=== PATIENT | female | born 1950 | race Caucasian/White ===

== ENCOUNTER 2020-02-09 16:17 | Outpatient (REF) | payer MEDICARE, SELFPAY ==
[2020-02-09 17:37] LABS: MANUAL DIFF FLAG NO
[2020-02-09 17:43] LABS: Basophils Percent Auto 0.4 % (0-2); Eosinophils Absolute Auto 0.2 X10*3/uL (0.0-0.4); Eosinophils Percent Auto 2.8 % (0-4); Hematocrit 37.8 % (37-47); Hemoglobin 12.3 g/dl (12.0-16.0); Imm Gran Abs Auto 0.02 X10*3/uL (0.00-0.03); Imm Gran Pct Auto 0.3 % (0.0-0.4); Lymphocytes Percent Auto 51.2 % (20-40); Mean Corpuscular HGB Conc 32.5 g/dl (31.0-35.0); Mean Corpuscular Hemoglobin 32.6 pg (27.0-33.0); Mean Corpuscular Volume 100.3 fL (80-98); Mean Platelet Volume 11.6 fL (9.4-12.3); Monocytes Percent Auto 12.6 % (2-11); Neutrophils Absolute Auto 2.6 X10*3/uL (2.0-8.3); Neutrophils Percent Auto 32.7 % (45-73); Platelet Count 227 X10*3/uL (160-400); Red Blood Count 3.77 X10*6/uL (4.20-5.50); Red Cell Distribution Width 14.3 % (11.0-16.0); White Blood Count 7.8 X10*3/uL (4.8-10.8)
[2020-02-09 18:06] LABS: C Reactive Protein 0.66 mg/dL (< or = 0.50)
[2020-02-09 18:07] LABS: Alanine Aminotransferase 31 U/L (0-31); Albumin Level 4.3 g/dL (3.5-5.0); Alkaline Phosphatase 80 U/L (39-117); Anion Gap 17 (12-20); Aspartate Amino Transferase 24 U/L (5-31); Bilirubin Total 0.2 mg/dL (0.0-1.0); Blood Urea Nitrogen 30 mg/dL (9-16); Calcium 9.8 mg/dL (8.4-10.2); Carbon Dioxide 22 mmol/L (22-29); Chloride 107 mmol/L (96-108); Estimated Glomerular Filt Rate 28; Glucose Random 140 mg/dL (60-115); Potassium 5.2 mmol/l (3.3-5.1); Sodium 141 mmol/L (135-145); Total Protein 7.5 g/dL (6.5-8.0)
[2020-02-09 18:50] LABS: Erythrocyte Sedimentation Rate 34 MM/HR (0-20)
== END 2020-02-09 16:18 | disposition home or self-care (01) ==
LOC: HO.LAB 16:17
PROVIDERS: PCP Internal Medicine Geriatric Medicine; Visit Provider Student in an Organized Health Care Education/Training Program
DX: M05.9 Rheumatoid arthritis with rheumatoid factor, unspecified (principal)
CPT/HCPCS: 36415; 80053; 85025; 85652; 86140

== ENCOUNTER → 2020-03-21 13:02 | Outpatient (BNVA) | payer MEDICARE, SELFPAY | PROVIDERS: Visit Provider Student in an Organized Health Care Education/Training Program | DX: M05.9 Rheumatoid arthritis with rheumatoid factor, unspecified (principal); M79.7 Fibromyalgia; Z23 Encounter for immunization | CPT/HCPCS: 90471; 90686; 99212 ==

== ENCOUNTER 2020-09-15 14:05 | Outpatient (REF) | payer MEDICARE, SELFPAY ==
--- NOTE | ~2020-09-15 | XR_ITS ---
EXAMINATION: XR CHEST CLINICAL INFORMATION: Rheumatoid arthritis with rheumatoid factor COMPARISON: Previous chest x-ray most recent July 2017 TECHNIQUE: 2 views of the chest were obtained. FINDINGS: The cardiac silhouette is upper normal in size but able. Hilar and mediastinal contours are unremarkable. The lungs are clear. There is no pleural effusion or pneumothorax. There is a mild thoracolumbar scoliosis. Bony structures are otherwise unremarkable. XR/XR chest 2V IMPRESSION: No evidence for acute disease in the chest.
[2020-09-15 15:49] LABS: MANUAL DIFF FLAG NO
[2020-09-15 15:51] LABS: Basophils Percent Auto 0.1 % (0-2); Eosinophils Absolute Auto 0.3 X10*3/uL (0.0-0.4); Eosinophils Percent Auto 2.9 % (0-4); Hematocrit 37.8 % (37-47); Hemoglobin 12.1 g/dl (12.0-16.0); Imm Gran Abs Auto 0.02 X10*3/uL (0.00-0.03); Imm Gran Pct Auto 0.2 % (0.0-0.4); Lymphocytes Absolute Auto 3.5 X10*3/uL (1.2-4.9); Lymphocytes Percent Auto 40.8 % (20-40); Mean Platelet Volume 11.5 fL (9.4-12.3); Monocytes Percent Auto 11.4 % (2-11); Neutrophils Absolute Auto 3.8 X10*3/uL (2.0-8.3); Neutrophils Percent Auto 44.6 % (45-73); Platelet Count 208 X10*3/uL (160-400); Red Blood Count 3.78 X10*6/uL (4.20-5.50); Red Cell Distribution Width 13.7 % (11.0-16.0); White Blood Count 8.6 X10*3/uL (4.8-10.8)
[2020-09-15 16:01] LABS: Estimated Average Glucose 200 mg/dL; Hemoglobin A1c % 8.6 %
[2020-09-15 16:06] LABS: Glucose Urine UA NEG (NEG); Leukocyte Esterase Urine 2+ (NEG); Nitrite Urine NEG (NEG); Urine Blood NEG (NEG); Urine Ketones NEG (NEG); Urine Protein TRACE MG/DL (NEG-TRACE)
[2020-09-15 16:08] LABS: Alanine Aminotransferase 27 U/L (0-31); Albumin Level 4.2 g/dL (3.5-5.0); Alkaline Phosphatase 85 U/L (39-117); Anion Gap 16 (12-20); Aspartate Amino Transferase 21 U/L (5-31); Bilirubin Direct < 0.2 mg/dL (0.0-0.5); Bilirubin Total 0.2 mg/dL (0.0-1.0); Blood Urea Nitrogen 33 mg/dL (9-16); Carbon Dioxide 20 mmol/L (22-29); Chloride 107 mmol/L (96-108); Cholesterol 188 mg/dL; Estimated Glomerular Filt Rate 28; HDL Cholesterol 36 mg/dL; Iron 90 mcg/dL (30-160); Percent Iron Saturation 31 % (15-50); Potassium 5.5 mmol/L (3.3-5.1); Sodium 137 mmol/L (135-145); Total Iron Binding Capacity 293 mcg/dL (228-428); Total Protein 7.5 g/dL (6.5-8.0); Triglycerides 609 mg/dL; Unsaturated Iron Binding 203 ug/dL
[2020-09-15 16:09] LABS: Appearance Urine CLEAR; Color Urine YELLOW
[2020-09-15 16:14] LABS: Uric Acid 7.8 mg/dL (2.4-5.7)
[2020-09-15 16:17] LABS: Alanine Aminotransferase 28 U/L (0-31); Albumin Level 4.3 g/dL (3.5-5.0); Alkaline Phosphatase 91 U/L (39-117); Anion Gap 17 (12-20); Aspartate Amino Transferase 23 U/L (5-31); Bilirubin Total 0.2 mg/dL (0.0-1.0); Blood Urea Nitrogen 33 mg/dL (9-16); C Reactive Protein 0.58 mg/dL (< or = 0.50); Calcium 9.3 mg/dL (8.4-10.2); Carbon Dioxide 20 mmol/L (22-29); Chloride 109 mmol/L (96-108); Estimated Glomerular Filt Rate 29; Glucose Random 202 mg/dL (60-115); Potassium 5.5 mmol/L (3.3-5.1); Sodium 140 mmol/L (135-145); Total Protein 7.4 g/dL (6.5-8.0)
[2020-09-15 16:20] LABS: Bacteria Urine 1+ /LPF; RBC Urine 0-2 /HPF (0); Squamous Epithelial Cell Urine 2+ /LPF
[2020-09-15 16:27] LABS: Vitamin D 25-OH Total 44.3 ng/mL (>30)
[2020-09-15 16:44] LABS: Erythrocyte Sedimentation Rate 38 MM/HR (0-20)
[2020-09-19 13:33] LABS: Calcium (PTHI) 9.3 mg/dL (8.6-10.4); PTHI 75 pg/mL (14-64)
== END 2020-09-15 14:06 | disposition home or self-care (01) ==
LOC: HO.LAB 14:05
PROVIDERS: Absent Provider Internal Medicine Nephrology; PCP Internal Medicine Geriatric Medicine; Visit Provider Student in an Organized Health Care Education/Training Program
DX: N18.32 Chronic kidney disease, stage 3b (principal); M05.9 Rheumatoid arthritis with rheumatoid factor, unspecified; M79.7 Fibromyalgia; R06.00 Dyspnea, unspecified
CPT/HCPCS: 36415; 71046; 80051; 80053; 80061; 80076; 81001; 81003; 82248; 82306; 82310; 82565; 83036; 83540; 83970; 84520; 84550; 85025; 85652; 86140; 99212

== ENCOUNTER 2020-12-18 13:44 | Outpatient (REF) | payer MEDICARE, SELFPAY ==
[2020-12-18 16:01] LABS: MANUAL DIFF FLAG NO
[2020-12-18 16:06] LABS: Basophils Percent Auto 0.3 % (0-2); Eosinophils Absolute Auto 0.3 X10*3/uL (0.0-0.4); Eosinophils Percent Auto 3.9 % (0-4); Hematocrit 39.5 % (37-47); Hemoglobin 12.3 g/dl (12.0-16.0); Imm Gran Abs Auto 0.01 X10*3/uL (0.00-0.03); Imm Gran Pct Auto 0.1 % (0.0-0.4); Lymphocytes Absolute Auto 4.5 X10*3/uL (1.2-4.9); Lymphocytes Percent Auto 56.2 % (20-40); Mean Corpuscular HGB Conc 31.1 g/dl (31.0-35.0); Mean Corpuscular Hemoglobin 31.4 pg (27.0-33.0); Mean Corpuscular Volume 100.8 fL (80-98); Mean Platelet Volume 11.6 fL (9.4-12.3); Monocytes Absolute Auto 0.9 X10*3/uL (0.1-1.2); Monocytes Percent Auto 11.9 % (2-11); Neutrophils Absolute Auto 2.2 X10*3/uL (2.0-8.3); Neutrophils Percent Auto 27.6 % (45-73); Platelet Count 201 X10*3/uL (160-400); Red Blood Count 3.92 X10*6/uL (4.20-5.50); Red Cell Distribution Width 14.4 % (11.0-16.0); White Blood Count 7.9 X10*3/uL (4.8-10.8)
[2020-12-18 16:27] LABS: Alanine Aminotransferase 33 U/L (0-31); Albumin Level 4.4 g/dL (3.5-5.0); Alkaline Phosphatase 74 U/L (39-117); Anion Gap 17 (12-20); Aspartate Amino Transferase 23 U/L (5-31); Bilirubin Total 0.2 mg/dL (0.0-1.0); Blood Urea Nitrogen 29 mg/dL (9-16); C Reactive Protein 0.22 mg/dL (< or = 0.50); Calcium 9.8 mg/dL (8.4-10.2); Carbon Dioxide 26 mmol/L (22-29); Chloride 106 mmol/L (96-108); Estimated Glomerular Filt Rate 27; Glucose Random 200 mg/dL (60-115); Potassium 5.1 mmol/L (3.3-5.1); Sodium 144 mmol/L (135-145); Total Protein 7.8 g/dL (6.5-8.0)
[2020-12-18 16:51] LABS: Erythrocyte Sedimentation Rate 28 MM/HR (0-20)
== END 2020-12-18 13:45 | disposition home or self-care (01) ==
LOC: HO.LAB 13:44
PROVIDERS: PCP Internal Medicine Geriatric Medicine; Visit Provider Nurse Practitioner Family
DX: M05.9 Rheumatoid arthritis with rheumatoid factor, unspecified (principal); M79.7 Fibromyalgia; M25.512 Pain in left shoulder; M25.562 Pain in left knee
CPT/HCPCS: 36415; 80053; 85025; 85652; 86140; 99212

== ENCOUNTER 2021-03-12 12:20 | Outpatient (REF) | payer MEDICARE, SELFPAY ==
[2021-03-12 12:47] LABS: MANUAL DIFF FLAG NO
[2021-03-12 13:23] LABS: Basophils Percent Auto 0.4 % (0-2); Eosinophils Absolute Auto 0.3 X10*3/uL (0.0-0.4); Eosinophils Percent Auto 3.8 % (0-4); Hematocrit 40.2 % (37.0-47.0); Hemoglobin 12.7 g/dl (12.0-16.0); Imm Gran Abs Auto 0.02 X10*3/uL (0.00-0.03); Imm Gran Pct Auto 0.3 % (0.0-0.4); Lymphocytes Absolute Auto 3.8 X10*3/uL (1.2-4.9); Lymphocytes Percent Auto 48.2 % (20-40); Mean Corpuscular HGB Conc 31.6 g/dl (31.0-35.0); Mean Corpuscular Volume 101.3 fL (80.0-98.0); Mean Platelet Volume 11.4 fL (9.4-12.3); Monocytes Absolute Auto 0.9 X10*3/uL (0.1-1.2); Monocytes Percent Auto 11.5 % (2-11); Neutrophils Absolute Auto 2.8 x10*3/uL (2.0-8.3); Neutrophils Percent Auto 35.8 % (45-73); Platelet Count 229 X10*3/uL (160-400); Red Blood Count 3.97 X10*6/uL (4.20-5.50); Red Cell Distribution Width 14.8 % (11.0-16.0); White Blood Count 7.8 X10*3/uL (4.8-10.8)
[2021-03-12 13:44] LABS: Alanine Aminotransferase 21 U/L (0-31); Albumin Level 4.3 g/dL (3.5-5.0); Alkaline Phosphatase 75 U/L (39-117); Anion Gap 14 (12-20); Aspartate Amino Transferase 17 U/L (5-31); Bilirubin Total 0.2 mg/dL (0.0-1.0); Blood Urea Nitrogen 30 mg/dL (9-16); Calcium 9.7 mg/dL (8.4-10.2); Carbon Dioxide 25 mmol/L (22-29); Chloride 108 mmol/L (96-108); Estimated Glomerular Filt Rate 28; Glucose Random 174 mg/dL (60-115); Potassium 4.9 mmol/L (3.3-5.1); Sodium 142 mmol/L (135-145); Total Protein 7.7 g/dL (6.5-8.0)
[2021-03-12 14:28] LABS: Erythrocyte Sedimentation Rate 32 MM/HR (0-20)
== END 2021-03-12 12:21 | disposition home or self-care (01) ==
LOC: HO.LAB 12:20
PROVIDERS: PCP Internal Medicine Geriatric Medicine; Visit Provider Nurse Practitioner Family
DX: M05.9 Rheumatoid arthritis with rheumatoid factor, unspecified (principal)
CPT/HCPCS: 36415; 80053; 85025; 85652; 86140

== ENCOUNTER → 2021-03-20 12:55 | Outpatient (BNVA) | payer MEDICARE, SELFPAY | PROVIDERS: PCP Internal Medicine Geriatric Medicine; Visit Provider Nurse Practitioner Family | DX: M05.9 Rheumatoid arthritis with rheumatoid factor, unspecified (principal); M79.7 Fibromyalgia; M25.512 Pain in left shoulder; M25.562 Pain in left knee; Z88.0 Allergy status to penicillin; Z88.6 Allergy status to analgesic agent; Z79.82 Long term (current) use of aspirin; Z79.84 Long term (current) use of oral hypoglycemic drugs; Z79.899 Other long term (current) drug therapy | CPT/HCPCS: 99212 ==

== ENCOUNTER 2021-06-19 12:33 | Outpatient (REF) | payer MEDICARE, SELFPAY ==
--- NOTE | ~2021-06-19 | XR_ITS ---
EXAMINATION: XR CHEST CLINICAL INFORMATION: Wheezing COMPARISON: Previous chest x-ray August 2020 TECHNIQUE: 2 views of the chest were obtained. FINDINGS: The cardiac and mediastinal contours are stable. The lungs are clear. There is no pleural effusion or pneumothorax. There is curvature of the lower thoracic spine to the left and degenerative changes. XR/XR chest 2V IMPRESSION: No evidence for acute disease in the chest.
--- NOTE | ~2021-06-19 | XR_ITS ---
EXAMINATION: XR SHOULDER, LEFT CLINICAL INFORMATION: Pain COMPARISON: Previous x-ray July 2013 TECHNIQUE: AP external rotation, Grashey, scapular Y, and axillary views of the left shoulder. FINDINGS: No fracture or dislocation is seen. There is severe arthritis at the glenohumeral joint with large osteophytes. The humeral head appears low with respect to the glenoid question related to a joint effusion. There is mild arthritis at the acromioclavicular joint. There is a soft tissue calcification or ossification inferior to the clavicle that is new from prior exam. 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 Mild arthritis at the acromioclavicular joint.
[2021-06-19 14:19] LABS: MANUAL DIFF FLAG NO
[2021-06-19 14:42] LABS: Basophils Percent Auto 0.4 % (0-2); Eosinophils Absolute Auto 0.2 X10*3/uL (0.0-0.4); Eosinophils Percent Auto 3.3 % (0-4); Hematocrit 39.4 % (37.0-47.0); Hemoglobin 12.3 g/dl (12.0-16.0); Imm Gran Abs Auto 0.01 X10*3/uL (0.00-0.03); Imm Gran Pct Auto 0.1 % (0.0-0.4); Lymphocytes Absolute Auto 3.8 X10*3/uL (1.2-4.9); Lymphocytes Percent Auto 52.4 % (20-40); Mean Corpuscular HGB Conc 31.2 g/dl (31.0-35.0); Mean Corpuscular Hemoglobin 31.9 pg (27.0-33.0); Mean Corpuscular Volume 102.3 fL (80.0-98.0); Mean Platelet Volume 11.3 fL (9.4-12.3); Monocytes Absolute Auto 0.9 X10*3/uL (0.1-1.2); Monocytes Percent Auto 12.6 % (2-11); Neutrophils Absolute Auto 2.3 x10*3/uL (2.0-8.3); Neutrophils Percent Auto 31.2 % (45-73); Platelet Count 214 X10*3/uL (160-400); Red Blood Count 3.85 X10*6/uL (4.20-5.50); Red Cell Distribution Width 14.5 % (11.0-16.0); White Blood Count 7.2 X10*3/uL (4.8-10.8)
[2021-06-19 15:08] LABS: Alanine Aminotransferase 19 U/L (0-31); Albumin Level 4.3 g/dL (3.5-5.0); Alkaline Phosphatase 75 U/L (39-117); Anion Gap 13 (12-20); Aspartate Amino Transferase 19 U/L (5-31); Bilirubin Total 0.2 mg/dL (0.0-1.0); Blood Urea Nitrogen 21 mg/dL (9-16); C Reactive Protein 0.14 mg/dL (< or = 0.50); Carbon Dioxide 28 mmol/L (22-29); Chloride 105 mmol/L (96-108); Estimated Glomerular Filt Rate 32; Glucose Random 111 mg/dL (60-115); Potassium 4.9 mmol/L (3.3-5.1); Sodium 141 mmol/L (135-145)
[2021-06-19 15:20] LABS: Erythrocyte Sedimentation Rate 29 MM/HR (0-20)
== END 2021-06-19 12:34 | disposition home or self-care (01) ==
LOC: HO.XRAY 12:33
PROVIDERS: PCP Internal Medicine Geriatric Medicine; Visit Provider Nurse Practitioner Family
DX: M05.9 Rheumatoid arthritis with rheumatoid factor, unspecified (principal); M79.7 Fibromyalgia; M25.512 Pain in left shoulder; M25.562 Pain in left knee; M25.561 Pain in right knee; R09.89 Other specified symptoms and signs involving the circulatory and respiratory systems; R06.2 Wheezing; M54.9 Dorsalgia, unspecified; Z79.899 Other long term (current) drug therapy
CPT/HCPCS: 36415; 71046; 73030; 80053; 85025; 85652; 86140; 99212

== ENCOUNTER → 2021-08-15 14:08 | Outpatient (BNVA) | payer MEDICARE, SELFPAY | PROVIDERS: PCP Internal Medicine Geriatric Medicine; Visit Provider Internal Medicine | DX: R06.00 Dyspnea, unspecified (principal); R09.89 Other specified symptoms and signs involving the circulatory and respiratory systems; M05.9 Rheumatoid arthritis with rheumatoid factor, unspecified | CPT/HCPCS: 99202 ==

== ENCOUNTER 2021-09-05 14:30 | Outpatient (REF) | payer MEDICARE, SELFPAY ==
--- NOTE | ~2021-09-05 | CT_ITS ---
EXAMINATION: CT CHEST WITHOUT CONTRAST, HIGH-RESOLUTION CLINICAL INFORMATION: SOB. COMPARISON: Chest x-ray 06/19/2021. TECHNIQUE: 5 mm thin axial and reformatted 3 mm thin sagittal and coronal images of chest were obtained without contrast. In addition, high-resolution images were obtained 1.5 mm thin. DLP: 154 mGy-cm FINDINGS: Limited exam due to breathing artifact. The lungs are well-expanded but clear of acute pneumonic process. There are mild subpleural hazy opacities in the right upper lobe laterally on axial image 18/14, bilaterally on axial image 29/14, and left lower lobe 40/14. No large consolidation, mass seen. No interlobular interstitial thickening. The heart size and pulmonary vascularity is normal. There is no pericardial effusion seen. No abnormal mediastinal or axillary lymphadenopathy. The thyroid lobes are symmetrical and normal. There is no pericardial effusion. Heart size and the great vessels are normal caliber. The thyroid lobes are slightly asymmetrical but normal. There is no pleural effusion, thickening or calcification. The axilla and chest wall are unremarkable. Imaging through the upper abdomen reveals a large 2.9 cm gallstone. Visualized liver, spleen and bilateral adrenal glands are unremarkable. There is a small calcified splenic artery aneurysm measuring [address]/CT chest wo con - High Res IMPRESSION: Expanded lungs with subpleural hazy opacity right upper lobe, nonspecific. This could be secondary to atelectasis or chronic parenchymal changes. There is no suggestion for interstitial fibrosis. No abnormal mediastinal or axillary lymphadenopathy seen. Large gallstone.
== END 2021-09-05 14:31 | disposition home or self-care (01) ==
LOC: HO.CT 14:30
PROVIDERS: PCP Internal Medicine Geriatric Medicine; Visit Provider Internal Medicine
DX: R09.89 Other specified symptoms and signs involving the circulatory and respiratory systems (principal); R06.00 Dyspnea, unspecified; M05.9 Rheumatoid arthritis with rheumatoid factor, unspecified
CPT/HCPCS: 71250

== ENCOUNTER → 2021-09-19 13:04 | Outpatient (BNVA) | payer MEDICARE, SELFPAY | PROVIDERS: PCP Internal Medicine Geriatric Medicine; Visit Provider Nurse Practitioner Family | DX: M05.9 Rheumatoid arthritis with rheumatoid factor, unspecified (principal); M25.512 Pain in left shoulder; M79.7 Fibromyalgia; M25.562 Pain in left knee; M25.561 Pain in right knee; R09.89 Other specified symptoms and signs involving the circulatory and respiratory systems | CPT/HCPCS: 99212 ==

== ENCOUNTER 2021-12-21 14:16 | Outpatient (REF) | payer OTHER, SELFPAY ==
[2021-12-21 14:38] LABS: MANUAL DIFF FLAG NO
[2021-12-21 15:03] LABS: Basophils Percent Auto 0.4 % (0-2); Eosinophils Absolute Auto 0.3 X10*3/uL (0.0-0.4); Eosinophils Percent Auto 3.4 % (0-4); Hematocrit 39.3 % (37.0-47.0); Hemoglobin 13.2 g/dl (12.0-16.0); Imm Gran Abs Auto 0.03 X10*3/uL (0.00-0.03); Imm Gran Pct Auto 0.3 % (0.0-0.4); Lymphocytes Absolute Auto 3.8 X10*3/uL (1.2-4.9); Lymphocytes Percent Auto 42.3 % (20-40); Mean Corpuscular HGB Conc 33.6 g/dl (31.0-35.0); Mean Corpuscular Hemoglobin 32.5 pg (27.0-33.0); Mean Corpuscular Volume 96.8 fL (80.0-98.0); Mean Platelet Volume 10.9 fL (9.4-12.3); Monocytes Absolute Auto 0.7 X10*3/uL (0.1-1.2); Monocytes Percent Auto 8.2 % (2-11); Neutrophils Percent Auto 45.4 % (45-73); Platelet Count 241 X10*3/uL (160-400); Red Blood Count 4.06 X10*6/uL (4.20-5.50); Red Cell Distribution Width 14.6 % (11.0-16.0); White Blood Count 8.9 X10*3/uL (4.8-10.8)
[2021-12-21 15:28] LABS: Alanine Aminotransferase 26 U/L (0-31); Aspartate Amino Transferase 21 U/L (5-31); C Reactive Protein 0.43 mg/dL (< or = 0.50); Estimated Glomerular Filt Rate 24
[2021-12-21 15:42] LABS: Erythrocyte Sedimentation Rate 32 MM/HR (0-20)
== END 2021-12-21 14:17 | disposition home or self-care (01) ==
LOC: HO.LAB 14:16
PROVIDERS: PCP Internal Medicine Geriatric Medicine; Visit Provider Nurse Practitioner Family
DX: M05.9 Rheumatoid arthritis with rheumatoid factor, unspecified (principal); R09.89 Other specified symptoms and signs involving the circulatory and respiratory systems; M25.512 Pain in left shoulder; M79.7 Fibromyalgia; M25.562 Pain in left knee; M25.561 Pain in right knee; Z79.899 Other long term (current) drug therapy
CPT/HCPCS: 36415; 82565; 84450; 84460; 85025; 85652; 86140; 99212

== ENCOUNTER 2022-04-26 16:44 | Inpatient (IN) | payer OTHER, SELFPAY ==
--- NOTE | ~2022-04-26 | XR_ITS ---
EXAMINATION: XR CHEST CLINICAL INFORMATION: Fever. COMPARISON: 06/19/2021 chest radiographs. TECHNIQUE: Frontal view of the chest was obtained. FINDINGS: No significant abnormality is noted involving the heart, lungs, mediastinum, bony thorax or soft tissues. XR/XR chest 1V IMPRESSION: No acute cardiopulmonary process.
--- NOTE | ~2022-04-26 | NM_ITS ---
EXAMINATION: NM LUNG IMAGE PERFUSION CLINICAL INFORMATION: Short of breath. Covid positive. COMPARISON: None TECHNIQUE: Following intravenous administration of 4 mCi of 99m technetium MAA, imaging of both lungs were obtained in multiple projections. Ventilation study was not performed. FINDINGS: On perfusion exam there is normal flow seen to all segments of both lungs without any segmental or nonsegmental defect. NM/NM pul perfusion IMPRESSION: Normal perfusion scan. Ventilation study was not performed.
--- NOTE | ~2022-04-26 | US_ITS ---
EXAMINATION: US VENOUS ULTRASOUND WITH DOPPLER LOWER EXTREMITY, BILATERAL CLINICAL INFORMATION: Shortness of breath, rule out pulmonary embolism. COMPARISON: None TECHNIQUE: Ultrasound of the deep veins is performed from the hip to the calf with compression sonography and color and pulse Doppler assessment. Spectral analysis with color-flow imaging is performed. FINDINGS: RIGHT: There is normal venous compression and respiratory variation and augmented flow. The visualized common femoral vein, superficial femoral vein, profunda femoral vein, popliteal vein, and the trifurcation region shows no evidence of deep venous thrombosis. No right popliteal cyst. The subcutaneous soft tissues are unremarkable. LEFT: There is normal venous compression and respiratory variation and augmented flow. The visualized common femoral vein, superficial femoral vein, profunda femoral vein, popliteal vein, and the trifurcation region shows no evidence of deep venous thrombosis. No left popliteal cyst. The subcutaneous soft tissues are unremarkable. US/US venous duplex LE BI IMPRESSION: No evidence for deep venous thrombosis in the visualized veins of the bilateral lower extremities.
[2022-04-26 16:53] VITALS: BP 110/68; BP 125/63; PULSE 140; PULSE 142; RESP 20; TEMP 38.8; O2SAT 90; O2SAT 92; BMI 30.9
[2022-04-26] MEDS: 0.9 % Sodium Chloride 2,000 ML 999 ML IVCONT (16:58)
--- NOTE | 2022-04-26 16:58 | ECG_ITS ---
Test Reason : UNRESPONSIVE Blood Pressure : / mmHG Vent. Rate : 135 BPM Atrial Rate : 135 BPM P-R Int : 132 ms QRS Dur : 068 ms QT Int : 288 ms P-R-T Axes : 023 -01 -80 degrees QTc Int : 432 ms Sinus tachycardia Nonspecific T wave abnormality Abnormal ECG When compared with ECG of 06-APR-2018 02:27, Vent. rate has increased BY 52 BPM Referred By: Mary Ann Triplett Electronically Signed By:RAUL NASSAR
[2022-04-26] MEDS: Acetaminophen Supp 650 MG SUPP.RECT PR (17:05)
--- NOTE | 2022-04-26 17:05 | ED_ITS ---
HPI - General Adult General Chief complaint: Altered Mental Status Stated complaint: AMS, fever x 2days, hot to touch per EMS Time Seen by Provider: 04/26/22 16:52 Source: EMS Mode of arrival: EMS Limitations: altered mental status History of Present Illness HPI narrative: Patient comes to the emergency room via ambulance from home. Patient usually lives by herself, her children check on her every day. They noticed that for the last 2 days, patient was not doing her usual activities, they check on her, patient was found today with altered mental status and very hot to touch. Patient awake, answering yes no questions, which is not like her. Patient denies any chest pain abdominal pain UTI or URI symptoms Related Data Home Medications Medication Instructions Recorded Confirmed allopurinol 100 mg tablet 100 mg PO DAILY 03/21/20 12/21/21 amlodipine 5 mg tablet 5 mg PO DAILY 03/21/20 12/21/21 atorvastatin 20 mg tablet 20 mg PO DAILY 03/21/20 12/21/21 chlorthalidone 25 mg tablet 25 mg PO DAILY 03/21/20 12/21/21 cholecalciferol (vitamin D3) 25 25 mcg PO DAILY 03/21/20 12/21/21 mcg (1,000 unit) capsule levothyroxine 50 mcg tablet 50 mcg PO DAILY 03/21/20 12/21/21 lisinopril 40 mg tablet 40 mg PO DAILY 03/21/20 12/21/21 metformin 500 mg tablet 500 mg PO TID 03/21/20 12/21/21 metoprolol tartrate 100 mg tablet 100 mg PO BID 03/21/20 12/21/21 cyanocobalamin (vitamin B-12) 1,000 mcg PO DAILY 06/19/21 12/21/21 1,000 mcg tablet ferrous sulfate 325 mg (65 mg 325 mg PO TID 06/19/21 12/21/21 iron) tablet Previous Rx's Medication Instructions Recorded acetaminophen 650 mg 650 mg PO Q8H PRN for pain #90 tabs 06/19/21 tablet,extended release leflunomide 10 mg tablet 10 mg PO DAILY #90 tabs 07/16/21 pregabalin 75 mg capsule 75 mg PO BID #60 caps 01/03/22 adalimumab 40 mg/0.4 mL 40 mg (0.4 mL) subcut Q2W #2 ea 03/06/22 subcutaneous pen kit (Humira(CF) Pen) Allergies Allergy/AdvReac Type Severity Reaction Status Date / Time Penicillins [PENICILLINS] Allergy Severe RASH Verified 12/21/21 13:40 From PERCOCET Allergy Severe RASH Uncoded 12/21/21 13:40 Review of Systems 2 Review of Systems: Yes Unobtainable due to mental condition [facility] Past Medical History Medical History Fibromyalgia Seropositive rheumatoid arthritis Surgical History Hx of hysterectomy Family History Family History Mother Asthma Father CVD (cardiovascular disease) Brother HTN (hypertension) Diabetes Social History Social History Alcohol intake: never Patient Tobacco Use Status: Never used Tobacco e-Cigarette/Vaping Use: Never Used Advance Directives: No Advance Directives Information Provided: No Physical Exam ED Vital Signs: Vital Signs - 24 hr 04/26/22 16:53 04/26/22 17:34 04/26/22 17:48 Temperature 102 F H Pulse Rate 142 H 135 H 137 H Respiratory Rate 20 15 15 Blood Pressure 125/63 104/34 L 108/46 L Pulse Oximetry 92 96 95 Oxygen Delivery Method Room Air 04/26/22 18:52 04/26/22 21:05 04/26/22 22:00 Temperature 98.9 F 99.9 F 98.9 F Pulse Rate 129 H 129 H 132 H Respiratory Rate 16 22 H 18 Blood Pressure 116/65 113/58 L 127/66 Pulse Oximetry 93 97 99 Oxygen Delivery Method Room Air Room Air Room Air BMI result Body Mass Index 30.9 Const Other: Appearance: Alert. Altered, No acute distress. Eyes: Pupils equal, round and reactive to light. ENT: Pharynx normal. Dry oral mucosa Neck: Normal inspection. Neck supple. No lymph nodes noted. No crepitus CVS: Normal heart rate and rhythm. Pulses normal. Normal S1 and S2 Respiratory: No respiratory distress. Breath sounds normal. No Wheezing. No rales Abdomen: Soft and nontender. No rigidity. No distention. Skin: Skin very warm to touch Extremities: No lower extremity edema. No Lacerations. No Rash Neuro:No slurred speech. CN 2 through 12 grossly intact Psych: calm, altered Course Course Course Narrative: Patient likely has an infection, unclear source at the moment, all of patient's labs are pending. Patient is started on IV fluids, fluids will be given based on ideal weight of 45 kg, patient is morbidly obese Patient tested positive for COVID-19. After a fluid, patient awake, alert and oriented x4. Patient states that she feels much better. Family at bedside, states that she seems to be mentally at baseline. However, patient remains tachycardic in the 130s despite not having fever. Patient will receive more fluids. D-dimer pending. Patient denies chest pain or shortness of breath. D-dimer is elevated, patient has acute on chronic kidney disease. Patient will need a V/Q scan in the morning. Patient not hypoxic at this time, however patient does remain tachycardic despite a 2 L of fluid. Patient not hypoxic, oxygen saturation 99% on room air Medications Administered Generic Name Dose Route Start Last Admin Trade Name Freq PRN Reason Stop Dose Admin Sodium Chloride 1,000 mls @ 999 mls/hr 04/26/22 21:24 04/26/22 21:43 Ns IVCONT 04/26/22 22:24 999 mls/hr .Q1H1M ONE Administration Discontinued Medications Generic Name Dose Route Start Last Admin Trade Name Freq PRN Reason Stop Dose Admin Acetaminophen 650 mg 04/26/22 17:02 04/26/22 17:05 Acetaminophen Supp 650 Mg Supp.Rect VA 04/26/22 17:03 650 mg ONCE ONE Administration Sodium Chloride 2,000 mls @ 999 mls/hr 04/26/22 16:58 04/26/22 19:11 Ns IVCONT 04/26/22 18:58 Infused .Q2H1M ONE Infusion Medical Decision Making Differential Diagnosis Differential Diagnoses: The differential diagnosis associated with the presentation includes (COVID, influenza, encephalopathy) Admission/Observation Consideration of admission/observation: Escalation of care including admission/observation considered (Patient will need a V/Q scan in the morning. Patient is still slightly confused but much better than when patient initially arrived) Consult Healthcare Provider Management of the patient was discussed with: Hospitalist (I discussed the patient with Dr. Nava who agrees to admit the patient) Lab Data MDM Lab Attestation statement: I reviewed the patient's lab results. 04/26/22 17:05 04/26/22 17:05 Labs: Lab Results 04/26/22 04/26/22 04/26/22 Range/Units 17:05 17:05 17:05 WBC 10.2 (4.8-10.8) X10*3/uL RBC 3.78 L (4.20-5.50) X10*6/uL Hgb 12.0 (12.0-16.0) g/dl Hct 36.2 L (37.0-47.0) % MCV 95.8 (80.0-98.0) fL MCH 31.7 (27.0-33.0) pg MCHC 33.1 (31.0-35.0) g/dl RDW 15.5 (11.0-16.0) % Plt Count 242 (160-400) X10*3/uL MPV 11.5 (9.4-12.3) fL Immature Gran % (Auto) 0.9 H (0.0-0.4) % Neut % (Auto) 71.2 (45-73) % Lymph % (Auto) 15.2 L (20-40) % Gooding % (Auto) 12.5 H (2-11) % Eos % (Auto) 0.0 (0-4) % Baso % (Auto) 0.2 (0-2) % Lymph # (Auto) 1.6 (1.2-4.9) X10*3/uL Gooding # (Auto) 1.3 H (0.1-1.2) X10*3/uL Eos # (Auto) 0.0 (0.0-0.4) X10*3/uL Baso # (Auto) 0.0 (0.0-0.2) X10*3/uL Abs Immat Gran (auto) 0.09 H (0.00-0.03) X10*3/uL Absolute Neuts (auto) 7.2 (2.0-8.3) x10*3/uL Absolute Nucleated RBC 0.000 (0.0-0.012) X10*3/uL Nucleated RBC % (auto) 0.0 (0.0-0.2) /100WBC PT (10.0-13.1) SEC INR (0.9-1.1) D-Dimer High Sensitivty NG/ML Sodium 143 (135-145) mmol/L Potassium 4.9 (3.3-5.1) mmol/L Chloride 111 H (96-108) mmol/L Carbon Dioxide 17 L (22-29) mmol/L Anion Gap 20 (12-20) BUN 41 H (9-16) mg/dL Creatinine 2.56 H (0.5-1.4) mg/dL Estim Creat Clear Calc 18.0 Estimated GFR 19 Random Glucose 156 H (60-115) mg/dL Lactic Acid (0.5-2.0) mmol/L Calcium 8.8 D (8.4-10.2) mg/dL Magnesium 1.5 L (1.6-2.6) mg/dL Total Bilirubin 0.2 (0.0-1.0) mg/dL Direct Bilirubin < 0.2 (0.0-0.5) mg/dL AST 20 (5-31) U/L ALT 14 (0-31) U/L Alkaline Phosphatase 84 (39-117) U/L Ammonia (13-55) umol/L Troponin I High Sens 33.3 H (<3.5-17.0) ng/L B-Natriuretic Peptide (<100) pg/mL Total Protein 7.3 (6.5-8.0) g/dL Albumin 3.8 (3.5-5.0) g/dL Lipase 12 (8-78) U/L TSH (0.32-4.0) uIU/mL Urine Color Urine Appearance Urine pH (5.0-9.0) Ur Specific [place] (1.005-1.025) Urine Protein (Neg-Trace) mg/dL Urine Glucose (UA) (Negative) mg/dL Urine Ketones (Negative) mg/dL Urine Blood (Negative) Urine Nitrite (Negative) Ur Leukocyte Esterase (Negative) Urine RBC (0-2) /HPF Urine WBC (0-5) /HPF Ur Squamous Epith Cells (0-2) /HPF Urine Bacteria (None Seen) Hyaline Casts (0-2) /LPF Salicylates < 5.0 L (15-30) mg/dL Urine Opiates Screen (Not Detect) Urine Fentanyl Screen (Not Detect) Acetaminophen < 17 (<30) mcg/mL Ur Barbiturates Screen (Not Detect) Ur Phencyclidine Scrn (Not Detect) Ur Amphetamines Screen (Not Detect) U Benzodiazepines Scrn (Not Detect) Urine Cocaine Screen (Not Detect) U Marijuana (THC) Screen (Not Detect) Ethyl Alcohol mg/dL COVID-19 ([place]) (Negative) COVID-19 Clin Com Influenza Type A ([facility]) (Negative) Influenza Type B ([facility]) (Negative) Influenza A & B Note 04/26/22 04/26/22 04/26/22 Range/Units 17:05 17:05 17:05 WBC (4.8-10.8) X10*3/uL RBC (4.20-5.50) X10*6/uL Hgb (12.0-16.0) g/dl Hct (37.0-47.0) % MCV (80.0-98.0) fL MCH (27.0-33.0) pg MCHC (31.0-35.0) g/dl RDW (11.0-16.0) % Plt Count (160-400) X10*3/uL MPV (9.4-12.3) fL Immature Gran % (Auto) (0.0-0.4) % Neut % (Auto) (45-73) % Lymph % (Auto) (20-40) % Gooding % (Auto) (2-11) % Eos % (Auto) (0-4) % Baso % (Auto) (0-2) % Lymph # (Auto) (1.2-4.9) X10*3/uL [place] # (Auto) (0.1-1.2) X10*3/uL Eos # (Auto) (0.0-0.4) X10*3/uL Baso # (Auto) (0.0-0.2) X10*3/uL Abs Immat Gran (auto) (0.00-0.03) X10*3/uL Absolute Neuts (auto) (2.0-8.3) x10*3/uL Absolute Nucleated RBC (0.0-0.012) X10*3/uL Nucleated RBC % (auto) (0.0-0.2) /100WBC PT 12.2 (10.0-13.1) SEC INR 1.1 (0.9-1.1) D-Dimer High Sensitivty 303 NG/ML Sodium (135-145) mmol/L Potassium (3.3-5.1) mmol/L Chloride (96-108) mmol/L Carbon Dioxide (22-29) mmol/L Anion Gap (12-20) BUN (9-16) mg/dL Creatinine (0.5-1.4) mg/dL Estim Creat Clear Calc Estimated GFR Random Glucose (60-115) mg/dL Lactic Acid (0.5-2.0) mmol/L Calcium (8.4-10.2) mg/dL Magnesium (1.6-2.6) mg/dL Total Bilirubin (0.0-1.0) mg/dL Direct Bilirubin (0.0-0.5) mg/dL AST (5-31) U/L ALT (0-31) U/L Alkaline Phosphatase (39-117) U/L Ammonia (13-55) umol/L Troponin I High Sens (<3.5-17.0) ng/L B-Natriuretic Peptide (<100) pg/mL Total Protein (6.5-8.0) g/dL Albumin (3.5-5.0) g/dL Lipase (8-78) U/L TSH (0.32-4.0) uIU/mL Urine Color Urine Appearance Urine pH (5.0-9.0) Ur Specific [place] (1.005-1.025) Urine Protein (Neg-Trace) mg/dL Urine Glucose (UA) (Negative) mg/dL Urine Ketones (Negative) mg/dL Urine Blood (Negative) Urine Nitrite (Negative) Ur Leukocyte Esterase (Negative) Urine RBC (0-2) /HPF Urine WBC (0-5) /HPF Ur Squamous Epith Cells (0-2) /HPF Urine Bacteria (None Seen) Hyaline Casts (0-2) /LPF Salicylates (15-30) mg/dL Urine Opiates Screen (Not Detect) Urine Fentanyl Screen (Not Detect) Acetaminophen (<30) mcg/mL Ur Barbiturates Screen (Not Detect) Ur Phencyclidine Scrn (Not Detect) Ur Amphetamines Screen (Not Detect) U Benzodiazepines Scrn (Not Detect) Urine Cocaine Screen (Not Detect) U Marijuana (THC) Screen (Not Detect) Ethyl Alcohol mg/dL COVID-19 ([place]) Positive A (Negative) COVID-19 Clin Com See Note Influenza Type A ([facility]) Negative (Negative) Influenza Type B ([facility]) Negative (Negative) Influenza A & B Note See Note 04/26/22 04/26/22 04/26/22 Range/Units 17:05 17:05 17:05 WBC (4.8-10.8) X10*3/uL RBC (4.20-5.50) X10*6/uL Hgb (12.0-16.0) g/dl Hct (37.0-47.0) % MCV (80.0-98.0) fL MCH (27.0-33.0) pg MCHC (31.0-35.0) g/dl RDW (11.0-16.0) % Plt Count (160-400) X10*3/uL MPV (9.4-12.3) fL Immature Gran % (Auto) (0.0-0.4) % Neut % (Auto) (45-73) % Lymph % (Auto) (20-40) % Gooding % (Auto) (2-11) % Eos % (Auto) (0-4) % Baso % (Auto) (0-2) % Lymph # (Auto) (1.2-4.9) X10*3/uL [place] # (Auto) (0.1-1.2) X10*3/uL Eos # (Auto) (0.0-0.4) X10*3/uL Baso # (Auto) (0.0-0.2) X10*3/uL Abs Immat Gran (auto) (0.00-0.03) X10*3/uL Absolute Neuts (auto) (2.0-8.3) x10*3/uL Absolute Nucleated RBC (0.0-0.012) X10*3/uL Nucleated RBC % (auto) (0.0-0.2) /100WBC PT (10.0-13.1) SEC INR (0.9-1.1) D-Dimer High Sensitivty NG/ML Sodium (135-145) mmol/L Potassium (3.3-5.1) mmol/L Chloride (96-108) mmol/L Carbon Dioxide (22-29) mmol/L Anion Gap (12-20) BUN (9-16) mg/dL Creatinine (0.5-1.4) mg/dL Estim Creat Clear Calc Estimated GFR Random Glucose (60-115) mg/dL Lactic Acid 1.3 (0.5-2.0) mmol/L Calcium (8.4-10.2) mg/dL Magnesium (1.6-2.6) mg/dL Total Bilirubin (0.0-1.0) mg/dL Direct Bilirubin (0.0-0.5) mg/dL AST (5-31) U/L ALT (0-31) U/L Alkaline Phosphatase (39-117) U/L Ammonia (13-55) umol/L Troponin I High Sens (<3.5-17.0) ng/L B-Natriuretic Peptide 84 (<100) pg/mL Total Protein (6.5-8.0) g/dL Albumin (3.5-5.0) g/dL Lipase (8-78) U/L TSH (0.32-4.0) uIU/mL Urine Color Urine Appearance Urine pH (5.0-9.0) Ur Specific [place] (1.005-1.025) Urine Protein (Neg-Trace) mg/dL Urine Glucose (UA) (Negative) mg/dL Urine Ketones (Negative) mg/dL Urine Blood (Negative) Urine Nitrite (Negative) Ur Leukocyte Esterase (Negative) Urine RBC (0-2) /HPF Urine WBC (0-5) /HPF Ur Squamous Epith Cells (0-2) /HPF Urine Bacteria (None Seen) Hyaline Casts (0-2) /LPF Salicylates (15-30) mg/dL Urine Opiates Screen (Not Detect) Urine Fentanyl Screen (Not Detect) Acetaminophen (<30) mcg/mL Ur Barbiturates Screen (Not Detect) Ur Phencyclidine Scrn (Not Detect) Ur Amphetamines Screen (Not Detect) U Benzodiazepines Scrn (Not Detect) Urine Cocaine Screen (Not Detect) U Marijuana (THC) Screen (Not Detect) Ethyl Alcohol < 10 mg/dL COVID-19 ([place]) (Negative) COVID-19 Clin Com Influenza Type A ([facility]) (Negative) Influenza Type B ([facility]) (Negative) Influenza A & B Note 04/26/22 04/26/22 04/26/22 Range/Units 17:05 17:23 17:23 WBC (4.8-10.8) X10*3/uL RBC (4.20-5.50) X10*6/uL Hgb (12.0-16.0) g/dl Hct (37.0-47.0) % MCV (80.0-98.0) fL MCH (27.0-33.0) pg MCHC (31.0-35.0) g/dl RDW (11.0-16.0) % Plt Count (160-400) X10*3/uL MPV (9.4-12.3) fL Immature Gran % (Auto) (0.0-0.4) % Neut % (Auto) (45-73) % Lymph % (Auto) (20-40) % Gooding % (Auto) (2-11) % Eos % (Auto) (0-4) % Baso % (Auto) (0-2) % Lymph # (Auto) (1.2-4.9) X10*3/uL [place] # (Auto) (0.1-1.2) X10*3/uL Eos # (Auto) (0.0-0.4) X10*3/uL Baso # (Auto) (0.0-0.2) X10*3/uL Abs Immat Gran (auto) (0.00-0.03) X10*3/uL Absolute Neuts (auto) (2.0-8.3) x10*3/uL Absolute Nucleated RBC (0.0-0.012) X10*3/uL Nucleated RBC % (auto) (0.0-0.2) /100WBC PT (10.0-13.1) SEC INR (0.9-1.1) D-Dimer High Sensitivty NG/ML Sodium (135-145) mmol/L Potassium (3.3-5.1) mmol/L Chloride (96-108) mmol/L Carbon Dioxide (22-29) mmol/L Anion Gap (12-20) BUN (9-16) mg/dL Creatinine (0.5-1.4) mg/dL Estim Creat Clear Calc Estimated GFR Random Glucose (60-115) mg/dL Lactic Acid (0.5-2.0) mmol/L Calcium (8.4-10.2) mg/dL Magnesium (1.6-2.6) mg/dL Total Bilirubin (0.0-1.0) mg/dL Direct Bilirubin (0.0-0.5) mg/dL AST (5-31) U/L ALT (0-31) U/L Alkaline Phosphatase (39-117) U/L Ammonia (13-55) umol/L Troponin I High Sens (<3.5-17.0) ng/L B-Natriuretic Peptide (<100) pg/mL Total Protein (6.5-8.0) g/dL Albumin (3.5-5.0) g/dL Lipase (8-78) U/L TSH 0.42 (0.32-4.0) uIU/mL Urine Color Yellow Urine Appearance Clear Urine pH 5.5 (5.0-9.0) Ur Specific [place] 1.020 (1.005-1.025) Urine Protein 100 (2+) H (Neg-Trace) mg/dL Urine Glucose (UA) Negative (Negative) mg/dL Urine Ketones 15 (Negative) mg/dL Urine Blood Negative (Negative) Urine Nitrite Negative (Negative) Ur Leukocyte Esterase Negative (Negative) Urine RBC 0-2 (0-2) /HPF Urine WBC 0-5 (0-5) /HPF Ur Squamous Epith Cells 0-2 (0-2) /HPF Urine Bacteria None Seen (None Seen) Hyaline Casts 11-20 (0-2) /LPF Salicylates (15-30) mg/dL Urine Opiates Screen Not Detected (Not Detect) Urine Fentanyl Screen Not Detected (Not Detect) Acetaminophen (<30) mcg/mL Ur Barbiturates Screen Not Detected (Not Detect) Ur Phencyclidine Scrn Not Detected (Not Detect) Ur Amphetamines Screen Not Detected (Not Detect) U Benzodiazepines Scrn Not Detected (Not Detect) Urine Cocaine Screen Not Detected (Not Detect) U Marijuana (THC) Screen Not Detected (Not Detect) Ethyl Alcohol mg/dL COVID-19 ([place]) (Negative) COVID-19 Clin Com Influenza Type A ([facility]) (Negative) Influenza Type B ([facility]) (Negative) Influenza A & B Note 01/06/23 01/06/23 01/06/23 Range/Units 17:46 21:04 21:04 WBC (4.8-10.8) X10*3/uL RBC (4.20-5.50) X10*6/uL Hgb (12.0-16.0) g/dl Hct (37.0-47.0) % MCV (80.0-98.0) fL MCH (27.0-33.0) pg MCHC (31.0-35.0) g/dl RDW (11.0-16.0) % Plt Count (160-400) X10*3/uL MPV (9.4-12.3) fL Immature Gran % (Auto) (0.0-0.4) % Neut % (Auto) (45-73) % Lymph % (Auto) (20-40) % [place] % (Auto) (2-11) % Eos % (Auto) (0-4) % Baso % (Auto) (0-2) % Lymph # (Auto) (1.2-4.9) X10*3/uL [place] # (Auto) (0.1-1.2) X10*3/uL Eos # (Auto) (0.0-0.4) X10*3/uL Baso # (Auto) (0.0-0.2) X10*3/uL Abs Immat Gran (auto) (0.00-0.03) X10*3/uL Absolute Neuts (auto) (2.0-8.3) x10*3/uL Absolute Nucleated RBC (0.0-0.012) X10*3/uL Nucleated RBC % (auto) (0.0-0.2) /100WBC PT (10.0-13.1) SEC INR (0.9-1.1) D-Dimer High Sensitivty NG/ML Sodium 144 (135-145) mmol/L Potassium 4.5 (3.3-5.1) mmol/L Chloride 113 H (96-108) mmol/L Carbon Dioxide 19 L (22-29) mmol/L Anion Gap 17 (12-20) BUN 38 H (9-16) mg/dL Creatinine 2.34 H (0.5-1.4) mg/dL Estim Creat Clear Calc 19.7 Estimated GFR 21 Random Glucose 133 H (60-115) mg/dL Lactic Acid (0.5-2.0) mmol/L Calcium 8.6 (8.4-10.2) mg/dL Magnesium (1.6-2.6) mg/dL Total Bilirubin (0.0-1.0) mg/dL Direct Bilirubin (0.0-0.5) mg/dL AST (5-31) U/L ALT (0-31) U/L Alkaline Phosphatase (39-117) U/L Ammonia 24 (13-55) umol/L Troponin I High Sens 47.0 H (<3.5-17.0) ng/L B-Natriuretic Peptide (<100) pg/mL Total Protein (6.5-8.0) g/dL Albumin (3.5-5.0) g/dL Lipase (8-78) U/L TSH (0.32-4.0) uIU/mL Urine Color Urine Appearance Urine pH (5.0-9.0) Ur Specific [place] (1.005-1.025) Urine Protein (Neg-Trace) mg/dL Urine Glucose (UA) (Negative) mg/dL Urine Ketones (Negative) mg/dL Urine Blood (Negative) Urine Nitrite (Negative) Ur Leukocyte Esterase (Negative) Urine RBC (0-2) /HPF Urine WBC (0-5) /HPF Ur Squamous Epith Cells (0-2) /HPF Urine Bacteria (None Seen) Hyaline Casts (0-2) /LPF Salicylates (15-30) mg/dL Urine Opiates Screen (Not Detect) Urine Fentanyl Screen (Not Detect) Acetaminophen (<30) mcg/mL Ur Barbiturates Screen (Not Detect) Ur Phencyclidine Scrn (Not Detect) Ur Amphetamines Screen (Not Detect) U Benzodiazepines Scrn (Not Detect) Urine Cocaine Screen (Not Detect) U Marijuana (THC) Screen (Not Detect) Ethyl Alcohol mg/dL COVID-19 ([place]) (Negative) COVID-19 Clin Com Influenza Type A ([facility]) (Negative) Influenza Type B ([facility]) (Negative) Influenza A & B Note Independent Interpretation I performed an independent interpretation of an: EKG (My EKG interpretation: Sinus tachycardia, heart rate 135, no ST segment depression or elevation, no T- wave inversion, QTC 432) and Plain X-Ray (Chest x-ray my interpretation: No infiltrates) Radiology Impression Discussion of test interpretation with radiology: I have reviewed the radiologist's reading. Radiologist Impression: FINDINGS: No significant abnormality is noted involving the heart, lungs, mediastinum, bony thorax or soft tissues. XR/XR chest 1V IMPRESSION: No acute cardiopulmonary process. Independent Historian Clinical information obtained from an independent historian. History obtained from or confirmed by: EMS (Patient encephalopathic, cannot provide significant history) Critical Care Time Critical Care Time Critical Care Time: Yes Total Critical Care Time: 60 Attestation: I have personally provided critical care time. Time includes review of lab data, radiology results, discussion with consultants, and monitoring for potential decompensation. Intervention performed as documented. Discharge Plan Discharge Clinical Impression: COVID-19, Encephalopathy, Acute kidney injury superimposed on CKD, Elevated d- dimer Patient Disposition: Admitted As Inpatient Prescriptions: No Action leflunomide 10 mg tablet 10 mg PO DAILY Qty: 90 0RF pregabalin 75 mg capsule 75 mg PO BID Qty: 60 5RF Humira(CF) Pen 40 mg/0.4 mL pen injector kit 40 mg subcut Q2W Qty: 2 2RF chlorthalidone 25 mg tablet 25 mg PO DAILY allopurinol 100 mg tablet 100 mg PO DAILY atorvastatin 20 mg tablet 20 mg PO DAILY cholecalciferol (vitamin D3) 25 mcg (1,000 unit) capsule 25 mcg PO DAILY amlodipine 5 mg tablet 5 mg PO DAILY levothyroxine 50 mcg tablet 50 mcg PO DAILY metoprolol tartrate 100 mg tablet 100 mg PO BID lisinopril 40 mg tablet 40 mg PO DAILY metformin 500 mg tablet 500 mg PO TID ferrous sulfate 325 mg (65 mg iron) tablet 325 mg PO TID cyanocobalamin (vitamin B-12) 1,000 mcg tablet 1,000 mcg PO DAILY acetaminophen 650 mg tablet extended release 650 mg PO Q8H PRN (Reason: for pain) Qty: 90 5RF
[2022-04-26 17:32] LABS: Basophils Percent Auto 0.2 % (0-2); Hematocrit 36.2 % (37.0-47.0); Imm Gran Abs Auto 0.09 X10*3/uL (0.00-0.03); Imm Gran Pct Auto 0.9 % (0.0-0.4); Lymphocytes Absolute Auto 1.6 X10*3/uL (1.2-4.9); Lymphocytes Percent Auto 15.2 % (20-40); MANUAL DIFF FLAG NO; Mean Corpuscular HGB Conc 33.1 g/dl (31.0-35.0); Mean Corpuscular Hemoglobin 31.7 pg (27.0-33.0); Mean Corpuscular Volume 95.8 fL (80.0-98.0); Mean Platelet Volume 11.5 fL (9.4-12.3); Monocytes Absolute Auto 1.3 X10*3/uL (0.1-1.2); Monocytes Percent Auto 12.5 % (2-11); Neutrophils Absolute Auto 7.2 x10*3/uL (2.0-8.3); Neutrophils Percent Auto 71.2 % (45-73); Platelet Count 242 X10*3/uL (160-400); Red Blood Count 3.78 X10*6/uL (4.20-5.50); Red Cell Distribution Width 15.5 % (11.0-16.0); White Blood Count 10.2 X10*3/uL (4.8-10.8)
[2022-04-26 17:34] VITALS: BP 104/34; PULSE 135; RESP 15; O2SAT 96
[2022-04-26 17:39] LABS: Appearance Urine Clear; Color Urine Yellow; Glucose Urine UA Negative (Negative); Leukocyte Esterase Urine Negative (Negative); Nitrite Urine Negative (Negative); PH 5.5 (5.0-9.0); UMIC TRIGGER UACC YES; Urine Blood Negative (Negative); Urine Ketones 15 mg/dL (Negative); Urine Protein 100 (2+) mg/dL (Neg-Trace)
[2022-04-26 17:45] LABS: Lactic Acid 1.3 mmol/L (0.5-2.0)
[2022-04-26 17:48] VITALS: BP 108/46; PULSE 137; RESP 15; O2SAT 95
[2022-04-26 17:48] LABS: INTERNATIONAL NORM RATIO 1.1 (0.9-1.1); Prothrombin Time 12.2 SEC (10.0-13.1)
--- NOTE | 2022-04-26 17:48 | PC.NURSE ---
now in at bedside. Patient more awake and oriented at this time.
[2022-04-26 17:51] LABS: Amphetamine Screen Urine Not Detected (Not Detect); Barbiturates, Urine Not Detected (Not Detect); Benzodiazepines Screen Urine Not Detected (Not Detect); Cannabinoid Screen Urine Not Detected (Not Detect); Cocaine Screen Urine Not Detected (Not Detect); Fentanyl, urine Not Detected (Not Detect); Opiate Screen Urine Not Detected (Not Detect); Phencyclidine Screen Urine Not Detected (Not Detect)
[2022-04-26 17:56] LABS: Ethanol < 10 mg/dL
[2022-04-26 17:57] LABS: COVID-19 Test Positive (Negative); IDNOW Serial# 16C4AD1C; IDNOW Serial# BCCEAD1C; Influenza A Negative (Negative); Influenza B2 Negative (Negative); Troponin-I High Sensitivity 33.3 ng/L (<3.5-17.0)
[2022-04-26 18:00] LABS: Ammonia 24 umol/L (13-55)
[2022-04-26 18:01] LABS: B Type Natriuretic Peptide 84 pg/mL (<100)
[2022-04-26 18:02] LABS: Bacteria Urine None Seen (None Seen); RBC Urine 0-2 /HPF (0-2); Squamous Epithelial Cell Urine 0-2 /HPF (0-2); WBC Urine 0-5 /HPF (0-5)
[2022-04-26 18:11] LABS: TSH reflex Free T4 0.42 uIU/mL (0.32-4.0)
[2022-04-26 18:18] LABS: Acetaminophen LAB < 17 mcg/mL (<30); Alanine Aminotransferase 14 U/L (0-31); Albumin Level 3.8 g/dL (3.5-5.0); Alkaline Phosphatase 84 U/L (39-117); Anion Gap 20 (12-20); Aspartate Amino Transferase 20 U/L (5-31); Bilirubin Direct < 0.2 mg/dL (0.0-0.5); Bilirubin Total 0.2 mg/dL (0.0-1.0); Blood Urea Nitrogen 41 mg/dL (9-16); Calcium 8.8 mg/dL (8.4-10.2); Carbon Dioxide 17 mmol/L (22-29); Chloride 111 mmol/L (96-108); Estimated Glomerular Filt Rate 19; Glucose Random 156 mg/dL (60-115); Lipase 12 U/L (8-78); Magnesium 1.5 mg/dL (1.6-2.6); Potassium 4.9 mmol/L (3.3-5.1); Salicylate < 5.0 mg/dL (15-30); Sodium 143 mmol/L (135-145); Total Protein 7.3 g/dL (6.5-8.0)
[2022-04-26 18:52] VITALS: BP 116/65; PULSE 129; RESP 16; TEMP 37.2; O2SAT 93
[2022-04-26 21:05] VITALS: BP 113/58; PULSE 129; RESP 22; TEMP 37.7; O2SAT 97
[2022-04-26 21:23] LABS: Anion Gap 17 (12-20); Blood Urea Nitrogen 38 mg/dL (9-16); Calcium 8.6 mg/dL (8.4-10.2); Carbon Dioxide 19 mmol/L (22-29); Chloride 113 mmol/L (96-108); Creatinine Clr Calc Pharmacy 19.7; Estimated Glomerular Filt Rate 21; Glucose Random 133 mg/dL (60-115); Potassium 4.5 mmol/L (3.3-5.1); Sodium 144 mmol/L (135-145)
[2022-04-26] MEDS: 0.9 % Sodium Chloride 1,000 ML 999 ML IVCONT (21:43)
--- NOTE | 2022-04-26 21:43 | PC.NURSE ---
PT A&Ox2, to self and year. Denies any pain. PT requested PO fluids, tolerating well. Visitor at bedside.
[2022-04-26 21:45] LABS: D Dimer High Sensitivity 303 NG/ML
[2022-04-26 22:00] VITALS: BP 127/66; PULSE 132; RESP 18; TEMP 37.2; O2SAT 99
--- NOTE | 2022-04-26 22:32 | PM.IMHP ---
History of Present Illness Date of Service: 04/26/22 Chief Complaint: AMS This is a 71-year-old female with pertinent history of rheumatoid arthritis, essential hypertension, chronic kidney disease, mixed hyperlipidemia, hypothyroidism, fibromyalgia who was brought to the emergency department by family for evaluation of confusion. Patient is a poor historian and not oriented to place or time. history obtained by ER provider and chart review as unable to obtain history from the patient. Patient usually lives by herself, her children check on her every day.? They noticed that for the last 2 days, patient was not doing her usual activities, they check on her, patient was found today with altered mental status and very hot to touch.? Patient awake, answering yes no questions, which is not like her . Unable to obtain review of systems. Patient is vaccinated for COVID-19. Patient denies any symptoms the time of my evaluation Review of Systems Review of Systems: Yes Unobtainable due to mental condition and Unobtainable due to mental status PMFSH Medical History Fibromyalgia Gout Hypertension Hypothyroidism Seropositive rheumatoid arthritis Family History Mother Asthma Father CVD (cardiovascular disease) Brother HTN (hypertension) Diabetes Surgical History Hx of hysterectomy Social History Alcohol intake: never Patient Tobacco Use Status: Never used Tobacco e-Cigarette/Vaping Use: Never Used Advance Directives: No Advance Directives Information Provided: No Meds Allergies Allergy/AdvReac Type Severity Reaction Status Date / Time Penicillins [PENICILLINS] Allergy Severe RASH Verified 12/21/21 13:40 From PERCOCET Allergy Severe RASH Uncoded 12/21/21 13:40 Active Medications: Current Medications Acetaminophen (Acetaminophen 325 Mg Tablet) 650 mg PO Q6H PRN PRN Reason: Pain, Mild (Pain Scale 1-3) Enoxaparin Sodium (Enoxaparin Sodium 30 Mg/0.3 Ml Syringe) 30 mg SUBCUT Q24H ROLA Melatonin (Melatonin 3 Mg Tablet) 6 mg PO BEDTIME PRN PRN Reason: Insomnia Ondansetron HCl (Ondansetron Hcl 4 Mg/2 Ml Vial) 4 mg IVPUSH Q8H PRN PRN Reason: Nausea and Vomiting Sodium Chloride (0.9 % Sodium Chloride Flush 3 Ml Syringe) 3 ml IVFLUSH [facility] Home Medications Medication Instructions Recorded Confirmed Last Taken Type allopurinol 100 mg tablet 100 mg PO DAILY 03/21/20 12/21/21 Unknown History amlodipine 5 mg tablet 5 mg PO DAILY 03/21/20 12/21/21 Unknown History atorvastatin 20 mg tablet 20 mg PO DAILY 03/21/20 12/21/21 Unknown History chlorthalidone 25 mg tablet 25 mg PO DAILY 03/21/20 12/21/21 Unknown History cholecalciferol (vitamin D3) 25 25 mcg PO DAILY 03/21/20 12/21/21 Unknown History mcg (1,000 unit) capsule levothyroxine 50 mcg tablet 50 mcg PO DAILY 03/21/20 12/21/21 Unknown History lisinopril 40 mg tablet 40 mg PO DAILY 03/21/20 12/21/21 Unknown History metformin 500 mg tablet 500 mg PO TID 03/21/20 12/21/21 Unknown History metoprolol tartrate 100 mg tablet 100 mg PO BID 03/21/20 12/21/21 Unknown History cyanocobalamin (vitamin B-12) 1,000 mcg PO DAILY 06/19/21 12/21/21 Unknown History 1,000 mcg tablet ferrous sulfate 325 mg (65 mg 325 mg PO TID 06/19/21 12/21/21 Unknown History iron) tablet Physical Exam Vital Signs and Narrative: Vital Signs: Last Vital Signs Temp 98.9 F 04/26/22 22:00 Pulse 132 H 04/26/22 22:00 Resp 18 04/26/22 22:00 BP 127/66 04/26/22 22:00 Pulse Ox 99 04/26/22 22:00 O2 Del Method 04/26/22 22:00 BMI result Body Mass Index 30.9 elderly female lying in bed in no distress Neck supple, no JVD tachycardic with regular rhythm, S1-S2 heard Regular breath sounds bilaterally, no wheezing or crackles appreciated Abdomen soft nontender, no guarding, no rigidity Patient is awake, alert and disoriented to place and time, no focal motor deficits, unable to take part in conversation, answering yes or no questions Psych: Normal mood No pedal edema Results Labs 04/26/22 17:05 04/26/22 21:04 Labs: Laboratory Results - last 24 hr 04/26/22 04/26/22 04/26/22 17:05 17:05 17:05 MCV 95.8 MCH 31.7 MCHC 33.1 RDW 15.5 Plt Count 242 MPV 11.5 Immature Gran % (Auto) 0.9 H Neut % (Auto) 71.2 Lymph % (Auto) 15.2 L [place] % (Auto) 12.5 H Eos % (Auto) 0.0 Baso % (Auto) 0.2 Lymph # (Auto) 1.6 [place] # (Auto) 1.3 H Eos # (Auto) 0.0 Baso # (Auto) 0.0 Abs Immat Gran (auto) 0.09 H Absolute Neuts (auto) 7.2 Absolute Nucleated RBC 0.000 Nucleated RBC % (auto) 0.0 PT INR D-Dimer High Sensitivty Anion Gap 20 Estim Creat Clear Calc 18.0 Estimated GFR 19 Random Glucose 156 H Lactic Acid Calcium 8.8 D Magnesium 1.5 L Total Bilirubin 0.2 Direct Bilirubin < 0.2 AST 20 ALT 14 Alkaline Phosphatase 84 Ammonia Troponin I High Sens 33.3 H B-Natriuretic Peptide Total Protein 7.3 Albumin 3.8 Lipase 12 TSH Urine Color Urine Appearance Urine pH Ur Specific Bypro Urine Protein Urine Glucose (UA) Urine Ketones Urine Blood Urine Nitrite Ur Leukocyte Esterase Urine RBC Urine WBC Ur Squamous Epith Cells Urine Bacteria Hyaline Casts Salicylates < 5.0 L Urine Opiates Screen Urine Fentanyl Screen Acetaminophen < 17 Ur Barbiturates Screen Ur Phencyclidine Scrn Ur Amphetamines Screen U Benzodiazepines Scrn Urine Cocaine Screen U Marijuana (THC) Screen Ethyl Alcohol COVID-19 ([facility]) COVID-19 Clin Com Influenza Type A ([facility]) Influenza Type B ([facility]) Influenza A & B Note 04/26/22 04/26/22 04/26/22 17:05 17:05 17:05 MCV MCH MCHC RDW Plt Count MPV Immature Gran % (Auto) Neut % (Auto) Lymph % (Auto) [place] % (Auto) Eos % (Auto) Baso % (Auto) Lymph # (Auto) [place] # (Auto) Eos # (Auto) Baso # (Auto) Abs Immat Gran (auto) Absolute Neuts (auto) Absolute Nucleated RBC Nucleated RBC % (auto) PT 12.2 INR 1.1 D-Dimer High Sensitivty 303 Anion Gap Estim Creat Clear Calc Estimated GFR Random Glucose Lactic Acid Calcium Magnesium Total Bilirubin Direct Bilirubin AST ALT Alkaline Phosphatase Ammonia Troponin I High Sens B-Natriuretic Peptide Total Protein Albumin Lipase TSH Urine Color Urine Appearance Urine pH Ur Specific Bypro Urine Protein Urine Glucose (UA) Urine Ketones Urine Blood Urine Nitrite Ur Leukocyte Esterase Urine RBC Urine WBC Ur Squamous Epith Cells Urine Bacteria Hyaline Casts Salicylates Urine Opiates Screen Urine Fentanyl Screen Acetaminophen Ur Barbiturates Screen Ur Phencyclidine Scrn Ur Amphetamines Screen U Benzodiazepines Scrn Urine Cocaine Screen U Marijuana (THC) Screen Ethyl Alcohol COVID-19 ([facility]) Positive A COVID-19 Clin Com See Note Influenza Type A ([facility]) Negative Influenza Type B ([facility]) Negative Influenza A & B Note See Note 04/26/22 04/26/22 04/26/22 17:05 17:05 17:05 MCV MCH MCHC RDW Plt Count MPV Immature Gran % (Auto) Neut % (Auto) Lymph % (Auto) [place] % (Auto) Eos % (Auto) Baso % (Auto) Lymph # (Auto) [place] # (Auto) Eos # (Auto) Baso # (Auto) Abs Immat Gran (auto) Absolute Neuts (auto) Absolute Nucleated RBC Nucleated RBC % (auto) PT INR D-Dimer High Sensitivty Anion Gap Estim Creat Clear Calc Estimated GFR Random Glucose Lactic Acid 1.3 Calcium Magnesium Total Bilirubin Direct Bilirubin AST ALT Alkaline Phosphatase Ammonia Troponin I High Sens B-Natriuretic Peptide 84 Total Protein Albumin Lipase TSH Urine Color Urine Appearance Urine pH Ur Specific Bypro Urine Protein Urine Glucose (UA) Urine Ketones Urine Blood Urine Nitrite Ur Leukocyte Esterase Urine RBC Urine WBC Ur Squamous Epith Cells Urine Bacteria Hyaline Casts Salicylates Urine Opiates Screen Urine Fentanyl Screen Acetaminophen Ur Barbiturates Screen Ur Phencyclidine Scrn Ur Amphetamines Screen U Benzodiazepines Scrn Urine Cocaine Screen U Marijuana (THC) Screen Ethyl Alcohol < 10 COVID-19 ([facility]) COVID-19 Clin Com Influenza Type A ([facility]) Influenza Type B ([facility]) Influenza A & B Note 04/26/22 04/26/22 04/26/22 17:05 17:23 17:23 MCV MCH MCHC RDW Plt Count MPV Immature Gran % (Auto) Neut % (Auto) Lymph % (Auto) [place] % (Auto) Eos % (Auto) Baso % (Auto) Lymph # (Auto) [place] # (Auto) Eos # (Auto) Baso # (Auto) Abs Immat Gran (auto) Absolute Neuts (auto) Absolute Nucleated RBC Nucleated RBC % (auto) PT INR D-Dimer High Sensitivty Anion Gap Estim Creat Clear Calc Estimated GFR Random Glucose Lactic Acid Calcium Magnesium Total Bilirubin Direct Bilirubin AST ALT Alkaline Phosphatase Ammonia Troponin I High Sens B-Natriuretic Peptide Total Protein Albumin Lipase TSH 0.42 Urine Color Yellow Urine Appearance Clear Urine pH 5.5 Ur Specific Bypro 1.020 Urine Protein 100 (2+) H Urine Glucose (UA) Negative Urine Ketones 15 Urine Blood Negative Urine Nitrite Negative Ur Leukocyte Esterase Negative Urine RBC 0-2 Urine WBC 0-5 Ur Squamous Epith Cells 0-2 Urine Bacteria None Seen Hyaline Casts 11-20 Salicylates Urine Opiates Screen Not Detected Urine Fentanyl Screen Not Detected Acetaminophen Ur Barbiturates Screen Not Detected Ur Phencyclidine Scrn Not Detected Ur Amphetamines Screen Not Detected U Benzodiazepines Scrn Not Detected Urine Cocaine Screen Not Detected U Marijuana (THC) Screen Not Detected Ethyl Alcohol COVID-19 ([facility]) COVID-19 Clin Com Influenza Type A ([facility]) Influenza Type B ([facility]) Influenza A & B Note 04/26/22 04/26/22 04/26/22 17:46 21:04 21:04 MCV MCH MCHC RDW Plt Count MPV Immature Gran % (Auto) Neut % (Auto) Lymph % (Auto) [place] % (Auto) Eos % (Auto) Baso % (Auto) Lymph # (Auto) [place] # (Auto) Eos # (Auto) Baso # (Auto) Abs Immat Gran (auto) Absolute Neuts (auto) Absolute Nucleated RBC Nucleated RBC % (auto) PT INR D-Dimer High Sensitivty Anion Gap 17 Estim Creat Clear Calc 19.7 Estimated GFR 21 Random Glucose 133 H Lactic Acid Calcium 8.6 Magnesium Total Bilirubin Direct Bilirubin AST ALT Alkaline Phosphatase Ammonia 24 Troponin I High Sens 47.0 H B-Natriuretic Peptide Total Protein Albumin Lipase TSH Urine Color Urine Appearance Urine pH Ur Specific Bypro Urine Protein Urine Glucose (UA) Urine Ketones Urine Blood Urine Nitrite Ur Leukocyte Esterase Urine RBC Urine WBC Ur Squamous Epith Cells Urine Bacteria Hyaline Casts Salicylates Urine Opiates Screen Urine Fentanyl Screen Acetaminophen Ur Barbiturates Screen Ur Phencyclidine Scrn Ur Amphetamines Screen U Benzodiazepines Scrn Urine Cocaine Screen U Marijuana (THC) Screen Ethyl Alcohol COVID-19 ([facility]) COVID-19 Clin Com Influenza Type A ([facility]) Influenza Type B ([facility]) Influenza A & B Note Imaging Radiologist's Impressions: Impressions Chest X-Ray 04/26/22 17:44 IMPRESSION: No acute cardiopulmonary process. Assessment and Plan (1) Encephalopathy: Status: Acute (2) COVID-19: Status: Acute (3) Acute kidney injury superimposed on CKD: Status: Acute Plan This is a 71-year-old female with pertinent history of rheumatoid arthritis, essential hypertension, chronic kidney disease, mixed hyperlipidemia, hypothyroidism, fibromyalgia who was brought to the emergency department by family for evaluation of confusion. #. acute metabolic encephalopathy due to COVID-19 and DOMI #. COVID-19 infection, positive test date: 04/26/2022. Patient not hypoxemic and no indication for Decadron. Consulting Infectious Disease for evaluation of remdesivir need #. acute kidney injury on chronic kidney disease: likely prerenal due to poor p.o. intake. Resuscitated with IV crystalloids in the ER . Monitor creatinine and urine output with fluid resuscitation. Hold close thyroid syncopal and avoid nephrotoxins #. hypothyroidism: Continue Synthroid. Check TSH #. essential hypertension: Continue metoprolol and amlodipine. Hold lisinopril and chlorthalidone as above #. tachycardia, likely in the setting of COVID 19 infection. Unable to evaluate chest pain as patient is poor historian. Unable to get CTA in the setting of DOMI on CKD. Obtaining venous Doppler and V/Q scan to rule out VTE #. hypomagnesemia: Repleted #. elevated troponin, likely due to increased demand. Will repeat #. fni-sycvrdt-louvsvoro diabetes mellitus: Hold metformin. Initiating Accu-Cheks with sliding scale insulin Med rec pending DVT prophylaxis: Lovenox 30 mg daily Cardiac diet Full code. Readdress code status with family in a.m. Admit as inpatient and will require two night minimum hospital stay for monitoring of kidney function and mentation. Time Spent With Patient Time: Total time managing care of this patient today ____ minutes. Quality Stroke Does the patient have a stroke diagnosis?: No VTE Prior VTE?: No VTE Risk Level:: Medical - moderate - high VTE Device Contraindication: Treatment Not Indicated VTE Drug Contraindication: N/A - Med Ordered
[2022-04-26] MEDS: Metoprolol Tartrate 100 MG TABLET PO (23:01)
[2022-04-26] MEDS: Enoxaparin Sodium 30 MG/0.3 ML SYRINGE SUBCUT (23:01)
[2022-04-26] MEDS: Magnesium Sulfate/H2O 2 GM/50 ML PIGGYBACK IV (23:02)
[2022-04-26] MEDS: 0.9 % Sodium Chloride Flush 3 ML SYRINGE IVFLUSH (23:11)
[2022-04-27] VITALS (8 sets, daily range): BP systolic 101–176; BP diastolic 58–77; PULSE 76–109; RESP 17–20; TEMP 36.1–38.2; O2SAT 94–97
--- NOTE | 2022-04-27 01:15 | MHC.EDTECH ---
pt is latvian speaking only, vitals were taken and pt is now on a pure wick , its difficult for her to move in and out of bed, a recliner was put in the room for the . they are all set
--- NOTE | 2022-04-27 02:21 | MHC.EDTECH ---
pt is weak cant stand to commode
--- NOTE | 2022-04-27 02:47 | PC.NURSE ---
Nurse to nurse report given. PT transported to room 474 by digital controls technical officer.
[2022-04-27] MEDS: Acetaminophen 325 MG TABLET 650 MG PO (06:01)
[2022-04-27] MEDS: Levothyroxine Sodium 50 MCG TABLET PO (06:01)
[2022-04-27 06:45] LABS: Basophils Percent Auto 0.2 % (0-2); Eosinophils Percent Auto 0.4 % (0-4); Hematocrit 34.5 % (37.0-47.0); Hemoglobin 11.2 g/dl (12.0-16.0); Imm Gran Abs Auto 0.04 X10*3/uL (0.00-0.03); Imm Gran Pct Auto 0.4 % (0.0-0.4); Lymphocytes Absolute Auto 3.3 X10*3/uL (1.2-4.9); MANUAL DIFF FLAG SCAN; Mean Corpuscular HGB Conc 32.5 g/dl (31.0-35.0); Mean Corpuscular Volume 98.6 fL (80.0-98.0); Mean Platelet Volume 11.2 fL (9.4-12.3); Monocytes Absolute Auto 1.6 X10*3/uL (0.1-1.2); Monocytes Percent Auto 16.4 % (2-11); Neutrophils Absolute Auto 4.7 x10*3/uL (2.0-8.3); Neutrophils Percent Auto 48.6 % (45-73); Platelet Count 219 X10*3/uL (160-400); Red Cell Distribution Width 15.9 % (11.0-16.0); SCAN SMEAR FLAG 1; White Blood Count 9.6 X10*3/uL (4.8-10.8)
[2022-04-27 06:56] LABS: Anion Gap 16 (12-20); Blood Urea Nitrogen 32 mg/dL (9-16); Calcium 8.4 mg/dL (8.4-10.2); Carbon Dioxide 19 mmol/L (22-29); Chloride 113 mmol/L (96-108); Estimated Glomerular Filt Rate 23; Glucose Random 127 mg/dL (60-115); Potassium 4.6 mmol/L (3.3-5.1); Sodium 143 mmol/L (135-145)
[2022-04-27 07:06] LABS: Troponin-I High Sensitivity 30.9 ng/L (<3.5-17.0)
[2022-04-27 07:26] LABS: SLIDE REVIEW VERIFIED
--- NOTE | 2022-04-27 07:57 | PHA.MEDREC ---
Pharmacy Consult ? Medication Reconciliation RN has completed the medication reconciliation. PHARMACY REVIEWED
[2022-04-27 07:59] LABS: Glucose, Whole Blood 118 mg/dL (60-115)
[2022-04-27] MEDS: Metoprolol Tartrate 100 MG TABLET PO ×2 (09:08→22:06)
[2022-04-27] MEDS: 0.9 % Sodium Chloride Flush 3 ML SYRINGE IVFLUSH (09:08)
--- NOTE | 2022-04-27 10:59 | MHC.CM.PN ---
CM ATTEMPTED TO CONTACT PT'S SON/HCP YUE AT 10:55AM [phone] TO DELIVER IMM AND COMPLETE CM ASSESSMENT, NO ANSWER AND MESSAGE LEFT W/CM CONTACT INFO AND REQUEST FOR CALL BACK, IMM TO BE SENT CERTIFIED MAIL, PER ED DOCUMENTATION, PT LIVES ALONE AND FAMILY CHECKS ON PT DAILY, UNCLEAR IF PT USES DME/SERVICES AND CM AWAITING CALL BACK FROM FAMILY FOR DETAILS. PER RECORD PT'S PCP IS DEJAN COOPER AND HCP IS SON YUE AND COPY IS ON FILE FROM PREVIOUS VISIT. ANTIC HOME WHEN MEDICALLY CLEARED.
[2022-04-27 11:41] LABS: Glucose, Whole Blood 137 mg/dL (60-115)
--- NOTE | 2022-04-27 13:38 | HO.PM.IMPN ---
Subjective Subjective Date of Service: 04/27/22 Interval History: Seen in follow up for COVID 19, metabolic encephalopathy Interval History: Seen with , Evangelist, at bedside. Pt still confused from baseline, disoriented to time. Feels foggy, but overall improved since yesterday. Review of Systems Review of Systems: Yes all other systems are reviewed and are negative Physical Exam Vital Signs: Vital Signs: Last Vital Signs Temp 98.6 F 04/27/22 11:11 Pulse 98 04/27/22 11:11 Resp 17 04/27/22 11:11 BP 112/67 04/27/22 11:11 Pulse Ox 96 04/27/22 11:11 O2 Del Method 04/27/22 11:11 BMI result Body Mass Index 30.9 Constitutional - Awake and Alert, No apparent distress Eyes - PERRLA, EOMI Cardiovascular - S1S2, RRR, No edema Respiratory - Normal lung expansion, Normal respiratory effort, No respiratory distress, CTA bilaterally Gastrointestinal - NT / ND; +BS; No rebound or guarding Extremities - no calf tenderness bilaterally, no swelling Skin - Warm/Dry Neurological - Alert & oriented x3, CN II-XII in tact, 5/5 strength BUE and BLE Psychological - Appropriate affect Objective Data Active Medications Acetaminophen (Acetaminophen 325 Mg Tablet) 650 mg PO Q6H PRN PRN Reason: Pain, Mild (Pain Scale 1-3) Last Admin: 04/27/22 06:01 Dose: 650 mg Documented By: SALUD Dextrose (Dextrose 50 % 25 Gm/50 Ml Syringe) 25 gm IVPUSH Q15M PRN; Protocol PRN Reason: per Hypoglycemia Standing Ord. Enoxaparin Sodium (Enoxaparin Sodium 30 Mg/0.3 Ml Syringe) 30 mg SUBCUT Q24H [facility] Last Admin: 04/26/22 23:01 Dose: 30 mg Documented By: MYRANDA Glucose (Glucose Gel 15 Gm Gel..Gram.) 15 gm PO Q15M PRN; Protocol PRN Reason: per Hypoglycemia Standing Ord. Insulin Human Lispro (Insulin Lispro 100 Unit/Ml 3 Ml Vial) 0 unit SUBCUT QIDACHS [facility]; Protocol Last Admin: 04/27/22 11:44 Dose: Not Given Documented By: ALVIN Non-Admin Reason: No Insulin Coverage Levothyroxine Sodium (Levothyroxine Sodium 50 Mcg Tablet) 50 mcg PO DAILY@0600 [facility] Last Admin: 04/27/22 06:01 Dose: 50 mcg Documented By: SALUD Melatonin (Melatonin 3 Mg Tablet) 6 mg PO BEDTIME PRN PRN Reason: Insomnia Metoprolol Tartrate (Metoprolol Tartrate 100 Mg Tablet) 100 mg PO BID [facility]; Protocol Last Admin: 04/27/22 09:08 Dose: 100 mg Documented By: ALVIN Ondansetron HCl (Ondansetron Hcl 4 Mg/2 Ml Vial) 4 mg IVPUSH Q8H PRN PRN Reason: Nausea and Vomiting Sodium Chloride (0.9 % Sodium Chloride Flush 3 Ml Syringe) 3 ml IVFLUSH QSHIFT [facility] Last Admin: 04/27/22 09:08 Dose: 3 ml Documented By: ALVIN Labs 04/27/22 06:26 04/27/22 06:26 Labs: Laboratory Results - last 24 hr 04/26/22 04/26/22 04/26/22 17:05 17:05 17:05 MCV 95.8 MCH 31.7 MCHC 33.1 RDW 15.5 Plt Count 242 MPV 11.5 Immature Gran % (Auto) 0.9 H Neut % (Auto) 71.2 Lymph % (Auto) 15.2 L [place] % (Auto) 12.5 H Eos % (Auto) 0.0 Baso % (Auto) 0.2 Lymph # (Auto) 1.6 [place] # (Auto) 1.3 H Eos # (Auto) 0.0 Baso # (Auto) 0.0 Abs Immat Gran (auto) 0.09 H Absolute Neuts (auto) 7.2 Absolute Nucleated RBC 0.000 Nucleated RBC % (auto) 0.0 Smear Tech's Comments PT INR D-Dimer High Sensitivty Anion Gap 20 Estim Creat Clear Calc 18.0 Estimated GFR 19 POC Glucose Random Glucose 156 H Lactic Acid Calcium 8.8 D Magnesium 1.5 L Total Bilirubin 0.2 Direct Bilirubin < 0.2 AST 20 ALT 14 Alkaline Phosphatase 84 Ammonia Troponin I High Sens 33.3 H B-Natriuretic Peptide Total Protein 7.3 Albumin 3.8 Lipase 12 TSH Urine Color Urine Appearance Urine pH Ur Specific [place] Urine Protein Urine Glucose (UA) Urine Ketones Urine Blood Urine Nitrite Ur Leukocyte Esterase Urine RBC Urine WBC Ur Squamous Epith Cells Urine Bacteria Hyaline Casts Salicylates < 5.0 L Urine Opiates Screen Urine Fentanyl Screen Acetaminophen < 17 Ur Barbiturates Screen Ur Phencyclidine Scrn Ur Amphetamines Screen U Benzodiazepines Scrn Urine Cocaine Screen U Marijuana (THC) Screen Ethyl Alcohol COVID-19 ([facility]) COVID-19 Clin Com Influenza Type A ([facility]) Influenza Type B (RAE) Influenza A & B Note 04/26/22 04/26/22 04/26/22 17:05 17:05 17:05 MCV MCH MCHC RDW Plt Count MPV Immature Gran % (Auto) Neut % (Auto) Lymph % (Auto) [place] % (Auto) Eos % (Auto) Baso % (Auto) Lymph # (Auto) [place] # (Auto) Eos # (Auto) Baso # (Auto) Abs Immat Gran (auto) Absolute Neuts (auto) Absolute Nucleated RBC Nucleated RBC % (auto) Smear Tech's Comments PT 12.2 INR 1.1 D-Dimer High Sensitivty 303 Anion Gap Estim Creat Clear Calc Estimated GFR POC Glucose Random Glucose Lactic Acid Calcium Magnesium Total Bilirubin Direct Bilirubin AST ALT Alkaline Phosphatase Ammonia Troponin I High Sens B-Natriuretic Peptide Total Protein Albumin Lipase TSH Urine Color Urine Appearance Urine pH Ur Specific [place] Urine Protein Urine Glucose (UA) Urine Ketones Urine Blood Urine Nitrite Ur Leukocyte Esterase Urine RBC Urine WBC Ur Squamous Epith Cells Urine Bacteria Hyaline Casts Salicylates Urine Opiates Screen Urine Fentanyl Screen Acetaminophen Ur Barbiturates Screen Ur Phencyclidine Scrn Ur Amphetamines Screen U Benzodiazepines Scrn Urine Cocaine Screen U Marijuana (THC) Screen Ethyl Alcohol COVID-19 ([facility]) Positive A COVID-19 Clin Com See Note Influenza Type A ([facility]) Negative Influenza Type B ([facility]) Negative Influenza A & B Note See Note 04/26/22 04/26/22 04/26/22 17:05 17:05 17:05 MCV MCH MCHC RDW Plt Count MPV Immature Gran % (Auto) Neut % (Auto) Lymph % (Auto) [place] % (Auto) Eos % (Auto) Baso % (Auto) Lymph # (Auto) [place] # (Auto) Eos # (Auto) Baso # (Auto) Abs Immat Gran (auto) Absolute Neuts (auto) Absolute Nucleated RBC Nucleated RBC % (auto) Smear Tech's Comments PT INR D-Dimer High Sensitivty Anion Gap Estim Creat Clear Calc Estimated GFR POC Glucose Random Glucose Lactic Acid 1.3 Calcium Magnesium Total Bilirubin Direct Bilirubin AST ALT Alkaline Phosphatase Ammonia Troponin I High Sens B-Natriuretic Peptide 84 Total Protein Albumin Lipase TSH Urine Color Urine Appearance Urine pH Ur Specific [place] Urine Protein Urine Glucose (UA) Urine Ketones Urine Blood Urine Nitrite Ur Leukocyte Esterase Urine RBC Urine WBC Ur Squamous Epith Cells Urine Bacteria Hyaline Casts Salicylates Urine Opiates Screen Urine Fentanyl Screen Acetaminophen Ur Barbiturates Screen Ur Phencyclidine Scrn Ur Amphetamines Screen U Benzodiazepines Scrn Urine Cocaine Screen U Marijuana (THC) Screen Ethyl Alcohol < 10 COVID-19 ([facility]) COVID-19 Clin Com Influenza Type A ([facility]) Influenza Type B ([facility]E) Influenza A & B Note 04/26/22 04/26/22 04/26/22 17:05 17:23 17:23 MCV MCH MCHC RDW Plt Count MPV Immature Gran % (Auto) Neut % (Auto) Lymph % (Auto) [place] % (Auto) Eos % (Auto) Baso % (Auto) Lymph # (Auto) [place] # (Auto) Eos # (Auto) Baso # (Auto) Abs Immat Gran (auto) Absolute Neuts (auto) Absolute Nucleated RBC Nucleated RBC % (auto) Smear Tech's Comments PT INR D-Dimer High Sensitivty Anion Gap Estim Creat Clear Calc Estimated GFR POC Glucose Random Glucose Lactic Acid Calcium Magnesium Total Bilirubin Direct Bilirubin AST ALT Alkaline Phosphatase Ammonia Troponin I High Sens B-Natriuretic Peptide Total Protein Albumin Lipase TSH 0.42 Urine Color Yellow Urine Appearance Clear Urine pH 5.5 Ur Specific [place] 1.020 Urine Protein 100 (2+) H Urine Glucose (UA) Negative Urine Ketones 15 Urine Blood Negative Urine Nitrite Negative Ur Leukocyte Esterase Negative Urine RBC 0-2 Urine WBC 0-5 Ur Squamous Epith Cells 0-2 Urine Bacteria None Seen Hyaline Casts 11-20 Salicylates Urine Opiates Screen Not Detected Urine Fentanyl Screen Not Detected Acetaminophen Ur Barbiturates Screen Not Detected Ur Phencyclidine Scrn Not Detected Ur Amphetamines Screen Not Detected U Benzodiazepines Scrn Not Detected Urine Cocaine Screen Not Detected U Marijuana (THC) Screen Not Detected Ethyl Alcohol COVID-19 ([facility]) COVID-19 Clin Com Influenza Type A ([facility]) Influenza Type B ([facility]) Influenza A & B Note 04/26/22 04/26/22 04/26/22 17:46 21:04 21:04 MCV MCH MCHC RDW Plt Count MPV Immature Gran % (Auto) Neut % (Auto) Lymph % (Auto) [place] % (Auto) Eos % (Auto) Baso % (Auto) Lymph # (Auto) [place] # (Auto) Eos # (Auto) Baso # (Auto) Abs Immat Gran (auto) Absolute Neuts (auto) Absolute Nucleated RBC Nucleated RBC % (auto) Smear Tech's Comments PT INR D-Dimer High Sensitivty Anion Gap 17 Estim Creat Clear Calc 19.7 Estimated GFR 21 POC Glucose Random Glucose 133 H Lactic Acid Calcium 8.6 Magnesium Total Bilirubin Direct Bilirubin AST ALT Alkaline Phosphatase Ammonia 24 Troponin I High Sens 47.0 H B-Natriuretic Peptide Total Protein Albumin Lipase TSH Urine Color Urine Appearance Urine pH Ur Specific [place] Urine Protein Urine Glucose (UA) Urine Ketones Urine Blood Urine Nitrite Ur Leukocyte Esterase Urine RBC Urine WBC Ur Squamous Epith Cells Urine Bacteria Hyaline Casts Salicylates Urine Opiates Screen Urine Fentanyl Screen Acetaminophen Ur Barbiturates Screen Ur Phencyclidine Scrn Ur Amphetamines Screen U Benzodiazepines Scrn Urine Cocaine Screen U Marijuana (THC) Screen Ethyl Alcohol COVID-19 ([facility]) COVID-19 Clin Com Influenza Type A ([facility]) Influenza Type B ([facility]) Influenza A & B Note 04/27/22 04/27/22 04/27/22 06:26 06:26 06:26 MCV 98.6 H MCH 32.0 MCHC 32.5 RDW 15.9 Plt Count 219 MPV 11.2 Immature Gran % (Auto) 0.4 Neut % (Auto) 48.6 Lymph % (Auto) 34.0 [place] % (Auto) 16.4 H Eos % (Auto) 0.4 Baso % (Auto) 0.2 Lymph # (Auto) 3.3 [place] # (Auto) 1.6 H Eos # (Auto) 0.0 Baso # (Auto) 0.0 Abs Immat Gran (auto) 0.04 H Absolute Neuts (auto) 4.7 Absolute Nucleated RBC 0.000 Nucleated RBC % (auto) 0.0 Smear Tech's Comments VERIFIED PT INR D-Dimer High Sensitivty Anion Gap 16 Estim Creat Clear Calc 22.0 Estimated GFR 23 POC Glucose Random Glucose 127 H Lactic Acid Calcium 8.4 Magnesium Total Bilirubin Direct Bilirubin AST ALT Alkaline Phosphatase Ammonia Troponin I High Sens 30.9 H B-Natriuretic Peptide Total Protein Albumin Lipase TSH Urine Color Urine Appearance Urine pH Ur Specific [place] Urine Protein Urine Glucose (UA) Urine Ketones Urine Blood Urine Nitrite Ur Leukocyte Esterase Urine RBC Urine WBC Ur Squamous Epith Cells Urine Bacteria Hyaline Casts Salicylates Urine Opiates Screen Urine Fentanyl Screen Acetaminophen Ur Barbiturates Screen Ur Phencyclidine Scrn Ur Amphetamines Screen U Benzodiazepines Scrn Urine Cocaine Screen U Marijuana (THC) Screen Ethyl Alcohol COVID-19 ([facility]) COVID-19 Clin Com Influenza Type A ([facility]) Influenza Type B ([facility]) Influenza A & B Note 04/27/22 04/27/22 07:46 11:14 MCV MCH MCHC RDW Plt Count MPV Immature Gran % (Auto) Neut % (Auto) Lymph % (Auto) [place] % (Auto) Eos % (Auto) Baso % (Auto) Lymph # (Auto) [place] # (Auto) Eos # (Auto) Baso # (Auto) Abs Immat Gran (auto) Absolute Neuts (auto) Absolute Nucleated RBC Nucleated RBC % (auto) Smear Tech's Comments PT INR D-Dimer High Sensitivty Anion Gap Estim Creat Clear Calc Estimated GFR POC Glucose 118 H 137 H Random Glucose Lactic Acid Calcium Magnesium Total Bilirubin Direct Bilirubin AST ALT Alkaline Phosphatase Ammonia Troponin I High Sens B-Natriuretic Peptide Total Protein Albumin Lipase TSH Urine Color Urine Appearance Urine pH Ur Specific [place] Urine Protein Urine Glucose (UA) Urine Ketones Urine Blood Urine Nitrite Ur Leukocyte Esterase Urine RBC Urine WBC Ur Squamous Epith Cells Urine Bacteria Hyaline Casts Salicylates Urine Opiates Screen Urine Fentanyl Screen Acetaminophen Ur Barbiturates Screen Ur Phencyclidine Scrn Ur Amphetamines Screen U Benzodiazepines Scrn Urine Cocaine Screen U Marijuana (THC) Screen Ethyl Alcohol COVID-19 ([facility]) COVID-19 Clin Com Influenza Type A ([facility]) Influenza Type B ([facility]) Influenza A & B Note Assessment and Plan (1) COVID-19: Status: Acute (2) Encephalopathy: Status: Acute Plan This is a 71-year-old female with pertinent history of rheumatoid arthritis, essential hypertension, chronic kidney disease, mixed hyperlipidemia, hypothyroidism, fibromyalgia admitted for management of COVID 19 with metabolic encephalopathy ?# acute metabolic encephalopathy- due to COVID-19 and DOMI -Patient remains disoriented to time ?#COVID-19 infection, positive test date:? 04/26/2022 -No hypoxia- IV steroid not indicated -Appreciate ID recommendation on IV remdesivir need ?#DOMI- improving -likely prerenal due to poor p.o. intake -Still with decreased PO intake, resume gentle IVF - Follow BMP, urine output - avoid nephrotoxins ?#. hypothyroidism - Continue Synthroid ?#essential hypertension -Hold lisinopril and chlorthalidone due to DOMI -COntinue metoprolol. Hold amlodipine, bp soft ?#. tachycardia- intermittent likely in the setting of COVID 19 infection -Ddimer elevated at 303 -Denies cp, sob, lightheadedness, palps. No hypoxia. - Unable to get CTA in the setting of DOMI on CKD.? Obtaining venous Doppler and V/Q scan to rule out VTE ?#hypomagnesemia: Repleted ?#. elevated troponin, likely due to increased demand.?Repeat trending down ?#. kva-[id number]-[id number] diabetes mellitus- controlled -POC glucose -Diabetic diet -Humalog SSI -Hold metformin ? Med rec pending DVT prophylaxis:? Lovenox 30 mg daily Cardiac diet Full code Requires ongoing inpatientl stay for monitoring of kidney function and mentation. Time Spent With Patient Time: Total time managing care of this patient today ____ minutes. Quality Stroke Does the patient have a stroke diagnosis?: No VTE Prior VTE?: No VTE Risk Level:: Medical - moderate - high VTE Device Contraindication: Treatment Not Indicated VTE Drug Contraindication: N/A - Med Ordered
[2022-04-27] MEDS: Ferrous Sulfate 324 MG TABLET.DR PO ×2 (14:48→22:06)
[2022-04-27] MEDS: Lactated Ringers 1,000 ML 100 ML IVCONT (14:50)
[2022-04-27 16:01] LABS: Glucose, Whole Blood 124 mg/dL (60-115)
[2022-04-27 19:29] LABS: Glucose, Whole Blood 186 mg/dL (60-115)
[2022-04-27] MEDS: Insulin Lispro 100 UNIT/ML 3 ML VIAL SUBCUT (22:06)
[2022-04-27] MEDS: Pregabalin 75 MG CAPSULE PO (22:06)
[2022-04-27] MEDS: lisinopriL 40 MG TABLET PO (22:06)
[2022-04-27] MEDS: guaiFENesin DM 600/30 1 TAB TAB.ER.12H PO (22:06)
[2022-04-27] MEDS: Enoxaparin Sodium 30 MG/0.3 ML SYRINGE SUBCUT (22:07)
[2022-04-28 03:51] VITALS: BP 137/63; PULSE 100; RESP 19; TEMP 37.6; O2SAT 97
[2022-04-28] MEDS: Lactated Ringers 1,000 ML 100 ML IVCONT (05:43)
[2022-04-28] MEDS: Levothyroxine Sodium 50 MCG TABLET PO (05:43)
[2022-04-28] MEDS: Omeprazole 20 MG CAPSULE.DR PO (05:43)
[2022-04-28 06:45] LABS: Anion Gap 15 (12-20); Blood Urea Nitrogen 22 mg/dL (9-16); Calcium 8.5 mg/dL (8.4-10.2); Carbon Dioxide 19 mmol/L (22-29); Chloride 114 mmol/L (96-108); Creatinine Clr Calc Pharmacy 26.6; Estimated Glomerular Filt Rate 29; Glucose Random 113 mg/dL (60-115); Sodium 144 mmol/L (135-145)
[2022-04-28 07:29] VITALS: BP 140/73; PULSE 100; RESP 18; TEMP 37.2; O2SAT 98
[2022-04-28 08:03] LABS: Glucose, Whole Blood 110 mg/dL (60-115)
[2022-04-28] MEDS: allopurinoL 100 MG TABLET PO (09:58)
[2022-04-28] MEDS: Ferrous Sulfate 324 MG TABLET.DR PO ×3 (09:58→22:31)
[2022-04-28] MEDS: Pregabalin 75 MG CAPSULE PO ×2 (09:58→22:31)
[2022-04-28] MEDS: Metoprolol Tartrate 100 MG TABLET PO ×2 (09:58→22:31)
[2022-04-28] MEDS: Atorvastatin Calcium 20 MG TABLET PO (09:58)
[2022-04-28] MEDS: Cyanocobalamin (Vitamin B-12) 1,000 MCG TABLET 1000 MCG PO (09:58)
[2022-04-28] MEDS: Cholecalciferol (Vitamin D3) 25 MCG TABLET PO (09:58)
--- NOTE | 2022-04-28 10:45 | HO.PM.IMPN ---
Subjective Subjective Date of Service: 04/28/22 Interval History: Seen in follow up for COVID 19, metabolic encephalopathy Interval History: Seen with son at bedside. Pt still seems confused from baseline per her son, but oriented x3 today. Reports nasal congestion, cough. No sob, chest pain. Afebrile. Creat now baseline. Review of Systems Review of Systems: Yes all other systems are reviewed and are negative Physical Exam Vital Signs: Vital Signs: Last Vital Signs Temp 99.0 F 04/28/22 07:29 Pulse 100 04/28/22 07:29 Resp 18 04/28/22 07:29 BP 140/73 H 04/28/22 07:29 Pulse Ox 98 04/28/22 07:29 O2 Del Method 04/28/22 07:29 BMI result Body Mass Index 30.9 Constitutional - Awake and Alert, No apparent distress Eyes - PERRLA, EOMI Cardiovascular - S1S2, RRR, No edema Respiratory - Normal lung expansion, Normal respiratory effort, No respiratory distress, CTA bilaterally Gastrointestinal - NT / ND; +BS; No rebound or guarding Extremities - no calf tenderness bilaterally, no swelling Skin - Warm/Dry Neurological - Alert & oriented x3 but still seems confused, very slow in answer questions and looks to son for confirmation Psychological - Appropriate affect Objective Data Active Medications Acetaminophen (Acetaminophen 325 Mg Tablet) 650 mg PO Q6H PRN PRN Reason: Pain, Mild (Pain Scale 1-3) Last Admin: 04/27/22 06:01 Dose: 650 mg Documented By: SALUD Allopurinol (Allopurinol 100 Mg Tablet) 100 mg PO DAILY ON [facility] OF [facility] Last Admin: 04/28/22 09:58 Dose: 100 mg Documented By: ALVIN Atorvastatin Calcium (Atorvastatin Calcium 20 Mg Tablet) 20 mg PO DAILY ON LICENSE OF [facility] Last Admin: 04/28/22 09:58 Dose: 20 mg Documented By: ALVIN Cyanocobalamin (Cyanocobalamin (Vitamin B-12) 1,000 Mcg Tablet) 1,000 mcg PO DAILY ON LICENSE OF [facility] Last Admin: 04/28/22 09:58 Dose: 1,000 mcg Documented By: ALVIN Dextrose (Dextrose 50 % 25 Gm/50 Ml Syringe) 25 gm IVPUSH Q15M PRN; Protocol PRN Reason: per Hypoglycemia Standing Ord. Enoxaparin Sodium (Enoxaparin Sodium 30 Mg/0.3 Ml Syringe) 30 mg SUBCUT Q24H ON [facility] OF [facility] Last Admin: 04/27/22 22:07 Dose: 30 mg Documented By: SALUD Ferrous Sulfate (Ferrous Sulfate 324 Mg Tablet.) 324 mg PO TID ON LICENSE OF [facility] Last Admin: 04/28/22 09:58 Dose: 324 mg Documented By: ALVIN Glucose (Glucose Gel 15 Gm Gel..Gram.) 15 gm PO Q15M PRN; Protocol PRN Reason: per Hypoglycemia Standing Ord. Guaifenesin/Dextromethorphan (Guaifenesin Dm 600/30 1 Tab Tab.Er.12h) 1 tab PO BID PRN PRN Reason: cough Last Admin: 04/27/22 22:06 Dose: 1 tab Documented By: SALUD Insulin Human Lispro (Insulin Lispro 100 Unit/Ml 3 Ml Vial) 0 unit SUBCUT QIDACHS ON LICENSE OF [facility]; Protocol Last Admin: 04/28/22 08:04 Dose: Not Given Documented By: ALVIN Non-Admin Reason: No Insulin Coverage Levothyroxine Sodium (Levothyroxine Sodium 50 Mcg Tablet) 50 mcg PO DAILY@0600 [facility] Last Admin: 04/28/22 05:43 Dose: 50 mcg Documented By: SALUD Lisinopril (Lisinopril 40 Mg Tablet) 40 mg PO BEDTIME ON LICENSE OF [facility]; Protocol Last Admin: 04/27/22 22:06 Dose: 40 mg Documented By: SALUD Melatonin (Melatonin 3 Mg Tablet) 6 mg PO BEDTIME PRN PRN Reason: Insomnia Metoprolol Tartrate (Metoprolol Tartrate 100 Mg Tablet) 100 mg PO BID ON [facility] OF [facility]; Protocol Last Admin: 04/28/22 09:58 Dose: 100 mg Documented By: ALVIN Omeprazole (Omeprazole 20 Mg Capsule.) 20 mg PO DAILY@0630 ON [facility] OF [facility] Last Admin: 04/28/22 05:43 Dose: 20 mg Documented By: SALUD Ondansetron HCl (Ondansetron Hcl 4 Mg/2 Ml Vial) 4 mg IVPUSH Q8H PRN PRN Reason: Nausea and Vomiting Pregabalin (Pregabalin 75 Mg Capsule) 75 mg PO BID ON LICENSE OF [facility] Last Admin: 04/28/22 09:58 Dose: 75 mg Documented By: ALVIN Senna (Sennosides 8.6 Mg Tablet) 17.2 mg PO DAILY PRN PRN Reason: constipation Sodium Chloride (0.9 % Sodium Chloride Flush 3 Ml Syringe) 3 ml IVFLUSH QSHIFT ON LICENSE OF [facility] Last Admin: 04/28/22 08:04 Dose: Not Given Documented By: ALVIN Non-Admin Reason: IV Running Vitamin D (Cholecalciferol (Vitamin D3) 25 Mcg Tablet) 25 mcg PO DAILY ON LICENSE OF [facility] Last Admin: 04/28/22 09:58 Dose: 25 mcg Documented By: ALVIN Labs 04/27/22 06:26 04/28/22 06:10 Labs: Laboratory Results - last 24 hr 04/27/22 04/27/22 04/27/22 11:14 15:57 19:21 Anion Gap Estim Creat Clear Calc Estimated GFR POC Glucose 137 H 124 H 186 H Random Glucose Calcium 04/28/22 04/28/22 06:10 07:32 Anion Gap 15 Estim Creat Clear Calc 26.6 Estimated GFR 29 POC Glucose 110 Random Glucose 113 Calcium 8.5 Microbiology Microbiology Results: Microbiology 04/26/22 17:23 Blood Culture - Preliminary Blood - Venous No growth after 24 hours. 04/26/22 17:23 Blood Culture - Preliminary Blood - Venous No growth after 24 hours. Assessment and Plan (1) COVID-19: Status: Acute (2) Encephalopathy: Status: Acute Plan This is a 71-year-old female with pertinent history of rheumatoid arthritis, essential hypertension, chronic kidney disease, mixed hyperlipidemia, hypothyroidism, fibromyalgia admitted for management of COVID 19 with metabolic encephalopathy ?# acute metabolic encephalopathy- likely due to COVID-19. Slowly improving to baseline, but still somewhat confused -Patient remains disoriented to time -No UTI on admission, but will recheck UA/UC to rule out UTI as source of ongoing encephalopathy ?#COVID-19 infection, positive test date:? 04/26/2022 -No hypoxia- IV steroid not indicated -CXR negative for pneumonia -Symptomatic management -Discussed with ID. Remdesivir, steroids not indicated #Acute diarrhea -Likely related to covid-19 -Negative for CDiff, GI panel pending -Consider immodium prn once infectious etiology ruled out ?#DOMI- creat now baseline -likely prerenal due to poor p.o. intake -Encourage PO intake - Follow BMP, urine output - avoid nephrotoxins ?#. hypothyroidism -TSH 0.42, free t4 ordered and normal -Continue Synthroid ?#essential hypertension -Hold lisinopril and chlorthalidone due to DOMI -COntinue metoprolol. Resume amlodipine ?#. tachycardia- intermittent likely in the setting of COVID 19 infection- improved -Ddimer elevated at 303 -VQ scan negative for PE ?#hypomagnesemia: Repleted ?#. elevated troponin, likely due to increased demand.?Repeat trending down ?#. oxi-soqvvsq-itluvbiie diabetes mellitus- controlled -POC glucose -Diabetic diet -Humalog SSI -Hold metformin DVT prophylaxis:? Lovenox 30 mg daily Cardiac diet Full code Requires ongoing inpatient stay for monitoring of kidney function and mentation. Time Spent With Patient Time: Total time managing care of this patient today 35minutes. Quality Stroke Does the patient have a stroke diagnosis?: No VTE Prior VTE?: No VTE Risk Level:: Medical - moderate - high VTE Device Contraindication: Treatment Not Indicated VTE Drug Contraindication: N/A - Med Ordered
[2022-04-28 11:25] LABS: Glucose, Whole Blood 121 mg/dL (60-115)
[2022-04-28] MEDS: amLODIPine Besylate 10 MG TABLET PO (11:53)
[2022-04-28] MEDS: Fluticasone Propionate Nasal 16 GM SPRAY 1 SPRAY NOSTRIL-B (11:53)
[2022-04-28 12:00] VITALS: BP 139/70; PULSE 85; RESP 17; TEMP 37.1; O2SAT 97
[2022-04-28 15:57] LABS: CDiff Gene PCR NEGATIVE (Negative)
[2022-04-28 16:00] VITALS: BP 135/72; PULSE 80; RESP 17; TEMP 37.1; O2SAT 97
[2022-04-28 16:38] LABS: Glucose, Whole Blood 146 mg/dL (60-115)
[2022-04-28 19:41] LABS: Glucose, Whole Blood 134 mg/dL (60-115)
[2022-04-28 19:48] VITALS: BP 124/61; PULSE 95; RESP 20; TEMP 36.6; O2SAT 97
[2022-04-28] MEDS: lisinopriL 40 MG TABLET PO (22:31)
[2022-04-28] MEDS: Enoxaparin Sodium 30 MG/0.3 ML SYRINGE SUBCUT (22:32)
[2022-04-28] MEDS: guaiFENesin DM 600/30 1 TAB TAB.ER.12H PO (22:32)
[2022-04-28] MEDS: 0.9 % Sodium Chloride Flush 3 ML SYRINGE IVFLUSH (23:39)
[2022-04-29] VITALS (8 sets, daily range): BP systolic 100–125; BP diastolic 56–64; PULSE 80–97; RESP 18–20; TEMP 36.3–36.9; O2SAT 94–97
[2022-04-29] MEDS: Omeprazole 20 MG CAPSULE.DR PO (05:23)
[2022-04-29] MEDS: Levothyroxine Sodium 50 MCG TABLET PO (05:24)
[2022-04-29 07:13] LABS: MANUAL DIFF FLAG NO
[2022-04-29 07:18] LABS: Basophils Percent Auto 0.3 % (0-2); Eosinophils Absolute Auto 0.2 X10*3/uL (0.0-0.4); Eosinophils Percent Auto 3.4 % (0-4); Hematocrit 35.1 % (37.0-47.0); Hemoglobin 11.2 g/dl (12.0-16.0); Imm Gran Abs Auto 0.01 X10*3/uL (0.00-0.03); Imm Gran Pct Auto 0.1 % (0.0-0.4); Lymphocytes Percent Auto 56.4 % (20-40); Mean Corpuscular HGB Conc 31.9 g/dl (31.0-35.0); Mean Corpuscular Hemoglobin 32.3 pg (27.0-33.0); Mean Corpuscular Volume 101.2 fL (80.0-98.0); Mean Platelet Volume 11.2 fL (9.4-12.3); Monocytes Absolute Auto 0.8 X10*3/uL (0.1-1.2); Monocytes Percent Auto 10.9 % (2-11); Neutrophils Absolute Auto 2.1 x10*3/uL (2.0-8.3); Neutrophils Percent Auto 28.9 % (45-73); Platelet Count 181 X10*3/uL (160-400); Red Blood Count 3.47 X10*6/uL (4.20-5.50); Red Cell Distribution Width 15.7 % (11.0-16.0); White Blood Count 7.2 X10*3/uL (4.8-10.8)
[2022-04-29 07:35] LABS: Anion Gap 13 (12-20); Blood Urea Nitrogen 22 mg/dL (9-16); Calcium 8.3 mg/dL (8.4-10.2); Carbon Dioxide 19 mmol/L (22-29); Chloride 114 mmol/L (96-108); Creatinine Clr Calc Pharmacy 23.8; Estimated Glomerular Filt Rate 26; Glucose Random 148 mg/dL (60-115); Potassium 3.8 mmol/L (3.3-5.1); Sodium 142 mmol/L (135-145)
[2022-04-29 07:52] LABS: Glucose, Whole Blood 133 mg/dL (60-115)
[2022-04-29] MEDS: Cyanocobalamin (Vitamin B-12) 1,000 MCG TABLET 1000 MCG PO (08:38)
[2022-04-29] MEDS: Metoprolol Tartrate 100 MG TABLET PO ×2 (08:38→22:45)
[2022-04-29] MEDS: allopurinoL 100 MG TABLET PO (08:38)
[2022-04-29] MEDS: Atorvastatin Calcium 20 MG TABLET PO (08:38)
[2022-04-29] MEDS: Ferrous Sulfate 324 MG TABLET.DR PO ×3 (08:38→22:45)
[2022-04-29] MEDS: Pregabalin 75 MG CAPSULE PO ×2 (08:38→22:45)
[2022-04-29] MEDS: amLODIPine Besylate 10 MG TABLET PO (08:38)
[2022-04-29] MEDS: Cholecalciferol (Vitamin D3) 25 MCG TABLET PO (08:39)
[2022-04-29] MEDS: 0.9 % Sodium Chloride Flush 3 ML SYRINGE IVFLUSH ×2 (08:40→16:27)
[2022-04-29] MEDS: Fluticasone Propionate Nasal 16 GM SPRAY 1 SPRAY NOSTRIL-B (08:40)
--- NOTE | 2022-04-29 09:26 | MHC.CDI.CONC ---
CDI Concurrent Query Documentation Clarification: PHYSICIAN'S DOCUMENTATION REQUEST Date of Query: 04/29/22926 Patient Name: Nereyda Barnett Admit Date: 04/26/22 Dear Doctor, A review of the medical record indicates additional documentation may be needed. Please review below and update the documentation accordingly: Risk Factors/Clinical Indicators/Treatments PN: PMH - Chronic kidney disease. DOMI on CKD, likely due to poor po intake, resuscitated with IV cystalloids in the ED. Based on the above, could you clarify in the Progress Notes the appropriate diagnosis, if significant, that supports the above abnormalities and additional evaluation, monitoring, and/or treatment rendered: SPECIFICS: DOMI on Chronic kidney disease Stage 1 DOMI on Chronic kidney disease Stage 2 DOMI on Chronic kidney disease Stage 3 or more Other (please specify) Unable to determine Use of terms such as suspected, likely, concern for, or probable (associated with a specific diagnosis that is being evaluated, monitored, or treated as if it exists) are acceptable and can be coded in the inpatient setting, when documented at the time of discharge. Thank you, Melani Adlrich [facility], CDIS Extension: [phone] Please use your independent medical judgment in providing your response. THIS QUERY IS PART OF THE PERMANENT MEDICAL RECORD Provider Response: CKD Stage 4
--- NOTE | 2022-04-29 11:25 | MHC.CM.PN ---
Per ROUNDS discussion, Patient is not yet medically cleared for dc (Creatinine climbing, needs PT eval); Home is the goal and CM will follow.
[2022-04-29 11:33] LABS: Glucose, Whole Blood 172 mg/dL (60-115)
[2022-04-29] MEDS: Insulin Lispro 100 UNIT/ML 3 ML VIAL SUBCUT ×2 (11:56→22:45)
[2022-04-29 12:04] LABS: Adenovirus F 40/41 Not Detected (Not Detect.); Astrovirus Not Detected (Not Detect.); Campylobacter Not Detected (Not Detect.); Cryptosporidium Not Detected (Not Detect.); Cyclospora cayetanensis Not Detected (Not Detect.); E. coli EAEC Not Detected (Not Detect.); E. coli EPEC Not Detected (Not Detect.); E. coli ETEC Not Detected (Not Detect.); E. coli STEC Not Detected (Not Detect.); Entamoeba histolytica Not Detected (Not Detect.); Giardia lamblia Not Detected (Not Detect.); Plesiomonas shigelloides Not Detected (Not Detect.); Salmonella Not Detected (Not Detect.); Shigella sp./EIEC Not Detected (Not Detect.); Vibrio Not Detected (Not Detect.); Vibrio Cholerae Not Detected (Not Detect.); Yersinia enterocolitica Not Detected (Not Detect.)
[2022-04-29 12:05] LABS: Norovirus GI/GII Not Detected (Not Detect.); Rotavirus A Not Detected (Not Detect.); Sapovirus Not Detected (Not Detect.)
--- NOTE | 2022-04-29 15:16 | HO.PM.IMPN ---
Subjective Subjective Date of Service: 04/29/22 Interval History: Seen in follow up for COVID 19, metabolic encephalopathy Interval History: Seen with at bedside. Mental status improved, back to baseline according to . Feeling better as well though creat has increased slightly. Still with poor PO intake Review of Systems Review of Systems: Yes all other systems are reviewed and are negative Physical Exam Vital Signs: Vital Signs: Last Vital Signs Temp 97.4 F 04/29/22 15:11 Pulse 82 04/29/22 15:11 Resp 20 04/29/22 15:11 BP 110/57 L 04/29/22 15:11 Pulse Ox 94 04/29/22 15:11 O2 Del Method 04/29/22 15:11 BMI result Body Mass Index 30.9 Constitutional - Awake and Alert, No apparent distress Eyes - PERRLA, EOMI Cardiovascular - S1S2, RRR, No edema Respiratory - Normal lung expansion, Normal respiratory effort, No respiratory distress, CTA bilaterally Gastrointestinal - NT / ND; +BS; No rebound or guarding Extremities - no calf tenderness bilaterally, no swelling Skin - Warm/Dry Neurological - Alert & oriented x3 Psychological - Appropriate affect Objective Data Active Medications Acetaminophen (Acetaminophen 325 Mg Tablet) 650 mg PO Q6H PRN PRN Reason: Pain, Mild (Pain Scale 1-3) Last Admin: 04/27/22 06:01 Dose: 650 mg Documented By: SALUD Allopurinol (Allopurinol 100 Mg Tablet) 100 mg PO DAILY [facility] Last Admin: 04/29/22 08:38 Dose: 100 mg Documented By: ALVIN Amlodipine Besylate (Amlodipine Besylate 10 Mg Tablet) 10 mg PO DAILY [facility]; Protocol Last Admin: 04/29/22 08:38 Dose: 10 mg Documented By: ALVIN Atorvastatin Calcium (Atorvastatin Calcium 20 Mg Tablet) 20 mg PO DAILY [facility] Last Admin: 04/29/22 08:38 Dose: 20 mg Documented By: ALVIN Cyanocobalamin (Cyanocobalamin (Vitamin B-12) 1,000 Mcg Tablet) 1,000 mcg PO DAILY [facility] Last Admin: 04/29/22 08:38 Dose: 1,000 mcg Documented By: ALVIN Dextrose (Dextrose 50 % 25 Gm/50 Ml Syringe) 25 gm IVPUSH Q15M PRN; Protocol PRN Reason: per Hypoglycemia Standing Ord. Enoxaparin Sodium (Enoxaparin Sodium 30 Mg/0.3 Ml Syringe) 30 mg SUBCUT Q24H [facility] Last Admin: 04/28/22 22:32 Dose: 30 mg Documented By: SALUD Ferrous Sulfate (Ferrous Sulfate 324 Mg Tablet.) 324 mg PO TID [facility] Last Admin: 04/29/22 08:38 Dose: 324 mg Documented By: ALVIN Fluticasone Propionate (Fluticasone Propionate Nasal 16 Gm [place]) 1 spray NOSTRIL-B DAILY [facility] Last Admin: 04/29/22 08:40 Dose: 1 spray Documented By: ALVIN Glucose (Glucose Gel 15 Gm Gel..Gram.) 15 gm PO Q15M PRN; Protocol PRN Reason: per Hypoglycemia Standing Ord. Guaifenesin/Dextromethorphan (Guaifenesin Dm 600/30 1 Tab Tab.Er.12h) 1 tab PO BID PRN PRN Reason: cough Last Admin: 04/28/22 22:32 Dose: 1 tab Documented By: SALUD Insulin Human Lispro (Insulin Lispro 100 Unit/Ml 3 Ml Vial) 0 unit SUBCUT QIDACHS [facility]; Protocol Last Admin: 04/29/22 11:56 Dose: 2 unit Documented By: ALVIN Levothyroxine Sodium (Levothyroxine Sodium 50 Mcg Tablet) 50 mcg PO DAILY@0600 [facility] Last Admin: 04/29/22 05:24 Dose: 50 mcg Documented By: SALUD Lisinopril (Lisinopril 40 Mg Tablet) 40 mg PO BEDTIME [facility]; Protocol Last Admin: 04/28/22 22:31 Dose: 40 mg Documented By: SALUD Melatonin (Melatonin 3 Mg Tablet) 6 mg PO BEDTIME PRN PRN Reason: Insomnia Metoprolol Tartrate (Metoprolol Tartrate 100 Mg Tablet) 100 mg PO BID [facility]; Protocol Last Admin: 04/29/22 08:38 Dose: 100 mg Documented By: ALVIN Omeprazole (Omeprazole 20 Mg Capsule.) 20 mg PO DAILY@0630 [facility] Last Admin: 04/29/22 05:23 Dose: 20 mg Documented By: SALUD Ondansetron HCl (Ondansetron Hcl 4 Mg/2 Ml Vial) 4 mg IVPUSH Q8H PRN PRN Reason: Nausea and Vomiting Pregabalin (Pregabalin 75 Mg Capsule) 75 mg PO BID [facility] Last Admin: 04/29/22 08:38 Dose: 75 mg Documented By: ALVIN Senna (Sennosides 8.6 Mg Tablet) 17.2 mg PO DAILY PRN PRN Reason: constipation Sodium Chloride (0.9 % Sodium Chloride Flush 3 Ml Syringe) 3 ml IVFLUSH QSHIFT [facility] Last Admin: 04/29/22 08:40 Dose: 3 ml Documented By: ALVIN Vitamin D (Cholecalciferol (Vitamin D3) 25 Mcg Tablet) 25 mcg PO DAILY [facility] Last Admin: 04/29/22 08:39 Dose: 25 mcg Documented By: ALVIN Labs 04/29/22 07:01 04/29/22 07:01 Labs: Laboratory Results - last 24 hr 04/28/22 04/28/22 04/28/22 14:30 14:30 16:03 MCV MCH MCHC RDW Plt Count MPV Immature Gran % (Auto) Neut % (Auto) Lymph % (Auto) Bay % (Auto) Eos % (Auto) Baso % (Auto) Lymph # (Auto) Bay # (Auto) Eos # (Auto) Baso # (Auto) Abs Immat Gran (auto) Absolute Neuts (auto) Absolute Nucleated RBC Nucleated RBC % (auto) Anion Gap Estim Creat Clear Calc Estimated GFR POC Glucose 146 H Random Glucose Calcium Stl C. cayetanensis PCR Not Detected Stool Rotavirus A PCR Not Detected Stl Adenov F 40/41 PCR Not Detected Stool Astrovirus (PCR) Not Detected Stool Campylobacter PCR Not Detected Stool Cryptosporidium PCR Not Detected Stl Sh Tox Pr E STEC PCR Not Detected Stool E coli O157 PCR Not applicable Stl Enterotoxigenic E PCR Not Detected Stool EPEC (PCR) Not Detected Stool EAEC (PCR) Not Detected Stl E. histolytica PCR Not Detected Stool Giardia Lamblia PCR Not Detected Stl P. shigelloides PCR Not Detected Stool Salmonella PCR Not Detected Stool Sapovirus (PCR) Not Detected Stl Shigella/EIEC PCR Not Detected St Y.enterocolitica PCR Not Detected Stool Vibrio (PCR) Not Detected Stl Vibrio cholerae PCR Not Detected Stl Norovirus GI/GII PCR Not Detected C. difficile Tox B Gene NEGATIVE 04/28/22 04/29/22 04/29/22 19:30 07:01 07:01 MCV 101.2 H MCH 32.3 MCHC 31.9 RDW 15.7 Plt Count 181 MPV 11.2 Immature Gran % (Auto) 0.1 Neut % (Auto) 28.9 L Lymph % (Auto) 56.4 H Bay % (Auto) 10.9 Eos % (Auto) 3.4 Baso % (Auto) 0.3 Lymph # (Auto) 4.0 Bay # (Auto) 0.8 Eos # (Auto) 0.2 Baso # (Auto) 0.0 Abs Immat Gran (auto) 0.01 Absolute Neuts (auto) 2.1 Absolute Nucleated RBC 0.000 Nucleated RBC % (auto) 0.0 Anion Gap 13 Estim Creat Clear Calc 23.8 Estimated GFR 26 POC Glucose 134 H Random Glucose 148 H Calcium 8.3 L Stl C. cayetanensis PCR Stool Rotavirus A PCR Stl Adenov F PCR Stool Astrovirus (PCR) Stool Campylobacter PCR Stool Cryptosporidium PCR Stl Sh Tox Pr E STEC PCR Stool E coli O157 PCR Stl Enterotoxigenic E PCR Stool EPEC (PCR) Stool EAEC (PCR) Stl E. histolytica PCR Stool Giardia Lamblia PCR Stl P. shigelloides PCR Stool Salmonella PCR Stool Sapovirus (PCR) Stl Shigella/EIEC PCR St Y.enterocolitica PCR Stool Vibrio (PCR) Stl Vibrio cholerae PCR Stl Norovirus GI/GII PCR C. difficile Tox B Gene 04/29/22 04/29/22 07:32 11:19 MCV MCH MCHC RDW Plt Count MPV Immature Gran % (Auto) Neut % (Auto) Lymph % (Auto) Bay % (Auto) Eos % (Auto) Baso % (Auto) Lymph # (Auto) Bay # (Auto) Eos # (Auto) Baso # (Auto) Abs Immat Gran (auto) Absolute Neuts (auto) Absolute Nucleated RBC Nucleated RBC % (auto) Anion Gap Estim Creat Clear Calc Estimated GFR POC Glucose 133 H 172 H Random Glucose Calcium Stl C. cayetanensis PCR Stool Rotavirus A PCR Stl Adenov F PCR Stool Astrovirus (PCR) Stool Campylobacter PCR Stool Cryptosporidium PCR Stl Sh Tox Pr E STEC PCR Stool E coli O157 PCR Stl Enterotoxigenic E PCR Stool EPEC (PCR) Stool EAEC (PCR) Stl E. histolytica PCR Stool Giardia Lamblia PCR Stl P. shigelloides PCR Stool Salmonella PCR Stool Sapovirus (PCR) Stl Shigella/EIEC PCR St Y.enterocolitica PCR Stool Vibrio (PCR) Stl Vibrio cholerae PCR Stl Norovirus GI/GII PCR C. difficile Tox B Gene Microbiology Microbiology Results: Microbiology 04/26/22 17:23 Blood Culture - Preliminary Blood - Venous No growth after 48 hours. 04/26/22 17:23 Blood Culture - Preliminary Blood - Venous No growth after 48 hours. Assessment and Plan (1) COVID-19: Status: Acute (2) Encephalopathy: Status: Acute Plan This is a 71-year-old female with pertinent history of rheumatoid arthritis, essential hypertension, chronic kidney disease, mixed hyperlipidemia, hypothyroidism, fibromyalgia admitted for management of COVID 19 with metabolic encephalopathy ?# acute metabolic encephalopathy- likely due to COVID-19- mental status back to baseline, resolved ?#COVID-19 infection, positive test date:? 04/26/2022 -No hypoxia- IV steroid not indicated -CXR negative for pneumonia -Symptomatic management -Discussed with ID. Remdesivir, steroids not indicated #Acute diarrhea -Likely related to covid-19 -CDiff, GI panel negative -immodium prn ?#DOMI- resolved though creat increased slightly since yesterday likely related to diarrhea and poor PO intake -Encourage PO intake, resume IVF - Follow BMP, urine output - avoid nephrotoxins ?#. hypothyroidism -TSH 0.42, free t4 ordered and normal -Continue Synthroid ?#essential hypertension -Hold chlorthalidone -COntinue metoprolol. Resume amlodipine and lisinopril ?#. tachycardia- intermittent likely in the setting of COVID 19 infection- improved -Ddimer elevated at 303 -VQ scan negative for PE ?#hypomagnesemia: Repleted ?#. elevated troponin, likely due to increased demand.?Repeat trending down ?#. [id number] diabetes mellitus- controlled -POC glucose -Diabetic diet -Humalog SSI -Hold metformin DVT prophylaxis:? Lovenox 30 mg daily Cardiac diet Full code Requires ongoing inpatient stay for monitoring of kidney function and mentation. Time Spent With Patient Time: Total time managing care of this patient today 35 minutes. Quality Stroke Does the patient have a stroke diagnosis?: No VTE Prior VTE?: No VTE Risk Level:: Medical - moderate - high VTE Device Contraindication: Treatment Not Indicated VTE Drug Contraindication: N/A - Med Ordered
--- NOTE | 2022-04-29 16:14 | P.CNID_ITS ---
History of Present Illness Data of Consult Service Date: 04/29/22 Requesting physician: Carmen Hines Primary Care Provider: Wallace Anderson MD HPI Reason for consult: COVID She presents with weakness and fever ,started four days ago with weakness and fever yesterday. She has rhinorrhea and no cough. She was encephalopathic PMF Past Medical History Medical History Fibromyalgia Gout Hypertension Hypothyroidism Seropositive rheumatoid arthritis Family History Family History Mother Asthma Father CVD (cardiovascular disease) Brother HTN (hypertension) Diabetes Family history: reviewed and not pertinent Surgical History Surgical History Hx of hysterectomy Social History Social History Household Members: Spouse Housing: Apartment Alcohol intake: never Patient Tobacco Use Status: Never used Tobacco e-Cigarette/Vaping Use: Never Used Use of substances other than those prescribed or required for medical reasons: No Currently Displaying Signs/Symptoms of Drug Intoxication Withdrawal: No Have you been hit, kicked, punched, or otherwise hurt by someone within the past year? If so, by whom?: No Do you feel safe in your current relationship?: Yes Is there a partner from a previous relationship who is making you feel unsafe now?: No Are you made to feel afraid or neglected: No Spiritual Healthcare Practices: mandaeism Advance Directives: No Advance Directives Information Provided: No Do you have thoughts of harming others: None Do you have a plan to hurt others: No Plan Recently lost weight without trying: Yes How much weight loss: 2-13 pounds Eating poorly because of decreased appetite: Yes Nutrition screen score: 4 Nutrition Risks: No Nutritional Risk Patient : No : No Poor oral hygiene: No Meds Allergies Allergy/AdvReac Type Severity Reaction Status Date / Time Penicillins [PENICILLINS] Allergy Severe RASH Verified 12/21/21 13:40 From PERCOCET Allergy Severe RASH Uncoded 12/21/21 13:40 Active Medications: Current Medications Acetaminophen (Acetaminophen 325 Mg Tablet) 650 mg PO Q6H PRN PRN Reason: Pain, Mild (Pain Scale 1-3) Last Admin: 04/27/22 06:01 Dose: 650 mg Allopurinol (Allopurinol 100 Mg Tablet) 100 mg PO DAILY [facility] Last Admin: 04/29/22 08:38 Dose: 100 mg Amlodipine Besylate (Amlodipine Besylate 10 Mg Tablet) 10 mg PO DAILY [facility]; Protocol Last Admin: 04/29/22 08:38 Dose: 10 mg Atorvastatin Calcium (Atorvastatin Calcium 20 Mg Tablet) 20 mg PO DAILY [facility] Last Admin: 04/29/22 08:38 Dose: 20 mg Cyanocobalamin (Cyanocobalamin (Vitamin B-12) 1,000 Mcg Tablet) 1,000 mcg PO DAILY [facility] Last Admin: 04/29/22 08:38 Dose: 1,000 mcg Dextrose (Dextrose 50 % 25 Gm/50 Ml Syringe) 25 gm IVPUSH Q15M PRN; Protocol PRN Reason: per Hypoglycemia Standing Ord. Enoxaparin Sodium (Enoxaparin Sodium 30 Mg/0.3 Ml Syringe) 30 mg SUBCUT Q24H [facility] Last Admin: 04/28/22 22:32 Dose: 30 mg Ferrous Sulfate (Ferrous Sulfate 324 Mg Tablet.Dr) 324 mg PO TID [facility] Last Admin: 04/29/22 08:38 Dose: 324 mg Fluticasone Propionate (Fluticasone Propionate Nasal 16 Gm [place]) 1 spray NOSTRIL-B DAILY [facility] Last Admin: 04/29/22 08:40 Dose: 1 spray Glucose (Glucose Gel 15 Gm Gel..Gram.) 15 gm PO Q15M PRN; Protocol PRN Reason: per Hypoglycemia Standing Ord. Guaifenesin/Dextromethorphan (Guaifenesin Dm 600/30 1 Tab Tab.Er.12h) 1 tab PO BID PRN PRN Reason: cough Last Admin: 04/28/22 22:32 Dose: 1 tab Sodium Chloride (Ns) 1,000 mls @ 100 mls/hr IVCONT .Q10H [facility] Stop: 04/30/22 11:29 Insulin Human Lispro (Insulin Lispro 100 Unit/Ml 3 Ml Vial) 0 unit SUBCUT QIDACHS [facility]; Protocol Last Admin: 04/29/22 11:56 Dose: 2 unit Levothyroxine Sodium (Levothyroxine Sodium 50 Mcg Tablet) 50 mcg PO DAILY@0600 [facility] Last Admin: 01/09/23 05:24 Dose: 50 mcg Lisinopril (Lisinopril 40 Mg Tablet) 40 mg PO BEDTIME [facility]; Protocol Last Admin: 04/28/22 22:31 Dose: 40 mg Loperamide HCl (Loperamide Hcl 2 Mg Capsule) 2 mg PO Q4H PRN PRN Reason: Diarrhea Melatonin (Melatonin 3 Mg Tablet) 6 mg PO BEDTIME PRN PRN Reason: Insomnia Metoprolol Tartrate (Metoprolol Tartrate 100 Mg Tablet) 100 mg PO BID [facility]; Protocol Last Admin: 04/29/22 08:38 Dose: 100 mg Omeprazole (Omeprazole 20 Mg Capsule.Dr) 20 mg PO DAILY@0630 [facility] Last Admin: 04/29/22 05:23 Dose: 20 mg Ondansetron HCl (Ondansetron Hcl 4 Mg/2 Ml Vial) 4 mg IVPUSH Q8H PRN PRN Reason: Nausea and Vomiting Pregabalin (Pregabalin 75 Mg Capsule) 75 mg PO BID [facility] Last Admin: 04/29/22 08:38 Dose: 75 mg Senna (Sennosides 8.6 Mg Tablet) 17.2 mg PO DAILY PRN PRN Reason: constipation Sodium Chloride (0.9 % Sodium Chloride Flush 3 Ml Syringe) 3 ml IVFLUSH QSHIFT [facility] Last Admin: 04/29/22 08:40 Dose: 3 ml Vitamin D (Cholecalciferol (Vitamin D3) 25 Mcg Tablet) 25 mcg PO DAILY [facility] Last Admin: 04/29/22 08:39 Dose: 25 mcg Home Medications Medication Instructions Recorded Confirmed Last Taken Type acetaminophen 650 mg 1 tab PO Q12H PRN pain 04/26/22 04/26/22 Unknown History tablet,extended release allopurinol 100 mg tablet 1 tab PO DAILY 04/26/22 04/26/22 Unknown History amlodipine 10 mg tablet 1 tab PO DAILY 04/26/22 04/26/22 Unknown History atorvastatin 20 mg tablet 1 tab PO DAILY 04/26/22 04/26/22 Unknown History chlorthalidone 25 mg tablet 1 tab PO DAILY 04/26/22 04/26/22 Unknown History cholecalciferol (vitamin D3) 25 1 tab PO DAILY 04/26/22 04/26/22 Unknown History mcg (1,000 unit) tablet cyanocobalamin (vitamin B-12) 1 tab PO DAILY 04/26/22 04/26/22 Unknown History 1,000 mcg tablet ferrous sulfate 325 mg (65 mg 1 tab PO TID 04/26/22 04/26/22 Unknown History iron) tablet (FeroSul) levothyroxine 50 mcg tablet 1 tab PO DAILY@0630 04/26/22 04/27/22 Unknown History lisinopril 40 mg tablet 1 tab PO QPM 04/26/22 04/26/22 Unknown History metformin 500 mg tablet 1 tab PO BIDWM 04/26/22 04/27/22 Unknown History metoprolol tartrate 100 mg tablet 1 tab PO BID 04/26/22 04/26/22 Unknown History pregabalin 75 mg capsule 1 cap PO BID 04/26/22 04/26/22 Unknown History albuterol sulfate 90 mcg/actuation 2 puff inhalation Q4-6H PRN 04/27/22 04/27/22 Unknown History aerosol inhaler Shortness Of Breath dulaglutide 0.75 mg/0.5 mL 0.75 mg subcut QWEEK 04/27/22 04/27/22 Unknown History subcutaneous pen injector (Trulicity) lidocaine 5 % topical patch 1 patch topical DAILY PRN Pain 04/27/22 04/27/22 Unknown History (Scale Score 4-6) pantoprazole 20 mg tablet,delayed 1 tab PO DAILY@0630 04/27/22 04/27/22 Unknown History release sennosides 8.6 mg tablet (senna) 2 tab PO DAILY PRN constipation 04/27/22 04/27/22 Unknown History Physical Exam Vital Signs: Vital Signs: Last Vital Signs Temp 97.4 F 04/29/22 15:11 Pulse 82 04/29/22 15:11 Resp 20 04/29/22 15:11 BP 110/57 L 04/29/22 15:11 Pulse Ox 94 04/29/22 15:11 O2 Del Method 04/29/22 15:11 BMI result Body Mass Index 30.9 Const: General: cooperative HEENT: Head: Yes normal to inspection Face and sinus: Yes normal facial exam Mouth: Normal oral and palatal mucosa present Teeth and gingiva: dentition normal Eyes: General: appearance normal, both eyes and all related structures Pupils: Equal, round and reactive pupils present Resp: Effort & Inspection: normal respiratory effort Cardio: Rate: regular rate Rhythm: regular rhythm GI: Palpation (GI): Soft to palpation and nontender : General: Yes no CVA tenderness Back/Spine/Pelvis: Back: no CVA tenderness Skin: General skin exam: no rashes or lesions noted Neuro: General: moves all extremities Cranial nerves: Yes Equal, round and reactive pupils present Extrem: General: Yes normal to inspection Psych: Other: confused Results Labs 04/29/22 07:01 04/29/22 07:01 Labs: Short CBC 04/29/22 Range/Units 07:01 WBC 7.2 (4.8-10.8) X10*3/uL Hgb 11.2 L (12.0-16.0) g/dl Hct 35.1 L (37.0-47.0) % Plt Count 181 (160-400) X10*3/uL BMP 04/29/22 07:01 Sodium 142 Potassium 3.8 Chloride 114 H Carbon Dioxide 19 L BUN 22 H Creatinine 1.94 H Calcium 8.3 L Microbiology Microbiology Results: Microbiology 04/26/22 17:23 Blood - Venous Blood Culture - Preliminary No growth after 48 hours. 04/26/22 17:23 Blood - Venous Blood Culture - Preliminary No growth after 48 hours. Assessment and Plan (1) COVID-19: Status: Acute There is no hypoxia and COVID symptoms mild and not clear exactly when symptoms started ?four days ago or weakness before possible Would not give Remdesivir since not hypoxic and not give preventive since somewhat unclear timeline ?4 days (2) Encephalopathy: Status: Acute Plan Would give supportive care. Dexamethasone if hypoxic (saturation under 94% on RA). Time Spent With Patient Time: Total time managing care of this patient today ____ minutes.
[2022-04-29 16:16] LABS: Glucose, Whole Blood 139 mg/dL (60-115)
[2022-04-29] MEDS: Loperamide HCl 2 MG CAPSULE 4 MG PO (16:24)
[2022-04-29] MEDS: 0.9 % Sodium Chloride 1,000 ML 100 ML IVCONT (16:27)
[2022-04-29] MEDS: Lactated Ringers 1,000 ML 100 ML IVCONT (18:57)
[2022-04-29 19:48] LABS: Glucose, Whole Blood 166 mg/dL (60-115)
[2022-04-29] MEDS: Enoxaparin Sodium 30 MG/0.3 ML SYRINGE SUBCUT (22:45)
[2022-04-29] MEDS: lisinopriL 40 MG TABLET PO (22:45)
[2022-04-30 01:43] LABS: Appearance Urine Clear; Color Urine Yellow; Glucose Urine UA Negative (Negative); Leukocyte Esterase Urine Small (1+) (Negative); Nitrite Urine Negative (Negative); PH 5.5 (5.0-9.0); UMIC TRIGGER UACC YES; Urine Blood Negative (Negative); Urine Ketones Negative (Negative); Urine Protein Trace mg/dL (Neg-Trace)
[2022-04-30 01:44] LABS: Bacteria Urine Trace (None Seen); Hyaline Casts Urine 0-2 /LPF (0-2); RBC Urine 0-2 /HPF (0-2); Squamous Epithelial Cell Urine 0-2 /HPF (0-2); UACC Culture Trigger YES
[2022-04-30 03:29] VITALS: BP 122/59; PULSE 86; RESP 16; TEMP 36.7; O2SAT 93
[2022-04-30] MEDS: Lactated Ringers 1,000 ML 100 ML IVCONT (04:45)
[2022-04-30] MEDS: Omeprazole 20 MG CAPSULE.DR PO (05:29)
[2022-04-30] MEDS: Levothyroxine Sodium 50 MCG TABLET PO (05:29)
[2022-04-30 07:25] LABS: Glucose, Whole Blood 113 mg/dL (60-115)
[2022-04-30 07:38] VITALS: BP 121/62; PULSE 87; RESP 16; TEMP 36.9; O2SAT 95
[2022-04-30 08:41] LABS: Anion Gap 12 (12-20); Blood Urea Nitrogen 18 mg/dL (9-16); Calcium 8.3 mg/dL (8.4-10.2); Carbon Dioxide 19 mmol/L (22-29); Chloride 115 mmol/L (96-108); Creatinine Clr Calc Pharmacy 28.1; Estimated Glomerular Filt Rate 31; Glucose Random 120 mg/dL (60-115); Potassium 3.8 mmol/L (3.3-5.1); Sodium 142 mmol/L (135-145)
[2022-04-30] MEDS: Cholecalciferol (Vitamin D3) 25 MCG TABLET PO (10:21)
[2022-04-30] MEDS: Pregabalin 75 MG CAPSULE PO (10:21)
[2022-04-30] MEDS: Atorvastatin Calcium 20 MG TABLET PO (10:21)
[2022-04-30] MEDS: Metoprolol Tartrate 100 MG TABLET PO (10:21)
[2022-04-30] MEDS: Ferrous Sulfate 324 MG TABLET.DR PO (10:21)
[2022-04-30] MEDS: allopurinoL 100 MG TABLET PO (10:21)
[2022-04-30] MEDS: Cyanocobalamin (Vitamin B-12) 1,000 MCG TABLET 1000 MCG PO (10:21)
[2022-04-30] MEDS: Fluticasone Propionate Nasal 16 GM SPRAY 1 SPRAY NOSTRIL-B (10:24)
[2022-04-30] MEDS: amLODIPine Besylate 10 MG TABLET PO (10:28)
[2022-04-30 10:58] VITALS: PULSE 108; O2SAT 96
--- NOTE | 2022-04-30 10:59 | PM.DS ---
DS: Providers Provider Date of Service: 04/30/22 Date of admission: 04/26/22 22:45 Primary care physician: Wallace Anderson MD Consults: 04/26/22 22:38 Consult to Infectious Diseases Routine Consulting Provider: Theresa Ray Reason for consultation: ?remdesevir for covid Attending physician on discharge: Kenny Barbour Discharging clinician: Deepa Morris DS: Diagnosis Discharge Diagnosis (1) COVID-19: Status: Acute (2) Encephalopathy: Status: Acute DS: Summary Hospital Course Hospital Course: # acute metabolic encephalopathy. Resolved Secondary to COVID-19 ?#COVID-19 infection, positive test date:? 04/26/2022 -No hypoxia- IV steroid not indicated -CXR negative for pneumonia -Symptomatic management -Discussed with ID. Remdesivir, steroids not indicated #Acute diarrhea. Resolved -Likely related to covid-19 -CDiff, GI panel negative -immodium prn ?#DOMI. Resolved Secondary to diarrhea #. hypothyroidism -TSH 0.42, free t4 ordered and normal -Continue Synthroid ?#essential hypertension Continue home medications ?#. tachycardia- intermittent likely in the setting of COVID 19 infection- improved -Ddimer elevated at 303 -VQ scan negative for PE ?#hypomagnesemia. Resolved Secondary to diarrhea ?#. elevated troponin. No delta likely due to increased demand.? Repeat trending down ?#. [id number] diabetes mellitus- controlled Continue home medications Time Spent with Patient Time attestation: Total time managing care of this patient today ____ minutes. Discharge coordination time: Greater than 30 minutes Quality: Safe Use of Opioids Does Pt have an Active Cancer Diagnosis on the Problem List?: No Quality: Stroke Does the patient have a stroke diagnosis?: No Physical Exam Vital Signs: Vital Signs: Last Vital Signs Temp 98.5 F 04/30/22 07:38 Pulse 87 04/30/22 07:38 Resp 16 04/30/22 07:38 BP 121/62 04/30/22 07:38 Pulse Ox 95 04/30/22 07:38 O2 Del Method 04/30/22 07:38 BMI result Body Mass Index 30.9 Appearing in no acute distress head is normocephalic atraumatic eyes pupils are PERRLA sclera is anicteric mouth throat mucous membranes are intact and moist neck is supple no lymphadenopathy, no JVD noted lung sounds are clear to auscultation heart regular rate rhythm, clear S1, S2 positive bowel sounds, abdomen is soft, nontender neuro patient is alert x3, no focal deficits DS: Data Data Completed and Pending Labs on day of discharge: Laboratory Results - last 24 hr 04/28/22 04/29/22 04/29/22 14:30 11:19 16:06 Sodium Potassium Chloride Carbon Dioxide Anion Gap BUN Creatinine Estim Creat Clear Calc Estimated GFR POC Glucose 172 H 139 H Random Glucose Calcium Urine Color Urine Appearance Urine pH Ur Specific Dennison Urine Protein Urine Glucose (UA) Urine Ketones Urine Blood Urine Nitrite Ur Leukocyte Esterase Urine RBC Urine WBC Ur Squamous Epith Cells Urine Bacteria Hyaline Casts Stl C. cayetanensis PCR Not Detected Stool Rotavirus A PCR Not Detected Stl Adenov F 40/ PCR Not Detected Stool Astrovirus (PCR) Not Detected Stool Campylobacter PCR Not Detected Stool Cryptosporidium PCR Not Detected Stl Sh Tox Pr E STEC PCR Not Detected Stool E coli O157 PCR Not applicable Stl Enterotoxigenic E PCR Not Detected Stool EPEC (PCR) Not Detected Stool EAEC (PCR) Not Detected Stl E. histolytica PCR Not Detected Stool Giardia Lamblia PCR Not Detected Stl P. shigelloides PCR Not Detected Stool Salmonella PCR Not Detected Stool Sapovirus (PCR) Not Detected Stl Shigella/EIEC PCR Not Detected St Y.enterocolitica PCR Not Detected Stool Vibrio (PCR) Not Detected Stl Vibrio cholerae PCR Not Detected Stl Norovirus GI/GII PCR Not Detected 04/29/22 04/29/22 04/30/22 19:41 23:30 07:07 Sodium Potassium Chloride Carbon Dioxide Anion Gap BUN Creatinine Estim Creat Clear Calc Estimated GFR POC Glucose 166 H 113 Random Glucose Calcium Urine Color Yellow Urine Appearance Clear Urine pH 5.5 Ur Specific Dennison 1.010 Urine Protein Trace Urine Glucose (UA) Negative Urine Ketones Negative Urine Blood Negative Urine Nitrite Negative Ur Leukocyte Esterase Small (1+) H Urine RBC 0-2 Urine WBC 6-10 H Ur Squamous Epith Cells 0-2 Urine Bacteria Trace Hyaline Casts 0-2 Stl C. cayetanensis PCR Stool Rotavirus A PCR Stl Adenov F 40/41 PCR Stool Astrovirus (PCR) Stool Campylobacter PCR Stool Cryptosporidium PCR Stl Sh Tox Pr E STEC PCR Stool E coli O157 PCR Stl Enterotoxigenic E PCR Stool EPEC (PCR) Stool EAEC (PCR) Stl E. histolytica PCR Stool Giardia Lamblia PCR Stl P. shigelloides PCR Stool Salmonella PCR Stool Sapovirus (PCR) Stl Shigella/EIEC PCR St Y.enterocolitica PCR Stool Vibrio (PCR) Stl Vibrio cholerae PCR Stl Norovirus GI/GII PCR 04/30/22 08:20 Sodium 142 Potassium 3.8 Chloride 115 H Carbon Dioxide 19 L Anion Gap 12 BUN 18 H Creatinine 1.65 H Estim Creat Clear Calc 28.1 Estimated GFR 31 POC Glucose Random Glucose 120 H Calcium 8.3 L Urine Color Urine Appearance Urine pH Ur Specific Dennison Urine Protein Urine Glucose (UA) Urine Ketones Urine Blood Urine Nitrite Ur Leukocyte Esterase Urine RBC Urine WBC Ur Squamous Epith Cells Urine Bacteria Hyaline Casts Stl C. cayetanensis PCR Stool Rotavirus A PCR Stl Adenov F 40/41 PCR Stool Astrovirus (PCR) Stool Campylobacter PCR Stool Cryptosporidium PCR Stl Sh Tox Pr E STEC PCR Stool E coli O157 PCR Stl Enterotoxigenic E PCR Stool EPEC (PCR) Stool EAEC (PCR) Stl E. histolytica PCR Stool Giardia Lamblia PCR Stl P. shigelloides PCR Stool Salmonella PCR Stool Sapovirus (PCR) Stl Shigella/EIEC PCR St Y.enterocolitica PCR Stool Vibrio (PCR) Stl Vibrio cholerae PCR Stl Norovirus GI/GII PCR Preliminary micro results at discharge 04/29/22 23:30 Urine Culture - Preliminary Urine clean catch - Urine acosta top Culture in progress. 04/26/22 17:23 Blood Culture - Preliminary Blood - Venous No growth after 48 hours. 04/26/22 17:23 Blood Culture - Preliminary Blood - Venous No growth after 48 hours. Discharge Plan Discharge Anticipated Discharge Date/Time: 04/30/22 10:56 Patient Disposition: Home Health Service Discharge Diagnosis: Acute metabolic encephalopathy COVID-19 Diarrhea DOMI on CKD Tachycardia Hypo magnesemia Elevated troponin Referrals: [facility] [Other] - 1 Week [facility] [Outside] - 1 Week Name,MD Wallace [Primary Care Provider] - 1 Week Discharge Medications: Continued Humira(CF) Pen 40 mg/0.4 mL pen injector kit 40 mg subcut Q2W Qty: 2 2RF metformin 500 mg tablet 1 tab PO BIDWM atorvastatin 20 mg tablet 1 tab PO DAILY metoprolol tartrate 100 mg tablet 1 tab PO BID cyanocobalamin (vitamin B-12) 1,000 mcg tablet 1 tab PO DAILY chlorthalidone 25 mg tablet 1 tab PO DAILY allopurinol 100 mg tablet 1 tab PO DAILY acetaminophen 650 mg tablet extended release 1 tab PO Q12H PRN (Reason: pain) amlodipine 10 mg tablet 1 tab PO DAILY levothyroxine 50 mcg tablet 1 tab PO DAILY@0630 ferrous sulfate [FeroSul] 325 mg (65 mg iron) tablet 1 tab PO TID lisinopril 40 mg tablet 1 tab PO QPM pregabalin 75 mg capsule 1 cap PO BID cholecalciferol (vitamin D3) 25 mcg (1,000 unit) tablet 1 tab PO DAILY sennosides [senna] 8.6 mg tablet 2 tab PO DAILY PRN (Reason: constipation) pantoprazole 20 mg tablet,delayed release (DR/EC) 1 tab PO DAILY@0630 albuterol sulfate 90 mcg/actuation HFA aerosol inhaler 2 puff INHALATION Q4-6H PRN (Reason: Shortness Of Breath) Trulicity 0.75 mg/0.5 mL pen injector 0.75 mg subcut QWEEK lidocaine 5 % adhesive patch,medicated 1 patch topical DAILY PRN (Reason: Pain (Scale Score 4-6)) Discharge Orders: Discharge Order (Routine); Ordered 04/30/22 Ordered By: Deepa Morris Diet: Advance to usual diet Activity on Discharge: As tolerated Stand Alone Forms: Patient Portal Discharge page Care Plan Goals: Complete resolution of symptoms Health Concerns: Acute metabolic encephalopathy COVID-19 Diarrhea DOMI on CKD Tachycardia Hypo magnesemia Elevated troponin Plan of Treatment: Follow-up with primary care provider as needed Take all medications as prescribed You were diagnosed with COVID-19 on 04/26/2022, a should complete a total of 5 days of quarantine. Assessment: See discharge summary
[2022-04-30 11:08] VITALS: BP 108/55; PULSE 86; RESP 20; TEMP 36; O2SAT 95
[2022-04-30 11:20] LABS: Glucose, Whole Blood 137 mg/dL (60-115)
--- NOTE | 2022-04-30 14:01 | MHC.CM.PN ---
Patient has been medically cleared for dc to home today with services. A referral was sent to [facility], who is aware of today's dc. IMM addressed.
--- NOTE | 2022-04-30 14:02 | MHC.CM.PN ---
pt going jhome via amb at 3 with [facility]
== END 2022-04-30 16:50 | disposition home health service (06) | DRG 177 ==
LOC: HO.ED 22:28 → HO.EDOVER 22:46 → HO.IMC 04-27 02:23
PROVIDERS: Physician Assistant; Admitting Provider Student in an Organized Health Care Education/Training Program; Emergency Provider Emergency Medicine; PCP Internal Medicine Geriatric Medicine; Visit Provider Nurse Practitioner Acute Care
DX: U07.1 COVID-19 (principal); G93.41 Metabolic encephalopathy; N17.9 Acute kidney failure, unspecified; I24.8 Other forms of acute ischemic heart disease; N18.4 Chronic kidney disease, stage 4 (severe); M10.9 Gout, unspecified; M79.7 Fibromyalgia; M05.9 Rheumatoid arthritis with rheumatoid factor, unspecified; E11.22 Type 2 diabetes mellitus with diabetic chronic kidney disease; E83.42 Hypomagnesemia; I12.9 Hypertensive chronic kidney disease with stage 1 through stage 4 chronic kidney disease, or unspecified chronic kidney disease; E78.2 Mixed hyperlipidemia; E03.9 Hypothyroidism, unspecified; Z88.0 Allergy status to penicillin; Z88.5 Allergy status to narcotic agent; Z79.84 Long term (current) use of oral hypoglycemic drugs; Z79.620 Long term (current) use of immunosuppressive biologic; Z79.899 Other long term (current) drug therapy
CPT/HCPCS: 36415; 71045; 78580; 80048; 80076; 80143; 80179; 80307; 81001; 82077; 82140; 82947; 83605; 83690; 83735; 83880; 84439; 84443; 84484; 85025; 85379; 85610; 87040; 87086; 87493; 87502; 87507; 87635; 93005; 93970; 97110; 97116; 97161; 99285; A9540; J1650; J3475

== ENCOUNTER → 2022-06-03 12:47 | Outpatient (BNVA) | payer OTHER, SELFPAY | PROVIDERS: PCP Internal Medicine Geriatric Medicine; Visit Provider Nurse Practitioner Family | DX: M05.70 Rheumatoid arthritis with rheumatoid factor of unspecified site without organ or systems involvement (principal); M25.512 Pain in left shoulder; M79.7 Fibromyalgia; M10.9 Gout, unspecified; E03.9 Hypothyroidism, unspecified; I10 Essential (primary) hypertension; Z79.4 Long term (current) use of insulin; Z79.899 Other long term (current) drug therapy | CPT/HCPCS: 99212 ==

== ENCOUNTER → 2022-09-03 11:19 | Outpatient (BNVA) | payer OTHER, SELFPAY | PROVIDERS: PCP Internal Medicine Geriatric Medicine; Visit Provider Nurse Practitioner Family | DX: M05.9 Rheumatoid arthritis with rheumatoid factor, unspecified (principal); M79.7 Fibromyalgia; M25.512 Pain in left shoulder; Z79.52 Long term (current) use of systemic steroids | CPT/HCPCS: 99212 ==

== ENCOUNTER 2022-09-03 12:33 | Outpatient (REF) | payer OTHER, SELFPAY ==
[2022-09-03 13:50] LABS: MANUAL DIFF FLAG NO
[2022-09-03 14:07] LABS: Basophils Percent Auto 0.2 % (0-2); Eosinophils Absolute Auto 0.3 X10*3/uL (0.0-0.4); Eosinophils Percent Auto 2.9 % (0-4); Hematocrit 35.7 % (37.0-47.0); Hemoglobin 11.5 g/dl (12.0-16.0); Imm Gran Abs Auto 0.04 X10*3/uL (0.00-0.03); Imm Gran Pct Auto 0.4 % (0.0-0.4); Lymphocytes Absolute Auto 3.5 X10*3/uL (1.2-4.9); Lymphocytes Percent Auto 35.7 % (20-40); Mean Corpuscular HGB Conc 32.2 g/dl (31.0-35.0); Mean Corpuscular Hemoglobin 31.5 pg (27.0-33.0); Mean Corpuscular Volume 97.8 fL (80.0-98.0); Mean Platelet Volume 10.9 fL (9.4-12.3); Monocytes Absolute Auto 0.7 X10*3/uL (0.1-1.2); Monocytes Percent Auto 7.2 % (2-11); Neutrophils Absolute Auto 5.2 x10*3/uL (2.0-8.3); Neutrophils Percent Auto 53.6 % (45-73); Platelet Count 239 X10*3/uL (160-400); Red Blood Count 3.65 X10*6/uL (4.20-5.50); Red Cell Distribution Width 14.7 % (11.0-16.0); White Blood Count 9.7 X10*3/uL (4.8-10.8)
[2022-09-03 14:31] LABS: Alanine Aminotransferase 31 U/L (0-31); Albumin Level 3.3 g/dL (3.5-5.0); Alkaline Phosphatase 77 U/L (39-117); Anion Gap 13 (12-20); Aspartate Amino Transferase 19 U/L (5-31); Bilirubin Total 0.3 mg/dL (0.0-1.0); Blood Urea Nitrogen 28 mg/dL (9-16); Calcium 8.6 mg/dL (8.4-10.2); Carbon Dioxide 24 mmol/L (22-29); Chloride 106 mmol/L (96-108); Estimated Glomerular Filt Rate 28; Glucose Random 208 mg/dL (60-115); Potassium 4.7 mmol/L (3.3-5.1); Sodium 138 mmol/L (135-145); Total Protein 6.8 g/dL (6.5-8.0)
[2022-09-03 14:45] LABS: Erythrocyte Sedimentation Rate 55 MM/HR (0-20)
[2022-09-04 07:37] LABS: HBc Num1 0.07 S/CO (0.00-0.79); HBsAGNum1 0.37 S/CO (0.00-0.99); Hepatitis A Antibody IgM 0.35 Index (0-0.79); Hepatitis B Core Antibody Nonreactive (Nonreactive); Hepatitis B Surface Antigen Negative (Negative); ~HepC Num1 0.17 S/CO (0.00-0.79); ~Hepatitis A Antibody IgM Nonreactive (Nonreactive); ~Hepatitis B Surface Antibody NONREACTIVE (Nonreactive); ~Hepatitis C Antibody Nonreactive (Nonreactive)
[2022-09-05 11:18] LABS: TS Negative Control Passed; TS Panel A 2; TS Panel B 1; TS Positive Control Passed; TSpotTB Negative (Negative)
== END 2022-09-03 12:34 | disposition home or self-care (01) ==
LOC: HO.10HDL 12:33
PROVIDERS: Visit Provider Nurse Practitioner Family
DX: Z11.1 Encounter for screening for respiratory tuberculosis (principal); M05.9 Rheumatoid arthritis with rheumatoid factor, unspecified; M25.512 Pain in left shoulder; M79.7 Fibromyalgia
CPT/HCPCS: 36415; 80053; 85025; 85652; 86140; 86481; 86704; 86706; 86709; 86803; 87340

== ENCOUNTER 2023-02-17 13:41 | Outpatient (AMB) | payer OTHER, SELFPAY ==
--- NOTE | 2023-02-17 13:48 | A.OFFVIS_ITS ---
Intake Vital Signs 02/17/23 13:49 Height 4 ft 11 in Weight 151 lb 7.321 oz BMI 30.6 BP 100/64 Blood Pressure Location Lt radial Position Sitting Pulse 68 Pulse Source Palpation Temp 97.2 F Temp Source Skin Intake Visit Reasons: Rheumatoid arthritis Intake Note: Patient presents today to follow up on RA. Patient has not seen ortho. c/o le arm pain and swelling, neck pain Engagement Manager Required: Yes Engagement Manager Language: Associate Material Handler Name: Sally [id number] Information Interpreted: clinical only Accompanied by: Evangelist, spouse Allergies Penicillins [PENICILLINS] Allergy (Severe, Verified 02/17/23 13:54) RASH From PERCOCET Allergy (Severe, Uncoded 02/17/23 13:54) RASH Medication List - Last Reconciled 02/17/23 by Justin Olson MD acetaminophen ER 1 tab PO Q12H PRN adalimumab (Humira(CF) Pen) 40 mg (0.4 mL) subcut Q2W albuterol sulfate 90 mcg/actuation 2 puffs inhalation Q4-6H PRN alcohol swabs (Alcohol Prep Pads) 1 pad topical QID allopurinol 1 tab PO DAILY amlodipine 1 tab PO DAILY atorvastatin 1 tab PO DAILY blood sugar diagnostic ([employer] Ultra Test strips) As directed cetirizine 10 mg PO QAM chlorthalidone 1 tab PO DAILY cholecalciferol (vitamin D3) 1 tab PO DAILY cyanocobalamin (vitamin B-12) 1 tab PO DAILY dulaglutide (Trulicity) mg subcut ferrous sulfate (FeroSul) 1 tab PO TID fluticasone propionate 50 mcg/actuation sprays intranasal lancets (NadanuTouch Delica Plus Lancet) As directed levothyroxine 1 tab PO DAILY@0630 lidocaine 5% 1 patch topical DAILY PRN losartan 25 mg PO DAILY metoprolol tartrate 1 tab PO BID pantoprazole 1 tab PO DAILY@0630 pregabalin 75 mg PO BID sennosides (senna) 2 tabs PO DAILY PRN triamcinolone acetonide (24 Hour Nasal Allergy) intranasal HPI HPI Comments History of Present Illness Details The patient returns for follow-up of her rheumatoid arthritis, osteoarthritis, and fibromyalgia. We use the [employer] translating service to facilitate the visit. Her is here and adds additional history. The patient is still complaining of widespread pain. Mostly this involves the neck, shoulders, lower back, hands and knees. She says the right shoulder pain has been worse than usual. She does not recall any recent injury to those areas. In the past she had an MRI of the left shoulder documenting glenohumeral osteoarthritis. She remains on Humira 40 mg daily. We did check with the pharmacy that she uses and she has not filled the leflunomide since June. She is also on pregabalin 75 b.i.d., lidocaine patches once daily, allopurinol 100 mg daily, and 650 mg of acetaminophen about 3 times a day. She does check her blood sugars and think the may be a bit higher but she has not really have any recollection of the recent numbers. [facility] Medical History Fibromyalgia Gout Hypertension Hypothyroidism Seropositive rheumatoid arthritis Surgical History Hx of hysterectomy Family History Mother Asthma Father CVD (cardiovascular disease) Brother HTN (hypertension) Diabetes Social History Household Members: Spouse Housing: Apartment Alcohol intake: never Patient Tobacco Use Status: Never used Tobacco e-Cigarette/Vaping Use: Never Used Review of Systems Const Details: She is relatively inactive, only occasionally walking at home. She is in the wheelchair today. Low energy. Negative for appetite change, weight change, fever, chills, malaise Eyes Details: Occasional headache. Some ocular dryness. Negative for vision change, and dizz iness ENT Details: Some chronic nasal congestion. Negative for hearing change, tinnitus, oral ulcer, nose bleeds and oral dryness. Card Details: Negative chest pain, edema and syncope Resp Details: Negative for SOB, cough and wheezing GI Details: Negative indigestion/heartburn, nausea, abdominal pain, bowel changes, diarrhea, constipation and bloody stool. Neuro Details: Negative for epilepsy, palsy, stroke, changes in speech, tingling and weakness Endo Details: Negative for polyuria and polydypsia Michael/Lymph Details: Negative for excessive bruising or bleeding. Physical Exam Vital Signs: Last Vital Signs Temp 97.2 F 02/17/23 13:49 Pulse 68 02/17/23 13:49 BP 100/64 02/17/23 13:49 BMI result Body Mass Index 30.6 APPEARANCE: Patient in no acute distress EYES no redness, pupils equal and reactive to light, eyelids normal HEART: Regulrar rhythm, S1-S2 heard, no murmurs, rubs or gallops. LUNG: Clear to percussion and auscultation ABD: Normal bowel sounds, no organomegaly, masses or tenderness. EXTREMITIES: No edema, no calf tenderness, normal peripheral pulses. JOINT EXAM: Cervical Spine:? Full range of motion with mild pain. There is some posterior cervical muscle tenderness. Thoracic Spine:? No tenderness on palpation. Lumbar Spine: Alignment normal. Pain with flexion and extension, slight tenderness to palpation of the lumbar spine. Hands:? Right: There is some slight tenderness across the 1st 3 MCP and the 2nd 3rd PIP joints but I do not really appreciate soft tissue swelling. There is no triggering, thenar atrophy or sensory loss. Left: Mild tenderness at the 1st 2 MCP joints without swelling. There is some slight tenderness in the 2nd through 4th PIP joints without swelling. No triggering, thenar atrophy or sensory loss. Wrists: Mild pain with 75 degrees flexion or extension. There is slight dorsal tenderness but no swelling, increased warmth or erythema. Elbows: Normal pain-free range of motion without tenderness, swelling, increased warmth or erythema. Shoulders: LEFT: ?Mild pain with abduction at 100 degrees. Passive motion beyond that does not seem to be possible. She has similar pain with any attempts at internal rotation. Tenderness to palpation over the AC joint, bicipital groove and posterior aspect of the shoulder. RIGHT: Mild to moderate pain with abduction at 75 degrees. There is some moderate anterior and subacromial tenderness without swelling or adenopathy. Questionable abductor weakness. Hip bursa:? No tenderness. Knees:?? Normal pain-free range of motion without tenderness, swelling, increased warmth or erythema.? There is no effusion or crepitation Ankles: Normal pain-free range of motion without tenderness, swelling, increased warmth or erythema. Feet: LEFT: Normal pain-free range of motion without tenderness, swelling, increased warmth or erythema. Skin sensitivity to the sole of foot. RIGHT: Normal pain-free range of motion without tenderness, swelling, increased warmth or erythema. Skin sensitivity to the sole of the foot. Tender points: Tenderness to digital palpation at the occiput, trapezius, second rib, lateral epicondyle, knees, greater trochanter and gluteal area bilater ally. ?? Results Reviewed Results Reviewed: Laboratory Tests 09/03/22 12:41 WBC 9.7 Hgb 11.5 L ESR 55 H Creatinine 1.77 H AST 19 ALT 31 C-Reactive Protein 1.30 H Laboratory Tests 09/03/22 12:41 Estimated GFR 28 Random Glucose 208 H C-Reactive Protein 1.[address] [address] XRay Report Signed Patient: Nereyda Bhatt MR#: [id number] : 1950 Acct:[id number] Age/Sex: 70 / F ADM Date: 06/19/[address]: Luci Cox NP Ordering Physician: Luci Cox NP Date of Service: 06/19/21 Procedure(s): XR shoulder LT min 2V Accession Number(s): [id number] cc: Luci Cox NP~ EXAMINATION: XR SHOULDER, LEFT CLINICAL INFORMATION: Pain COMPARISON: Previous x-ray July 2013 TECHNIQUE: AP external rotation, Grashey, scapular Y, and axillary views of the left shoulder. FINDINGS: No fracture or dislocation is seen. There is severe arthritis at the glenohumeral joint with large osteophytes. The humeral head appears low with respect to the glenoid question related to a joint effusion. There is mild arthritis at the acromioclavicular joint. There is a soft tissue calcification or ossification inferior to the clavicle that is new from prior exam. 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 Mild arthritis at the acromioclavicular joint. Dictated By: Sol Montes MD Signed By: <Electronically signed by Sol Montes MD in OV> 06/19/21 9867 Assessment & Plan Assessment & Plan (1) Fibromyalgia: Code(s): M79.7 - Fibromyalgia (2) Long-term use of immunosuppressant medication: Code(s): Z79.60 - [facility] (current) use of unspecified immunomodulators and immunosuppressants (3) Type 2 diabetes mellitus: Code(s): E11.9 - Type 2 diabetes mellitus without complications (4) Seropositive rheumatoid arthritis: Comment: Humira 01/29/2018- present Arava: Prior to 04/2018 to December 2021 Code(s): M05.9 - Rheumatoid arthritis with rheumatoid factor, unspecified Plan Patient has rather long history of joint pains with not much on exam to suggest active inflammatory disease at present. She does have findings of osteoarthritis on her left shoulder film and likely has some glenohumeral osteoarthritis and or rotator cuff damage on the right. She has many tender points so I think does have significant fibromyalgia. Additionally, given her age it is likely she has areas of osteoarthritis particularly in the spine and the knees. However today it is the right shoulder that seems to be her most symptomatic area currently. We will get an x-ray of that area. She will have some blood work done to make sure she is not hyperglycemic. I do not see a reason to restart the leflunomide. With her CKD methotrexate might be very risky as the dose would not get excreted readily. We will have her back in a few weeks and consider injection of the right shoulder area. In the meantime she will continue with the acetaminophen and Humira. Orders: Orders Complete Blood Count Auto Diff Today M05.9 - Rheumatoid arthritis with rheumatoid factor, unspecified, Z79.60 - [employer] (current) use of unspecified immunomodulators and immunosuppressants Comprehensive Met. Panel Today M05.9 - Rheumatoid arthritis with rheumatoid factor, unspecified, Z79.60 - [employer] (current) use of unspecified immunomodulators and immunosuppressants C Reactive Protein Today M05.9 - Rheumatoid arthritis with rheumatoid factor, unspecified, Z79.60 - [employer] (current) use of unspecified immunomodulators and immunosuppressants Erythrocyte Sedimentation Rate Today M05.9 - Rheumatoid arthritis with rheumatoid factor, unspecified, Z79.60 - [employer] (current) use of unspecified immunomodulators and immunosuppressants XR shoulder RT min 2V Today M05.9 - Rheumatoid arthritis with rheumatoid factor, unspecified Hemoglobin A1c Today E11.9 - Type 2 diabetes mellitus without complications Coding Level of Care Code Est Pt Level 4 (34622) Diagnoses Fibromyalgia M79.7 Long-term use of immunosuppressant medication Z79.60 Type 2 diabetes mellitus E11.9 Seropositive rheumatoid arthritis M05.9
[2023-02-17 13:49] VITALS: BP 100/64; PULSE 68; TEMP 36.2; BMI 30.6
== END 2023-02-17 14:49 | disposition home or self-care (01) ==
LOC: HO.RHE 13:41
PROVIDERS: PCP Internal Medicine Geriatric Medicine; Visit Provider Internal Medicine Rheumatology
DX: M05.79 Rheumatoid arthritis with rheumatoid factor of multiple sites without organ or systems involvement (principal); M79.7 Fibromyalgia; Z79.60 Long term (current) use of unspecified immunomodulators and immunosuppressants; E11.9 Type 2 diabetes mellitus without complications
CPT/HCPCS: 99214

== ENCOUNTER → 2023-02-17 13:41 | Outpatient (BNVA) | payer OTHER, SELFPAY | PROVIDERS: PCP Internal Medicine Geriatric Medicine; Visit Provider Internal Medicine Rheumatology | DX: M05.9 Rheumatoid arthritis with rheumatoid factor, unspecified (principal); M79.7 Fibromyalgia; E11.9 Type 2 diabetes mellitus without complications; Z79.60 Long term (current) use of unspecified immunomodulators and immunosuppressants | CPT/HCPCS: 99212 ==

== ENCOUNTER 2023-02-24 14:01 | Outpatient (REF) | payer OTHER, SELFPAY ==
[2023-02-24 17:16] LABS: Alanine Aminotransferase 13 U/L (0-31); Albumin Level 3.9 g/dL (3.5-5.0); Alkaline Phosphatase 106 U/L (39-117); Anion Gap 14 (12-20); Aspartate Amino Transferase 17 U/L (5-31); Bilirubin Total 0.3 mg/dL (0.0-1.0); Blood Urea Nitrogen 35 mg/dL (9-16); Calcium 9.9 mg/dL (8.4-10.2); Carbon Dioxide 25 mmol/L (22-29); Chloride 103 mmol/L (96-108); Cholesterol 138 mg/dL (<200); Estimated Glomerular Filt Rate 23; Glucose Random 155 mg/dL (60-115); HDL Cholesterol 29 mg/dL (>40); LDL Cholesterol Calculated 59 mg/dL (<100); Potassium 4.2 mmol/L (3.3-5.1); Sodium 138 mmol/L (135-145); Total Protein 9.2 g/dL (6.5-8.0); Triglycerides 250 mg/dL (<150)
[2023-02-24 17:20] LABS: Creatinine Urine 169.14 mg/dL; Microalbum/Creatinine Ratio Ur 63.2 ug/mg cr (<30)
== END 2023-02-24 14:02 | disposition home or self-care (01) ==
LOC: HO.HHCL 14:01
PROVIDERS: Visit Provider Internal Medicine Geriatric Medicine
DX: E11.69 Type 2 diabetes mellitus with other specified complication (principal)
CPT/HCPCS: 36415; 80053; 80061; 82043; 82570

== ENCOUNTER 2023-02-25 13:22 | Outpatient (REF) | payer OTHER, SELFPAY ==
--- NOTE | ~2023-02-25 | XR_ITS ---
EXAMINATION: XR SHOULDER, RIGHT CLINICAL INFORMATION: Reason for Exam M05.9 - Rheumatoid arthritis with rheumatoid factor COMPARISON: None TECHNIQUE: Three views of the shoulder. FINDINGS: No acute fracture or dislocation. Mild degenerative changes of the acromioclavicular joint with degenerative spurring. No cortical erosion. Soft tissues are unremarkable. XR/XR shoulder RT min 2V IMPRESSION: * Mild degenerative changes of the shoulder.
[2023-02-25 13:43] LABS: MANUAL DIFF FLAG NO
[2023-02-25 13:55] LABS: Basophils Percent Auto 0.4 % (0-2); Eosinophils Absolute Auto 0.4 X10*3/uL (0.0-0.4); Eosinophils Percent Auto 3.7 % (0-4); Hematocrit 36.8 % (37.0-47.0); Hemoglobin 11.7 g/dl (12.0-16.0); Imm Gran Abs Auto 0.04 X10*3/uL (0.00-0.03); Imm Gran Pct Auto 0.4 % (0.0-0.4); Lymphocytes Absolute Auto 3.7 X10*3/uL (1.2-4.9); Lymphocytes Percent Auto 33.4 % (20-40); Mean Corpuscular HGB Conc 31.8 g/dl (31.0-35.0); Mean Corpuscular Hemoglobin 30.4 pg (27.0-33.0); Mean Corpuscular Volume 95.6 fL (80.0-98.0); Mean Platelet Volume 10.4 fL (9.4-12.3); Monocytes Absolute Auto 0.9 X10*3/uL (0.1-1.2); Monocytes Percent Auto 7.8 % (2-11); Neutrophils Percent Auto 54.3 % (45-73); Platelet Count 354 X10*3/uL (160-400); Red Blood Count 3.85 X10*6/uL (4.20-5.50); Red Cell Distribution Width 15.4 % (11.0-16.0)
[2023-02-25 14:00] LABS: Estimated Average Glucose 154 mg/dL
[2023-02-25 14:24] LABS: Alanine Aminotransferase 11 U/L (0-31); Albumin Level 3.8 g/dL (3.5-5.0); Alkaline Phosphatase 97 U/L (39-117); Anion Gap 14 (12-20); Aspartate Amino Transferase 13 U/L (5-31); Bilirubin Total 0.2 mg/dL (0.0-1.0); Blood Urea Nitrogen 38 mg/dL (9-16); C Reactive Protein 2.63 mg/dL (< or = 0.50); Calcium 9.5 mg/dL (8.4-10.2); Carbon Dioxide 25 mmol/L (22-29); Chloride 106 mmol/L (96-108); Estimated Glomerular Filt Rate 21; Glucose Random 184 mg/dL (60-115); Potassium 4.3 mmol/L (3.3-5.1); Sodium 141 mmol/L (135-145); Total Protein 8.9 g/dL (6.5-8.0)
[2023-02-25 14:46] LABS: Erythrocyte Sedimentation Rate 89 MM/HR (0-20)
== END 2023-02-25 13:23 | disposition home or self-care (01) ==
LOC: HO.XRAY 13:22
PROVIDERS: PCP Internal Medicine Geriatric Medicine; Visit Provider Internal Medicine Rheumatology
DX: M05.9 Rheumatoid arthritis with rheumatoid factor, unspecified (principal); E11.9 Type 2 diabetes mellitus without complications; Z79.60 Long term (current) use of unspecified immunomodulators and immunosuppressants
CPT/HCPCS: 36415; 73030; 80053; 83036; 85025; 85652; 86140

== ENCOUNTER 2023-03-10 13:52 | Outpatient (AMB) | payer OTHER, SELFPAY ==
[2023-03-10 14:02] VITALS: BP 130/80; PULSE 74; TEMP 36.6; O2SAT 96; BMI 31.0
--- NOTE | 2023-03-10 14:02 | A.OFFVIS_ITS ---
Intake Vital Signs 03/10/23 14:02 Height 4 ft 11 in Weight 153 lb 7.068 oz BMI 31.0 BP 130/80 Blood Pressure Location Rt brachial Position Sitting Pulse 74 Pulse Source Pulse Oximeter Temp 98 F Temp Source Skin Pulse Oximetry (%) 96 Oxygen Delivery Method Room Air Intake Visit Reasons: ra ?shoulder injection Intake Note: Patient presents today to follow up on RA and right shoulder injection. Dope House Operator Helper Required: Yes Dope House Operator Helper Language: Senior Advisory Name: Malgorzata [id number] Information Interpreted: clinical only Accompanied by: Spouse Allergies Penicillins [PENICILLINS] Allergy (Severe, Verified 03/10/23 14:06) RASH From PERCOCET Allergy (Severe, Uncoded 03/10/23 14:06) RASH Medication List - Last Reconciled 03/10/23 by Justin Olson MD acetaminophen ER 1 tab PO Q12H PRN adalimumab (Humira(CF) Pen) 40 mg (0.4 mL) subcut Q2W albuterol sulfate 90 mcg/actuation 2 puffs inhalation Q4-6H PRN alcohol swabs (Alcohol Prep Pads) 1 pad topical QID allopurinol 1 tab PO DAILY amlodipine 1 tab PO DAILY atorvastatin 1 tab PO DAILY blood sugar diagnostic (GurujiTouch Ultra Test strips) As directed cetirizine 10 mg PO QAM chlorthalidone 1 tab PO DAILY cholecalciferol (vitamin D3) 1 tab PO DAILY cyanocobalamin (vitamin B-12) 1 tab PO DAILY dulaglutide (Trulicity) mg subcut ferrous sulfate (FeroSul) 1 tab PO TID fluticasone propionate 50 mcg/actuation sprays intranasal lactulose mL PO lancets (OneTouch Delica Plus Lancet) As directed levothyroxine 1 tab PO DAILY@0630 lidocaine 5% 1 patch topical DAILY PRN losartan 25 mg PO DAILY metoprolol tartrate 1 tab PO BID pantoprazole 1 tab PO DAILY@0630 pregabalin 75 mg PO BID sennosides (senna) 2 tabs PO DAILY PRN tramadol mg PO triamcinolone acetonide (24 Hour Nasal Allergy) intranasal HPI HPI Comments History of Present Illness Details The patient returns today for injection of her left subacromial space with corticosteroid. The visit was facilitated through the iPad translating service. We had discussed the possibility of a corticosteroid injection at her previous visit but were awaiting x-rays. She does report the morning blood sugar was 205. She has had corticosteroid injections the past without any adverse effect however. [facility] Medical History Fibromyalgia Gout Hypertension Hypothyroidism Seropositive rheumatoid arthritis Surgical History Hx of hysterectomy Family History Mother Asthma Father CVD (cardiovascular disease) Brother HTN (hypertension) Diabetes Social History Household Members: Spouse Housing: Apartment Alcohol intake: never Patient Tobacco Use Status: Never used Tobacco e-Cigarette/Vaping Use: Never Used Review of Systems Const Details: Negative for appetite change, weight change, fever, chills, malaise and fatigue Endo Details: Negative for polyuria and polydypsia Michael/Lymph Details: Negative for excessive bruising or bleeding. Physical Exam Vital Signs: Last Vital Signs Temp 98 F 03/10/23 14:02 Pulse 74 03/10/23 14:02 BP 130/80 03/10/23 14:02 Pulse Ox 96 03/10/23 14:02 Oxygen Delivery Method Room Air 03/10/23 14:02 BMI result Body Mass Index 31.0 APPEARANCE: Patient in no acute distress Shoulders: LEFT: ?Mild pain with abduction at 100 degrees. Passive motion beyond that does not seem to be possible. She has similar pain with any attempts at internal rotation. Tenderness to palpation over the AC joint, bicipital groove and posterior aspect of the shoulder. RIGHT: Mild to moderate pain with abduction at 75 degrees. There is some moderate anterior and subacromial tenderness without swelling or adenopathy. Questionable abductor weakness. Office Procedures Joint Injection/Drain Joint Injection/Drain Primary Site: left shoulder Injected: 40 mg of, Kenalog, with 1 mL of and 1% plain lidocaine Coding Details: With the patient's consent the left shoulder was prepped with ChloraPrep and alcohol. Under a topical ethyl chloride spray the left subacromial space was injected with 40 mg of triamcinolone and 1 cc of 1% lidocaine. The patient tolerated the procedure without any acute adverse effects. 59681 - Large joint Procedure code (CPT) selection complete Results Reviewed Results Reviewed: Laboratory Tests 02/25/23 13:42 WBC 11.0 H Hgb 11.7 L ESR 89 H Creatinine 2.29 H AST 13 ALT 11 C-Reactive Protein 2.[address] [address] XRay Report Signed Patient: Nereyda Jones MR#: [id number] : 1950 Acct:[id number] Age/Sex: 72 / F ADM Date: 02/25/[address]: Justin Olson MD Ordering Physician: Justin Olson MD Date of Service: 02/25/23 Procedure(s): XR shoulder RT min 2V Accession Number(s): [id number] cc: Name,Wallace HUNTER; Justin Olson MD~ EXAMINATION: XR SHOULDER, RIGHT CLINICAL INFORMATION: Reason for Exam M05.9 - Rheumatoid arthritis with rheumatoid factor COMPARISON: None TECHNIQUE: Three views of the shoulder. FINDINGS: No acute fracture or dislocation. Mild degenerative changes of the acromioclavicular joint with degenerative spurring. No cortical erosion. Soft tissues are unremarkable. XR/XR shoulder RT min 2V IMPRESSION: * Mild degenerative changes of the shoulder. 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 With the underlying history of RA this is likely some rotator cuff tendinitis and some impingement at the AC joint. She has some degree of hyperglycemia but I do not think it is high enough to contraindicate a corticosteroid injection today. We reviewed potential side effects including of elevated blood sugar. With the patient's consent the left shoulder was prepped with ChloraPrep and alcohol. Under a topical ethyl chloride spray the left subacromial space was injected with 40 mg of triamcinolone and 1 cc of 1% lidocaine. The patient tolerated the procedure without any acute adverse effects. She will rest the area for a few days and then begin gentle, [id number] exercises. She will continue medications as before and plan follow-up in about 3 months. Orders: Orders Alanine Aminotransferase Today M05.9 - Rheumatoid arthritis with rheumatoid factor, unspecified, Z79.899 - Other fci (current) drug therapy AMB Joint Injection/Aspiration Today M75.82 - Other shoulder lesions, left shoulder Erythrocyte Sedimentation Rate Today M05.9 - Rheumatoid arthritis with rheumatoid factor, unspecified C Reactive Protein Today M05.9 - Rheumatoid arthritis with rheumatoid factor, unspecified Aspartate Amino Transferase Today M05.9 - Rheumatoid arthritis with rheumatoid factor, unspecified, Z79.899 - Other dedicated intermodal truck driver (current) drug therapy Complete Blood Count Auto Diff Today M05.9 - Rheumatoid arthritis with rheumatoid factor, unspecified, Z79.899 - Other dedicated intermodal truck driver (current) drug therapy Creatinine Today M05.9 - Rheumatoid arthritis with rheumatoid factor, unspecified, Z79.899 - Other dedicated intermodal truck driver (current) drug therapy Medications: Refilled adalimumab (Humira(CF) Pen) 40 mg (0.4 mL) subcut Q2W 2 ea 2RF M05.9 - Rheumatoid arthritis with rheumatoid factor, unspecified Coding Level of Care Code Procedure Only Diagnoses Seropositive rheumatoid arthritis M05.9 Tendinitis of left rotator cuff M75.82 CPT Codes Coding - 29624 Large joint: 57118 - Large joint ([id number])
== END 2023-03-10 14:48 | disposition home or self-care (01) ==
PROVIDERS: PCP Internal Medicine Geriatric Medicine; Visit Provider Internal Medicine Rheumatology
DX: M05.79 Rheumatoid arthritis with rheumatoid factor of multiple sites without organ or systems involvement (principal); M75.82 Other shoulder lesions, left shoulder
CPT/HCPCS: 20610; 99214

== ENCOUNTER → 2023-03-10 13:52 | Outpatient (BNVA) | payer OTHER, SELFPAY | PROVIDERS: PCP Internal Medicine Geriatric Medicine; Visit Provider Internal Medicine Rheumatology | DX: M05.9 Rheumatoid arthritis with rheumatoid factor, unspecified (principal); M75.82 Other shoulder lesions, left shoulder | CPT/HCPCS: 20610; 99212 ==

== ENCOUNTER 2023-05-21 19:14 | Emergency (ER) | payer OTHER, SELFPAY ==
--- NOTE | 2023-05-21 20:21 | PC.NURSE ---
this rn called pt to be triaged x2. per charge manager pt to be removed from tracker
== END 2023-05-21 20:30 | disposition left against medical advice (07) ==
PROVIDERS: Emergency Provider Emergency Medicine; PCP Internal Medicine Geriatric Medicine
DX: M25.511 Pain in right shoulder (principal); Z53.21 Procedure and treatment not carried out due to patient leaving prior to being seen by health care provider

== ENCOUNTER → 2023-06-03 14:52 | Outpatient (BNVA) | payer OTHER, SELFPAY | PROVIDERS: PCP Internal Medicine Geriatric Medicine; Visit Provider Nurse Practitioner ==

== ENCOUNTER 2023-06-10 13:41 | Outpatient (AMB) | payer OTHER, SELFPAY ==
--- NOTE | 2023-06-10 13:51 | A.OFFVIS_ITS ---
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 Enlisted Aircrew/Aerial Observer/Gunner Required: No Accompanied by: Spouse Allergies Penicillins [PENICILLINS] Allergy (Severe, Verified 06/10/23 14:11) RASH From PERCOCET Allergy (Severe, Uncoded 06/10/23 14:11) RASH HPI HPI Comments History of Present Illness Details Ms. Dawn 72-year-old female returns today with her for follow-up of her rheumatoid arthritis and also desires an injection to her right trochanteric bursitis with corticosteroid. The visit was facilitated through the iPad translating service. She is on Humira 40 mg every other week for her RA. Today her main concern is the tenderness to her bilateral hips right greater than left. She would like to see an orthopedic to be evaluated for possible surgery to her hip. She does report that the left shoulder still continue to hurt. She does have type 2 diabetes mellitus and per patient she has had corticosteroid injections in the past without any adverse effect however. [facility] Medical History (Updated 06/11/23 @ 22:21 by WINSOME Bishop-) Trochanteric bursitis, right hip Bilateral hip pain Gout Hypothyroidism Hypertension Fibromyalgia Seropositive rheumatoid arthritis Surgical History Hx of hysterectomy Family History Mother Asthma Father CVD (cardiovascular disease) Brother HTN (hypertension) Diabetes Social History Household Members: Spouse Housing: Apartment Alcohol intake: never Patient Tobacco Use Status: Never used Tobacco e-Cigarette/Vaping Use: Never Used Physical Exam Vital Signs: Last Vital Signs Temp 97 F 06/10/23 14:11 Pulse 88 06/10/23 14:11 BP 130/80 06/10/23 14:11 Pulse Ox 95 06/10/23 14:11 Oxygen Delivery Method Room Air 06/10/23 14:11 BMI result Body Mass Index 30.7 APPEARANCE: Patient in no acute distress EYES no redness, eyelids normal EARS:? External ear normal. NOSE/SINUS:? Airflow through both nares, no nasal discharge, no bleeding THROAT:? Oral mucosa moist, no ulcerations NECK:? No thyromegaly or masses, no adenopathy, trachea midline. HEART:? Regular rhythm, S1-S2 heard, no murmurs, rubs or gallops. LUNG:? Clear to percussion and auscultation ABD:? Normal bowel sounds, no organomegaly, masses or tenderness. EXTREMITIES:? No edema, no calf tenderness, normal peripheral pulses. Weakness to lower extremities. Uses a wheelchair, unable to walk or stand independently. NEURO:? Oriented and alert x3.? No focal weakness.? Reflexes symmetric.? Uses a wheelchair SKIN:? There are no skin lesions evident. No objective signs of Raynaud's phenomenon. JOINT EXAM: Cervical Spine:.? Full range of motion without pain; no tenderness. Thoracic Spine:.? No scoliosis.? No tenderness on palpation. Upper torso weakness, cannot hold self upright Lumbar Spine:.? Alignment normal.? Weakness to paraspinal muscle no tenderness Chest Wall:.? No tenderness, swelling, increased warmth or erythema. Hands:.? Normal pain-free range of motion without tenderness, swelling, increased warmth or erythema. Able to make a full fist and has a good eastern philosophy professor strength. Wrists:.? Normal pain-free range of motion without tenderness, swelling, increased warmth or erythema. Elbows:. Normal pain-free range of motion without tenderness, swelling, increased warmth or erythema. Shoulders: LEFT: ?Mild pain with abduction at 100 degrees. Passive motion beyond that does not seem to be possible. She has similar pain with any attempts at internal rotation. Tenderness to palpation over the AC joint, bicipital groove and posterior aspect of the shoulder. RIGHT: Mild to moderate pain with abduction at 75 degrees. There is some moderate anterior and subacromial tenderness without swelling or adenopathy. Questionable abductor weakness. Hip bursa:.? Bilateral tenderness R greater than L Knees:.?? Normal pain-free range of motion without tenderness, swelling, increased warmth or erythema.? There is no effusion or crepitation Ankles:.? Normal pain-free range of motion without tenderness, swelling, increased warmth or erythema. Feet:.? Normal pain-free range of motion without tenderness, swelling, increased warmth or erythema. Office Procedures Joint Injection/Drain Joint Injection/Drain Primary Site: other Prep: site was prepped using aseptic technique Injected: 60 mg of, Kenalog, with 1 mL of and 1% plain lidocaine Approach Used: posterolateral Procedure: The patient tolerated the procedure well Coding 36958 - Glenohumeral/Tronchanteric Bursa/Intraarticular Procedure code (CPT) selection complete Results Reviewed Results Reviewed: [address] [address] XRay Report SignedPatient: Nereyda Jones MR#: [id number] : 1950 Acct:[id number] Age/Sex: 72 / F ADM Date: 02/25/[address]: Justin Olson MD Ordering Physician: Justin Olson MD Date of Service: 02/25/23 Procedure(s): XR shoulder RT min 2V Accession Number(s): [id number] cc: Name,Wallace HUNTER; Justin Olson MD~ EXAMINATION: XR SHOULDER, RIGHT CLINICAL INFORMATION: Reason for Exam M05.9 - Rheumatoid arthritis with rheumatoid factor COMPARISON: None TECHNIQUE: Three views of the shoulder. FINDINGS: No acute fracture or dislocation. Mild degenerative changes of the acromioclavicular joint with degenerative spurring. No cortical erosion. Soft tissues are unremarkable. XR/XR shoulder RT min 2V IMPRESSION: * Mild degenerative changes of the shoulder. Dictated By: Jania Nettles MD Signed By: <Electronically signed by Jania Nettles MD in OV> 02/28/23 1449 DD/ 1357 Laboratory Tests 02/25/23 13:42 Random Glucose 184 H Hemoglobin A1c % 7.0 H Laboratory Tests 02/25/23 13:42 WBC 11.0 H RBC 3.85 L Hgb 11.7 L Hct 36.8 L MCV 95.6 ESR 89 H Creatinine 2.29 H Hemoglobin A1c % 7.0 H ALT 11 Alkaline Phosphatase 97 C-Reactive Protein 2.63 H Laboratory Tests 09/03/22 12:41 WBC 9.7 RBC 3.65 L Hgb 11.5 L Hct 35.7 L ESR 55 H Creatinine 1.77 H Estimated GFR 28 AST 19 ALT 31 C-Reactive Protein 1.30 H Assessment & Plan Assessment & Plan (1) Seropositive rheumatoid arthritis: Comment: Humira 01/29/2018- present Arava: Prior to 04/2018 to December 2021 Code(s): M05.9 - Rheumatoid arthritis with rheumatoid factor, unspecified (2) Bilateral hip pain: Code(s): M25.551 - Pain in right hip; M25.552 - Pain in left hip (3) Trochanteric bursitis, right hip: Code(s): M70.61 - Trochanteric bursitis, right hip Plan #SeroPos RA:Methotrexate and leflunomide were stopped at prior visits and she was continue on Humira 40 mg every week. Her ESR and CRP continues to trend upwards with ESR 89 and CRP 2.63 as of February 2023. She has CKD (GFr 23) so MTX and LEF not advised. I think patient may not be taking the Humira regularly. Discussed with patient that she does have rheumatoid arthritis and her acute phase reactants are markedly elevated, suggesting that she has active disease. This could be causing increased pain in her shoulders and her hips. Encouraged patient to be sure to take her Humira as prescribed. We will obtain updated labs today and 1 week before next visit. #bilateral trochanteric bursitis: There is marked tenderness to the right bursa. I think it is reasonable to give her an injection today if with corticosteroids. The patient tolerated the procedure well. Will obtain x-rays of hip to assess extent of osteoarthritis and if it requires orthopedic referral. She will rest the area for a few days and then begin gentle, [id number] exercises. 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 With the underlying history of RA this is likely some rotator cuff tendinitis and some impingement at the AC joint. Patient is unable to bear herself up on her arms to stand up out of her wheelchair. She will continue Humira as before and plan follow-up in about 4 months. I spent 50 minutes reviewing chart, evaluating patient, educating patient and documenting Orders: Orders Aspartate Amino Transferase 4 Months M05.9 - Rheumatoid arthritis with rheumatoid factor, unspecified, Z79.899 - Other group home (current) drug therapy Erythrocyte Sedimentation Rate 4 Months M05.9 - Rheumatoid arthritis with rheumatoid factor, unspecified Complete Blood Count Auto Diff 06/10/23 M05.9 - Rheumatoid arthritis with rheumatoid factor, unspecified, Z79.60 - terminal manager (current) use of unspecified immunomodulators and immunosuppressants, Z79.899 - Other group home (current) drug therapy XR hip LT min 2V 06/10/23 M05.9 - Rheumatoid arthritis with rheumatoid factor, unspecified, M25.551 - Pain in right hip, M25.552 - Pain in left hip XR hip RT min 2V 06/10/23 M05.9 - Rheumatoid arthritis with rheumatoid factor, unspecified, M25.551 - Pain in right hip, M25.552 - Pain in left hip Alanine Aminotransferase 4 Months M05.9 - Rheumatoid arthritis with rheumatoid factor, unspecified, Z79.899 - Other termite exterminator (current) drug therapy C Reactive Protein 4 Months M05.9 - Rheumatoid arthritis with rheumatoid factor, unspecified Complete Blood Count Auto Diff 4 Months M05.9 - Rheumatoid arthritis with rheumatoid factor, unspecified, Z79.899 - Other group home (current) drug therapy Creatinine 4 Months M05.9 - Rheumatoid arthritis with rheumatoid factor, unspecified, Z79.899 - Other termite exterminator (current) drug therapy Erythrocyte Sedimentation Rate 06/10/23 M05.9 - Rheumatoid arthritis with rheumatoid factor, unspecified, Z79.60 - terminal manager (current) use of unspecified immunomodulators and immunosuppressants C Reactive Protein 06/10/23 M05.9 - Rheumatoid arthritis with rheumatoid factor, unspecified, Z79.60 - group home (current) use of unspecified immunomodulators and immunosuppressants Alanine Aminotransferase 06/10/23 M05.9 - Rheumatoid arthritis with rheumatoid factor, unspecified, Z79.60 - group home (current) use of unspecified i mmunomodulators and immunosuppressants, Z79.899 - Other termite exterminator (current) drug therapy Aspartate Amino Transferase 06/10/23 M05.9 - Rheumatoid arthritis with rheumatoid factor, unspecified, Z79.60 - terminal manager (current) use of unspecified immunomodulators and immunosuppressants, Z79.899 - Other group home (current) drug therapy Creatinine 06/10/23 M05.9 - Rheumatoid arthritis with rheumatoid factor, unspecified, Z79.60 - group home (current) use of unspecified immunomodulators and immunosuppressants, Z79.899 - Other group home (current) drug therapy Coding Level of Care Code Est Pt Level 4 (08959) Diagnoses Seropositive rheumatoid arthritis M05.9 Bilateral hip pain M25.551; M25.552 Trochanteric bursitis, right hip M70.61 CPT Codes Coding - Joint 7: 28941 - Glenohumeral/Tronchanteric Bursa/Intraarticular ([id number])
[2023-06-10 14:11] VITALS: BP 130/80; PULSE 88; TEMP 36.1; O2SAT 95; BMI 30.7
== END 2023-06-10 14:57 | disposition home or self-care (01) ==
LOC: HO.RHE 13:41
PROVIDERS: PCP Internal Medicine Geriatric Medicine; Visit Provider Nurse Practitioner Family
DX: M05.79 Rheumatoid arthritis with rheumatoid factor of multiple sites without organ or systems involvement (principal); M25.551 Pain in right hip; M25.552 Pain in left hip; M70.61 Trochanteric bursitis, right hip; M70.62 Trochanteric bursitis, left hip
CPT/HCPCS: 20610; 99214

== ENCOUNTER → 2023-06-10 13:41 | Outpatient (BNVA) | payer OTHER, SELFPAY | PROVIDERS: PCP Internal Medicine Geriatric Medicine; Visit Provider Nurse Practitioner Family | DX: M05.9 Rheumatoid arthritis with rheumatoid factor, unspecified (principal); M70.61 Trochanteric bursitis, right hip; M25.551 Pain in right hip; M25.552 Pain in left hip | CPT/HCPCS: 20610; 99212 ==

== ENCOUNTER 2023-07-28 12:37 | Outpatient (REF) | payer OTHER, SELFPAY ==
[2023-07-28 13:48] LABS: Basophils Percent Auto 0.3 % (0-2); Eosinophils Absolute Auto 0.3 X10*3/uL (0.0-0.4); Eosinophils Percent Auto 3.7 % (0-4); Hematocrit 40.3 % (37.0-47.0); Hemoglobin 13.4 g/dl (12.0-16.0); Imm Gran Abs Auto 0.03 X10*3/uL (0.00-0.03); Imm Gran Pct Auto 0.4 % (0.0-0.4); Lymphocytes Absolute Auto 3.7 X10*3/uL (1.2-4.9); Mean Corpuscular HGB Conc 33.3 g/dl (31.0-35.0); Mean Corpuscular Hemoglobin 32.1 pg (27.0-33.0); Mean Corpuscular Volume 96.6 fL (80.0-98.0); Mean Platelet Volume 10.7 fL (9.4-12.3); Monocytes Absolute Auto 0.8 X10*3/uL (0.1-1.2); Monocytes Percent Auto 10.4 % (2-11); Neutrophils Absolute Auto 2.5 x10*3/uL (2.0-8.3); Neutrophils Percent Auto 34.2 % (45-73); Platelet Count 246 X10*3/uL (160-400); Red Blood Count 4.17 X10*6/uL (4.20-5.50); Red Cell Distribution Width 14.8 % (11.0-16.0); White Blood Count 7.3 X10*3/uL (4.8-10.8)
[2023-07-28 13:49] LABS: MANUAL DIFF FLAG NO
[2023-07-28 14:34] LABS: Erythrocyte Sedimentation Rate 67 MM/HR (0-20)
[2023-07-28 14:53] LABS: Alanine Aminotransferase 42 U/L (0-31); Aspartate Amino Transferase 21 U/L (5-31); C Reactive Protein 0.38 mg/dL (< or = 0.50); Estimated Glomerular Filt Rate 29
== END 2023-07-28 12:38 | disposition home or self-care (01) ==
LOC: HO.HHCL 12:37
PROVIDERS: Visit Provider Nurse Practitioner Family
DX: M05.9 Rheumatoid arthritis with rheumatoid factor, unspecified (principal); Z79.899 Other long term (current) drug therapy
CPT/HCPCS: 36415; 82565; 84450; 84460; 85025; 85652; 86140

== ENCOUNTER 2023-08-07 14:02 | Outpatient (AMB) | payer OTHER, SELFPAY ==
[2023-08-07 14:54] VITALS: BP 110/60; PULSE 79
--- NOTE | 2023-08-07 14:54 | MHC.OFFVIS ---
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 [facility] 05/21/23 Intake Note: pt is doing good Latex Spooler Required: Yes Latex Spooler Name: DAISY [id number] Allergies Penicillins [PENICILLINS] Allergy (Severe, Verified 06/10/23 14:11) RASH From PERCOCET Allergy (Severe, Uncoded 06/10/23 14:11) RASH Medication List - Last Reconciled 08/07/23 by Chika Nye NP acetaminophen ER 1 tab PO Q12H PRN adalimumab (Humira(CF) Pen) 40 mg (0.4 mL) subcut Q2W albuterol sulfate 90 mcg/actuation 2 puffs inhalation Q4-6H PRN alcohol swabs (Alcohol Prep Pads) 1 pad topical QID allopurinol 1 tab PO DAILY amlodipine 1 tab PO DAILY atorvastatin 1 tab PO DAILY blood sugar diagnostic ([employer] Ultra Test strips) As directed cetirizine 10 mg PO QAM chlorthalidone 1 tab PO DAILY cholecalciferol (vitamin D3) 1 tab PO DAILY cyanocobalamin (vitamin B-12) 1 tab PO DAILY dulaglutide (Trulicity) mg subcut ferrous sulfate (FeroSul) 1 tab PO TID fluticasone propionate 50 mcg/actuation sprays intranasal lactulose mL PO lancets (shoutrTouch Delica Plus Lancet) As directed levothyroxine 1 tab PO DAILY@0630 lidocaine 5% 1 patch topical DAILY PRN losartan 25 mg PO DAILY metoprolol tartrate 1 tab PO BID pantoprazole 1 tab PO DAILY@0630 pregabalin 75 mg PO BID sennosides (senna) 2 tabs PO DAILY PRN tramadol mg PO triamcinolone acetonide (24 Hour Nasal Allergy) intranasal HPI Comments Details: 72-year-old female is here for consultation after being in the emergency department. She was seen in the emergency department for right shoulder pain and left without being seen. She was told buy her PCP she should see a analysis lead but she is unsure why. She had seen [place] and [facility] request records. She reports she sometimes gets high blood pressures at home. Systolic will run between 90-180 mmHg. She has been wheelchair bound with minimal walking for the last two years. She denies any symptoms at this time. [facility] Medical History Trochanteric bursitis, right hip Bilateral hip pain Gout Hypothyroidism Hypertension Fibromyalgia Seropositive rheumatoid arthritis Surgical History Hx of hysterectomy Family History Mother Asthma Father CVD (cardiovascular disease) Brother HTN (hypertension) Diabetes Social History Household Members: Spouse Housing: Apartment Alcohol intake: never Patient Tobacco Use Status: Never used Tobacco e-Cigarette/Vaping Use: Never Used Review of Systems Const Denies weakness ENT Denies dizziness Card Denies chest pain, Denies chest pain with activity, Denies syncope, Denies rapid heart rate, Denies pedal edema, Denies edema, Denies leg edema, Denies lightheadedness, Denies palpitations, Denies dyspnea, Denies dyspnea on exertion and Denies orthopnea Resp Denies cough, Denies dyspnea and Denies dyspnea on exertion GI Denies hematochezia and Denies change in stool character Musc Denies abnormal gait, Denies muscle cramps, Denies muscle weakness, Denies numbness, Denies radiating pain into limb and Denies tingling Neuro Denies abnormal gait, Denies dizziness, Denies syncope, Denies numbness, Denies tingling and Denies weakness Endo Denies palpitations Physical Exam Vital Signs: Last Vital Signs Pulse 79 08/07/23 14:54 BP 110/60 08/07/23 14:54 Office Procedures EKG Details: EKG today. Sinus Rhythm with marked sinus arrhythmia. rate 79 bm. Cannot rule out anterior infarct. [id number], Complete Assessment & Plan Assessment & Plan (1) Hypertension: Code(s): I10 - Essential (primary) hypertension Category: Medical Plan: Blood pressure within range today. Will request records from prior cardiovascular. Will get echoardiogram to assess structural changes. Orders: Orders CA echo transthoracic complete 08/07/23 I10 - Essential (primary) hypertension
== END 2023-08-07 15:34 | disposition home or self-care (01) ==
PROVIDERS: PCP Internal Medicine Geriatric Medicine; Visit Provider Nurse Practitioner
DX: I10 Essential (primary) hypertension (principal)
CPT/HCPCS: 93010; 99203

== ENCOUNTER → 2023-08-07 14:02 | Outpatient (BNVA) | payer OTHER, SELFPAY | PROVIDERS: PCP Internal Medicine Geriatric Medicine; Visit Provider Nurse Practitioner | DX: I10 Essential (primary) hypertension (principal) | CPT/HCPCS: 93005; 99202 ==

== ENCOUNTER 2023-09-23 13:35 | Outpatient (REF) | payer OTHER, SELFPAY ==
[2023-09-23 16:36] LABS: B Type Natriuretic Peptide 31 pg/mL (<100)
[2023-09-23 16:39] LABS: Anion Gap 17 (12-20); Blood Urea Nitrogen 40 mg/dL (9-16); Calcium 9.3 mg/dL (8.4-10.2); Carbon Dioxide 27 mmol/L (22-29); Chloride 98 mmol/L (96-108); Estimated Glomerular Filt Rate 21; Glucose Random 215 mg/dL (60-115); Potassium 4.3 mmol/L (3.3-5.1); Sodium 138 mmol/L (135-145)
[2023-09-23 17:03] LABS: Creatinine Urine 90.74 mg/dL; Microalbum/Creatinine Ratio Ur 41.8 ug/mg cr (<30)
== END 2023-09-23 13:36 | disposition home or self-care (01) ==
LOC: HO.HHCL 13:35
PROVIDERS: Visit Provider Internal Medicine Geriatric Medicine
DX: I12.9 Hypertensive chronic kidney disease with stage 1 through stage 4 chronic kidney disease, or unspecified chronic kidney disease (principal); N18.30 Chronic kidney disease, stage 3 unspecified; R60.0 Localized edema; E03.9 Hypothyroidism, unspecified; E11.65 Type 2 diabetes mellitus with hyperglycemia
CPT/HCPCS: 36415; 80048; 82043; 82570; 83880

== ENCOUNTER 2023-10-10 13:29 | Outpatient (AMB) | payer OTHER, SELFPAY ==
[2023-10-10 13:42] VITALS: BP 102/68; PULSE 86; O2SAT 96
--- NOTE | 2023-10-10 13:42 | MHC.OFFVIS ---
Vital Signs 10/10/23 13:42 Height 4 ft 11 in BP 102/68 Blood Pressure Location Rt brachial Position Sitting Pulse 86 Pulse Source Pulse Oximeter Pulse Oximetry (%) 96 Intake Visit Reasons: RA Intake Note: not feeling well, reports tiredness pain in hip and shoulder Renal Dialysis Rn Required: Yes Renal Dialysis Rn Name: Anna [id number]/Connie [id number] sec Accompanied by: Spouse Allergies Penicillins [PENICILLINS] Allergy (Severe, Verified 10/10/23 13:51) RASH From PERCOCET Allergy (Severe, Uncoded 10/10/23 13:51) RASH HPI Comments Details: Ms. Danw 72-year-old female returns today with her for follow-up of her rheumatoid arthritis and also desires an injection to her right trochanteric bursitis with corticosteroid. The visit was facilitated through the iPad translating service. She is on Humira 40 mg every other week for her RA. Today her main concern is the tenderness to her bilateral hips right greater than left. She would like to see an orthopedic to be evaluated for possible surgery to her hip. She does report that the left shoulder still continue to hurt. She does have type 2 diabetes mellitus and per patient she has had corticosteroid injections in the past without any adverse effect however. [facility] Medical History Trochanteric bursitis, right hip Bilateral hip pain Gout Hypothyroidism Hypertension Fibromyalgia Seropositive rheumatoid arthritis Surgical History Hx of hysterectomy Family History Mother Asthma Father CVD (cardiovascular disease) Brother HTN (hypertension) Diabetes Social History Household Members: Spouse Housing: Apartment Alcohol intake: never Patient Tobacco Use Status: Never used Tobacco e-Cigarette/Vaping Use: Never Used Physical Exam APPEARANCE: Patient in no acute distress EYES no redness, eyelids normal EARS:? External ear normal. NOSE/SINUS:? Airflow through both nares, no nasal discharge, no bleeding THROAT:? Oral mucosa moist, no ulcerations NECK:? No thyromegaly or masses, no adenopathy, trachea midline. HEART:? Regular rhythm, S1-S2 heard, no murmurs, rubs or gallops. LUNG:? Clear to percussion and auscultation ABD:? Normal bowel sounds, no organomegaly, masses or tenderness. EXTREMITIES:? No edema, no calf tenderness, normal peripheral pulses. Weakness to lower extremities. Uses a wheelchair, unable to walk or stand independently. NEURO:? Oriented and alert x3.? No focal weakness.? Reflexes symmetric.? Uses a wheelchair SKIN:? There are no skin lesions evident. No objective signs of Raynaud's phenomenon. JOINT EXAM: Cervical Spine:.? Full range of motion without pain; no tenderness. Thoracic Spine:.? No scoliosis.? No tenderness on palpation. Upper torso weakness, cannot hold self upright Lumbar Spine:.? Alignment normal.? Weakness to paraspinal muscle no tenderness Chest Wall:.? No tenderness, swelling, increased warmth or erythema. Hands:.? Normal pain-free range of motion without tenderness, swelling, increased warmth or erythema. Able to make a full fist and has a good lithographic press operator apprentice strength. Wrists:.? Normal pain-free range of motion without tenderness, swelling, increased warmth or erythema. Elbows:. Normal pain-free range of motion without tenderness, swelling, increased warmth or erythema. Shoulders: LEFT: ?Mild pain with abduction at 100 degrees. Passive motion beyond that does not seem to be possible. She has similar pain with any attempts at internal rotation. Tenderness to palpation over the AC joint, bicipital groove and posterior aspect of the shoulder. RIGHT: moderate pain with abduction at 75 degrees. There is some moderate anterior and subacromial tenderness without swelling or adenopathy. Questionable abductor weakness. Hip bursa:.? Improved with decreased tenderness R greater than L Knees:.?? Normal pain-free range of motion without tenderness, swelling, increased warmth or erythema.? There is no effusion or crepitation Ankles:.? Normal pain-free range of motion without tenderness, swelling, increased warmth or erythema. Feet:.? Normal pain-free range of motion without tenderness, swelling, increased warmth or erythema. Office Procedures Joint Injection/Drain Joint Injection/Drain Primary Site: other (AcromioClavicular Joint) Prep: site was prepped using aseptic technique Injected: 40 mg of, Kenalog, 1% plain lidocaine and other (2ml lidocaine) Approach Used: anterior Procedure: The patient tolerated the procedure well and but had some pain with the injection Coding 34451 - Large joint Procedure code (CPT) selection complete Results Reviewed Results Reviewed: [address] [address] XRay Report SignedPatient: Nereyda Jones MR#: [id number] : 1950 Acct:[id number] Age/Sex: 72 / F ADM Date: 02/25/[address]: Justin Olson MD Ordering Physician: Justin Olson MD Date of Service: 02/25/23 Procedure(s): XR shoulder RT min 2V Accession Number(s): [id number] cc: Name,Wallace HUNTER; Justin Olson MD~ EXAMINATION: XR SHOULDER, RIGHT CLINICAL INFORMATION: Reason for Exam M05.9 - Rheumatoid arthritis with rheumatoid factor COMPARISON: None TECHNIQUE: Three views of the shoulder. FINDINGS: No acute fracture or dislocation. Mild degenerative changes of the acromioclavicular joint with degenerative spurring. No cortical erosion. Soft tissues are unremarkable. XR/XR shoulder RT min 2V IMPRESSION: * Mild degenerative changes of the shoulder. Dictated By: Jania Nettles MD Signed By: <Electronically signed by Jania Nettles MD in OV> 02/28/23 1449 DD/ 1357 Laboratory Tests 02/25/23 13:42 Random Glucose 184 H Hemoglobin A1c % 7.0 H Laboratory Tests 02/25/23 13:42 WBC 11.0 H RBC 3.85 L Hgb 11.7 L Hct 36.8 L MCV 95.6 ESR 89 H Creatinine 2.29 H Hemoglobin A1c % 7.0 H ALT 11 Alkaline Phosphatase 97 C-Reactive Protein 2.63 H Laboratory Tests 09/03/22 12:41 WBC 9.7 RBC 3.65 L Hgb 11.5 L Hct 35.7 L ESR 55 H Creatinine 1.77 H Estimated GFR 28 AST 19 ALT 31 C-Reactive Protein 1.30 H Laboratory Tests 07/28/23 07/28/23 12:30 12:38 ESR 67 H Creatinine 1.74 H AST 21 ALT 42 H C-Reactive Protein 0.38 Assessment & Plan Assessment & Plan (1) Seropositive rheumatoid arthritis: Comment: Dolly 01/29/2018- present Arava: Prior to 04/2018 to December 2021 Code(s): M05.9 - Rheumatoid arthritis with rheumatoid factor, unspecified Category: Medical (2) Bilateral hip pain: Code(s): M25.551 - Pain in right hip; M25.552 - Pain in left hip Category: Medical (3) Trochanteric bursitis, right hip: Code(s): M70.61 - Trochanteric bursitis, right hip Category: Medical (4) Chronic right shoulder pain: Code(s): M25.511 - Pain in right shoulder; G89.29 - Other chronic pain Category: Medical Plan #SeroPos RA:Methotrexate and leflunomide were stopped at prior visits and she was continue on Humira 40 mg every week. Her ESR and CRP continues to trend upwards with ESR 89 and CRP 2.63 as of February 2023, there is some improvement since last visit. She says she is taking the medication. She has CKD (GFr 23) so MTX and LEF not advised. Encouraged patient to be sure to continue to take her Humira as prescribed. We will obtain updated labs 1 week before next visit. #bilateral trochanteric bursitis: At last visit There is marked tenderness to the right bursa. There is improvement from the corticosteroids injections given at that visit. 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 With the underlying history of RA this is likely some rotator cuff tendinitis and some impingement at the AC joint. Patient is unable to bear herself up on her arms to stand up out of her wheelchair. Received Kenalog 40injection today. Gave after care instructions and demonstrated exercises to do after the pain decreases. She will rest the area for a few days and then begin gentle, [id number] exercises. She will continue Humira as before and plan follow-up in about 3 months. I spent 30 minutes reviewing chart, evaluating patient, educating patient and documenting Orders: Orders AMB Joint Injection/Aspiration Today G89.29 - Other chronic pain, M25.511 - Pain in right shoulder Coding Level of Care Code Est Pt Level 3 (46586) Complex EM visit Add On G2211 Diagnoses Seropositive rheumatoid arthritis M05.9 Bilateral hip pain M25.551; M25.552 Trochanteric bursitis, right hip M70.61 Chronic right shoulder pain M25.511; G89.29 CPT Codes Coding - 10241 Large joint: 79405 - Large joint ([id number])
== END 2023-10-10 14:25 | disposition home or self-care (01) ==
PROVIDERS: PCP Internal Medicine Geriatric Medicine; Visit Provider Nurse Practitioner Family
DX: M05.79 Rheumatoid arthritis with rheumatoid factor of multiple sites without organ or systems involvement (principal); M25.551 Pain in right hip; M25.552 Pain in left hip; M70.61 Trochanteric bursitis, right hip; M25.511 Pain in right shoulder; G89.29 Other chronic pain
CPT/HCPCS: 20610; 99214

== ENCOUNTER → 2023-10-10 13:29 | Outpatient (BNVA) | payer OTHER, SELFPAY | PROVIDERS: PCP Internal Medicine Geriatric Medicine; Visit Provider Nurse Practitioner Family | DX: M05.9 Rheumatoid arthritis with rheumatoid factor, unspecified (principal); M25.511 Pain in right shoulder; M70.61 Trochanteric bursitis, right hip; M25.551 Pain in right hip; M25.552 Pain in left hip; G89.29 Other chronic pain | CPT/HCPCS: 20610; 99212 ==

== ENCOUNTER 2023-11-13 13:45 | Outpatient (REF) | payer OTHER, SELFPAY ==
--- NOTE | ~2023-11-13 | XR_ITS ---
EXAMINATION: XR SHOULDER, LEFT CLINICAL INFORMATION: Acute pain of left shoulder COMPARISON: 06/19/2021 TECHNIQUE: Four views of the left shoulder. FINDINGS: No acute abnormality compared to 06/19/2021. No fracture or subluxation. Alignment is maintained at the acromioclavicular and glenohumeral joints. Chronic degenerative narrowing of glenohumeral joint space with subarticular sclerosis and exuberant osteophyte formation. No evidence of calcium deposition within rotator cuff tendons. XR/XR shoulder LT min 2V IMPRESSION: * No acute osseous injury at the left shoulder. 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
[2023-11-13 16:24] LABS: Anion Gap 17 (12-20); Blood Urea Nitrogen 39 mg/dL (9-16); Calcium 9.6 mg/dL (8.4-10.2); Carbon Dioxide 28 mmol/L (22-29); Chloride 103 mmol/L (96-108); Estimated Glomerular Filt Rate 31; Glucose Random 163 mg/dL (60-115); Potassium 3.9 mmol/L (3.3-5.1); Sodium 144 mmol/L (135-145)
== END 2023-11-13 13:46 | disposition home or self-care (01) ==
LOC: HO.HHCX 13:45
PROVIDERS: Internal Medicine Geriatric Medicine; Visit Provider Student in an Organized Health Care Education/Training Program
DX: M25.512 Pain in left shoulder (principal); N18.30 Chronic kidney disease, stage 3 unspecified
CPT/HCPCS: 36415; 73030; 80048

== ENCOUNTER 2024-01-06 13:37 | Outpatient (AMB) | payer OTHER, SELFPAY ==
--- NOTE | 2024-01-06 13:42 | MHC.OFFVIS ---
Vital Signs 01/06/24 13:47 Height 4 ft 11 in BMI Reason not done Patient refused/unable BP 110/62 Blood Pressure Location Rt brachial Position Sitting Pulse 92 Pulse Source Pulse Oximeter Pulse Oximetry (%) 96 Oxygen Delivery Method Room Air Intake Visit Reasons: RA?OA shoulderright/Hip Bursa Intake Note: Patient presents for RA/OA. Printing Machine Mechanic Required: Yes Printing Machine Mechanic Language: Highway Truck Driver Name: Khushboo Amador #[id number] Information Interpreted: non-clinical & clinical Accompanied by: Spouse Allergies Penicillins [PENICILLINS] Allergy (Severe, Verified 01/06/24 13:47) RASH From PERCOCET Allergy (Severe, Uncoded 10/10/23 13:51) RASH Medication List - Last Reconciled 01/06/24 by Luis Orantes MD acetaminophen ER 1 tab PO Q12H PRN adalimumab (Humira(CF) Pen) 40 mg (0.4 mL) subcut Q2W albuterol sulfate 90 mcg/actuation 2 puffs inhalation Q4-6H PRN alcohol swabs (Alcohol Prep Pads) 1 pad topical QID allopurinol 1 tab PO DAILY amlodipine 1 tab PO DAILY atorvastatin 1 tab PO DAILY blood sugar diagnostic (i-NeumaticosTouch Ultra Test strips) As directed cetirizine 10 mg PO QAM chlorthalidone 1 tab PO DAILY cholecalciferol (vitamin D3) 1 tab PO DAILY cyanocobalamin (vitamin B-12) 1 tab PO DAILY dulaglutide (Trulicity) mg subcut ferrous sulfate (FeroSul) 1 tab PO TID fluticasone propionate 50 mcg/actuation sprays intranasal lactulose mL PO lancets (OneTouch Delica Plus Lancet) As directed levothyroxine 1 tab PO DAILY@0630 lidocaine 5% 1 patch topical DAILY PRN losartan 25 mg PO DAILY metoprolol tartrate 1 tab PO BID pantoprazole 1 tab PO DAILY@0630 pregabalin 75 mg PO BID sennosides (senna) 2 tabs PO DAILY PRN tramadol mg PO triamcinolone acetonide (24 Hour Nasal Allergy) intranasal HPI Comments Details: This is a 73-year-old female with seropositive RA who presents for follow-up. She has on a wheelchair. She states that she has been using the wheelchair a little over a year ago. She remains on Humira 40 mg every other week. She states that she is doing worse. She continues to have multiple joint pains. Multiple swollen joints [facility] Medical History Chronic right shoulder pain Trochanteric bursitis, right hip Bilateral hip pain Gout Hypothyroidism Hypertension Fibromyalgia Seropositive rheumatoid arthritis Surgical History Hx of hysterectomy Family History Mother Asthma Father CVD (cardiovascular disease) Brother HTN (hypertension) Diabetes Social History Household Members: Spouse Housing: Apartment Alcohol intake: never Patient Tobacco Use Status: Never used Tobacco e-Cigarette/Vaping Use: Never Used Review of Systems [facility] Reports arthralgias, Reports joint swelling and Reports limited range of motion Physical Exam Vital Signs: Last Vital Signs Pulse 92 01/06/24 13:47 BP 110/62 01/06/24 13:47 Pulse Ox 96 01/06/24 13:47 Oxygen Delivery Method Room Air 01/06/24 13:47 Const General: cooperative, healthy appearing and comfortable Orientation/consciousness: patient oriented x3 Limitations: wheelchair HEENT Head: Yes normocephalic and Yes atraumatic Mouth: oropharynx normal Resp Effort & Inspection: normal respiratory effort and able to speak in complete sentences Auscultation: crackles bilateral at the base Cardio Rate: regular rate Neuro General: patient oriented x3 Extrem Other: Bilateral wrist swelling, warmth and tenderness Few tender MCPs and PIP is both hands No elbow pain with flexion-extension bilaterally Bilateral significantly limited range of motion of shoulders Bilateral trace pitting edema Multiple tender MTPs bilaterally Assessment & Plan Assessment & Plan (1) Seropositive rheumatoid arthritis: Comment: ++RF +++CCPHumira 01/29/2018- present Arava: Prior to 04/2018 to December 2021 Code(s): M05.9 - Rheumatoid arthritis with rheumatoid factor, unspecified Category: Medical Plan: This is a 73-year-old female with seropositive RA who presents for follow-up. This is her 1st visit with me. He is on Humira 40 mg every other week. On exam she has multiple swollen and tender joints. We will need to change DMARDs. Discussed risks and benefits of Orencia. Patient agreed to proceed. Will start prior authorization for Orencia injections Advised patient to the 1st Orencia injection 2 weeks after the last Humira injection. Pending Orencia approval Labs today and before next visit in 3 months (2) Fibromyalgia: Code(s): M79.7 - Fibromyalgia Category: Medical (3) Respiratory crackles at both lung bases: Code(s): R09.89 - Other specified symptoms and signs involving the circulatory and respiratory systems Category: Medical Plan: Check high-resolution CT to evaluate for ILD and 2D echo to evaluate for CHF (4) Gout: Code(s): M10.9 - Gout, unspecified Category: Medical Qualifiers: Gout site: multiple sites Gout etiology: idiopathic Chronicity: unspecified Qualified Code(s): M10.09 - Idiopathic gout, multiple sites Plan: Reported history of gout in the chart. I will check uric acid level (5) Long-term use of immunosuppressant medication: Code(s): Z79.60 - long-term (current) use of unspecified immunomodulators and immunosuppressants Category: Medical Plan: Side effects of Orencia were discussed with the patient in detail including increased risk of infection, demyelinating disease, reactivation of latent TB, possible increased risk of solid and skin tumors. Patient fully aware. Advised patient to seek medical care TRICE if patient has an infection and advised patient to stop the medication until the infection is resolved. Plan I spent 45 minutes reviewing patient's chart, evaluating patient, ordering diagnostic workup, counseling patient and documenting in the chart Orders: Orders C Reactive Protein 3 Months M05.9 - Rheumatoid arthritis with rheumatoid factor, unspecified C Reactive Protein Today M05.9 - Rheumatoid arthritis with rheumatoid factor, unspecified Erythrocyte Sedimentation Rate Today M05.9 - Rheumatoid arthritis with rheumatoid factor, unspecified Hepatitis A,B,C Profile Today Z11.59 - Encounter for screening for other viral diseases T Spot TB Today Z11.7 - Encounter for testing for latent tuberculosis infection Complete Blood Count Auto Diff 3 Months M05.9 - Rheumatoid arthritis with rheumatoid factor, unspecified Comprehensive Met. Panel 3 Months M05.9 - Rheumatoid arthritis with rheumatoid factor, unspecified Erythrocyte Sedimentation Rate 3 Months M05.9 - Rheumatoid arthritis with rheumatoid factor, unspecified Complete Blood Count Auto Diff Today M05.9 - Rheumatoid arthritis with rheumatoid factor, unspecified Comprehensive Met. Panel Today M05.9 - Rheumatoid arthritis with rheumatoid factor, unspecified Other Ref Test - Misc Today Z79.620 - termination clerk (current) use of immunosuppressive biologic Uric Acid 3 Months M10.9 - Gout, unspecified Uric Acid Today M10.9 - Gout, unspecified CT chest wo con - High Res Today R09.89 - Other specified symptoms and signs involving the circulatory and respiratory systems CA echo transthoracic complete Today R06.02 - Shortness of breath Coding Level of Care Code Est Pt Level 5 (01159) Complex EM visit Add On G2211 Diagnoses Seropositive rheumatoid arthritis M05.9 Fibromyalgia M79.7 Respiratory crackles at both lung bases R09.89 Idiopathic gout of multiple sites, unspecified chronicity M10.09 Gout site: multiple sites Gout etiology: idiopathic Chronicity: unspecified Long-term use of immunosuppressant medication Z79.60
[2024-01-06 13:47] VITALS: BP 110/62; PULSE 92; O2SAT 96
== END 2024-01-06 14:15 | disposition home or self-care (01) ==
PROVIDERS: PCP Internal Medicine Geriatric Medicine; Visit Provider Student in an Organized Health Care Education/Training Program
DX: M05.79 Rheumatoid arthritis with rheumatoid factor of multiple sites without organ or systems involvement (principal); M79.7 Fibromyalgia; R09.89 Other specified symptoms and signs involving the circulatory and respiratory systems; M10.09 Idiopathic gout, multiple sites; Z79.60 Long term (current) use of unspecified immunomodulators and immunosuppressants
CPT/HCPCS: 99215; G2211

== ENCOUNTER 2024-01-06 13:37 | Outpatient (REF) | payer OTHER, SELFPAY ==
[2024-01-06 15:02] LABS: MANUAL DIFF FLAG NO
[2024-01-06 15:15] LABS: Basophils Percent Auto 0.4 % (0-2); Eosinophils Absolute Auto 0.3 X10*3/uL (0.0-0.4); Eosinophils Percent Auto 2.5 % (0-4); Hemoglobin 13.1 g/dl (12.0-16.0); Imm Gran Abs Auto 0.06 X10*3/uL (0.00-0.03); Imm Gran Pct Auto 0.5 % (0.0-0.4); Lymphocytes Absolute Auto 3.4 X10*3/uL (1.2-4.9); Lymphocytes Percent Auto 31.2 % (20-40); Mean Corpuscular HGB Conc 33.6 g/dl (31.0-35.0); Mean Corpuscular Hemoglobin 32.8 pg (27.0-33.0); Mean Corpuscular Volume 97.7 fL (80.0-98.0); Mean Platelet Volume 10.7 fL (9.4-12.3); Monocytes Percent Auto 8.7 % (2-11); Neutrophils Absolute Auto 6.2 x10*3/uL (2.0-8.3); Neutrophils Percent Auto 56.7 % (45-73); Platelet Count 275 X10*3/uL (160-400); Red Blood Count 3.99 X10*6/uL (4.20-5.50)
[2024-01-06 15:51] LABS: Erythrocyte Sedimentation Rate 83 MM/HR (0-20)
[2024-01-06 15:52] LABS: Alanine Aminotransferase 14 U/L (0-31); Albumin Level 3.8 g/dL (3.5-5.0); Alkaline Phosphatase 102 U/L (39-117); Anion Gap 14 (12-20); Aspartate Amino Transferase 12 U/L (5-31); Bilirubin Total 0.3 mg/dL (0.0-1.0); Blood Urea Nitrogen 24 mg/dL (9-16); C Reactive Protein 2.35 mg/dL (< or = 0.50); Carbon Dioxide 27 mmol/L (22-29); Chloride 105 mmol/L (96-108); Estimated Glomerular Filt Rate 27; Glucose Random 186 mg/dL (60-115); Potassium 4.2 mmol/L (3.3-5.1); Sodium 142 mmol/L (135-145); Total Protein 8.6 g/dL (6.5-8.0); Uric Acid 7.9 mg/dL (2.4-5.7)
[2024-01-07 07:51] LABS: HBS Num1 0.95 mIU/mL (0-7.99); HBsAGNum1 0.26 S/CO (0.00-0.99); Hepatitis B Core Antibody Nonreactive (Nonreactive); Hepatitis B Surface Antigen Negative (Negative); ~HepC Num1 0.11 S/CO (0.00-0.79); ~Hepatitis A Antibody IgM Nonreactive (Nonreactive); ~Hepatitis B Surface Antibody NONREACTIVE (Nonreactive); ~Hepatitis C Antibody Nonreactive (Nonreactive)
[2024-01-09 09:39] LABS: TS Negative Control Passed; TS Panel A 0; TS Panel B 0; TS Positive Control Passed; TSpotTB Negative (Negative)
== END 2024-01-06 13:38 | disposition home or self-care (01) ==
LOC: HO.LAB 13:37
PROVIDERS: PCP Internal Medicine Geriatric Medicine; Visit Provider Student in an Organized Health Care Education/Training Program
DX: M05.9 Rheumatoid arthritis with rheumatoid factor, unspecified (principal); R09.89 Other specified symptoms and signs involving the circulatory and respiratory systems; M10.09 Idiopathic gout, multiple sites; Z11.59 Encounter for screening for other viral diseases; Z11.7 Encounter for testing for latent tuberculosis infection; Z79.60 Long term (current) use of unspecified immunomodulators and immunosuppressants; Z72.89 Other problems related to lifestyle
CPT/HCPCS: 80053; 80145; 83520; 84550; 85025; 85652; 86140; 86481; 86704; 86706; 86709; 86803; 87340; 99212

== ENCOUNTER → 2024-05-27 14:31 | Outpatient (BNVA) | payer OTHER, SELFPAY | PROVIDERS: PCP Internal Medicine Geriatric Medicine; Visit Provider Student in an Organized Health Care Education/Training Program | DX: M15.9 Polyosteoarthritis, unspecified (principal); M10.09 Idiopathic gout, multiple sites; M05.9 Rheumatoid arthritis with rheumatoid factor, unspecified; Z79.60 Long term (current) use of unspecified immunomodulators and immunosuppressants; Z79.899 Other long term (current) drug therapy | CPT/HCPCS: 99212 ==

== ENCOUNTER → 2024-05-27 14:31 | Outpatient (AMB) | payer OTHER, SELFPAY ==
--- OUTSIDE RECORDS SUMMARY | 2024-05-27 14:33 | XMS_ITS | Encounter Summary ---
Demographics Address [address] [place] [address] Mobile Phone Home Phone Preferred Language es Marital Status Unknown Hindu Affiliation Unknown Race White Ethnic Group Unknown Author Organization [facility] Address [address] [place] [address] Phone Care Team Providers Care Engineering Officer Name Role Phone Name, Wallace HUNTER Primary Care Provider [phone] Encounter Details Date Type Department Care Team (Late st Contact Info) Description 05/04/2024 Documentation Only [facility] [place], [address] [place] [address] Cit[address]aly [address] [place] [address] Social History Tobacco Use Types Packs/Day Years Used Date Smoking Tobacco: Never Alcohol Use Standard Drinks/Week Comments No 0 (1 standard drink = 0.6 oz pur e alcohol) Comments Unknown Sex and Gender Information Value Date Recorded Sex Assigned at Not on file Legal Sex Female 4:30 PM EST Gender Identity Not on file Sexual Orientation Not on file documented as of this encounter Plan of Treatment Not on file documented as of this encounter Visit Diagnoses Not on filedocumented in this encounter Care Teams Engineering Officer Relationship Specialty Start Date End Date Name, MD Wallace [address] [place] [address] PCP - General Internal Medicine 06/25/23 documented as of this encounter
--- OUTSIDE RECORDS SUMMARY | 2024-05-27 14:33 | XMS_ITS | Encounter Summary ---
Author Organization [facility] Address [address] [place] [address] Phone Care Team Providers Care Concert Singer Name Role Phone Name, Wallace HUNTER Primary Care Provider [phone] Encounter Details Date Type Department Care Team (Late st Contact Info) Description 10/30/2021 Documentation Only [facility] [place], [address] [place] [address] Joaquín Vaughan MD [address] [address] Social History Tobacco Use Types Packs/Day Years [...] on filedocumented in this encounter Care Teams Concert Singer Relationship Specialty Start Date End Date Name, MD Wallace [address] [place] [address] PCP - General Internal Medicine 06/25/23 documented as of this encounter
--- OUTSIDE RECORDS SUMMARY | 2024-05-27 14:33 | XMS_ITS | Encounter Summary ---
Author Organization [facility] Address [address] [place] [address] Phone Care Team Providers Care Therapeutic Recreation Director Name Role Phone Name, Wallace HUNTER Primary Care Provider [phone] Encounter Details Date Type Department Care Team (Late st Contact Info) Description 05/04/2024 Documentation Only [facility] [place], [address] [place] [address] [address]aly [address] [place] [address] Social History Tobacco Use Types [...] on filedocumented in this encounter Care Teams Therapeutic Recreation Director Relationship Specialty Start Date End Date Name, MD [address] [place] [address] PCP - General Internal Medicine 06/25/23 documented as of this encounter
--- OUTSIDE RECORDS SUMMARY | 2024-05-27 14:33 | XMS_ITS | Encounter Summary ---
Author Organization [facility] Address [address] [place] [address] Phone Care Team Providers Care Machine Design Engineer Name Role Phone Name, Wallace HUNTER Primary Care Provider [phone] Reason for Visit * Reason Comments Med Refill Encounter Details Date Type Department Care Team (Late st Contact Info) Description 10/31/2022 Refill [facility] [place], [address] [place] [address] Joaquín Vaughan MD [address] [place] [address] Social History Tobacco Use Types [...] on filedocumented in this encounter Care Teams Machine Design Engineer Relationship Specialty Start Date End Date Name, MD [address] [place] [address] PCP - General Internal Medicine 06/25/23 documented as of this encounter
--- OUTSIDE RECORDS SUMMARY | 2024-05-27 14:33 | XMS_ITS | Encounter Summary ---
Author Organization [facility] Address [address] [place] [address] Phone Care Team Providers Care Studio Assistant Name Role Phone Name, Wallace HUNTER Primary Care Provider [phone] Encounter Details Date Type Department Care Team (Late st Contact Info) Description 12/14/2021 Documentation Only [facility] [place], [address] [place] [address] Joaquín Vaughan MD [address] [place] [address] Social History Tobacco Use Types [...] on filedocumented in this encounter Care Teams Studio Assistant Relationship Specialty Start Date End Date Name, MD Wallace [address] [place] [address] PCP - General Internal Medicine 06/25/23 documented as of this encounter
--- OUTSIDE RECORDS SUMMARY | 2024-05-27 14:33 | XMS_ITS | Encounter Summary ---
Author Organization [facility] Address [address] [place] [address] Phone Care Team Providers Care Pesticide Use Medical Coordinator Name Role Phone Name, Wallace HUNTER Primary Care Provider [phone] Encounter Details Date Type Department Care Team (Late st Contact Info) Description 05/18/2024 Documentation Only [facility] [place], [address] [place] [address] Cit[address]aly Burnham [address] [place] [address] Social History Tobacco Use Types [...] on filedocumented in this encounter Care Teams Pesticide Use Medical Coordinator Relationship Specialty Start Date End Date Name, MD Wallace [address] [place] [address] PCP - General Internal Medicine 06/25/23 documented as of this encounter
--- OUTSIDE RECORDS SUMMARY | 2024-05-27 14:33 | XMS_ITS | Clinical Summary ---
Author Organization [facility], Address [address] [place] [address] [place] [address] Phone Care Team Providers Care Bagel Maker Name Role Phone Name, Wallace HUNTER Primary Care Provider [phone] Allergies Active Allergy Reactions Criticality Noted Date Comments Acetaminophen 04/25/2017 Oxycodone 04/25/2017 Oxycodone-Acetaminophen Other (see comments) Penicillin G Other (see comments) 06/22/2019 Medications allopurinol (ZYLOPRIM) 100 MG tablet Take 1 tablet by mouth 1 (one) time each day Active atorvastatin (LIPITOR) 20 MG tablet TAKE 1 TABLET BY MOUTH EVERYDAY AT NOON 0 Active metoprolol tartrate (LOPRESSOR) 100 MG tablet TAKE 1 TABLET TWICE DAILY AT NOON AND IN THE EVENING WITH MEALS 0 Active senna (SENOKOT) 8.6 MG tablet TAKE 2 TABLETS BY MOUTH EVERY DAY NEEDED FOR CONSTIPATION 0 Active pregabalin (LYRICA) 50 MG capsule TAKE 1 CAPSULE BY MOUTH TWICE DAILY AT NOON AND BEDTIME 0 Active leflunomide (ARAVA) 10 MG tablet 0 Active metFORMIN (GLUCOPHAGE) 500 MG tablet TAKE 2 TABLETS BY MOUTH ONCE DAILY AT NOON and TAKE 1 TABLET BY MOUTH EVERY EVENING WITH FOOD 0 Active Humira Pen 40 MG/0.4ML Pen-injector Kit INJECT 1 PEN (40mg) SUBCUTANEOUSLY EVERY 2 WEEKS DIRECTED 1 Active Trulicity 0.75 MG/0.5ML solution pen-injector INJECT ONE PEN (=0.75MG) SUBCUTANEOUSLY ONCE A WEEK DIRECTED 1 Active levothyroxine sodium (Tirosint) 50 MCG capsule Take 50 mcg by mouth 1 (one) time each day Active lisinopril 40 MG tablet Take 1 tablet (40 mg total) by mouth at bed time 30 tablet 11 2 Active cholecalcifero l (VITAMIN D-3) 25 MCG (1000 UT) tablet Take 1 tablet by mouth everyday at noon 30 tablet 11 2 Active amLODIPine (NORVASC) 10 MG tablet TAKE 1 TABLET BY MOUTH EVERYDAY AT NOON 2 Active acetaminophen (TYLENOL 8 HOUR) 650 MG 8 hr tablet Take 650 mg by mouth every 8 (eight) hours if needed 2 Active loperamide (IMODIUM) 2 MG capsule TAKE 2 CAPSULES BY MOUTH AFTER FIRST LOOSE STOOL, THEN TAKE 1 CAPSULE BY MOUTH AFTER EACH FOLLOWING LOOSE STOOL . NO MORE THAN 8 CAPSULES IN 24 HOURS. 2 Active cyanocobalamin (VITAMIN B-12) 1000 MCG tablet Take 1,000 mcg by mouth 1 (one) time each day Active cetirizine (ZyrTEC) 10 MG tablet Take 1 tablet (10 mg total) by mouth 1 (one) time each day 30 tablet 11 3 Active ferrous sulfate (FeroSul) 325 (65 Fe) MG tablet Take 1 tablet (325 mg total) by mouth in the morning and 1 tablet (325 mg total) at noon and 1 tablet (325 mg total) in the evening. Take with meals. 270 tablet 3 4 025 Active chlorthalidone 25 MG tablet Take 1 tablet (25 mg total) by mouth 1 (one) time each day 90 tablet 3 4 025 Active Active Problems Problem Noted Date Diagnosed Date Injury of kidney 10/30/2021 Chronic kidney disease, stage 4 (severe) 022 Stage 3b chronic kidney disease 04/27/2020 Hypertensive disorder 06/22/2019 Type 2 diabetes mellitus 06/22/2019 Anemia 12/23/2012 Resolved Problems Problem Noted Date Diagnosed Date Resolved Date Renal disorder due to type 2 diabetes mellitus 04/27/2020 09/13/2020 Hypertensive heart and chron ic kidney disease without heart failure, with stage 1 through stage 4 chronic kidney disease, or unspecified chronic kidney disease 06/22/201904/26 Gout 06/22/2019 09/13/2020 Hypercholesterolemia 06/22/2019 020 Hypothyroidism 06/22/2019 08/18/2019 Peripheral neuropathy 06/22/20192019 Hyperlipidemia 06/22/2019 08/18/2019 Encounters Date Type Department Care Team Description 05/18/2024 Documentation Only [facility] [address] [place] [address] Citlaly Burnham 05/04/2024 Documentation Only [facility] [address] [place] [address] Citlaly Burnham 05/04/2024 Documentation Only [facility] [address] [place] [address] Citlaly Burnham from Last 3 Months Immunizations Name Administration Dates Next Due Influenza, Unspecified 02/11/2017,03/13/2016 Pneumococcal Polysaccharide 02/06/2015 Tdap 02/06/2012 Tetanus Toxoid, Unspecified 03/19/2007 Family History Relation Status Comments Father Unknown Mother Unknown Social History Tobacco Use Types Packs/Day Years Used Date Smoking Tobacco: Never Tobacco Cessation:Counseling Given: Not Answered Alcohol Use Standard Drinks/Week Comments No 0 (1 standard drink = 0.6 oz pur e alcohol) Comments Unknown Sex and Gender Information Value Date Recorded Sex Assigned at Not on file Legal Sex Female 4:30 PM EST Gender Identity Not on file Sexual Orientation Not on file Last Filed Vital Signs Vital Sign Reading Time Taken Comments Blood Pressure 112/72 11/18/2022 3:37 PM EDT Pulse 74 02/22/2019 12:00 PM EST Temperature - - Respiratory Rate 16 02/22/2019 12:00 PM EST Oxygen Saturation - - Inhaled Oxygen Concentration - - Weight 67.4 kg (148 lb 9.6 oz) 11/18/2022 3:37 P M EDT Height 144.8 cm (4' 9 ) 11/18/2022 3:37 PM EDT Body Mass Index 32.16 11/18/2022 3:37 PM EDT Plan of Treatment Health Maintenance Due Date Last Done Comments Breast Cancer Screening 1950 Colorectal Cancer Screening: Annual FOBT 12/04/2000 Colorectal Cancer Screening: Colonoscopy 12/04/2000 Colorectal Cancer Screening: Sigmoidoscopy 12/04/2000 Diabetes: Ophthalmology Exam 06/22/2019 Diabetes: Pedal Pulse Checked 06/22/2019 Diabetes: Sensory Foot Exam 06/22/2019 Diabetes: Visual Foot Exam 06/22/2019 Diabetes: Hemoglobin A1C 04/27/2024 01/26/2024 Influenza Vaccine Completed 01/26/2024, , 03/21/2020, Additional history exists Pneumococcal Vaccine: 65+ Years Completed 01/26/2024, 05/04/2018, 01/01/2018, Additional history exists Hepatitis B Vaccine Aged Out No longe r eligible based on patient's age to complete this topic Insurance [address] [place] [address] [facility] DUAL SNP ([id number]) [place] [id number] [address] [place] [address] [address] [place] [address] Care Teams Bagel Maker Relationship Specialty Start Date End Date Name, MD Wallace [address] [place] [address] PCP - General Internal Medicine 06/25/23
--- OUTSIDE RECORDS SUMMARY | 2024-05-27 14:33 | XMS_ITS | Encounter Summary ---
Author Organization [facility] Address [address] [place] [address] Phone Care Team Providers Care Skills Trainer Name Role Phone Name, Wallace HUNTER Primary Care Provider [phone] Reason for Visit * Reason Comments Med Refill Encounter Details Date Type Department Care Team (Late st Contact Info) Description 10/26/2022 Refill [facility], [address] [place] [address] Joaquín Vaughan MD [address] [facility] [address] Social History Tobacco Use Types [...] on filedocumented in this encounter Care Teams Skills Trainer Relationship Specialty Start Date End Date Name, MD Wallace [address] [place] [address] PCP - General Internal Medicine 06/25/23 documented as of this encounter
--- OUTSIDE RECORDS SUMMARY | 2024-05-27 14:33 | XMS_ITS | Continuity of Care Document ---
Author Organization [facility] Address [address] [place] [id number] Phone Care Team Providers Care Enrolled Nurse Name Role Phone Unavailable Unavailable Unavailable Allergies, Adverse Reactions, Alerts Substance Reaction Status Criticality acetaminophen Itching Active No Information OXYCODONE HCL Itching Active No Information Penicillins Itching Active No Information Medications Medication Instructions Dosage Effective Dates (start - stop) Status Comments atorvastatin 20 mg tablet take 1 tablet by oral route every day 20 MG - Active lisinopril 20 mg tablet take 1 tablet by oral route every day 20 MG - Active allopurinol 100 mg tablet take 1 tablet by oral route every day 100 MG - Active leflunomide 10 mg tablet take 1 tablet by oral route every day 10 MG - Active iron ER 325 mg (65 mg iron) capsule,extended release take one by mouth daily - Active docusate sodium 100 mg capsule take 1 capsule by oral route every day at bedtime as needed 100 MG - Active aspirin 81 mg tablet,delayed release take 1 tablet by oral route every day 81 MG - Active amlodipine 10 mg tablet take 1 tablet by oral route every day 10 MG - Active Tirosint 50 mcg capsule take 1 capsule by oral route every day 50 MCG - Active metoprolol tartrate 100 mg tablet take 1 tablet by oral route 2 times every day with meals 100 MG - Active metformin 500 mg tablet take 1 tablet by oral route 2 times every day with morning and evening meals 500 MG - Active Lyrica 150 mg capsule take 1 capsule by oral route 2 times every day 150 MG - Active famotidine 20 mg tablet take 1 tablet by oral route 2 times every day as needed for reflux 20 MG - Active Vitamin D2 50,000 unit capsule take 1 capsule by oral route every week - Active Advance Directives Directive Yes / No Effective Date File Name No Information Encounters Encounter Description Practice Location Reason(s) For Visit Diagnoses Date Provider [facility], [address] [place] [address], [facility], tel:[phone] [facility] Care NBrit 75 NMR No Information 8 No Information [facility], [address] [place] [address], [facility], tel:[phone] [facility] Bris 10 NMS follow up (chief complaint) diabetes (follow up) (chief complaint) Type 2 diabetes mellitus with hyperglycemiaHyperlipidemia HypothyroidismRheumatoid arthritis 8 Eleck Yolanda. [address] [place] [address], [address] [place] [address], . tel:[phone] [facility], [address] [place] [address], [facility], tel:[phone] OP A NBrit 75 NMR 8 Naldo Meléndez. [address] [place] [address], [address] [place] [address], [place]. tel:[phone] [facility], [address] [place] [address], [facility], tel:[phone] OP A NBrit 75 NMR 8 Naldo Meléndez. [address] [place] [address], [id number], [place]. tel:[phone] [facility], [address] [place] [address], [facility], tel:[phone] [facility] Bris 10 NMS follow up visit (chief complaint) Body mass index (BMI) 35.0-35.9, adultType 2 diabetes mellitus with hyperglycemiaRheumatoid arthritisAbnormal finding of blood chemistry, unspecifiedLipoma 8 Eleck Yolanda. [address], [address] [place] [address], . tel:[phone] [facility], [address] [place], [facility], tel:[phone] OP A NBrit 75 NMR 8 Naldo Meléndez. [address] [place], [address] [place] [address], . tel:[phone] [email or web address] [facility], [address] [place] [address], [facility], tel:[phone] [facility] Care Bris 10 NMS EOC (establish ment of care) (chief complaint) Type 2 diabetes mellitus with hyperglycemiaRheumatoid arthritisHypertensionHyperl ipidemiaHypothyroidismStatu s post total hysterectomyBody mass index (BMI) 32.0-32.9, adult 8 Eleck Yolanda. [address] [place] [address], [address] [place] [address], . tel:[phone] [facility], [address] [place] [address], [facility], tel:[phone] OP A Bris 10 NMS 8 Jan Horton. [address] [place] [address], [address] [place] [address], . tel:[phone] As per patient privacy policy some of the clinical information may not be visible. Family History Family Member Type Diagnosis Age At Onset Father Problem (finding) Diabetes mellitus Mother Problem (finding) Father Problem (finding) Mental illness Father Problem (finding) coronary arterioscleros is Payers Payer name Insurance type Covered constitution party ID Authoriza ticasper(s) Medicare [id number] Kristine Singh [facility] [id number] Social History Type Description Quantity Date Captured Comments Alcohol Use Details Unknown Caffeine Use Details Unknown Tobacco Use Status No Information Smoking Status No Information Sex Female Sexual Orientation Straight or heterosexual Gender Identity Female Chief Complaint And Reason For Visit No Information Plan Of Treatment Date Type Action Status Goal Lifestyle education regardin g diet completed Goal Lifestyle education regardin g diet completed Future Order: Lab Order TSH (263), Sent o n: Sent Future Order: Lab Order HEMOGLOB IN A1c (496), Sent on: Sent History Of Present Illness Encounter Date Complaint History Of Prese nt Illness follow up diabetes (follow up) Pertinent n egatives include fatigue, pain and weight gain. Additional information: Taking cholestorol pills now. No problems.. follow up visit pt here discuss lab results EOC (establishment of care) Just moved from [place], here to establish care. Instructions Date Instruction Additional Infor morris Keep taking your med ication. We jaycee labs today and will see back in a few weeks to review. Related to Type 2 diabetes mellitus with hyperglycemia Your diabetes appear s pretty well controlled, but your cholesterol is high. We're going to restart a cholesterol pill and will recheck your labs to make sure it's not affecting your kidneys. Related to Type 2 diabetes mellitus with hyperglycemia I put in a referral to physical therapy. Call [facility] to schedule that appointment, . Related to Rheumatoid arthritis Giving encouragement to exercise Related to Body mass index (BMI) 35.0-35.9, adult Lifestyle education regarding di et Related to Body mass index (BMI) 35.0-35.9, adult I refilled all of yo ur meds and we took some blood today. Next visit we'll review labs, check your feet, and adjust your medications as needed. Related to Type 2 diabetes mellitus with hyperglycemia Lifestyle education regarding di et Related to Body mass index (BMI) 32.0-32.9, adult Lifestyle education regarding diet (procedure) Related to Hypertension As per patient privacy policy some of the clinical information may not be visible. Assessments Type Assessment Date No Information
--- OUTSIDE RECORDS SUMMARY | 2024-05-27 14:33 | XMS_ITS | Encounter Summary ---
Author Organization [facility] Address [address] [place] [address] Phone Care Team Providers Care Academic Associate Name Role Phone Name, Wallace HUNTER Primary Care Provider [phone] Reason for Visit * Reason Comments Med Refill Encounter Details Date Type Department Care Team (Late st Contact Info) Description 10/30/2022 Refill [facility] [place], [address] [place] [address] Joaquín Vaughan MD [address] [facility] [place] [address] Social History Tobacco Use Types [...] on filedocumented in this encounter Care Teams Academic Associate Relationship Specialty Start Date End Date Name, MD Wallace [address] [place] [address] PCP - General Internal Medicine 06/25/23 documented as of this encounter
--- OUTSIDE RECORDS SUMMARY | 2024-05-27 14:33 | XMS_ITS | Encounter Summary ---
Author Organization [facility] Address [address] [place] [address] Phone Care Team Providers Care Vice President Of Talent Management Name Role Phone Name, Wallace HUNTER Primary Care Provider [phone] Reason for Visit * Reason Comments Med Refill Encounter Details Date Type Department Care Team (Late st Contact Info) Description 12/13/2023 Refill [facility] [place], [address] [place] [address] Joaquín Vaughan MD [address] [facility] [place] [address] Social History Tobacco Use Types [...] on filedocumented in this encounter Care Teams Vice President Of Talent Management Relationship Specialty Start Date End Date Name, MD Wallace [address] [place] [address] PCP - General Internal Medicine 06/25/23 documented as of this encounter
--- OUTSIDE RECORDS SUMMARY | 2024-05-27 14:33 | XMS_ITS | Encounter Summary ---
Author Organization [facility] Address [address] [place] [address] Phone Care Team Providers Care Soft Boarder Name Role Phone Name, Wallace HUNTER Primary Care Provider [phone] Reason for Visit * Reason Comments Med Refill Encounter Details Date Type Department Care Team (Late st Contact Info) Description 12/19/2023 Refill [facility], [address] [facility] [place] [address] Joaquín Vaughan MD [address] [facility] [place] [address] Social History Tobacco Use Types [...] on filedocumented in this encounter Care Teams Soft Boarder Relationship Specialty Start Date End Date Name, MD Wallace [address] [place] [address] PCP - General Internal Medicine 06/25/23 documented as of this encounter
--- NOTE | 2024-05-27 14:45 | A.OFFVIS_ITS ---
Vital Signs 05/27/24 14:51 Height 4 ft 11 in BMI Reason not done Patient refused/unable BP 134/80 Blood Pressure Location Lt brachial Position Sitting Pulse 98 Pulse Source Pulse Oximeter Pulse Oximetry (%) 97 Oxygen Delivery Method Room Air Intake Visit Reasons: RA Intake Note: Patient presents for RA. 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 Orantes. At that time she was on Humira 40 mg every other week and on exam she had multiple swollen and tender joints the decision was made to change DMARDs. She was started on Orencia. Since then the Orencia was denied by insurance And so we changed to Enbrel Since that visit patient has not been on any medication Has not picked up the medication Today, She reports pain in all joints Rheumatologic History: Gout - non crystal proven - history seen in chart - on allopurinol therapy RA - unsure of the diagnosis time - +++RF +++CCP - Arava - Humira: 01/2018 - 12/2023 - Orencia 12/2023. PA denied - Enbrel 12/2023 Current Rheumatology Medication(s): Allopurinol 100 mg daily Enbrel 50 mg weekly (has not started) [facility] Medical History (Updated 05/27/24 @ 16:15 by Kathe Ledezma MD) On allopurinol therapy Chronic right shoulder pain Trochanteric bursitis, right hip Bilateral hip pain Gout Hypothyroidism Hypertension Fibromyalgia Seropositive rheumatoid arthritis Surgical History Hx of hysterectomy Family History Mother Asthma Father CVD (cardiovascular disease) Brother HTN (hypertension) Diabetes Social History Household Members: Spouse Housing: Apartment Alcohol intake: never Patient Tobacco Use Status: Never used Tobacco e-Cigarette/Vaping Use: Never Used Review of Systems Const Details: Review of Systems Constitutional: Denies fever, chills, weight loss ENT: Denies vision changes, eye pain or eye redness, dental caries, dry mouth GI: Denies nausea, vomiting, diarrhea, abdominal pain, change in BM Pulm: Denies SOB, PORTILLO, hemoptysis, wheezing Cards: Denies chest pain, palpitations Skin: Denies Raynaud's, rash, nail changes, photosensitivity, GRAB DRIVER: Denies headaches, weakness, paresthesias, recurrent falls MSK: as per HPI All other systems reviewed and are unremarkable except noted above Physical Exam Vital Signs: Last Vital Signs Pulse 98 05/27/24 14:51 BP 134/80 05/27/24 14:51 Pulse Ox 97 05/27/24 14:51 Oxygen Delivery Method Room Air 05/27/24 14:51 Vital signs reviewed Physical Examination CONSTITUITIONAL Patient alert and cooperative. Well appearing and in no apparent painful dis tress. Patient is examined in a wheelchair HEENT Conjunctiva and sclera clear. ?Pupils equal round and reactive to light. ?No lymphadenopathy. ? CHEST/RESPIRATORY SYSTEM Normal respiratory effort and able to speak in complete sentences. ?Clear to auscultation bilaterally. ?No crackles, rales, rhonchi, wheezes heard. CARDIAC SYSTEM Regular rate and rhythm. ?S1 and S2 heard no murmurs. ?Radial pulses intact bilaterally MSK Hands: ?Good ground worker strength bilaterally. Tenderness to palpation of MCPs and PIPs throughout bilateral hands. Wrists: ?Full range of motion at the wrists. Exquisite tenderness to palpation of bilateral wrists. Elbows: Right elbow held in flexion at about 60 degrees. Tenderness to palpation of the right elbow joint. Left elbow able to extend to a full 180 degrees. Mild tenderness to palpation Shoulders: Decreased range of motion secondary to pain. Tenderness to palpation of the AC joint bilaterally. Also tenderness to palpation over bilateral subacromial bursa. Knees: ?Decreased range of motion secondary to pain. Tenderness to palpation of bilateral knee joints. SKIN Skin intact without rashes. Results Reviewed Results Reviewed: Laboratory Tests 01/06/24 14:45 WBC 11.0 H RBC 3.99 L Hgb 13.1 Hct 39.0 Plt Count 275 ESR 83 H Sodium 142 Potassium 4.2 Chloride 105 Carbon Dioxide 27 BUN 24 H Creatinine 1.85 H Uric Acid 7.9 H AST 12 ALT 14 Alkaline Phosphatase 102 C-Reactive Protein 2.35 H Total Protein 8.6 H Albumin 3.8 Hepatitis A IgM Ab Nonreactive Hep Bs Antigen Negative Hep Bs Antibody NONREACTIVE Hep B Core Total Ab Nonreactive Hepatitis C Ab (EIA) Nonreactive TB Test (T-Spot) Com Negative Assessment & Plan Assessment & Plan (1) Seropositive rheumatoid arthritis: Comment: ++RF +++CCPHumira 01/29/2018- present Arava: Prior to 04/2018 to December 2021 Code(s): M05.9 - Rheumatoid arthritis with rheumatoid factor, unspecified Category: Medical Plan: #Seropositive RA Patient is a 73-year-old female who is here today for follow up of her seropositive rheumatoid arthritis. Patient is currently in a flare of her disease on a background of not being on any immunosuppression. Patient was switched from Humira to Orencia at the last visit however due to ins urance issues Orencia was not approved and the transition was made to Enbrel. Enbrel was finally approved 03/2024 however the pharmacy did not have any in stock. And so patient was not able to start it. Today she has many tender and swollen joints. Was requesting an injection but at this time I think it is best for her to start the Enbrel and we follow up in 3 months. Plan - Enbrel 50mg SC weekly - CBC, CMP, ESR, CRP, T spot and Hep panel - RTC 3 months (2) Gout: Code(s): M10.9 - Gout, unspecified Category: Medical Qualifiers: Gout site: multiple sites Gout etiology: idiopathic Chronicity: unspecified Qualified Code(s): M10.09 - Idiopathic gout, multiple sites Plan: #Non crystal proven non tophaceous got Patient with history of gout based on chart. On allopurinol. We will check uric acid today refill her allopurinol (3) Long-term use of immunosuppressant medication: Code(s): Z79.60 - FPC (current) use of unspecified immunomodulators and immunosuppressants Category: Medical Plan: #Long-term Use of TNF Inhibitors: Enbrel Discussed with the patient the benefits and risks of TNF inhibitors for the management of the rheumatic condition Benefits include reduce pain, maintenance of remission and reduction of flares as well as ?progression of the disease Risks include injection sites/infusion reactions, serious infections (such as bacterial infections, opportunistic infections), malignancy, delaminating syndromes, autoimmune phenomena, CHF exacerbations, palmar plantar psoriasis and cytopenias Recommended rotating injection sites, and holding medication during and for up to 1 week after resolution of a febrile illness or open skin wound (4) On allopurinol therapy: Code(s): Z79.899 - Other continuous churn buttermaker (current) drug therapy Category: Medical Plan: #Long-term Current Use of Allopurinol Risks and benefits of allopurinol discussed with patient Benefits include decreased gout flares, remission of gout and reduction of tophi Risks include allopurinol hypersensitivity syndrome which is a severe cutaneous adverse reaction associated with allopurinol use particularly in patients who are HLA B*5801 positive, increased transaminases, GI upset including diarrhea, nausea and vomiting, and other dermatologic manifestations. Plan I spent 45 minutes reviewing the record and labs, taking a history, examining the patient, discussing the treatment plan and documenting in the medical record Orders: Orders Complete Blood Count Auto Diff Today M05.9 - Rheumatoid arthritis with rheumatoid factor, unspecified, M10.09 - Idiopathic gout, multiple sites, Z79.60 - FPC (current) use of unspecified immunomodulators and immunosuppressants Comprehensive Met. Panel Today M05.9 - Rheumatoid arthritis with rheumatoid factor, unspecified, M10.09 - Idiopathic gout, multiple sites, Z79.60 - FPC (current) use of unspecified immunomodulators and immunosuppressants C Reactive Protein Today M05.9 - Rheumatoid arthritis with rheumatoid factor, unspecified, M10.09 - Idiopathic gout, multiple sites, Z79.60 - manager intermediate (current) use of unspecified immunomodulators and immunosuppressants Erythrocyte Sedimentation Rate Today M05.9 - Rheumatoid arthritis with rheumatoid factor, unspecified, M10.09 - Idiopathic gout, multiple sites, Z79.60 - FPC (current) use of unspecified immunomodulators and immunosuppressants T Spot TB Today M05.9 - Rheumatoid arthritis with rheumatoid factor, unspecified, M10.09 - Idiopathic gout, multiple sites, Z79.60 - manager intermediate (current) use of unspecified immunomodulators and immunosuppressants Hepatitis A,B,C Profile Today M05.9 - Rheumatoid arthritis with rheumatoid factor, unspecified, M10.09 - Idiopathic gout, multiple sites, Z79.60 - FPC (current) use of unspecified immunomodulators and immunosuppressants Uric Acid Today M05.9 - Rheumatoid arthritis with rheumatoid factor, unspecified, M10.09 - Idiopathic gout, multiple sites, Z79.60 - manager intermediate (current) use of unspecified immunomodulators and immunosuppressants Medications: Changed From allopurinol 1 tab PO DAILY M10.09 - Idiopathic gout, multiple sites, Z79.899 - Other continuous churn buttermaker (current) drug therapy To allopurinol 100 mg PO DAILY 90 tabs 0RF M10.09 - Idiopathic gout, multiple sites, Z79.899 - Other continuous churn buttermaker (current) drug therapy Refilled etanercept (Enbrel SureClick) 50 mg subcut QWEEK 4 mL 4RF M05.9 - Rheumatoid arthritis with rheumatoid factor, unspecified Coding Level of Care Code Est Pt Level 5 (53598) Complex EM visit Add On G2211 Diagnoses Seropositive rheumatoid arthritis M05.9 Idiopathic gout of multiple sites, unspecified chronicity M10.09 Gout site: multiple sites Gout etiology: idiopathic Chronicity: unspecified Long-term use of immunosuppressant medication Z79.60 On allopurinol therapy Z79.899
== END | disposition home or self-care (01) ==
PROVIDERS: PCP Internal Medicine Geriatric Medicine; Visit Provider Student in an Organized Health Care Education/Training Program
CPT/HCPCS: 99215; G2211

== ENCOUNTER 2024-08-30 15:27 | Outpatient (REF) | payer OTHER, SELFPAY ==
--- OUTSIDE RECORDS SUMMARY | 2024-08-30 15:30 | XMS_ITS | Encounter Summary ---
Author Organization [facility] Address [address] [place] [address] Phone Care Team Providers Care Taper/Finisher Name Role Phone Name, Wallace HUNTER Primary Care Provider [phone] Reason for Visit * Reason Comments Med Refill Encounter Details Date Type Department Care Team (Late st Contact Info) Description 10/26/2022 Refill [facility] [place], [address] [place] [address] Joaquín Vaughan MD [address] [facility] [place] [address] Social History Tobacco Use Types [...] on filedocumented in this encounter Care Teams Taper/Finisher Relationship Specialty Start Date End Date Name, MD Wallace [address] [place] [address] PCP - General Internal Medicine 06/25/23 documented as of this encounter
--- OUTSIDE RECORDS SUMMARY | 2024-08-30 15:30 | XMS_ITS | Encounter Summary ---
Author Organization [facility] Address [address] [place] [address] Phone Care Team Providers Care Keno Writer Name Role Phone Name, Wallace HUNTER Primary Care Provider Reason for Visit * Reason Comments Med Refill Encounter Details Date Type Department Care Team (Late st Contact Info) Description 12/19/2023 Refill [facility] [place], [address] [place] [address] Joaquín Vaughan MD [address] [facility] [address] [place] [address] Social History Tobacco Use Types [...] on filedocumented in this encounter Care Teams Keno Writer Relationship Specialty Start Date End Date Name, MD Wallace [address] [place] [address] PCP - General Internal Medicine 06/25/23 documented as of this encounter
--- OUTSIDE RECORDS SUMMARY | 2024-08-30 15:30 | XMS_ITS | Encounter Summary ---
Author Organization [employer] Address [address] [facility] [address] [place] [address] Care Team Providers Care Continuity Tester Name Role Phone Name, Wallace HUNTER Primary Care Provider [phone] Ange Salamanca PharmD Unavailable [phone] Encounter Details Date Type Department Care Team (Late st Contact Info) Description 05/29/2022 Orders Only [facility] [address] [place] [address] Liliam Ortiz LPN Social History Tobacco Use Types Packs/Day Years Used Date Smoking Tobacco: Never Assessed Comments Unknown Sex and Gender Information Value Date Recorded Sex Assigned at Female 02/18/2022 10:18 AM EDT Legal Sex Female 10:18 AM EDT Gender Identity Female 02/18/2022 10:18 AM EDT Sexual Orientation Straight 02/18/2022 10 :18 AM EDT documented as of this encounter Plan of Treatment Not on file documented as of this encounter Visit Diagnoses Not on filedocumented in this encounter Care Teams Continuity Tester Relationship Specialty Start Date End Date Name, MD Wallace [address] [place] [address] PCP - General Family Medicine 01/27/19 Aneg Salamanca, PharmD [address] [place] [address] Pharmacist Internal Medicine 11/26/23 05/12/24 documented as of this encounter
--- OUTSIDE RECORDS SUMMARY | 2024-08-30 15:30 | XMS_ITS | Encounter Summary ---
Author Organization [facility] Address [address] [place] [address] Phone Care Team Providers Care Vegetable Harvest Worker Name Role Phone Name, Wallace HUNTER Primary Care Provider [phone] Reason for Visit * Reason Comments Med Refill Encounter Details Date Type Department Care Team (Late st Contact Info) Description 10/30/2022 Refill [facility] [place], [address] [place] [address] Joaquín Vaughan MD [address] [facility] [place] [address] Social History Tobacco Use Types [...] on filedocumented in this encounter Care Teams Vegetable Harvest Worker Relationship Specialty Start Date End Date Name, MD Wallace [address] [place] [address] PCP - General Internal Medicine 06/25/23 documented as of this encounter
--- OUTSIDE RECORDS SUMMARY | 2024-08-30 15:30 | XMS_ITS | Encounter Summary ---
Author Organization [facility] Address [address] [place] [address] Phone Care Team Providers Care Installer Interior Assemblies Name Role Phone Name, Wallace HUNTER Primary Care Provider [phone] Reason for Visit * Reason Comments Med Refill Encounter Details Date Type Department Care Team (Late st Contact Info) Description 10/31/2022 Refill [facility] [place], [address] [place] [place] [address] Joaquín Vaughan MD [address] [facility] [place] [address] Social History Tobacco Use Types [...] on filedocumented in this encounter Care Teams Installer Interior Assemblies Relationship Specialty Start Date End Date Name, MD Wallace [address] [place] [address] PCP - General Internal Medicine 06/25/23 documented as of this encounter
--- OUTSIDE RECORDS SUMMARY | 2024-08-30 15:30 | XMS_ITS | Encounter Summary ---
Author Organization [facility] Address [address] [place] [address] Phone Care Team Providers Care Headmaster/Mistress Name Role Phone Name, Wallace HUNTER Primary Care Provider [phone] Reason for Visit * Reason Comments Med Refill Encounter Details Date Type Department Care Team (Late st Contact Info) Description 12/13/2023 Refill [facility] [place], [address] [place] [place] [address] Joaquín Vaughan MD [address] [facility] [place] [address] Social History Tobacco Use Types [...] on filedocumented in this encounter Care Teams Headmaster/Mistress Relationship Specialty Start Date End Date Name, MD Wallace [address] [place] [address] PCP - General Internal Medicine 06/25/23 documented as of this encounter
--- OUTSIDE RECORDS SUMMARY | 2024-08-30 15:30 | XMS_ITS | Encounter Summary ---
Author Organization [facility] Address [address] [place] [address] Phone Care Team Providers Care Makeup Instructor Name Role Phone Name, Wallace HUNTER Primary Care Provider [phone] Encounter Details Date Type Department Care Team (Late st Contact Info) Description 05/04/2024 Documentation Only [facility] [place], [address] [place] [place] [address] [facility] [address] [place] [address] Social History Tobacco Use Types [...] on filedocumented in this encounter Care Teams Makeup Instructor Relationship Specialty Start Date End Date Name, MD Wallace [address] [place] [address] PCP - General Internal Medicine 06/25/23 documented as of this encounter
--- OUTSIDE RECORDS SUMMARY | 2024-08-30 15:30 | XMS_ITS | Encounter Summary ---
Author Organization [facility] Address [address] [place] [address] Phone Care Team Providers Care Fermenter Helper Name Role Phone Name, Wallace HUNTER Primary Care Provider Encounter Details Date Type Department Care Team (Late st Contact Info) Description 05/04/2024 Documentation Only [facility] [place], [address] [place] [place] [address] [address] Burnham [address] [place] [address] Social History Tobacco Use Types [...] on filedocumented in this encounter Care Teams Fermenter Helper Relationship Specialty Start Date End Date Name, MD Wallace [address] [place] [address] PCP - General Internal Medicine 06/25/23 documented as of this encounter
--- OUTSIDE RECORDS SUMMARY | 2024-08-30 15:30 | XMS_ITS | Encounter Summary ---
Author Organization [facility] Address [address] [place] [address] Phone Care Team Providers Care Video Game Creator Name Role Phone Name, Wallace HUNTER Primary Care Provider [phone] Encounter Details Date Type Department Care Team (Late st Contact Info) Description 05/18/2024 Documentation Only [facility] [place], [address] [place] [address] [facility] Burnham [address] [place] [address] Social History Tobacco Use Types [...] on filedocumented in this encounter Care Teams Video Game Creator Relationship Specialty Start Date End Date Name, MD Wallace [address] [place] [address] PCP - General Internal Medicine 06/25/23 documented as of this encounter
--- OUTSIDE RECORDS SUMMARY | 2024-08-30 15:30 | XMS_ITS | Encounter Summary ---
Author Organization [employer] Address [address] [facility] [address] [place] [address] Care Team Providers Care Marketing Services Manager Name Role Phone Name, Wallcae HUNTER Primary Care Provider [phone] Ange Salamanca PharmD Unavailable [phone] Reason for Visit * Reason Onset Date Comments Appointment Request 07/12/2022 Encounter Details Date Type Department Care Team ([facility] st Contact Info) Description 07/12/2022 Telephone [facility] MEDICINE [address] [place], [place] [id number] Name, MD Wallace [address] [place] [address] Appointment Request Social History Tobacco Use Types Packs/Day Years Used Date Smoking Tobacco: Never Assessed Comments Unknown Sex and Gender Information Value Date Recorded Sex Assigned at Female 02/18/2022 10:18 AM EDT Legal Sex Female 10:18 AM EDT Gender Identity Female 02/18/2022 10:18 AM EDT Sexual Orientation Straight 02/18/2022 10 :18 AM EDT documented as of this encounter Miscellaneous Notes * Telephone Encounter - Maryann Franks RN - 07/16/2022 11:32 AM EDT T/C returned to [facility] who is with pt. She states pt does not want to see another provider. Only want's PCP between 11:30 and 1:30 as that is when [facility] is with her and can bring her. Informed nothing until August with those specifications. They are willing to wait until August. Sent myself a reminder to ad d her to PCP's schedule once open. * Telephone Encounter - Luke Liam - 07/12/2022 12:18 PM EDT Tc from [facility] requesting to r/s appt on 05/08/2022 [facility] ( [facility] 04/26/22-04/30/22 COVID-19 ENCEPHALOPATHY ) Please contact [facility] at [phone] documented in this encounter Plan of Treatment Not on file documented as of this encounter Visit Diagnoses Not on filedocumented in this encounter Care Teams Marketing Services Manager Relationship Specialty Start Date End Date Name, MD Wallace [address] [place] [address] PCP - General Family Medicine 01/27/19 Ange Salamanca PharmD [address] [place] [address] Pharmacist Internal Medicine 11/26/23 05/12/24 documented as of this encounter
--- OUTSIDE RECORDS SUMMARY | 2024-08-30 15:31 | XMS_ITS | Encounter Summary ---
Author Organization [employer] Address [address] [facility] [address] [place] [address] Care Team Providers Care Curbing Stonecutter Name Role Phone Name, Wallace HUNTER Primary Care Provider [phone] Ange Salamanca PharmD Unavailable [phone] Encounter Details Date Type Department Care Team (Late st Contact Info) Description 06/14/2022 Abstract [facility] MEDICINE [address] [place] [address] Name, MD Wallace [address] [place] [address] Social History Tobacco Use Types Packs/Day Years [...] on filedocumented in this encounter Care Teams Curbing Stonecutter Relationship Specialty Start Date End Date Name, MD Wallace [address] [place] [address] PCP - General Family Medicine 01/27/19 Ange Salamanca, PharmD [address] [place] [address] Pharmacist Internal Medicine 11/26/23 05/12/24 documented as of this encounter
--- OUTSIDE RECORDS SUMMARY | 2024-08-30 15:31 | XMS_ITS ---
Author Name Gretel Charles NP Address [address] [place] [address] Phone [phone] [facility] Care Team Providers Care Special Distribution Clerk Name Role Phone Gretel Charles Unavailable [phone] Unavailable Unavailable [phone] Unavailable Unavailable Unavailable Name, Wallace Unavailable [phone] Reason for Referral Not Available Allergies, adverse reactions, alerts Allergen Type Reaction Severity Status Onset Date Penicillin Allergy to substance (disorder) itching, redness Unknown Active N/A Percocet Allergy to substance (disorder) icthing Unknown Active N/A History of medication use Medication Class Instructions Start Date End Date Humira Pen 40 mg/0.4ML Pen-injector Kit INJECT 1 PEN (40mg) SUBCUTANEOUSLY EVERY 2 WEEKS 2021-04-12 No Data Available OneTouch Delica Plus [id number] Miscellaneous TEST BLOOD SUGAR 1-4 TIMES DAILY DIRECTED 2021-03-21 No Data Available OneTouch Ultra Strip TEST BLOOD SUGAR 1- 4 TIMES DAILY DIRECTED 2021-03-21 No Data Available Pantoprazole Sodium 20 mg Ta b delayed rel TAKE 1 TABLET BY MOUTH EVERY DAY 2021-08-13 No Data Available Pregabalin 75 mg Cap TAKE 1 CAPSULE BY M OUTH TWICE DAILY AT NOON AND BEDTIME 2021-07-16 No Data Available Trulicity 0.75 mg/0.5ML Solution Pen-injector INJECT ONE PEN (=0.75MG) SUBCUTANEOUSLY ONCE A WEEK DIRECTED 2021-07-17 No Data Available Atorvastatin Calcium 20 mg Tab TAKE 1 TABLET BY MOUTH EVERYDAY AT NOON 2021-08-20 No Data Available Chlorthalidone 25 mg Tab TAKE 1 TABLET B Y MOUTH EVERYDAY AT NOON 2021-03-05 No Data Available cholecalciferol (vitamin D3) 25 mcg (1,000 unit) tablet TAKE 1 TABLET BY MOUTH EVERYDAY AT NOON 2020-12-12 No Data Available cyanocobalamin (vit B-12) 1,000 mcg tablet TAKE 1 TABLET BY MOUTH EVERYDAY AT NOON 2020-12-28 No Data Available FeroSul 325 (65 Fe) MG Tab TAKE 1 TABLET BY MOUTH AT NOON, EVENING, AND BEDTIME 2021-03-05 No Data Available amLODIPine Besylate 10 mg Tab TAKE 1 TAB LET BY MOUTH EVERYDAY AT NOON 2021-07-11 No Data Available Allopurinol 100 mg Tab TAKE 1 TABLET BY MOUTH EVERYDAY AT NOON 2021-09-14 No Data Available Acetaminophen ER 650 mg Tab ER TAKE 1 TABLET BY MOUTH EVERY TWELVE HOURS NEEDED 2021-06-19 No Data Available Levothyroxine Sodium 50 MCG Tab TAKE 1 TABLET BY MOUTH EVERY MORNING 2021-10-12 No Data Available metFORMIN 500 mg Tab TAKE 1 TABLET BY MO UTH TWICE DAILY AT NOON AND IN THE EVENING WITH MEALS 2021-07-11 2023-01-03 Metoprolol Tartrate 100 mg Tab TAKE 1 TABLET BY MOUTH TWICE DAILY AT NOON AND IN THE EVENING WITH MEALS 2021-07-17 No Data Available Loperamide 2 mg Cap TAKE 2 CAPSULES BY M OUTH AFTER FIRST LOOSE STOOL, THEN TAKE 1 CAPSULE BY MOUTH AFTER EACH FOLLOWING LOOSE STOOL . NO MORE THAN 8 CAPSULES IN 24 HOURS. 2021-10-29 No Data Available Lidocaine 5 % Patch APPLY 1 PATCH TOPICA LLY TO SKIN, LEAVE ON FOR 12 HOURS AND OFF FOR 12 HOURS DIRECTED 2021-08-03 No Data Available B-12 1000 MCG Tab TAKE 1 TABLET BY YUKI TH EVERYDAY AT NOON 2021 No Data Available Buscapé Ultra 2 w/Device Kit USE DIRECTED No Data Available Medbox Status USE DIRECTED 2022-03-18 No Data Payton ilable Easy Touch Alcohol Prep Medium 70 % Pad USE 1-4 TIMES DAILY DIRECTED 2022-07-31 No Data Available Losartan Potassium 25 mg Tab TAKE 1 TABL ET BY MOUTH EVERY MORNING 2022-08-19 No Data Available predniSONE 5 mg Tab TAKE 1 TABLET BY YUKI TH ONCE DAILY FOR 14 DAYS 2022-08-19 2023-01-03 Vitamin D3 25 MCG (1000 UT) Tab TAKE 1 TABLET BY MOUTH EVERYDAY AT NOON 2021-11-21 No Data Available Senna 8.6 mg Tab TAKE 2 TABLETS BY MO UTH EVERY DAY NEEDED FOR CONSTIPATION 2022-03-12 No Data Available Azithromycin 250 mg Tab TAKE 2 TABLETS B Y MOUTH ON DAY 1, THEN TAKE 1 TABLET DAILY ON DAYS 2-5 2022-11-18 No Data Available Benzonatate 100 mg Cap TAKE 1 CAPSULE BY MOUTH THREE TIMES DAILY NEEDED FOR COUGH FOR UP TO 7 DAYS, DO NOT BREAK, CRUSH, DISSOLVE OR CHEW 2022-11-18 No Data Available Cetirizine 10 mg Tab TAKE 1 TABLET BY [facility] EVERY MORNING 2022-11-18 No Data Available Allergy Lee 24hr 55 MCG/AC T Aerosol Nasal 2 sprays intranasally daily in each nostril 2023-01-03 No Data Available Allergy Lee 24hr 55 MCG/AC T Aerosol Nasal 2 sprays intranasally daily in each nostril 2023-01-03 No Data Available Problem List Problem Status Onset Date Resolved Date Hypothyroidism Active 2022-02-05 N/A Type 2 diabetes mellitus with nephropathy Active 2022-02-05 N/A Seasonal allergies Active 2023-01-03 N/A Essential hypertension Active 2023-01-03 N/A Rheumatoid arthritisImmunode ficiency due to conditions classified elsewhere Active 2022-02-05 N/A Type 2 diabetes mellitus with diabetic polyneuropathy Active 2022-02-05 N/A Osteoarthritis, multiple sites Active 2023-01-03 N/A Unsteady gait Active 2023-01-03 N/A Type 2 DM with diabetic janene pheral angiopathy without gangrene/PVD (peripheral vascular disease) Active 2023-01-03 N/A Encounters Encounters Type Facility Date of Service Diagnosis/Co mplaint Medication List Documented (1159F) [facility], ([place]) [place] Medication List Documented (1159F) [facility] Medication List Documented (1159F) [facility] Medication List Documented (1159F) [facility] Medication List Documented (1159F) [facility] Medication List Documented (1159F) [facility]2022 Type 2 diabetes mellitus wit h diabetic polyneuropathyRheumatoid arthritis, unspecifiedImmunodeficiency due to conditions classified elsewhereType 2 diabetes mellitus with diabetic nephropathyEssential (primary) hypertensionHypothyroidism, unspecified Medication List Documented (1159F) [facility]2022 Medication List Documented (1159F) [facility]20[place] Medication List Documented (1159F) [facility] Estab. patient 30-39min; chronic exacerbation, 2 stable chronic or 1 acute illness add add modifier 95 for video, (do not use for phone, instead use [id number]) [facility]12/2022 Type 2 diabetes mellitus wit h diabetic polyneuropathyRheumatoid arthritis, unspecifiedImmunodeficiency due to conditions classified elsewhereType 2 diabetes mellitus with diabetic nephropathyEssential (primary) hypertensionHypothyroidism, unspecified Estab. patient 30-39min; chronic exacerbation, 2 stable chronic or 1 acute illness add add modifier 95 for video, (do not use for phone, instead use [id number]) [facility] ([place] 01/03/2023 Type 2 diabetes mellitus wit h diabetic polyneuropathyRheumatoid arthritis, unspecifiedImmunodeficiency due to conditions classified elsewhereType 2 diabetes mellitus with diabetic nephropathyHypothyroidism, unspecifiedEssential (primary) hypertensionOther seasonal allergic rhinitisPolyosteoarthritis, unspecifiedUnsteadiness on feetType 2 diabetes w diabetic peripheral angiopath w/o gangrene Estab. patient 30-39min; chronic exacerbation, 2 stable chronic or 1 acute illness add add modifier 95 for video, (do not use for phone, instead use 00814-06) [facility] ([place]03[place] Estab. patient 30-39min; chronic exacerbation, 2 stable chronic or 1 acute illness add add modifier 95 for video, (do not use for phone, instead use 21290-19) [facility]03[place]20[place] Estab. patient 30-39min; chronic exacerbation, 2 stable chronic or 1 acute illness add add modifier 95 for video, (do not use for phone, instead use 25792-85) [facility], ([place] 01/03/2023 Estab. patient 30-39min; chronic exacerbation, 2 stable chronic or 1 acute illness add add modifier 95 for video, (do not use for phone, instead use 31922-12) [facility], ([place]) 01/03/2023 Estab. patient 30-39min; chronic exacerbation, 2 stable chronic or 1 acute illness add add modifier 95 for video, (do not use for phone, instead use 85360-33) [facility] ([place]) 01/03/2023 Estab. patient 30-39min; chronic exacerbation, 2 stable chronic or 1 acute illness add add modifier 95 for video, (do not use for phone, instead use 00088-66) [facility], ([place]) 01/03/2023 Estab. patient 30-39min; chronic exacerbation, 2 stable chronic or 1 acute illness add add modifier 95 for video, (do not use for phone, instead use 15542-33) [facility], ([place]) 01/03/2023 Estab. patient 30-39min; chronic exacerbation, 2 stable chronic or 1 acute illness add add modifier 95 for video, (do not use for phone, instead use 79926-70) [facility], ([place]) 01/03/2023 Estab. patient 30-39min; chronic exacerbation, 2 stable chronic or 1 acute illness add add modifier 95 for video, (do not use for phone, instead use 06970-63) [facility], ([place]) 01/03/2023 Vital Signs Date of Collection Vitals 2022-02-05 11:00:53 Height - 147.32 cmWe ight - 68.04 kgBody Mass Index (BMI) - 31.35 kg/m2BP Diastolic - 70.0 mm[Hg]BP Systolic - 130.0 mm[Hg] 2023-01-03 12:22:52 Height - 146.0 cmWei ght - 68.95 kgBody Mass Index (BMI) - 32.35 kg/m2BP Diastolic - 69.0 mm[Hg]BP Systolic - 120.0 mm[Hg]Heart Rate - 84.0 /min Social History Social History Social History Observation Description Effec tive Time Current Smoking Status Never smoker 2024-08-19 2 Sex Female History of Procedures Procedures Service Procedure code Service date Servicing provider Phone# Medication List Documented (1159F) 1159F 2022-02-05 No Data Available No Data Payton ilable Medication Review by prescribing provider or pharmacist documented (1160F) 1160F 2022-02-05 No Data Available No Data Payton ilable Functional Status Assessed (1170F) 1170F 2022-02-05 No Data Available No Data Avail able Advance Care Directive Advance care planning discussion documented in the medical record (1158F) 1158F 2022-02-05 No Data Available No Data Availa ble BMI obtained (3008F) 3008F 2022-02-05 No Data Availab le No Data Available No Data Available 30554 2022-02-05 No Data Available No Data Available SBP 130-139 (3075F) 3075F 2022-02-05 No Data Availabl e No Data Available DBP <80 (3078F) 3078F 2022-02-05 No Data Available No Data Available Pain Assessment - Pain Documented on a Pain Scale (1125F) 1125F 2022-02-05 No Data Available No Data Payton ilable Estab. patient 30-39min; chronic exacerbation, 2 stable chronic or 1 acute illness add add modifier 95 for video, (do not use for phone, instead use 59031-59) 88303 2022-02-12 No Data Available No Data Availa ble Estab. patient 30-39min; chronic exacerbation, 2 stable chronic or 1 acute illness add add modifier 95 for video, (do not use for phone, instead use 40667-15) 46827 2023-01-03 No Data Available No Data Availa ble Medication List Documented (1159F) 1159F 2023-01-03 No Data Available No Data Payton ilable Medication Review by prescribing provider or pharmacist documented (1160F) 1160F 2023-01-03 No Data Available No Data Payton ilable Functional Status Assessed (1170F) 1170F 2023-01-03 No Data Available No Data Avail able Pain Assessment - NO pain present (1126F) 1126F 2023-01-03 No Data Available No Data A vailable Advance Care Directive Advance care planning discussion documented in the medical record (1158F) 1158F 2023-01-03 No Data Available No Data Availa ble BMI obtained (3008F) 3008F 2023-01-03 No Data Availab le No Data Available SBP < 130 (3074F) 3074F 2023-01-03 No Data Available No Data Available DBP <80 (3078F) 3078F 2023-01-03 No Data Available No Data Available Advance care planning discussed and documented ? advance care plan or surrogate decision-maker was documented in the medical record. 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 2023-01-03 Mental Status Status Date Cognition Status: Oriented to Person, Pl cameron and Time 2022-02-05 Assessments Date of Service Assessments 2022-02-05 11:00:53 Type 2 diabetes lori itus with diabetic polyneuropathyRheumatoid arthritisImmunodeficiency due to conditions classified elsewhereType 2 diabetes mellitus with nephropathyHypertensionHypothyroidism 2022-02-12 11:21:34 Type 2 diabetes lori itus with diabetic polyneuropathy [E11.42]Rheumatoid arthritisImmunodeficiency due to conditions classified elsewhere [M06.9, D84.81]Type 2 diabetes mellitus with nephropathy [E11.21]Hypertension [I10]Hypothyroidism [E03.9] 2023-01-03 12:22:52 Type 2 diabetes lori itus with diabetic polyneuropathyRheumatoid arthritisImmunodeficiency due to conditions classified elsewhereType 2 diabetes mellitus with nephropathyHypothyroidismPVD (peripheral vascular disease)Essential hypertensionSeasonal allergiesOsteoarthritis, multiple sitesUnsteady gait Plan of Care Date of Service Plans 2022-02-05 11:00:53 Medication Review by prescribing provider or pharmacist documented (1160F)Medication List Documented (1159F)Functional Status Assessed (1170F)Advance Care Directive Advance care planning discussion documented in the medical record (1158F)BMI obtained (3008F)SBP 130-139 (3075F)DBP <80 (3078F)Phone (patient, parent, or guardian); 21-30 minutes of medical discussion (no modifier 95)Continue to see PCP. Follow-up with [facility] as needed for any acute or disease education needs that may arise.DM: Trulicity, metforminPolyneuropathy: pregabalinOn humira.Monitor for s/s of infections.Avoid nephrotoxic medications (NSAIDS, high dose Gabapentin, Baclofen, Fleet Enema, Morphine/Codeine) No labs. Member states that she has CKD.On metoprolol, lisinopril, amlodipine, chlorthalidone.On levothyroxine. 2022-02-12 11:21:34 Type 2 diabetes lori itus with diabetic polyneuropathy [E11.42]> DM: Trulicity, metforminPolyneuropathy: pregabalinRheumatoid arthritisImmunodeficiency due to conditions classified elsewhere [M06.9, D84.81]> On humira.Monitor for s/s of infections.Type 2 diabetes mellitus with nephropathy [E11.21]> Avoid nephrotoxic medications (NSAIDS, high dose Gabapentin, Baclofen, Fleet Enema, Morphine/Codeine) No labs. Member states that she has CKD.Hypertension [I10]> On metoprolol, lisinopril, amlodipine, chlorthalidone.Hypothyroidism [E03.9]> On levothyroxine.PRN 2023-01-03 12:22:52 Medication Review by prescribing provider or pharmacist documented (1160F)Medication List Documented (1159F)Functional Status Assessed (1170F)Advance Care Directive Advance care planning discussion documented in the medical record (1158F)BMI obtained (3008F)SBP < 130 (3074F)DBP <80 (3078F)Televideo 30-39min; chronic exacerbation, 2 stable chronic or 1 acute illness add modifier 95Advance care planning discussed and documented ? advance care plan or surrogate decision-maker was documented in the medical record. (1123F)Pain Assessment - Pain Documented (1125F)Continue to see PCP. Follow-up with [facility] as needed for any acute or disease education needs that may arise.DM: Trulicity, Polyneuropathy: pregabalinoff the metformin due to worsening renal function and increased her Trulicity. No side effects to the higher dose of Trulicity and her blood sugar has been acceptable at home. She follows with [facility] and according to most recent note from them her creatinine is stable around 2. She does not have proteinuria.HGBA1C 7.1 (H) 08/29/2022dvised to eat a healthy diet include emphasizing fruits, vegetables, whole grains, poultry, fish and nuts and limiting sugary foods and beverages. Eating this way may help increase fiber, which is also beneficial. A diet high in fiber can help lower cholesterol levels by as much as 10 percent. DASH diet. Increase exercise to 30-45 min q day. Decrease sugary drinks, stop soda intake. Limit ETOH intake. If you smoke, quit smokingOn humira.Monitor for s/s of infections.Immunodeficiency due to: medication (humira)weakened immune system, encourage hand washing, avoid large crowds, stay up to date on vaccines (annual flu), monitor for and report early any s/s of infectionAvoid nephrotoxic medications (NSAIDS, high dose Gabapentin, Baclofen, Fleet Enema, Morphine/Codeine) off the metformin due to worsening renal function and increased her Trulicity. No side effects to the higher dose of Trulicity and her blood sugar has been acceptable at home. She follows with [facility] and according to most recent note from them her creatinine is stable around 2. She does not have proteinuria.HGBA1C 7.1 (H) 08/29/2022On levothyroxine.atorvastatin Advised to eat a healthy diet include emphasizing fruits, vegetables, whole grains, poultry, fish and nuts and limiting sugary foods and beverages. Eating this way may help increase fiber, which is also beneficial. A diet high in fiber can help lower cholesterol levels by as much as 10 percent. DASH diet. Increase exercise to 30-45 min q day. Decrease sugary drinks, stop soda intake. Limit ETOH intake. If you smoke, quit smoking.11/26/2022: 120/69, 84, 152lb, 146cmamlodipine, chlorthalidone, losartan, metoprolol Recommend DASH diet. Increase exercise to 30-45 min q day. Eat a healthy diet: try to eat whole foods, green leafy vegetables and whole grains. Decrease fast foods and processed foods. Decrease sugary drinks, stop soda intake. Limit ETOH intake. If you smoke, quit smoking. Decrease caffeine intake. Decrease stress by: meditating, deep breathing, laughing, going for walks. Monitor BP at home: keep a BP journal. Record you BP's in the AM and after dinner; bring your log in next visit.using flonase not helping9.15.23: stop flonase and start nasonexunsteady gait, ambulates with walker and needs wheelchair for long distancesat risk for falls Fall prevention TIPS: Wear sensible shoes. Remove home hazards (Get rid of all rugs/mats in your home). Light up your living space (keep a flash light next to your bed for night time). Use assistive devices.unsteady gait R26.81 d/t RA M06.9 and OA M15.9ambulates with walker and uses wheelchair for long distances at risk for falls Fall prevention TIPS: Wear sensible shoes. Remove home hazards (Get rid of all rugs/mats in your home). Light up your living space (keep a flash light next to your bed for night time). Use assistive devices. Goals Date Goal 2022-02-05 Remember to 2022-02-05 Call me if 2022-02-05 Keep it up Health Concerns Date Concern 2023-01-03 Visit completed babatunde de la torre audio and video.Patient/Guardian agreed to visit via telehealth. Today, patient has chief complaint of: follow up care and comprehensive review.Reviewed Allergies, Medications, Active Medical conditions, past medical/surgical history, Social history. 2023-01-03 Most recent hospital stay(s) or ER visit(s) and precipitating factors: none in the past month 2023-01-03 Open HEDIS Measure r eview: 2023-01-03 DME/other needs: wri st brace bp cuff 2023-01-03 uses wheelchair and walker -wheel chair is broken and is requesting a new one
--- OUTSIDE RECORDS SUMMARY | 2024-08-30 15:31 | XMS_ITS | Encounter Summary ---
Author Organization [employer] Address [address] [place] [address] Care Team Providers Care Finish Off Operator Name Role Phone Name, Wallace HUNTER Primary Care Provider [phone] Ange Salamacna PharmD Unavailable [phone] Encounter Details Date Type Department Care Team ([facility] st Contact Info) Description 07/01/2022 Orders Only [facility] [address] [place], [place] [phone] Carol Rock LPN Social History Tobacco Use Types Packs/Day [...] on filedocumented in this encounter Care Teams Finish Off Operator Relationship Specialty Start Date End Date Name, MD Wallace [address] [place] [address] PCP - General Family Medicine 01/27/19 Ange Salamanca, PharmD [address] [place] [address] Pharmacist Internal Medicine 11/26/23 05/12/24 documented as of this encounter
--- OUTSIDE RECORDS SUMMARY | 2024-08-30 15:31 | XMS_ITS | Encounter Summary ---
Author Organization [employer] Address [address] [place] [address] Care Team Providers Care White Sugar Pan Tank Operator Name Role Phone Name, Wallace HUNTER Primary Care Provider [phone] Ange Salamanca PharmD Unavailable [phone] Reason for Visit * Reason Comments Med Refill Encounter Details Date Type Department Care Team (Late st Contact Info) Description 10/07/2023 Refill [facility] [address] [place] [address] Stephanie South, MAURICIO [address] [place], [place] [phone] Rheumatoid arthritis involving multiple sites with positive rheumatoid factor ([facility]) Social History Tobacco Use Types Packs/Day Years Used Date Smoking Tobacco: Never Smokeless Tobacco: Never Alcohol Use Standard Drinks/Week Comments Never 0 (1 standard drink = 0.6 oz pur e alcohol) Depression Answer Date Recorded Patient Health Questionnaire-9 Score 8 08/19/2022 Housing Stability Answer Date Recorded What is your housing situation today? I have viry najera 02/03/[address] you li ve. Do you have problems with any of the following? None of the above 02/03/2023 Food Insecurity Answer Date Recorded Within the past 12 months, y ou worried that your food would run out before you got money to buy more: Often true 02/03/2023 Within the past 12 months,th e food you bought just didn't last and you didn't have enough money to get more: Often true Transportation Answer Date Recorded In the past 12 months, has l ack of transportation kept you from medical appts, meetings, work or from getting things needed for daily living? No 02/03/2023 Utilities Answer Date Recorded In the past 12 months, has t he electric, gas, oil or water company threatened to shut off services in your home? No 02/03/2023 Depression Answer Date Recorded Patient Health Questionnaire-2 Score 2 08/19/2022 Comments Unknown Sex and Gender Information Value Date Recorded Sex Assigned at Female 02/18/2022 10:18 AM EDT Legal Sex Female 10:18 AM EDT Gender Identity Female 02/18/2022 10:18 AM EDT Sexual Orientation Straight 02/18/2022 10 :18 AM EDT documented as of this encounter Plan of Treatment Not on file documented as of this encounter Visit Diagnoses Diagnosis Rheumatoid arthritis involving multiple sites with positive rheumatoid factor ([facility]) documented in this encounter Additional Health Concerns Assessment Noted Time PHQ-9 Depression Total Score: 8 08/20/19 23 1:10 PM EDT documented as of this encounter Care Teams White Sugar Pan Tank Operator Relationship Specialty Start Date End Date Name, MD Wallace [address] [place] [address] PCP - General Family Medicine 01/27/19 Ange Salamanca PharmD [address] [place] [address] Pharmacist Internal Medicine 11/26/23 05/12/24 documented as of this encounter
--- OUTSIDE RECORDS SUMMARY | 2024-08-30 15:31 | XMS_ITS | Encounter Summary ---
Author Organization [facility] Address [address] [place] [address] Phone Care Team Providers Care Transportation Solutions Manager Name Role Phone Name, Wallace HUNTER Primary Care Provider [phone] Encounter Details Date Type Department Care Team (Late st Contact Info) Description 10/30/2021 Documentation Only [facility], [address] [place] [address] Joaquín Vaughan MD [address] [place] [address] Social History Tobacco Use Types [...] on filedocumented in this encounter Care Teams Transportation Solutions Manager Relationship Specialty Start Date End Date Name, MD Wallace [address] [place] [address] PCP - General Internal Medicine 06/25/23 documented as of this encounter
--- OUTSIDE RECORDS SUMMARY | 2024-08-30 15:31 | XMS_ITS | Encounter Summary ---
Author Organization [facility] Address [address] [place] [address] Phone Care Team Providers Care Breakfast And Room Attendant Name Role Phone Name, Wallace HUNTER Primary Care Provider [phone] Encounter Details Date Type Department Care Team (Late st Contact Info) Description 12/14/2021 Documentation Only [facility] [place], [address] [place] [address] Joaquín Vaughan MD [address] [place] [address] Social History Tobacco Use Types [...] on filedocumented in this encounter Care Teams Breakfast And Room Attendant Relationship Specialty Start Date End Date Name, MD Wallace [address] [place] [address] PCP - General Internal Medicine 06/25/23 documented as of this encounter
--- OUTSIDE RECORDS SUMMARY | 2024-08-30 15:31 | XMS_ITS | Encounter Summary ---
Author Organization [facility] [employer] Address [address] [place] [address] Care Team Providers Care Reject Opener Name Role Phone Name, Wallace HUNTER Primary Care Provider [phone] Ange Salamanca PharmD Unavailable [phone] Reason for Visit * Reason Comments Med Refill Encounter Details Date Type Department Care Team (Late st Contact Info) Description 05/22/2023 Refill [facility]INE [address] [place] [address] Mee Boone MD [address] [place] [address] Chronic low back pain, unspecified back pain laterality, unspecified whether sciatica present Social History Tobacco Use Types Packs/Day Years [...] as of this encounter Visit Diagnoses Diagnosis Chronic low back pain, unspecified back pain laterality, unspecified whether sciatica present documented in this encounter Additional Health Concerns Assessment Noted Time PHQ-9 Depression Total Score: 8 08/20/19 23 1:10 PM EDT documented as of this encounter Care Teams Reject Opener Relationship Specialty Start Date End Date Name, MD Wallace [address] [place] [address] PCP - General Family Medicine 01/27/19 Ange Salamanca PharmD [address] [place] [address] Pharmacist Internal Medicine 11/26/23 05/12/24 documented as of this encounter
--- OUTSIDE RECORDS SUMMARY | 2024-08-30 15:31 | XMS_ITS | Encounter Summary ---
Author Organization [facility] [employer] Address [address] [place] [address] Care Team Providers Care Shower Maid Name Role Phone Name, Wallace HUNTER Primary Care Provider [phone] Ange Salamanca PharmD Unavailable [phone] Reason for Visit * Reason Onset Date Comments Durable Medical Equipment 05/15/2023 Encounter Details Date Type Department Care Team ([facility] st Contact Info) Description 05/15/2023 Telephone [facility] [address] [place], [place] [id number] Name, MD Wallace [address] [place] [address] Durable Medical Equipment Social History Tobacco Use Types Packs/Day Years [...] encounter Miscellaneous Notes * Telephone Encounter - Latoya Ring - 05/15/2023 3:42 PM EST Tc andrzej Porter with [facility] requesting Scripts: Pull ups size Medium 2 a day Wipes 12 Packs a month Please fax over @ [phone] documented in this encounter Plan of Treatment Not on file documented as of this encounter Visit Diagnoses Not on filedocumented in this encounter Additional Health Concerns Assessment Noted Time PHQ-9 Depression Total Score: 8 08/20/19 23 1:10 PM EDT documented as of this encounter Care Teams Shower Maid Relationship Specialty Start Date End Date Name, MD Wallace [address] [place] [address] PCP - General Family Medicine 01/27/19 Ange Salamanca PharmD [address] [place] [address] Pharmacist Internal Medicine 11/26/23 05/12/24 documented as of this encounter
--- OUTSIDE RECORDS SUMMARY | 2024-08-30 15:31 | XMS_ITS | Encounter Summary ---
Author Organization [facility] Address [address] [place] [address] [address] [place] [address] Care Team Providers Care Learning And Development Specialist Name Role Phone Name, Wallace HUNTER Primary Care Provider [phone] Ange Salamanca PharmD Unavailable [phone] Encounter Details Date Type Department Care Team (Latest Contact Info) Description 05/24/2019 Abstract [facility] Dental, Provider, DDS Social History Tobacco Use Types Packs/Day Years [...] on filedocumented in this encounter Care Teams Learning And Development Specialist Relationship Specialty Start Date End Date Name, MD Wallace [address] [place] [address] PCP - General Family Medicine 01/27/19 Ange Salamanca, PharmD [address] [place], [place] [phone] Pharmacist Internal Medicine 11/26/23 05/12/24 documented as of this encounter
--- OUTSIDE RECORDS SUMMARY | 2024-08-30 15:31 | XMS_ITS | Encounter Summary ---
Author Organization [facility] [employer] Address [address] [place] [address] Care Team Providers Care Medical Illustrator Name Role Phone Name, Wallace HUNTER Primary Care Provider [phone] Ange Salamanca PharmD Unavailable [phone] Reason for Visit * Reason Onset Date Comments Call Back Request 09/25/2023 Encounter Details Date Type Department Care Team ([facility] st Contact Info) Description 09/25/2023 Telephone [facility] [address] [place], [place] [phone] Name, MD Wallace [address] [place] [address] Call Back Request Social History Tobacco Use Types Packs/Day [...] encounter Miscellaneous Notes * Telephone Encounter - Vlad Courtney RN - 09/26/2023 11:39 AM EDT T/C to pt. On [phone] for below message, No answer. LVM to call back on [phone]. * Telephone Encounter - Quintin Bill - 09/25/2023 1:15 PM EDT Tc from [facility] calling to request on behalf of the patient the following screenings . Mammogram Blood pressure Kidney Colonoscopy documented in this encounter Plan of Treatment Not on file documented as of this encounter Visit Diagnoses Not on filedocumented in this encounter Additional Health Concerns Assessment Noted Time PHQ-9 Depression Total Score: 8 08/20/19 23 1:10 PM EDT documented as of this encounter Care Teams Medical Illustrator Relationship Specialty Start Date End Date Name, MD Wallace [address] [place], [place] [phone] PCP - General Family Medicine 01/27/19 Ange Salamanca PharmD [address] [place], [place] [phone] Pharmacist Internal Medicine 11/26/23 05/12/24 documented as of this encounter
--- OUTSIDE RECORDS SUMMARY | 2024-08-30 15:31 | XMS_ITS | Encounter Summary ---
Author Organization [employer] Address [address] [facility] [address] [place] [address] Care Team Providers Care Geneticist Name Role Phone Name, Wallace HUNTER Primary Care Provider [phone] Ange Salamanca PharmD Unavailable [phone] Encounter Details Date Type Department Care Team ([facility] st Contact Info) Description 04/10/2022 Orders Only [facility] [address], [place] [phone] Carol Rock LPN Social History Tobacco Use [...] on file documented as of this encounter Procedures Procedure Name Priority Date/Time Associated Diagnosis Comments HIGH SENSITIVITY TROPONIN I Routine 04/26/2022 9:04 PM EST BASIC METABOLIC PANEL Routine 04/26/2022 9:04 PM EST AMMONIA (P) Routine 04/26/2022 5:46 PM EST URINALYSIS, COMPLETE, WITH REFLEX TO CULTURE Routine 04/26/2022 5:23 PM EST DRUG MONITOR, PANEL 1, SCREEN, URINE Routine 04/26/2022 5:23 PM EST INFLUENZA A B2 ID NOW (LIZ) Routine 04/26/2022 5:05 PM EST D DIMER HIGH SENSITIVITY Routine 04/26/2022 5:05 PM EST COVID-19 ID NOW (LIZ) Routine 04/26/2022 5:05 PM EST HIGH SENSITIVITY TROPONIN I Routine 04/26/2022 5:05 PM EST ETHANOL Routine 04/26/2022 5:05 PM EST TSH W/REFLEX TO FT4 Routine 04/26/2022 5 :05 PM EST CBC WITH AUTO DIFFERENTIAL Routine 04/26/2022 5:05 PM EST PROTHROMBIN TIME-INR Routine 04/26/2022 5:05 PM EST B TYPE NATRIURETIC PEPTIDE (BNP) Routine 04/26/2022 5:05 PM EST MAGNESIUM Routine 04/26/2022 5:05 PM EST LIPASE Routine 04/26/2022 5:05 PM EST LACTIC ACID Routine 04/26/2022 5:05 PM EST ACETAMINOPHEN LEVEL Routine 04/26/2022 5 :05 PM EST SALICYLATE Routine 04/26/2022 5:05 PM EST HEPATIC FUNCTION PANEL Routine 5:05 PM EST BASIC METABOLIC PANEL Routine 04/26/2022 5:05 PM EST documented in this encounter Results * (ABNORMAL) HIGH SENSITIVITY TROPONIN I (04/26/2022 9:04 PM EST) TROPONIN I HIGH SENSITIVITY 47.0(H) <3.5 - 17.0 ng/L [facility] Comment:The Liz Drapery Hand high sensitivity Troponin-I resultsshould be used in conjunction with other diagnosticinformation such as ECG, clinical observations andinformation, and patient symptoms to aid in the diagnosis ofMI. 04/26/2022 9:04 PM EST 04/26/2022 9:06 PM EST us [facility] External Provider LAB BLO OD ORDERABLES Final Result [facility] [address] [place] [phone] [phone] * (ABNORMAL) Basic Metabolic Panel (04/26/2022 9:04 PM EST) Sodium 144 135 - 145 mmol/L [facility] Potassium 4.5 3.3 - 5.1 mmol/L [facility] Chloride 113(H) 96 - 108 mmol/L [facility] Carbon Dioxide 19(L) 22 - 29 mmol/L [facility] Anion Gap 17 12 - 20 [facility] Urea Nitrogen (BUN) 38(H) 9 - 16 mg/dL [facility] Creatinine, Serum 2.34(H) 0.5 - 1.4 mg/dL [facility] Creatinine Clr Calc Pharmacy 19.7 [facility] Comment:Provided height and weight: 152.4 cm,71.9 kg.eGFR (calculated from the MDRD study equation) and eCrCl(calculated from the Cockcroft-Gault equation) are based ondifferent parameters and may not yield comparable results.If eCrCl result is absurd, please check patient'sheight/weight. Estimated Glomerular Filt Rate 21 [facility] Comment:NOTE: For -Am erican individuals, multiply the result by 1.210.Chronic Kidney Disease: Estimated GFR < 60 mL/min/[id number] Kidney Disease: Estimated GFR < 15 mL/min/1.73m2 Glucose 133(H) 60 - 115 mg/dL [facility] Calcium 8.6 8.4 - 10.2 mg/dL [facility] 04/26/2022 9:04 PM EST 04/26/2022 9:06 PM EST [facility] External Provider LAB BLO OD ORDERABLES Final Result Performing Organization Address City/[facility]/ZIP Co de Phone Number [facility] [address] [place] [phone] * Ammonia, Plasma (04/26/2022 5:46 PM EST) Ammonia (P) 24 13 - 55 umol/L [facility] 04/26/2022 5:46 PM EST 04/26/2022 5:48 PM EST [facility] External Provider LAB BLO OD ORDERABLES Final Result Performing Organization Address City/[facility] Co de Phone Number [facility] [address] [place] [phone] * Drug Monitoring, Panel 1, Screen, Urine (04/26/2022 5:23 PM EST) Opiate Screen Urine Not Detected Not Detect [facility] Comment:Opiate cut-off is 30 0 ng/mL.Positive results are unconfirmed and should not be used fornon-medical purposes. Barbiturates, Urine Not Detected Not Detect [facility] Comment:Barbiturate cut-off is 200 ng/mL.Positive results are unconfirmed and should not be used fornon-medical purposes. Phencyclidine Screen Urine Not Detected Not Detect [facility] Comment:Phencyclidine cut-of f is 25 ng/mL.Positive results are unconfirmed and should not be used fornon-medical purposes. Amphetamine Screen Urine Not Detected Not Detect [facility] Comment:Amphetamine cut-off is 1000 ng/mL.Positive results are unconfirmed and should not be used fornon-medical purposes. Benzodiazepines Screen Urine Not Detected Not Detect [facility] Comment:Benzodiazepine cut-o ff is 200 ng/mL.Positive results are unconfirmed and should not be used fornon-medical purposes. Cocaine Screen Urine Not Detected Not Detect [facility] Comment:Cocaine cut-off is 3 00 ng/mL.Positive results are unconfirmed and should not be used fornon-medical purposes. Cannabinoid Screen Urine Not Detected Not Detect [facility] Comment:Cannabinoid cut-off is 50 ng/mL.Positive results are unconfirmed and should not be used fornon-medical purposes. FENTANYL URINE Not Detected Not Detect [facility] Comment:Fentanyl cut-off is 1 ng/mL.Positive results are unconfirmed and should not be used fornon-medical purposes. 04/26/2022 5:23 PM EST 04/26/2022 5:33 PM EST [facility] External Provider LAB URI NE ORDERABLES Final Result [facility] [address] [place] [address] [phone] * (ABNORMAL) Urinalysis, Complete, with Reflex to Culture (04/26/2022 5:23 PM EST) Color Urine Yellow [facility] Appearance Urine Clear [facility] PH 5.5 5.0 - 9.0 [facility] Glucose Urine UA Negative Negative mg/dL [facility] Urine Blood Negative Negative [facility] Specific [place] - Urine 1.020 1.005 - 1.025 [facility] Urine Protein 100 (2+)(A) Neg-Trace mg/dL [facility] Urine Ketones 15 Negative mg/dL [facility] Nitrite Urine Negative Negative [facility] Leukocyte Esterase Urine Negative Negative [facility] RBC Urine 0-2 0 - 2 /HPF [facility] Urine WBC 0-5 0 - 5 /HPF [facility] Urine Squamous Epithelial Cell 0-2 0 - 2 /HPF [facility] Urine Bacteria None Seen None Seen [facility] Hyaline Casts, Urine 11-20 0 - 2 /LPF [facility] 04/26/2022 5:23 PM EST 04/26/2022 5:33 PM EST Narrative [facility] - 04/26/2022 6:03 PM EST [id number], [place] [facility] External Provider LAB URI NE ORDERABLES Final Result Performing Organization Address [facility] Co de Phone Number [facility] [address] [place] [address] [phone] * TSH W/Reflex to FT4 (04/26/2022 5:05 PM EST) TSH reflex Free T4 0.42 0.32 - 4.0 uIU/mL [facility] 04/26/2022 5:05 PM EST 04/26/2022 5:25 PM EST [facility] External Provider LAB BLO OD ORDERABLES Final Result Performing Organization Address [facility] Phone Number [facility] [address] [place] [address] [phone] * D Dimer High Sensitivity (04/26/2022 5:05 PM EST) D Dimer High Sensitivity 303 NG/ML [facility] Comment:D-DIMER HS REFERENCE RANGENote: Our assay reports D-Dimer Units (D- DU).The cut-off value for venous thromboembolic (VTE) disease is230 ng/mL. This value has a very high negative predictivevalue when the patient has a low to moderate clinicalprobability of VTE.The upper limit of normal is 243 ng/mL. 04/26/2022 5:05 PM EST 04/26/2022 5:25 PM EST [facility] External Provider LAB BLO OD ORDERABLES Final Result Performing Organization Address [facility] Co de Phone Number [facility] [address] [place] [address] [phone] * Acetaminophen level (04/26/2022 5:05 PM EST) Acetaminophen LAB <17 <30 mcg/mL [facility] 04/26/2022 5:05 PM EST 04/26/2022 5:33 PM EST [facility] External Provider LAB BLO OD ORDERABLES Final Result Performing Organization Address City/[facility] Co de Phone Number [facility] [address] [place] [address] [phone] * (ABNORMAL) Salicylate (04/26/2022 5:05 PM EST) Salicylate <5.0(L) 15 - 30 mg/dL [facility] 04/26/2022 5:05 PM EST 04/26/2022 5:33 PM EST [facility] External Provider LAB BLO OD ORDERABLES Final Result Performing Organization Address [facility] Co de Phone Number [facility] [address] [place] [address] [phone] * Lipase (04/26/2022 5:05 PM EST) Lipase 12 8 - 78 U/L [facility] 04/26/2022 5:05 PM EST 04/26/2022 5:33 PM EST [facility] External Provider LAB BLO OD ORDERABLES Final Result Performing Organization Address [facility] de Phone Number [facility] [address] [place] [address] [phone] * (ABNORMAL) Magnesium (04/26/2022 5:05 PM EST) Magnesium 1.5(L) 1.6 - 2.6 mg/dL [facility] 04/26/2022 5:05 PM EST 04/26/2022 5:33 PM EST [facility] External Provider LAB BLO OD ORDERABLES Final Result [facility] [address] [place] [phone] * (ABNORMAL) Basic Metabolic Panel (04/26/2022 5:05 PM EST) Sodium 143 135 - 145 mmol/L [facility] Potassium 4.9 3.3 - 5.1 mmol/L [facility] Comment:Slight Hemolysis Chloride 111(H) 96 - 108 mmol/L [facility] Carbon Dioxide 17(L) 22 - 29 mmol/L [facility] Anion Gap 20 12 - 20 [facility] Urea Nitrogen (BUN) 41(H) 9 - 16 mg/dL [facility] Creatinine, Serum 2.56(H) 0.5 - 1.4 mg/dL [facility] Creatinine Clr Calc Pharmacy 18.0 [facility] Comment:Provided height and weight: 152.4 cm,71.9 kg.eGFR (calculated from the MDRD study equation) and eCrCl(calculated from the Cockcroft-Gault equation) are based ondifferent parameters and may not yield comparable results.If eCrCl result is absurd, please check patient'sheight/weight. Estimated Glomerular Filt Rate 19 [facility] Comment:NOTE: For -Am erican individuals, multiply the result by 1.210.Chronic Kidney Disease: Estimated GFR < 60 mL/min/[id number] Kidney Disease: Estimated GFR < 15 mL/min/1.73m2 Glucose 156(H) 60 - 115 mg/dL [facility] Calcium 8.8 8.4 - 10.2 mg/dL [facility] 04/26/2022 5:05 PM EST 04/26/2022 5:33 PM EST [facility] External Provider LAB BLO OD ORDERABLES Final Result Performing Organization Address [facility] Co de Phone Number [facility] [address] [place] [address] [phone] * Hepatic Function Panel (04/26/2022 5:05 PM EST) Bilirubin, Total 0.2 0.0 - 1.0 mg/dL [facility] Bilirubin, Direct <0.2 0.0 - 0.5 mg/dL [facility] Comment:Slight Hemolysis Aspartate Amino Transferase 20 5 - 31 U/L [facility] Comment:Slight Hemolysis Alanine Aminotransferase 14 0 - 31 U/L [facility] Total Protein 7.3 6.5 - 8.0 g/dL [facility] Albumin Level 3.8 3.5 - 5.0 g/dL [facility] Alkaline Phosphatase 84 39 - 117 U/L [facility] 04/26/2022 5:05 PM EST 04/26/2022 5:33 PM EST [facility] External Provider LAB BLO OD ORDERABLES Final Result Performing Organization Address [facility] de Phone Number [facility] [address] [place] [address] [phone] * B Type Natriuretic Peptide (BNP) (04/26/2022 5:05 PM EST) B Type Natriuretic Peptide 84 <100 pg/mL [facility] Comment:For those patients w ho are being treated with Natrecor(nesiritide, recombinant BNP), BNP testing should beperformed at least two hours post treatment in order toensure that only endogenous levels of BNP are detected. 04/26/2022 5:05 PM EST 04/26/2022 5:25 PM EST [facility] External Provider LAB BLO OD ORDERABLES Final Result Performing Organization Address [facility] Co de Phone Number [facility] [address] [place] [address] [phone] * (ABNORMAL) COVID-19 ID NOW (LIZ) (04/26/2022 5:05 PM EST) Pathologist [facility] IDNOW SERIAL# [id number] [facility] COVID-19 TEST Positive (A) Negative [facility] COVID-19 NOTE See Note [facility] Comment: Results are for the identification of SARS-CoV2 RNA. TheSARS-CoV2 RNA is generally detectable in respiratory samplesduring the acute phase of infection. Positive results areindicative of the presence of SARS-CoV-2 RNA; clinicalcorrelation with patient history and other diagnosticinformation is necessary to determine patient infectionstatus. Positive results do not rule out bacterial infectionor co- infection with other viruses.Testing facilities within the [facility] and [facility]ories are required to report all positive results tothe appropriate public health authorities.Negative results should be treated as presumptive and, ifinconsistent with clinical signs and symptoms or necessaryfor patient management, should be tested with differentauthorized or cleared molecular tests. Negative results donot preclude SARS-CoV2 RNA infection and should not be usedas the sole basis for patient management decisions. Negativeresults should be considered in the context of a patient'srecent exposures, history and the presence of clinical signsand symptoms consistent with COVID-19.This test has been authorized by the FDA under an EmergencyUse Authorization (EUA) for use by authorized laboratories.Testing performed on the Liz ID NOW utilizing NAAT. 04/26/2022 5:05 PM EST 04/26/2022 5:33 PM EST us [facility] Exter nal Provider LAB MOLECULAR DIAGNOSTICS ORDERABLES Final Result [facility] [address] [place] [address] [phone] * (ABNORMAL) HIGH SENSITIVITY TROPONIN I (04/26/2022 5:05 PM EST) [facility] TROPONIN I HIGH SENSITIVITY 33.3(H) <3.5 - 17.0 ng/L [facility] Comment:The Liz high sens itivity Troponin-I results should beused in conjunction with other diagnostic information suchas ECG, clinical observations and information, and patientsymptoms to aid in the diagnosis of DE. 04/26/2022 5:05 PM EST 04/26/2022 5:25 PM EST [facility] External Provider LAB BLO OD ORDERABLES Final Result Performing Organization Address [facility] Co de Phone Number [facility] [address] [place] [address] [phone] * Influenza A B2 ID NOW (Liz) (04/26/2022 5:05 PM EST) IDNOW SERIAL# [id number] [facility] Influenza A Negative Negative [facility] Influenza B2 Negative Negative [facility] Influenza A B2 Note See Note [facility] Comment:The Liz ID NOW In fluenza A B2 test is used for thequalitative detection of influenza A and B from patientswith signs and symptoms of respiratory infection.Negative results do not preclude influenza virus infectionand should not be used as the sole basis for diagnosis,treatment or other patient management decisions.There is a risk of false negative results due to thepresence of variants in the viral targets of the assay, lowlevels of virus in the specimen and co- infection withRespiratory Syncytial Virus. 04/26/2022 5:05 PM EST 04/26/2022 5:33 PM EST [facility] Exter nal Provider LAB MICROBIOLOGY - GENERAL ORDERABLES Final Result Performing Organization Address [facility] Co de Phone Number [facility] [address] [place] [address] [phone] * Ethanol (04/26/2022 5:05 PM EST) ETHANOL (MG/DL) IN SER/PLAS <10 mg/dL [facility] 04/26/2022 5:05 PM EST 04/26/2022 5:25 PM EST [facility] External Provider LAB BLO OD ORDERABLES Final Result Performing Organization Address [facility] Co de Phone Number [facility] [address] [place] [address] [phone] * Prothrombin Time-INR (04/26/2022 5:05 PM EST) Prothrombin Time 12.2 10.0 - 13.1 SEC [facility] INTERNATIONAL NORM RATIO 1.1 0.9 - 1.1 [facility] Comment:INTERNATIONAL NORMAL IZED RATIO (INR) REFERENCE RANGES Reference RangeFor patients not on anticoagulant therapy: 0.9 - 1.1INR ranges for oral anticoagulanttherapy:For prevention and treatment of venous thrombosis and pulmonary embolism: 2.0 - 3.0For acute myocardial infarction with aspirin therapy: 2.0 - 3.0For acute myocardial infarction without aspirin therapy: 3.0 - 4.0For patients with mechanical prosthetic heart valves: 2.5 - 3.5 04/26/2022 5:05 PM EST 04/26/2022 5:25 PM EST [facility] External Provider LAB BLO OD ORDERABLES Final Result Performing Organization Address [facility] Co de Phone Number [facility] [address] [place] [address] [phone] * Lactic Acid (04/26/2022 5:05 PM EST) Lactic Acid 1.3 0.5 - 2.0 mmol/L [facility] 04/26/2022 5:05 PM EST 04/26/2022 5:25 PM EST [facility] External Provider LAB BLO OD ORDERABLES Final Result Performing Organization Address City/[facility]/ZIP Co de Phone Number [facility] [address] [place] [address] [phone] * (ABNORMAL) CBC auto differential (04/26/2022 5:05 PM EST) White Blood Count 10.2 4.8 - 10.8 X10*3/uL [facility] Red Blood Count 3.78(L) 4.20 - 5.50 X10*6/uL [facility] Hemoglobin 12.0 12.0 - 16.0 g/dl [facility] Hematocrit 36.2(L) 37.0 - 47.0 % [facility] Mean Corpuscular Volume 95.8 80.0 - 98.0 fL [facility] Mean Corpuscular Hemoglobin 31.7 27.0 - 33.0 pg [facility] Mean Corpuscular HGB Conc 33.1 31.0 - 35.0 g/dl [facility] Red Cell Distribution Width 15.5 11.0 - 16.0 % [facility] Platelet Count 242 160 - 400 X10*3/uL [facility] Mean Platelet Volume 11.5 9.4 - 12.3 fL [facility] Neutrophils Percent Auto 71.2 45 - 73 % [facility] Imm Gran Pct Auto 0.9(H) 0.0 - 0.4 % [facility] Lymphocytes Percent Auto 15.2(L) 20 - 40 % [facility] Monocytes Percent Auto 12.5(H) 2 - 11 % [facility] Eosinophils Percent Auto 0.0 0 - 4 % [facility] Basophils Percent Auto 0.2 0 - 2 % [facility] NRBC Pct Auto 0.0 0.0 - 0.2 /100WBC [facility] Neutrophils Absolute Auto 7.2 2.0 - 8.3 x10*3/uL [facility] Imm Gran Abs Auto 0.09(H) 0.00 - 0.03 X10*3/uL [facility] Lymphocytes Absolute Auto 1.6 1.2 - 4.9 X10*3/uL [facility] Monocytes Absolute Auto 1.3(H) 0.1 - 1.2 X10*3/uL [facility] Eosinophils Absolute Auto 0.0 0.0 - 0.4 X10*3/uL [facility] Basophils Absolute Auto 0.0 0.0 - 0.2 X10*3/uL [facility] NRBC Abs Auto 0.000 0.0 - 0.012 X10*3/uL [facility] 04/26/2022 5:05 PM EST 04/26/2022 5:34 PM EST us [facility] External Provider LAB BLO OD ORDERABLES Final Result [facility] [address] [place] [phone] documented in this encounter Visit Diagnoses Not on filedocumented in this encounter Care Teams Geneticist Relationship Specialty Start Date End Date Name, MD Wallace [address] [place] [address] PCP - General Family Medicine 01/27/19 Ange Salamanca PharmD [address] [place] [address] Pharmacist Internal Medicine 11/26/23 05/12/24 documented as of this encounter
--- OUTSIDE RECORDS SUMMARY | 2024-08-30 15:31 | XMS_ITS | Encounter Summary ---
Author Organization [employer] [facility] Address [address] [place] [address] [address] [place] [address] Care Team Providers Care Actuarial Associate Name Role Phone Name, Wallace HUNTER Primary Care Provider [phone] Ange Salamanca PharmD Unavailable [phone] Encounter Details Date Type Department Care Team (Latest Contact Info) Description 07/16/2021 Abstract [facility] CONVERSIONS Dental, Provider, DDS Social [...] on filedocumented in this encounter Care Teams Actuarial Associate Relationship Specialty Start Date End Date Name, MD Wallace [address] [place] [address] PCP - General Family Medicine 01/27/19 Ange Salamanca, PharmD [address] [place], [place] [phone] Pharmacist Internal Medicine 11/26/23 05/12/24 documented as of this encounter
--- OUTSIDE RECORDS SUMMARY | 2024-08-30 15:31 | XMS_ITS | Clinical Summary ---
Author Organization [employer] Address [address] [facility] 7[address] [place] [address] Care Team Providers Care Labor Supervisor Name Role Phone Name, Wallace HUNTER Primary Care Provider [phone] Allergies Active Allergy Reactions Criticality Noted Date Comments Acetaminophen 12/09/2011 Oxycodone 12/09/2011 Oxycodone-Acetaminophen 06/22/2019 Other reaction(s): Other (see comments) Penicillin G 02/24/2023 Penicillins 11/13/2011 Other reaction(s): Other (see comments) Medications ammonium lactate (Amlactin) 12 % cream Apply once a day to the affected skin 03/23/20 21 Active chlorthalidone (Hygroton) 25 MG tablet Take 1 tablet by mouth 1 (one) time each day. 08/07/19 23 Active Ferrous Sulfate (iron) 325 (65 Fe) MG tablet Take 1 tablet by mouth in the morning, at noon, and at bedtime. 08/07/19 23 Active pregabalin (Lyrica) 75 MG capsule Take 1 capsule by mouth 2 times daily. At noon and bedtime 08/07/19 23 Active senna (Senokot) 8.6 MG tablet TAKE 2 TABLETS BY MOUTH EVERY DAY NEEDED FOR CONSTIPATION 180 tablet 3 07/18/19 24 Active Blood Pressure kit Use twice a day 1 kit 07/23/19 24 Active lidocaine (Lidoderm) 5 % patchIndicatio ns:Chronic pain syndrome APPLY 1 PATCH TOPICALLY TO SKIN, LEAVE ON FOR 12 HOURS AND OFF FOR 12 HOURS DIRECTED 20 patch 1 09/30/19 24 Active insulin glargine (Lantus SoloStar) 100 UNIT/ML penIndications :Type 2 diabetes mellitus with other specified complication, without long-term current use of insulin (CMS/HCC) 10 units once a day 3 mL 12 10/24/19 24 Active insulin pen needle (BD Pen Needle Bernie U/F) 32G x 4 mm misc Use as instructed 100 each 12 10/24/19 24 025 Active lactulose (Chronulac) 10 GM/15ML solution TAKE 15 ML BY MOUTH EVERY MORNING FOR 10 DAYS 473 mL 3 10/28/19 24 Active glucose blood (OneTouch Ultra) test stripIndicatio ns:Type 2 diabetes mellitus with other specified complication, without long-term current use of insulin (CMS/HCC) TEST BLOOD SUGAR 1 - 4 TIMES DAILY DIRECTED 100 strip 11 01/26/20 24 Active levothyroxine (Synthroid, Levoxyl) 50 MCG tablet TAKE 1 TABLET BY MOUTH EVERY MORNING 90 tablet 1 02/11/20 24 Active pantoprazole (ProtoNix) 20 MG EC tabletIndicati ons:Chronic low back pain, unspecified back pain laterality, unspecified whether sciatica present TAKE 1 TABLET BY MOUTH EVERY DAY 90 tablet 1 02/11/20 24 Active allopurinol (Zyloprim) 100 MG tabletIndicati ons:Chronic gout without tophus, unspecified cause, unspecified site TAKE 1 TABLET BY MOUTH EVERYDAY AT NOON 90 tablet 3 03/08/20 24 Active Lancets (OneTouch Delica Plus [id number]) [facility] TEST BLOOD SUGAR 1-4 TIMES PER DAY DIRECTED 100 each 5 03/23/20 24 Active metoprolol tartrate (Lopressor) 100 MG tabletIndicati ons:Hypertensi on, unspecified type TAKE 1 TABLET BY MOUTH TWICE DAILY AT NOON AND IN THE EVENING WITH MEALS 180 tablet 1 03/23/20 24 Active Dulaglutide (Trulicity) 3 MG/0.5ML solution auto-injector Inject 3 mg under the skin 1 (one) time per week. 03/29/20 24 Active atorvastatin (Lipitor) 20 MG tablet TAKE 1 TABLET BY MOUTH EVERYDAY AT NOON 90 tablet 3 06/14/19 25 Active Alcohol Swabs (Alcohol Prep) 70 % pads USE DIRECTED 1-4 TIMES PER DAY 100 each 11 07/06/19 25 Active fluticasone (Flonase) 50 MCG/ACT nasal sprayIndicatio ns:Subacute cough INSTILL 2 SPRAYS IN EACH NOSTRIL ONCE DAILY 16 g 2 07/10/19 25 Active losartan (Cozaar) 25 MG tablet TAKE 1 TABLET BY MOUTH EVERYDAY AT NOON 30 tablet 11 07/10/19 25 Active furosemide (Lasix) 20 MG tabletIndicati ons:Edema leg TAKE 1/2 TABLET BY MOUTH EVERY MORNING 10 tablet 07/27/19 25 Active Enbrel SureClick 50 MG/ML injection 07/27/19 25 Active cyanocobalamin (Vitamin B-12) 1000 MCG tabletIndicati ons:Cobalamin deficiency TAKE 1 TABLET BY MOUTH EVERYDAY AT NOON 90 tablet 08/12/19 25 Active amLODIPine (Norvasc) 10 MG tabletIndicati ons:Chronic low back pain, unspecified back pain laterality, unspecified whether sciatica present TAKE 1 TABLET BY MOUTH EVERYDAY AT NOON 90 tablet 08/12/19 25 Active Blood Glucose Monitoring Suppl (ONE TOUCH ULTRA 2) w/Device kitIndications :Type 2 diabetes mellitus with other specified complication, without long-term current use of insulin ([facility]) USE TO CHECK BLOOD SUGAR 1-4 TIMES PER DAY DIRECTED 1 kit 08/20/19 25 Active amLODIPine (Norvasc) 10 MG tabletIndicati ons:Chronic low back pain, unspecified back pain laterality, unspecified whether sciatica present TAKE 1 TABLET BY MOUTH EVERYDAY AT NOON 90 tablet 05/04/19 25 025 Discontinued cyanocobalamin (Vitamin B-12) 1000 MCG tabletIndicati ons:Cobalamin deficiency TAKE 1 TABLET BY MOUTH EVERYDAY AT NOON 90 tablet 05/04/19 25 025 Discontinued acetaminophen (Tylenol Extra Strength) 500 MG tablet Take 1 tablet (500 mg) by mouth every 8 (eight) hours if needed for moderate pain. 90 tablet 3 07/28/19 25 025 traMADol (Ultram) 50 MG tabletIndicati ons:Rheumatoid arthritis involving multiple sites with positive rheumatoid factor ([facility]) Take 1 tablet (50 mg) by mouth every 12 (twelve) hours if needed for severe pain for up to 28 days. Do not start before July 30, 2024. 28 tablet 07/31/19 25 025 Active Problems Problem Noted Date Diagnosed Date Generalized anxiety disorder 02/24/202309/2022 Herniated lumbar intervertebral disc 02/24/2023 02/24/2023 Spinal stenosis of lumbar region 02/24/2023 02/24/2023 Polyneuropathy due to type 2 diabetes mellitus 0 08/19/2022 Cobalamin deficiency 08/19/2022 Diabetes mellitus 09/09/2017 Chronic gouty arthritis 09/09/2017 Chronic constipation 09/09/2017 Rheumatoid arthritis involvi ng multiple sites with positive rheumatoid factor 08/06/2017 CKD (chronic kidney disease) stage 3, GFR 30-59 ml/min 08/06/2017 Hypothyroidism 08/18/2014 Anemia 12/23/2012 Hypertension 11/13/2011 Depressive disorder 11/13/2011 Hyperlipidemia 11/13/2011 Obesity 11/13/2011 Resolved Problems Problem Noted Date Diagnosed Date Resolved Date History of abdominal hysterectomy 02/24/2023 023 07/24/2023 Normal pressure hydrocephalus 02/24/2023 02/24/2023 01/26/2024 Toxic encephalopathy 02/24/2023 02/24/2023 023 Mean red blood cell volume increased 08/19/2022 07/24/2023 Neuropathic pain 08/19/2022 07/24/2023 Injury of kidney 10/30/2021 02/24/2023 Palpitations 06/02/2018 02/24/2023 Epidermoid cyst 03/27/2018 07/24/2023 Bilateral tinnitus 11/11/2017 Shoulder pain 09/09/2017 02/24/2023 Disorder of peripheral nervous system 11/02/2015 07/24/2023 Anxiety 12/23/2012 02/24/2023 Disuse syndrome 12/23/2012 02/24/2023 Joint pain 12/23/2012 02/24/2023 Carpal tunnel syndrome 02/06/201207/23 Encounters Date Type Department Care Team Description 08/19/[address] [facility] [address] [place] [address] Name, MD Wallace Type 2 diabetes mellitus with other specified complication, without long-term current use of insulin ([facility]) 08/10/2024 Refill [facility] [address] [place] [address] Name, MD Wallace Rheumatoid arthritis involving multiple sites with positive rheumatoid factor ([facility]/HCC) 08/10/[address] [facility] [address] [place] [address] Abril Guajardo MD Cobalamin deficiency; Chronic low back pain, unspecified back pain laterality, unspecified whether sciatica present 07/29/[address] [facility] [address] [place] [phone] Wallace Anderson MD Durable Medical Equipment 07/28/[address] [facility] [address] [place] [phone] Wallace Anderson MD Rheumatoid arthritis involving multiple sites with positive rheumatoid factor ([facility]/HCC) 07/27/2024 2:30 PM EDT Office Visit [facility] [address] [place] [phone] Wallace Anderson MD Type 2 diabetes mellitus with other specified complication, without long-term current use of insulin ([facility]) (Primary Dx); Rheumatoid arthritis involving multiple sites with positive rheumatoid factor ([facility]); Chronic low back pain, unspecified back pain laterality, unspecified whether sciatica present; Urinary incontinence, unspecified type 07/27/2024 Travel 07/26/2024 Refill [facility] [address] [place] [address] Wallace Anderson MD Edema leg; Rheumatoid arthritis involving multiple sites with positive rheumatoid factor ([facility]/HCC) 07/26/[address] [facility] [address] [place] [phone] Harjit Azul MA chart prep 07/09/[address] [facility] [address] [place] [phone] Wallace Anderson MD Subacute cough 07/05/[address] [facility] [address] [place] [address] Wallace Anderson MD Rheumatoid arthritis involving multiple sites with positive rheumatoid factor ([facility]/HCC) 07/04/[address] [facility] [address] [place] [phone] Wallace Anderson MD 06/23/[address] [facility] [address] [place] [phone] Name, MD Wallace [employer] 06/17/[address] [facility] [address] [place] [address] Name, MD Wallace Rheumatoid arthritis involving multiple sites with positive rheumatoid factor ([facility]) 06/16/[address] [facility] [address] [place], [place] [phone] Name, MD Wallace Edema leg 06/13/[address] [facility] [address] [place] [address] Name, MD Wallace from Last 3 Months Immunizations Name Administration Dates Next Due Influenza High-dose Quadriva lent Preservative Free 02/24/2023,03/05/2022 Influenza injectable quadriv alent preservative free 03/21/2021,03/21/2020,01/15/2018,02/06 Influenza, High Dose Seasona l, Preservative Free 01/26/2024,02/08/2019 Influenza, IIV3, injectable 02/11/2017,1 05/13/2015,02/11/2014,01/31,01/15/2010,12/27/2008,02/05/2008 ,01/01/2007 Influenza, Split (incl. maite fied surface antigen) 01/14/2013,02/06/2012 Influenza, Unspecified 02/11/2017,03/13/2016 Pneumococcal Conjugate PCV 13 05/04/2018, 018 Pneumococcal Conjugate PCV 20 01/26/2024 Pneumococcal Polysaccharide PPSV23 02/06/2015,,01/01/2007 TD (adult), 2 Lf tetanus tox oid, preservative free, adsorbed 03/19/2007 Tdap 02/24/2023,02/06/2012,02/06/2012 Tetanus Toxoid, Unspecified 03/19/2007 Social History Tobacco Use Types Packs/Day Years Used Date Smoking Tobacco: Never Passive Smoke Exposure: Never Smokeless Tobacco: Never Tobacco Cessation:Counseling Given: Not Answered Alcohol Use Standard Drinks/Week Comments Never 0 [...] Orientation Straight 02/18/2022 10 :18 AM EDT Last Filed Vital Signs Vital Sign Reading Time Taken Comments Blood Pressure 106/67 07/27/2024 2:33 PM EDT Pulse 82 07/27/2024 2:33 PM EDT Temperature 36.4 ??C (97.6 ??F) 07/27/2024 2:33 PM ED T Respiratory Rate 16 07/27/2024 2:33 PM EDT Oxygen Saturation 98% 07/27/2024 2:33 PM EDT Inhaled Oxygen Concentration - - Weight 68 kg (150 lb) 01/26/2024 3:09 PM EDT Height 144.8 cm (4' 9 ) 07/27/2024 2:33 PM EDT Body Mass Index 32.46 01/26/2024 3:09 PM EDT Plan of Treatment Health Maintenance Due Date Last Done Comments CT Colonography 1951 Colonoscopy 1950 Colorectal Cancer Screening 1950 FIT DNA/Cologuard 1951 FIT 1951 FOBT 1950 Sigmoidoscopy 1951 Alcohol/Substance Use Screening 1963 Zoster Vaccines (1 of 2) 12/04/1970 RSV Patients and Patients Aged 60 years or older (1 - Risk 60-74 years 1-dose series) 2011 Mammogram 11/13/2019 11/12/2017 Dental Oral Exam 01/17/2022 07/16/2021, 06/2019, 08/01/2014, Additional history exists Dental Prophylaxis 01/17/2022 07/16/2021, 0 05/24/2019, 06/27/2016, Additional history exists Dental X-Ray: Full Mouth 05/25/2022 05/24/2019, 07/20 Dental X-Ray: Bitewings 07/17/2022 07/17/19 22, 05/24/2019, 10/08/2016, Additional history exists Depression Screening 08/20/2023 08/19/2022, 08/20/19 23 SDOH Screening 08/20/2023 08/19/2022 COVID-19 Vaccine ( season) 2023 03/26/2021, 09/19/2020, 08/23/2020 Diabetes: Foot Exam 02/25/2024 02/24/2023, 02/24/2023, 02/24/2023, Additional history exists Lipid Panel 02/25/2024 02/24/2023, 10/29/2021 Diabetes: Urine Protein Screening 09/22/2024 09/23/2023, 02/24/2023, 10/29/2021, Additional history exists Diabetes: Hemoglobin A1C 01/26/2025 025, 01/26/2024, 10/24/2023, Additional history exists Eye Exam 06/24/2025 06/25/2023 Tobacco Screening 07/27/2025 07/27/2024 DTaP/Tdap/Td Vaccines (4 - Td or Tdap) 02/24/2033 02/24/2023, 02/06/2012, 02/06/2012, Additional history exists Hepatitis C Screening Completed 01/06/2024, 023 Influenza Vaccine Completed 01/26/2024, , 03/05/2022, Additional history exists Pneumococcal Vaccine: 50+ Years Completed 01/26/2024, 05/04/2018, 01/01/2018, Additional history exists HIB Vaccines Aged Out No longer eligi ble based on patient's age to complete this topic HPV Vaccines Aged Out No longer eligi ble based on patient's age to complete this topic Hepatitis A Vaccines Aged Out No long er eligible based on patient's age to complete this topic Hepatitis B Vaccines Aged Out No long er eligible based on patient's age to complete this topic IPV Vaccines Aged Out No longer eligi ble based on patient's age to complete this topic Meningococcal Vaccine Aged Out No sheila calista eligible based on patient's age to complete this topic RSV under 20 months Aged Out No longe r eligible based on patient's age to complete this topic Rotavirus Vaccines Aged Out No longer eligible based on patient's age to complete this topic Goals Goal Patient Goal Type Associated Problems Recent Progress Patient-Stated? Author Hemoglobin A1c < 7.5 Result Component 6.2( 2:39 PM EDT) No nAge Salamanca, PharmD Note: Due to age, underlying co-morbidities, limitations of therapy d/t kidney function, etc Record your blood sugar as directed Result Component No Ange Salamanca, PharmD Note: Use CGM, ensuring sensor is scanned at least once every 8 hours to capture 24H data. Check BG manually, as directed. Procedures Procedure Name Priority Date/Time Associated Diagnosis Comments POCT GLYCATED HEMOGLOBIN, TOTAL Routine 07/27/2024 2:39 PM EDT Type 2 diabetes mellitus with other specified complication, without long-term current use of insulin ([facility]) POCT GLUCOSE Routine 07/27/2024 2:38 PM EDT Type 2 diabetes mellitus with other specified complication, without long-term current use of insulin ([facility]) HEPATITIS PANEL, GENERAL Routine 01/06/2024 2:45 PM EDT ALBUMIN, RANDOM URINE W/CREATININE Routine 09/23/2023 1:37 PM EDT Type 2 diabetes mellitus with other specified complication, without long-term current use of insulin (CMS/HCC) Edema leg Stage 3 chronic kidney disease, unspecified whether stage 3a or 3b CKD (CMS/[facility]) Primary hypertension LIPID PANEL, STANDARD Routine 02/24/2023 2:03 PM EST Type 2 diabetes mellitus with other specified complication, without long-term current use of insulin (CMS/[facility]) PROPHYLAXIS - ADULT Routine 07/16/2021 1 2:00 AM EDT BITEWINGS - 4 RADIOGRAPHIC IMAGES Routine 07/16/2021 12:00 AM EDT PERIODIC ORAL EVALUATION - ESTABLISHED PATIENT Routine 07/16/2021 12:00 AM EDT INTRAORAL - COMPLETE SERIES OF RADIOGRAPHIC IMAGES Routine 05/24/2019 12:00 AM EST BI MAMMOGRAM SCREENING BILATERAL Routine 11/12/2017 3:56 PM EDT from Last 3 Months or Most Recently Relevant to Health Maintenance Results * (ABNORMAL) POCT HGB A1C (07/27/2024 2:39 PM EDT) Hemoglobin A1C 6.2(A) 4.0 - 6.0 % QC Media Lot # [id number] Lot# Expiration Date Blood 07/27/2024 2:39 PM EDT us Wallace Anderson MD POINT OF CARE TEST ENTER/EDIT OR DERABLES Final Result * POCT Glucose (07/27/2024 2:38 PM EDT) Glucose Blood, POC 157 60 - 200 mg/dL QC Media Lot # [id number] Lot# Expiration Date Blood Capillary blood specimen / Unknown 07/27/2024 2:38 PM EDT us Wallace Anderson MD POINT OF CARE TEST ENTER/EDIT OR DERABLES Final Result * Hepatitis Panel, General (01/06/2024 2:45 PM EDT) Hepatitis A IgM Nonreactive Nonreactive [facility] Comment:IgM antibodies to ANTUNEZ V not detected; does not exclude earlyacute or recovered HAV infection. ~Hepatitis B Surface Antibody NONREACTIVE Nonreactive [facility] Comment:Nonreactive: < 8.00 mIU/mL Hepatitis B Core Antibody Nonreactive Nonreactive [facility] Hepatitis C Antibody Nonreactive Nonreactive [facility] Comment:Antibodies to HCV no t detected; does not exclude early acuteHCV infection. Hepatitis B Surface Ag Negative Negative [facility] 01/06/2024 2:45 PM EDT 01/06/2024 2:57 PM EDT us Generic External Data Provider LAB BLOOD ORDERAB LES Final Result Performing Organization Address [facility] Co de Phone Number [facility] [address] [place] [phone] * (ABNORMAL) Albumin, Random Urine W/Creatinine (09/23/2023 1:37 PM EDT) Creatinine, Urine 90.74 mg/dL [facility] Microalbumin Urine 38.0 mg/L H [facility] Microalbum Creatinine Ratio Ur 41.8(H) <30 ug/mg cr [facility] Comment:Albumin/Creatinine R atio Reference Ranges: Normal: < 30 ug/mg creatinine Microalbuminuria: 30 - 300 ug/mg creatinineClinical Albuminuria: > 300 ug/mg creatinine Urine (Urine, Random) 09/23/2023 1:37 PM EDT 09/23/2023 4:08 PM EDT Wallace Anderson MD LAB URINE ORDERABLES Final Resul t Performing Organization Address [facility] Co de Phone Number [facility] [address] [place] [phone] * (ABNORMAL) Lipid Panel, Standard (02/24/2023 2:03 PM EST) Triglycerides 250(H) <150 mg/dL [facility] Comment:Desirable Triglyceri de: less than 150 mg/dLBorderline High Triglyceride 150-199 mg/dLHigh Triglyceride: 200-499 mg/dLVery High Triglyceride: greater than or equal to 5OO mg/dL Cholesterol 138 <200 mg/dL [facility] Comment:Desirable Cholestero l: less than 200 mg/dLBorderline High Cholesterol: 200-239 mg/dLHigh Cholesterol: greater than 239 mg/dL LDL Cholesterol Calculated 59 <100 mg/dL [facility] Comment:Desirable LDL: less than 100 mg/dLNear Optimal/Above Optimal LDL: 110- 129 mg/dLBorderline High LDL: 130-159 mg/dLHigh LDL: 160-189 mg/dLVery High LDL: greater than or equal to 190 mg/dL HDL Cholesterol 29(L) >40 mg/dL [facility] Comment:Desirable HDL: great er than 40 mg/dL Note: This HDL assay may give artificially low results in patients with liver disease. Blood Venous blood specimen / Unknown 02/24/2023 2:03 PM EST 02/24/2023 3:57 PM EST us Wallace Anderson MD LAB BLOOD ORDERABLES Final Resul t [facility] [address] [place] [phone] * DIGITAL BILATERAL SCREEN 1 (11/12/2017 3:56 PM EDT) Anatomical Region Laterality Modality Breast Bilateral Mammography 11/12/2017 3:56 PM EDT Narrative 11/12/2017 3:57 PM EDT Refer to the Notes tab for result details [facility] Procedure: DIGITAL BILATERAL SCREEN 1 Procedure Note ProviderRito MD - 07/13/2022 Refer to the Notes tab for result details [facility] Procedure: DIGITAL BILATERAL SCREEN 1 us Lorna Brennan MD IMG BI PROCEDURES Final Resul t from Last 3 Months or Most Recently Relevant to Health Maintenance Insurance [facility] [employer] OPT[employer] (HMO D-SNP) [place] [id number] [address] [address] [place] [phone] Care Teams Labor Supervisor Relationship Specialty Start Date End Date Name, MD Wallace [address] [place] [address] PCP - General Family Medicine 01/27/19
--- OUTSIDE RECORDS SUMMARY | 2024-08-30 15:31 | XMS_ITS | Encounter Summary ---
Author Organization [employer] Address [address] [facility] 7t [place] [address] Care Team Providers Care News Broadcaster Name Role Phone Name, Wallace HUNTER Primary Care Provider [phone] Ange Salamanca PharmD Unavailable [phone] Reason for Visit * Reason Onset Date Comments stating 05/02/2022 Encounter Details Date Type Department Care Team ([facility] st Contact Info) Description 05/02/2022 Telephone [facility] [address] [place] [address] Name, MD Wallace [address] [place] [address] stating Social History Tobacco Use Types Packs/Day Years Used Date Smoking Tobacco: Never Assessed Comments Unknown Sex and Gender Information Value Date Recorded Sex Assigned at Female 02/18/2022 10:18 AM EDT Legal Sex Female 10:18 AM EDT Gender Identity Female 02/18/2022 10:18 AM EDT Sexual Orientation Straight 02/18/2022 10 :18 AM EDT documented as of this encounter Miscellaneous Notes * Telephone Encounter - Luke Wheeler - 05/02/2022 4:17 PM EST Tc from sunday with [facility] stating they open an Physical therapy to give pt twice a week at home. documented in this encounter Plan of Treatment Not on file documented as of this encounter Visit Diagnoses Not on filedocumented in this encounter Care Teams News Broadcaster Relationship Specialty Start Date End Date Name, MD Wallace [address] [place] [address] PCP - General Family Medicine 01/27/19 Ange Salamanca PharmD [address] [place] [address] Pharmacist Internal Medicine 11/26/23 05/12/24 documented as of this encounter
--- OUTSIDE RECORDS SUMMARY | 2024-08-30 15:32 | XMS_ITS | Encounter Summary ---
Author Organization [employer] Address [address] [facility] [address] [place] [address] Care Team Providers Care Jig And Fixture Builder Name Role Phone Name, Wallace HUNTER Primary Care Provider [phone] Ange Salamanca PharmD Unavailable [phone] Reason for Visit * Reason Comments Med Refill Encounter Details Date Type Department Care Team (Late st Contact Info) Description 03/17/2023 Refill [facility] [address] [place] [address] Mirna Quintanilla MD [address] [place], [place] [phone] Chronic low back pain, unspecified back pain [...] documented as of this encounter Care Teams Jig And Fixture Builder Relationship Specialty Start Date End Date Name, MD Wallace [address] [place] [address] PCP - General Family Medicine 01/27/19 Ange Salamanca PharmD [address] [place] [address] Pharmacist Internal Medicine 11/26/23 05/12/24 documented as of this encounter
--- OUTSIDE RECORDS SUMMARY | 2024-08-30 15:32 | XMS_ITS | Encounter Summary ---
Author Organization [employer] Address [address] [place] [address] Care Team Providers Care Senior Software Development Manager Name Role Phone Name, Wallace HUNTER Primary Care Provider [phone] Reason for Visit * Reason Comments Med Refill Encounter Details Date Type Department Care Team (Late st Contact Info) Description 08/10/2024 Refill [facility]S [address] [place], [place] [id number] Name, MD Wallace [address] [facility] [place], [place] [id number] Rheumatoid arthritis involving multiple sites with positive rheumatoid factor ([facility]) Social History Tobacco Use Types Packs/Day Years Used Date Smoking Tobacco: Never Passive Smoke Exposure: Never Smokeless Tobacco: Never Alcohol Use Standard [...] on file documented as of this encounter Goals Goal Patient Goal Type Associated Problems Recent Progress Patient-Stated? Author Hemoglobin A1c < 7.5 Result Component 6.2( 5 2:39 PM EDT) No Ange Salamanca PharmD Note: Due to age, underlying co-morbidities, limitations of therapy d/t kidney function, etc Record your blood sugar as directed Result Component No Ange Salamanca PharmD Note: Use CGM, ensuring sensor is scanned at least once every 8 hours to capture 24H data. Check BG manually, as directed. documented as of this encounter Visit Diagnoses Diagnosis Rheumatoid arthritis involving multiple sites with positive rheumatoid factor ([facility]) documented in this encounter Additional Health Concerns Assessment Noted Time PHQ-9 Depression Total Score: 8 08/20/19 23 1:10 PM EDT documented as of this encounter Care Teams Senior Software Development Manager Relationship Specialty Start Date End Date Name, MD Wallace [address] [place] [address] PCP - General Family Medicine 01/27/19 documented as of this encounter
--- OUTSIDE RECORDS SUMMARY | 2024-08-30 15:32 | XMS_ITS | Encounter Summary ---
Author Organization [employer] Address [address] [facility] 7t [place] [address] Care Team Providers Care Aluminum Polisher Name Role Phone Name, Wallace HUNTER Primary Care Provider [phone] Ange Salamanca PharmD Unavailable [phone] Encounter Details Date Type Department Care Team (Late st Contact Info) Description 08/07/2022 Orders Only [facility] MED [facility] PEDS [address] [place] [address] Liliam Ortiz LPN Social History Tobacco Use [...] on filedocumented in this encounter Care Teams Aluminum Polisher Relationship Specialty Start Date End Date Name, MD Wallace [address] [place] [address] PCP - General Family Medicine 01/27/19 Ange Salamanca, PharmD [address] [place] [address] Pharmacist Internal Medicine 11/26/23 05/12/24 documented as of this encounter
--- OUTSIDE RECORDS SUMMARY | 2024-08-30 15:32 | XMS_ITS | Encounter Summary ---
Author Organization [employer] Address [address] [place] [address] Care Team Providers Care Position Description Manager Name Role Phone Name, Wallace HUNTER Primary Care Provider [phone] Ange Salamanca PharmD Unavailable [phone] Reason for Visit * Reason Comments Med Refill Encounter Details Date Type Department Care Team (Late st Contact Info) Description 05/05/2024 Refill [facility] [address] [place], [place] [phone] Name, MD Wallace [address] [place] [address] Rheumatoid arthritis involving multiple sites with positive rheumatoid factor ([facility]) Social History Tobacco Use Types Packs/Day Years [...] involving multiple sites with positive rheumatoid factor ([facility]) documented in this encounter Additional Health Concerns Assessment Noted Time PHQ-9 Depression Total Score: 8 08/20/19 23 1:10 PM EDT documented as of this encounter Care Teams Position Description Manager Relationship Specialty Start Date End Date Name, MD Wallace [address] [place] [address] PCP - General Family Medicine 01/27/19 Ange Salamanca PharmD [address] [place] [address] Pharmacist Internal Medicine 11/26/23 05/12/24 documented as of this encounter
--- OUTSIDE RECORDS SUMMARY | 2024-08-30 15:32 | XMS_ITS | Clinical Summary ---
Author Organization [facility], Address [address] [place] [address] [place] [address] Phone Care Team Providers Care Gold Miner Name Role Phone Name, Wallace HUNTER Primary Care Provider [phone] Allergies Active Allergy Reactions Criticality Noted Date [...] 08/18/2019 Peripheral neuropathy 06/22/20192019 Hyperlipidemia 06/22/2019 08/18/2019 Immunizations Immunization Administration Dates Next Due Influenza, Unspecified 02/11/2017,03/13/2016 [...] , 03/21/2020, Additional history exists Pneumococcal Vaccine: 50+ Years Completed 01/26/2024, 05/04/2018, 01/01/2018, Additional history exists Pneumococcal Vaccine: Peds (0 to 5 Years) and At-Risk Patients (6 to 49 Years) Discontinued 01/26/2024, 05/04/2018, 01/01/2018, Additional history exists Hepatitis B Vaccine Aged Out No longe r eligible based on patient's age to complete this topic Insurance [address] [facility] Care Dual SNP ([id number]) [place] [id number] [address] [address] Care Teams Gold Miner Relationship Specialty Start Date End Date Name, MD Wallace [address] [place] [address] PCP - General Internal Medicine 06/25/23
--- OUTSIDE RECORDS SUMMARY | 2024-08-30 15:32 | XMS_ITS | Encounter Summary ---
Author Organization [employer] Address [address] 7[address] [place] [address] Care Team Providers Care Cloth Bleaching Range Operator Chief Name Role Phone Name, Wallace HUNTER Primary Care Provider [phone] Ange Salamanca PharmD Unavailable [phone] Reason for Visit * Reason Comments Med Refill Encounter Details Date Type Department Care Team (Late st Contact Info) Description 03/25/2024 Refill [facility] [address] [place], [place] [phone] Name, MD Wallace [address] [place] [address] Edema leg Social History Tobacco Use Types Packs/Day Years [...] as of this encounter Visit Diagnoses Diagnosis Edema leg Edema documented in this encounter Additional Health Concerns Assessment Noted Time PHQ-9 Depression Total Score: 8 08/20/19 23 1:10 PM EDT documented as of this encounter Care Teams Cloth Bleaching Range Operator Chief Relationship Specialty Start Date End Date Name, MD Wallace [address] [place] [address] PCP - General Family Medicine 01/27/19 Ange Salamanca PharmD [address] [place] [address] Pharmacist Internal Medicine 11/26/23 05/12/24 documented as of this encounter
--- OUTSIDE RECORDS SUMMARY | 2024-08-30 15:32 | XMS_ITS | Encounter Summary ---
Author Organization [employer] Address [address] [place] [address] Care Team Providers Care Emergency Telecommunications Dispatcher Name Role Phone Name, Wallace HUNTER Primary Care Provider [phone] Ange Salamanca PharmD Unavailable [phone] Reason for Visit * Reason Onset Date Comments Med Refill 02/04/2024 Encounter Details Date Type Department Care Team ([facility] st Contact Info) Description 02/04/2024 Telephone [facility] [address] [place], [place] [phone] Name, MD Wallace [address] [place] [address] Med Refill Social History Tobacco Use Types Packs/Day Years [...] encounter Miscellaneous Notes * Telephone Encounter - Liliam Ortiz LPN - 02/04/2024 3:49 PM EDT Medication isn't prescribed by PCP. * Telephone Encounter - Vero Gamboa - 02/04/2024 3:41 PM EDT TC from pt requesting medication refill. Medications needing refill : Humira, 2 Pen, 40 MG/0.4ML Pen-injector Kit pen-injector To be sent to: [facility] documented in this encounter Plan of Treatment Not on file documented as of this encounter Goals Goal Patient Goal Type Associated Problems Recent Progress Patient-Stated? Author Hemoglobin A1c < 7.5 Result Component 6.2( 5 2:39 PM EDT) No Ange Salamanca, PharmD Note: Due to age, underlying [...] documented as of this encounter Care Teams Emergency Telecommunications Dispatcher Relationship Specialty Start Date End Date Name, MD Wallace [address] [place] [address] PCP - General Family Medicine 01/27/19 Ange Salamanca, Pamela [address] [place] [address] Pharmacist Internal Medicine 11/26/23 05/12/24 documented as of this encounter
[2024-08-30 15:49] LABS: MANUAL DIFF FLAG NO
[2024-08-30 17:10] LABS: Basophils Percent Auto 0.3 % (0-2); Eosinophils Absolute Auto 0.3 X10*3/uL (0.0-0.4); Hematocrit 38.1 % (37.0-47.0); Hemoglobin 12.3 g/dl (12.0-16.0); Imm Gran Abs Auto 0.04 X10*3/uL (0.00-0.03); Imm Gran Pct Auto 0.4 % (0.0-0.4); Lymphocytes Absolute Auto 3.5 X10*3/uL (1.2-4.9); Lymphocytes Percent Auto 33.2 % (20-40); Mean Corpuscular HGB Conc 32.3 g/dl (31.0-35.0); Mean Corpuscular Hemoglobin 31.2 pg (27.0-33.0); Mean Corpuscular Volume 96.7 fL (80.0-98.0); Mean Platelet Volume 10.9 fL (9.4-12.3); Monocytes Absolute Auto 0.8 X10*3/uL (0.1-1.2); Monocytes Percent Auto 7.6 % (2-11); Neutrophils Absolute Auto 5.8 x10*3/uL (2.0-8.3); Neutrophils Percent Auto 55.5 % (45-73); Platelet Count 328 X10*3/uL (160-400); Red Blood Count 3.94 X10*6/uL (4.20-5.50); Red Cell Distribution Width 16.1 % (11.0-16.0); White Blood Count 10.5 X10*3/uL (4.8-10.8)
[2024-08-30 17:36] LABS: Alanine Aminotransferase 11 U/L (0-31); Albumin Level 3.9 g/dL (3.5-5.0); Alkaline Phosphatase 99 U/L (39-117); Anion Gap 13 (12-20); Aspartate Amino Transferase 25 U/L (5-31); Bilirubin Total 0.3 mg/dL (0.0-1.0); Blood Urea Nitrogen 23 mg/dL (9-16); C Reactive Protein 2.18 mg/dL (< or = 0.50); Calcium 9.9 mg/dL (8.4-10.2); Carbon Dioxide 26 mmol/L (22-29); Chloride 106 mmol/L (96-108); Cholesterol 120 mg/dL (<200); Estimated Glomerular Filt Rate 35; Glucose Random 149 mg/dL (60-115); HDL Cholesterol 28 mg/dL (>40); LDL Cholesterol Calculated 42 mg/dL (<100); Potassium 4.3 mmol/L (3.3-5.1); Sodium 141 mmol/L (135-145); Triglycerides 251 mg/dL (<150); Uric Acid 7.1 mg/dL (2.4-5.7)
[2024-08-30 18:08] LABS: Erythrocyte Sedimentation Rate 95 MM/HR (0-20)
[2024-08-31 07:50] LABS: HBc Num1 0.08 S/CO (0.00-0.79); HBsAGNum1 0.38 S/CO (0.00-0.99); Hepatitis A Antibody IgM 0.14 Index (0-0.79); Hepatitis B Core Antibody Nonreactive (Nonreactive); Hepatitis B Surface Antigen Negative (Negative); ~HepC Num1 0.09 S/CO (0.00-0.79); ~Hepatitis A Antibody IgM Nonreactive (Nonreactive); ~Hepatitis B Surface Antibody REACTIVE (Nonreactive); ~Hepatitis C Antibody Nonreactive (Nonreactive)
[2024-09-01 23:18] LABS: TS Negative Control Passed; TS Panel A 2; TS Panel B 0; TS Positive Control Passed; TSpotTB Negative (Negative)
== END 2024-08-30 15:28 | disposition home or self-care (01) ==
LOC: HO.LAB 15:27
PROVIDERS: PCP Internal Medicine Geriatric Medicine; Visit Provider Student in an Organized Health Care Education/Training Program
DX: M05.9 Rheumatoid arthritis with rheumatoid factor, unspecified (principal); Z79.60 Long term (current) use of unspecified immunomodulators and immunosuppressants; M10.09 Idiopathic gout, multiple sites; E11.69 Type 2 diabetes mellitus with other specified complication; M05.79 Rheumatoid arthritis with rheumatoid factor of multiple sites without organ or systems involvement; M54.50 Low back pain, unspecified; G89.29 Other chronic pain; Z79.899 Other long term (current) drug therapy
CPT/HCPCS: 36415; 80053; 80061; 84550; 85025; 85652; 86140; 86481; 86704; 86706; 86709; 86803; 87340; 99212

== ENCOUNTER 2024-08-30 15:52 | Outpatient (AMB) | payer OTHER, SELFPAY ==
[2024-08-30 15:54] VITALS: BP 120/66; PULSE 88; O2SAT 96
--- NOTE | 2024-08-30 15:54 | MHC.OFFVIS ---
Vital Signs 08/30/24 15:54 Height 4 ft 11 in BMI Reason not done Patient refused/unable BP 120/66 Blood Pressure Location Lt brachial Position Sitting Pulse 88 Pulse Source Pulse Oximeter Pulse Oximetry (%) 96 Oxygen Delivery Method Room Air Intake Visit Reasons: RA Legal Practice Manager Name: Rashaun [phone] Accompanied by: Spouse Allergies Penicillins [PENICILLINS] Allergy (Severe, Verified 05/27/24 14:50) RASH From PERCOCET Allergy (Severe, Uncoded 10/10/23 13:51) RASH Medication List - Last Reconciled 08/30/24 by Kathe Ledezma MD acetaminophen ER 1 tab PO Q12H PRN albuterol sulfate 90 mcg/actuation 2 puffs inhalation Q4-6H PRN alcohol swabs (Alcohol Prep Pads) 1 pad topical QID allopurinol 100 mg PO DAILY amlodipine 1 tab PO DAILY atorvastatin 1 tab PO DAILY blood sugar diagnostic (Innovative Card Solutionsuch Ultra Test strips) As directed cetirizine 10 mg PO QAM chlorthalidone 1 tab PO DAILY cholecalciferol (vitamin D3) 1 tab PO DAILY cyanocobalamin (vitamin B-12) 1 tab PO DAILY dulaglutide (Trulicity) mg subcut etanercept (Enbrel SureClick) 50 mg subcut QWEEK ferrous sulfate (FeroSul) 1 tab PO TID fluticasone propionate 50 mcg/actuation sprays intranasal lactulose mL PO lancets (AirMediaTouch Delica Plus Lancet) As directed levothyroxine 1 tab PO DAILY@0630 lidocaine 5% 1 patch topical DAILY PRN losartan 25 mg PO DAILY metoprolol tartrate 1 tab PO BID pantoprazole 1 tab PO DAILY@0630 pregabalin 75 mg PO BID 30 days sennosides (senna) 2 tabs PO DAILY PRN tramadol mg PO triamcinolone acetonide (24 Hour Nasal Allergy) intranasal HPI Comments Details: Patient is a 73-year-old female with the hypertension, 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 At that time she had not picked up her Enbrel and she was in an acute flare of her rheumatoid arthritis. Discussed starting Enbrel and following up Today, Patient started the Enbrel and is doing better but still has pain in her shoulders, wrists and feet. Rheumatologic History: Gout - non crystal proven - history seen in chart - on allopurinol therapy RA - unsure of the diagnosis time - +++RF +++CCP - MTx contraindicated due to kidney function - Arava - Humira: 01/2018 - 12/2023 - Orencia 12/2023. PA denied - Enbrel 12/2023 Current Rheumatology Medication(s): Allopurinol 100 mg daily Enbrel 50 mg weekly [facility] Medical History (Updated 08/31/24 @ 08:07 by Kathe Ledezma MD) On allopurinol therapy Chronic right shoulder pain Trochanteric bursitis, right hip Bilateral hip pain Gout Hypothyroidism Hypertension Fibromyalgia Seropositive rheumatoid arthritis Surgical History Hx of hysterectomy Family History Mother Asthma Father CVD (cardiovascular disease) Brother HTN (hypertension) Diabetes Social History Household Members: Spouse Housing: Apartment Alcohol intake: never Patient Tobacco Use Status: Never used Tobacco e-Cigarette/Vaping Use: Never Used Review of Systems Const Details: Review of Systems Constitutional: Denies fever, chills, weight loss ENT: Denies vision changes, eye pain or eye redness, dental caries, dry mouth GI: Denies nausea, vomiting, diarrhea, abdominal pain, change in BM Pulm: Denies SOB, PORTILLO, hemoptysis, wheezing Cards: Denies chest pain, palpitations Skin: Denies Raynaud's, rash, nail changes, photosensitivity, PULPWOOD CUTTER: Denies headaches, weakness, paresthesias, recurrent falls MSK: as per HPI All other systems reviewed and are unremarkable except noted above Physical Exam Vital Signs: Last Vital Signs Pulse 88 08/30/24 15:54 BP 120/66 08/30/24 15:54 Pulse Ox 96 08/30/24 15:54 Oxygen Delivery Method Room Air 08/30/24 15:54 Vital signs reviewed Physical Examination CONSTITUITIONAL Patient alert and cooperative. Well appearing and in no apparent painful distress. Patient is examined in a wheelchair HEENT Conjunctiva and sclera clear. ?Pupils equal round and reactive to light. ?No lymphadenopathy. ? CHEST/RESPIRATORY SYSTEM Normal respiratory effort and able to speak in complete sentences. ?Clear to auscultation bilaterally. ?No crackles, rales, rhonchi, wheezes heard. CARDIAC SYSTEM Regular rate and rhythm. ?S1 and S2 heard no murmurs. ?Radial pulses intact bilaterally MSK Hands: ?Good stone grader strength bilaterally. No swelling or TTP of the MCPs, PIPs or DIPs of the hands Wrists: ?TTP of the wrists bilaterally Elbows: Full ROM of Bilateral elbows with no TTP Shoulders: Decreased range of motion secondary to pain. Tenderness to palpation of the AC joint bilaterally. Also tenderness to palpation over bilateral subacromial bursa. Knees: ?Able to extend and flex with no TTP Feet: Positive squeeze test biaterally R>L SKIN Skin intact without rashes. Results Reviewed Results Reviewed: Laboratory Tests 08/30/24 15:46 WBC 10.5 RBC 3.94 L Hgb 12.3 Hct 38.1 Plt Count 328 ESR 95 H Sodium 141 Potassium 4.3 Chloride 106 Carbon Dioxide 26 BUN 23 H Creatinine 1.48 H Estimated GFR 35 Uric Acid 7.1 H Calcium 9.9 Total Bilirubin 0.3 AST 25 ALT 11 Alkaline Phosphatase 99 C-Reactive Protein 2.18 H Total Protein 9.0 H Laboratory Tests 01/06/24 08/30/24 14:45 15:46 Hepatitis A IgM Ab Nonreactive Hep Bs Antigen Negative Hep Bs Antibody REACTIVE Hep B Core Total Ab Nonreactive Hepatitis C Ab (EIA) Nonreactive TB Test (T-Spot) Com Negative Pending Assessment & Plan Assessment & Plan (1) Seropositive rheumatoid arthritis: Comment: ++RF +++CCP Not a candidate for methotrexate due to kidney function Arava: Prior to 04/2018 to December 2021. ineffective - Humira: 01/2018 - 12/2023 - Orencia 12/2023. PA denied - Enbrel 12/2023 - Code(s): M05.9 - Rheumatoid arthritis with rheumatoid factor, unspecified Category: Medical Plan: #Seropositive RA Patient is a 73-year-old female who is here today for follow up of her seropositive rheumatoid arthritis. Patient doing better on Enbrel 50 mg sc weekly. However still has some synovitis. We will add sulfasalazine to her regimen Plan - Enbrel 50mg SC weekly - Sulfasalazine 1000mg bid - RTC 4 months - Labs before visit: CBC, CMP, ESR, CRP (2) Gout: Code(s): M10.9 - Gout, unspecified Category: Medical Qualifiers: Chronicity: unspecified Gout etiology: idiopathic Gout site: multiple sites Qualified Code(s): M10.09 - Idiopathic gout, multiple sites Plan: #Non crystal proven non tophaceous got Patient with history of gout based on chart. On allopurinol 100mg UA not at goal We are going to try to control her RA a little better first We will discuss increasing allopurinol at the next visit (3) Long-term use of immunosuppressant medication: Code(s): Z79.60 - intermediate (current) use of unspecified immunomodulators and immunosuppressants Category: Medical Plan: #Long-term Use of TNF Inhibitors: Enbrel Discussed with the patient the benefits and risks of TNF inhibitors for the management of the rheumatic condition Benefits include reduce pain, maintenance of remission and reduction of flares as well as ?progression of the disease Risks include injection sites/infusion reactions, serious infections (such as bacterial infections, opportunistic infections), malignancy, delaminating syndromes, autoimmune phenomena, CHF exacerbations, palmar plantar psoriasis and cytopenias Recommended rotating injection sites, and holding medication during and for up to 1 week after resolution of a febrile illness or open skin wound (4) On allopurinol therapy: Code(s): Z79.899 - Other stable hand (current) drug therapy Category: Medical Plan: #Long-term Current Use of Allopurinol Risks and benefits of allopurinol discussed with patient Benefits include decreased gout flares, remission of gout and reduction of tophi Risks include allopurinol hypersensitivity syndrome which is a severe cutaneous adverse reaction associated with allopurinol use particularly in patients who are HLA B*5801 positive, increased transaminases, GI upset including diarrhea, nausea and vomiting, and other dermatologic manifestations. Plan I spent 37 minutes reviewing the record and labs, taking a history, examining the patient, discussing the treatment plan and documenting in the medical record Medications: New sulfasalazine give with food (meal/snack) 1 g (2 x 500 mg) PO DAILY 90 days 180 tabs 1RF M05.9 - Rheumatoid arthritis with rheumatoid factor, unspecified Coding Level of Care Code Est Pt Level 4 (85054) Complex EM visit Add On G2211 Diagnoses Seropositive rheumatoid arthritis M05.9 Idiopathic gout of multiple sites, unspecified chronicity M10.09 Chronicity: unspecified Gout etiology: idiopathic Gout site: multiple sites Long-term use of immunosuppressant medication Z79.60 On allopurinol therapy Z79.899
--- OUTSIDE RECORDS SUMMARY | 2024-08-30 15:54 | XMS_ITS | Encounter Summary ---
Author Organization [facility] Address [address] [place] [address] Phone Care Team Providers Care Mesh Man Name Role Phone Name, Wallace HUNTER Primary Care Provider [phone] Encounter Details Date Type Department Care Team (Late st Contact Info) Description 05/04/2024 Documentation Only [facility] [place], [address] [place] [address] Citlaly Burnham [address] [place] [address] Social History Tobacco Use Types [...] on filedocumented in this encounter Care Teams Mesh Man Relationship Specialty Start Date End Date Name, MD Wallace [address] [place] [address] PCP - General Internal Medicine 06/25/23 documented as of this encounter
--- OUTSIDE RECORDS SUMMARY | 2024-08-30 15:54 | XMS_ITS | Encounter Summary ---
Author Organization [facility] Address [address] [place] [address] Phone Care Team Providers Care Strapper And Buffer Name Role Phone Name, Wallace HUNTER Primary Care Provider [phone] Reason for Visit * Reason Comments Med Refill Encounter Details Date Type Department Care Team (Late st Contact Info) Description 10/26/2022 Refill [facility] [place], [address] [place] [place] [address] Joaquín Vaughan MD [address] [facility] [place] [address] Social History Tobacco Use Types [...] on filedocumented in this encounter Care Teams Strapper And Buffer Relationship Specialty Start Date End Date Name, MD Wallace [address] [place] [address] PCP - General Internal Medicine 06/25/23 documented as of this encounter
--- OUTSIDE RECORDS SUMMARY | 2024-08-30 15:54 | XMS_ITS | Encounter Summary ---
Author Organization [facility] Address [address] [place] [address] Phone Care Team Providers Care Middle School Combination Teacher Name Role Phone Name, Wallace HUNTER Primary Care Provider [phone] Encounter Details Date Type Department Care Team (Late st Contact Info) Description 05/18/2024 Documentation Only [facility] [place], [address] [place] [address] Citlaly Burnham [address] [place] [address] Social History Tobacco Use Types [...] on filedocumented in this encounter Care Teams Middle School Combination Teacher Relationship Specialty Start Date End Date Name, MD Wallace [address] [place] [address] PCP - General Internal Medicine 06/25/23 documented as of this encounter
--- OUTSIDE RECORDS SUMMARY | 2024-08-30 15:54 | XMS_ITS | Encounter Summary ---
Author Organization [facility] Address [address] [place] [address] Phone Care Team Providers Care Masonry Contractor Administrator Name Role Phone Name, Wallace HUNTER Primary Care Provider [phone] Reason for Visit * Reason Comments Med Refill Encounter Details Date Type Department Care Team (Late st Contact Info) Description 10/30/2022 Refill [facility] [place], [address] [place] [address] Joaquín Vaughan MD [address] [facility] [place] [address] Social History Tobacco Use Types [...] on filedocumented in this encounter Care Teams Masonry Contractor Administrator Relationship Specialty Start Date End Date Name, MD Wallace [address] [place] [address] PCP - General Internal Medicine 06/25/23 documented as of this encounter
--- OUTSIDE RECORDS SUMMARY | 2024-08-30 15:54 | XMS_ITS | Encounter Summary ---
Author Organization [facility] Address [address] [place] [address] Phone Care Team Providers Care Plant General Manager Name Role Phone Name, Wallace HUNTER Primary Care Provider [phone] Reason for Visit * Reason Comments Med Refill Encounter Details Date Type Department Care Team (Late st Contact Info) Description 12/13/2023 Refill [facility] [place], [address] [place] [address] Joaquín Vaughan MD [address] [facility] [place] [address] Social History Tobacco Use Types [...] on filedocumented in this encounter Care Teams Plant General Manager Relationship Specialty Start Date End Date Name, MD Wallace [address] [place] [address] PCP - General Internal Medicine 06/25/23 documented as of this encounter
--- OUTSIDE RECORDS SUMMARY | 2024-08-30 15:54 | XMS_ITS | Encounter Summary ---
Author Organization [facility] Address [address] [place] [address] Phone Care Team Providers Care Cylinder Handler Name Role Phone Name, Wallace HUNTER Primary Care Provider [phone] Encounter Details Date Type Department Care Team (Late st Contact Info) Description 05/04/2024 Documentation Only [facility] [place], [address] [place] [address] Citlaly Burnham [address] [place] [address] Social History Tobacco Use Types [...] on filedocumented in this encounter Care Teams Cylinder Handler Relationship Specialty Start Date End Date Name, MD Wallace [address] [place] [address] PCP - General Internal Medicine 06/25/23 documented as of this encounter
--- OUTSIDE RECORDS SUMMARY | 2024-08-30 15:54 | XMS_ITS | Encounter Summary ---
Author Organization [facility] Address [address] [place] [address] Phone Care Team Providers Care Anchorman Name Role Phone Name, Wallace HUNTER Primary Care Provider Reason for Visit * Reason Comments Med Refill Encounter Details Date Type Department Care Team (Late st Contact Info) Description 12/19/2023 Refill [facility] [place], [address] [place] [address] Joaquín Vaughan MD [address] [facility] [place] [address] Social History Tobacco Use Types [...] on filedocumented in this encounter Care Teams Anchorman Relationship Specialty Start Date End Date Name, MD Wallace [address] [place] [address] PCP - General Internal Medicine 06/25/23 documented as of this encounter
--- OUTSIDE RECORDS SUMMARY | 2024-08-30 15:54 | XMS_ITS | Encounter Summary ---
Author Organization [facility] Address [address] [place] [address] Phone Care Team Providers Care Squaring Machine Operator Name Role Phone Name, Wallace HUNTER Primary Care Provider [phone] Reason for Visit * Reason Comments Med Refill Encounter Details Date Type Department Care Team (Late st Contact Info) Description 10/31/2022 Refill [facility] [place], [address] [place] [address] Joaquín Vaughan MD [address] [facility] [place] [address] Social History Tobacco Use Types [...] on filedocumented in this encounter Care Teams Squaring Machine Operator Relationship Specialty Start Date End Date Name, MD Wallace [address] [place] [address] PCP - General Internal Medicine 06/25/23 documented as of this encounter
--- OUTSIDE RECORDS SUMMARY | 2024-08-30 15:55 | XMS_ITS | Encounter Summary ---
Author Organization [employer] Address [address] 7[address] [place] [address] Care Team Providers Care Stroboroma Operator Name Role Phone Name, Wallace HUNTER Primary Care Provider [phone] Ange Salamanca PharmD Unavailable [phone] Reason for Visit * Reason Onset Date Comments Appointment Request 07/12/2022 Encounter Details Date Type Department Care Team ([facility] st Contact Info) Description 07/12/[address] [facility] MEDICINE [address] [place], [place] [id number] Name, MD Wallace [address] [place] [address] Appointment Request Social History Tobacco Use Types [...] 11:30 and 1:30 as that is when INTERMODAL TRUCK DRIVER is with her and can bring her. Informed nothing until August with those specifications. They are willing to wait until August. Sent myself a reminder to ad d her to PCP's schedule once open. * Telephone Encounter - Luke Liam - 07/12/2022 12:18 PM EDT Tc from [facility] requesting to r/s appt on 05/08/2022 HDF ( [facility] 04/26/22-04/30/22 COVID-19 ENCEPHALOPATHY ) Please contact [facility] at [phone] documented in this encounter Plan of Treatment Not on file documented as of this encounter Visit Diagnoses Not on filedocumented in this encounter Care Teams Stroboroma Operator Relationship Specialty Start Date End Date Name, MD Wallace [address] [place] [address] PCP - General Family Medicine 01/27/19 Ange Salamanca PharmD [address] [place] [address] Pharmacist Internal Medicine 11/26/23 05/12/24 documented as of this encounter
--- OUTSIDE RECORDS SUMMARY | 2024-08-30 15:55 | XMS_ITS | Encounter Summary ---
Author Organization [employer] Address [address] [facility] 7t [place] [address] Care Team Providers Care Geological Engineer Name Role Phone Name, Wallace HUNTER Primary Care Provider [phone] Ange Salamanca PharmD Unavailable [phone] Encounter Details Date Type Department Care Team (Late st Contact Info) Description 05/29/2022 Orders Only [facility] MED & PEDS [address] [place] [address] Liliam Ortiz LPN Social History Tobacco Use [...] on filedocumented in this encounter Care Teams Geological Engineer Relationship Specialty Start Date End Date Name, MD Wallace [address] [place] [address] PCP - General Family Medicine 01/27/19 Ange Salamanca, PharmD [address] [place] [address] Pharmacist Internal Medicine 11/26/23 05/12/24 documented as of this encounter
--- OUTSIDE RECORDS SUMMARY | 2024-08-30 15:55 | XMS_ITS | Encounter Summary ---
Author Organization [employer] Address [address] [facility] [address]t [place] [address] Care Team Providers Care Materials Clerk Name Role Phone Name, Wallace HUNTER Primary Care Provider [phone] Ange Salamanca PharmD Unavailable [phone] Encounter Details Date Type Department Care Team (Late st Contact Info) Description 06/14/2022 Abstract [facility] MEDICINE [address] [place] [address] Name, MD Wallace [address] [place] [address] Social History Tobacco Use Types Packs/Day Years [...] on filedocumented in this encounter Care Teams Materials Clerk Relationship Specialty Start Date End Date Name, MD Wallace [address] [place] [address] PCP - General Family Medicine 01/27/19 Ange Salamanca, PharmD [address] [place] [address] Pharmacist Internal Medicine 11/26/23 05/12/24 documented as of this encounter
--- OUTSIDE RECORDS SUMMARY | 2024-08-30 15:56 | XMS_ITS | Encounter Summary ---
Author Organization [facility] Address [address] [place] [address] Phone Care Team Providers Care Laboratory Manager Name Role Phone Name, Wallace HUNTER Primary Care Provider [phone] Encounter Details Date Type Department Care Team (Late st Contact Info) Description 12/14/2021 Documentation Only [facility] [place], [address] [place] [address] Joaquín Vaughan MD [address] [place] [address] Social History Tobacco Use Types [...] on filedocumented in this encounter Care Teams Laboratory Manager Relationship Specialty Start Date End Date Name, MD Wallace [address] [place] [address] PCP - General Internal Medicine 06/25/23 documented as of this encounter
--- OUTSIDE RECORDS SUMMARY | 2024-08-30 15:56 | XMS_ITS | Encounter Summary ---
Author Organization [employer] [facility] Address [address] [place] [address] [address]t [place] [address] Care Team Providers Care Public Health Advisor Name Role Phone Name, Wallace HUNTER Primary Care Provider [phone] Ange Salamanca PharmD Unavailable [phone] Encounter Details Date Type Department Care [...] on filedocumented in this encounter Care Teams Public Health Advisor Relationship Specialty Start Date End Date Name, MD Wallace [address] [place] [address] PCP - General Family Medicine 01/27/19 Ange Salamanca, PharmD [address] [place], [place] [phone] Pharmacist Internal Medicine 11/26/23 05/12/24 documented as of this encounter
--- OUTSIDE RECORDS SUMMARY | 2024-08-30 15:56 | XMS_ITS | Encounter Summary ---
Author Organization [employer] Address [address] [place] [address] Care Team Providers Care Piercing Specialist Name Role Phone Name, Wallace HUNTER Primary Care Provider [phone] Ange Salamanca PharmD Unavailable [phone] Reason for Visit * Reason Comments Med Refill Encounter Details Date Type Department Care Team (Late st Contact Info) Description 05/05/2024 Refill [facility] MEDICINE [address] [place], [place] [phone] Name, MD Wallace [address] [place] [address] Rheumatoid arthritis involving multiple sites with positive rheumatoid factor ([facility]) Social History Tobacco Use Types Packs/Day Years [...] involving multiple sites with positive rheumatoid factor ([facility]) documented in this encounter Additional Health Concerns Assessment Noted Time PHQ-9 Depression Total Score: 8 08/20/19 23 1:10 PM EDT documented as of this encounter Care Teams Piercing Specialist Relationship Specialty Start Date End Date Name, MD Wallace [address] [place] [address] PCP - General Family Medicine 01/27/19 Ange Salamanca PharmD [address] [place] [address] Pharmacist Internal Medicine 11/26/23 05/12/24 documented as of this encounter
--- OUTSIDE RECORDS SUMMARY | 2024-08-30 15:56 | XMS_ITS | Encounter Summary ---
Author Organization [employer] Address [address] [place] [address] Care Team Providers Care Wiring Technician Name Role Phone Name, Wallace HUNTER Primary Care Provider [phone] Ange Salamanca PharmD Unavailable [phone] Reason for Visit * Reason Onset Date Comments Call Back Request 09/25/2023 Encounter Details Date Type Department Care Team ([facility] st Contact Info) Description 09/25/2023 Telephone [facility] MEDICINE [address] [place], [place] [phone] Name, MD Wallace [address] [place] [address] Call Back Request Social History Tobacco Use [...] 11:39 AM EDT T/C to pt. On [phone] for below message, No answer. LVM to call back on [phone]. * Telephone Encounter - Quintin Bill - 09/25/2023 1:15 PM EDT Tc from [facility] calling to request on behalf of the patient the following screenings . Mammogram Blood pressure Kidney Colonoscopy documented in this encounter Plan of Treatment Not on file documented as of this encounter Visit Diagnoses Not on filedocumented in this encounter Additional Health Concerns Assessment Noted Time PHQ-9 Depression Total Score: 8 08/20/19 23 1:10 PM EDT documented as of this encounter Care Teams Wiring Technician Relationship Specialty Start Date End Date Name, MD Wallace [address] [place], [place] [phone] PCP - General Family Medicine 01/27/19 Ange Salamanca PharmD [address] [place], [place] [phone] Pharmacist Internal Medicine 11/26/23 05/12/24 documented as of this encounter
--- OUTSIDE RECORDS SUMMARY | 2024-08-30 15:56 | XMS_ITS | Clinical Summary ---
Author Organization [facility] [place], Address [address] [place] [address] [place] [address] Phone Care Team Providers Care On Call Pharmacy Technician Name Role Phone Name, Wallace HUNTER Primary Care Provider [phone] Allergies Active Allergy Reactions Criticality Noted Date [...] age to complete this topic Insurance [address] [place], [place] [facility] Care Dual SNP ([id number]) [place] [id number] [address] [place] [address] [place] Care Teams On Call Pharmacy Technician Relationship Specialty Start Date End Date Name, MD Wallace [address] [place] [address] PCP - General Internal Medicine 06/25/23
--- OUTSIDE RECORDS SUMMARY | 2024-08-30 15:56 | XMS_ITS ---
Author Name Gretel Charles NP Address [address] [place] [address] Phone [phone] [facility] Care Team Providers Care Awnings Mechanic Name Role Phone Gretel Charles Unavailable [phone] Unavailable Unavailable [phone] Unavailable Unavailable Unavailable Name, Wallace Unavailable [phone] Reason for Referral Not Available Allergies, adverse [...] 2021-04-12 No Data Available OneTouch Delica Plus Mzyuog27I Miscellaneous TEST BLOOD SUGAR 1-4 TIMES DAILY [...] EVERYDAY AT NOON 2021 No Data Available DerbyJackpot Ultra 2 w/Device Kit USE DIRECTED No [...] 10 mg Tab TAKE 1 TABLET BY [facility] EVERY MORNING 2022-11-18 No Data Available Allergy [place] 24hr 55 MCG/AC T Aerosol Nasal 2 sprays intranasally daily in each nostril 2023-01-03 No Data Available Allergy [place] 24hr 55 MCG/AC T Aerosol Nasal 2 [...] Service Diagnosis/Co mplaint Medication List Documented (1159F) [facility] Medication List Documented (1159F) [facility] Medication List Documented (1159F) [facility] Medication List Documented (1159F) [facility] Medication List Documented (1159F) [facility] Medication List Documented (1159F) [facility]2022 Type 2 diabetes mellitus wit h diabetic polyneuropathyRheumatoid arthritis, unspecifiedImmunodeficiency due to conditions classified elsewhereType 2 diabetes mellitus with diabetic nephropathyEssential (primary) hypertensionHypothyroidism, unspecified Medication List Documented (1159F) [facility]2022 Medication List Documented (1159F) [facility] Medication List Documented (1159F) [facility] Estab. patient 30-39min; chronic exacerbation, 2 stable chronic or 1 acute illness add add modifier 95 for video, (do not use for phone, instead use 79603-32) [facility]2022 Type 2 diabetes mellitus wit h diabetic polyneuropathyRheumatoid arthritis, unspecifiedImmunodeficiency due to conditions classified elsewhereType 2 diabetes mellitus with diabetic nephropathyEssential (primary) hypertensionHypothyroidism, unspecified Estab. patient 30-39min; chronic exacerbation, 2 stable chronic or 1 acute illness add add modifier 95 for video, (do not use for phone, instead use 49321-47) [facility] 01/03/2023 Type 2 diabetes mellitus wit [...] (do not use for phone, instead use 32093-49) [facility]/2023 Estab. patient 30-39min; chronic exacerbation, 2 stable chronic or 1 acute illness add add modifier 95 for video, (do not use for phone, instead use 70621-47) [facility] 01/03/2023 Estab. patient 30-39min; chronic exacerbation, 2 stable chronic or 1 acute illness add add modifier 95 for video, (do not use for phone, instead use 82383-37) [facility] 01/03/2023 Estab. patient 30-39min; chronic exacerbation, 2 stable chronic or 1 acute illness add add modifier 95 for video, (do not use for phone, instead use 88020-74) [facility] 01/03/2023 Estab. patient 30-39min; chronic exacerbation, 2 stable chronic or 1 acute illness add add modifier 95 for video, (do not use for phone, instead use 45968-15) [facility] ([place] 01/03/2023 Estab. patient 30-39min; chronic exacerbation, 2 stable chronic or 1 acute illness add add modifier 95 for video, (do not use for phone, instead use 66372-46) [facility] 01/03/2023 Estab. patient 30-39min; chronic exacerbation, 2 stable chronic or 1 acute illness add add modifier 95 for video, (do not use for phone, instead use 88702-03) [facility] 01/03/2023 Estab. patient 30-39min; chronic exacerbation, 2 stable chronic or 1 acute illness add add modifier 95 for video, (do not use for phone, instead use 67943-24) [facility] 01/03/2023 Estab. patient 30-39min; chronic exacerbation, 2 stable chronic or 1 acute illness add add modifier 95 for video, (do not use for phone, instead use 02890-88) [facility] 01/03/2023 Vital Signs Date of Collection Vitals [...] le No Data Available No Data Available [id number] 2022-02-05 No Data Available No Data Available [...] (do not use for phone, instead use 75734-65) 65294 2022-02-12 No Data Available No Data Availa ble Estab. patient 30-39min; chronic exacerbation, 2 stable chronic or 1 acute illness add add modifier 95 for video, (do not use for phone, instead use 58631-35) 82085 2023-01-03 No Data Available No Data Availa [...] Falls in last 6 Months: Yes 2022-02-05 CLAIM AGENT: pending new pharmacy coordinator 2023-01-03 Mental Status Status Date Cognition Status: [...]
--- OUTSIDE RECORDS SUMMARY | 2024-08-30 15:56 | XMS_ITS | Encounter Summary ---
Author Organization [employer] Address [address] [facility] [address] [place] [address] Care Team Providers Care Windows Systems Architect Name Role Phone Name, Wallace HUNTER Primary Care Provider [phone] Ange Salamanca PharmD Unavailable [phone] Encounter Details Date Type Department Care Team (Late st Contact Info) Description 08/07/2022 Orders Only [facility] MED & PEDS [address] [place] [address] Liliam Ortiz LPN Social History Tobacco Use [...] on filedocumented in this encounter Care Teams Windows Systems Architect Relationship Specialty Start Date End Date Name, MD Wallace [address] [place] [address] PCP - General Family Medicine 01/27/19 Ange Salamanca, PharmD [address] [place] [address] Pharmacist Internal Medicine 11/26/23 05/12/24 documented as of this encounter
--- OUTSIDE RECORDS SUMMARY | 2024-08-30 15:56 | XMS_ITS | Encounter Summary ---
Author Organization [facility] Address [address] [place] [address] Phone Care Team Providers Care Cook Larder Name Role Phone Name, Wallace HUNTER Primary Care Provider [phone] Encounter Details Date Type Department Care Team (Late st Contact Info) Description 10/30/2021 Documentation Only [facility], [address] [place] [address] Joaquín Vaughan MD [address] [place] [address] Social History Tobacco Use Types [...] on filedocumented in this encounter Care Teams Cook Larder Relationship Specialty Start Date End Date Name, MD Wallace [address] [place] [address] PCP - General Internal Medicine 06/25/23 documented as of this encounter
--- OUTSIDE RECORDS SUMMARY | 2024-08-30 15:56 | XMS_ITS | Clinical Summary ---
Author Organization [facility] [employer] Address [address] [place] [address] Care Team Providers Care Transit Mechanic Name Role Phone Name, Wallace HUNTER Primary Care Provider Allergies Active Allergy Reactions Criticality Noted Date [...] 03/08/20 24 Active Lancets (OneTouch Delica Plus [id number]) [facility]LOOD SUGAR 1-4 TIMES PER DAY [...] complication, without long-term current use of insulin ([facility]) USE TO CHECK BLOOD SUGAR 1-4 TIMES [...] involving multiple sites with positive rheumatoid factor ([facility]) Take 1 tablet (50 mg) by mouth [...] Type Department Care Team Description 08/19/2024 Refill [facility] [address] [place] [address] Name, MD Wallace Type 2 diabetes mellitus with other specified complication, without long-term current use of insulin ([facility]) 08/10/2024 Refill [facility] [address] [place] [address] Name, MD Wallace Rheumatoid arthritis involving multiple sites with positive rheumatoid factor ([facility]/HCC) 08/10/2024 Refill [facility] [address] [place] [address] Abril Guajardo MD Cobalamin deficiency; Chronic low back pain, unspecified back pain laterality, unspecified whether sciatica present 07/29/2024 Telephone [facility] [address] [place] [phone] Wallace Anderson MD Durable Medical Equipment 07/28/2024 Refill [facility] [address] [place] [phone] Wallace Anderson MD Rheumatoid arthritis involving multiple sites with positive rheumatoid factor ([facility]/HCC) 07/27/2024 2:30 PM EDT Office Visit [facility] [address] [place] [phone] Wallace Anderson MD Type 2 diabetes mellitus with other specified complication, without long-term current use of insulin ([facility]) (Primary Dx); Rheumatoid arthritis involving multiple sites with positive rheumatoid factor ([facility]); Chronic low back pain, unspecified back pain laterality, unspecified whether sciatica present; Urinary incontinence, unspecified type 07/27/2024 Travel 07/26/2024 Refill [facility] [address] [place] [address] Wallace Anderson MD Edema leg; Rheumatoid arthritis involving multiple sites with positive rheumatoid factor ([facility]/HCC) 07/26/2024 Telephone [facility] [address] [place] [phone] Harjit Azul MA chart prep 07/09/2024 Refill [facility] [address] [place] [phone] Wallace Anderson MD Subacute cough 07/05/2024 Refill [facility] [address] [place] [address] Wallace Anderson MD Rheumatoid arthritis involving multiple sites with positive rheumatoid factor ([facility]/HCC) 07/04/2024 Refill [facility] [address] [place] [phone] Wallace Anderson MD 06/23/2024 Telephone [facility] [address] [place] [phone] Name, MD Wallace [employer] 06/17/2024 Refill [facility] [address] [place] [address] Name, MD Wallace Rheumatoid arthritis involving multiple sites with positive rheumatoid factor ([facility]) 06/16/2024 Refill [facility] [address] [place], [place] [phone] Name, MD Wallace Edema leg 06/13/2024 Refill [facility] [address] [place] [address] Name, MD Wallace from Last 3 Months [...] Result Component 6.2( 2:39 PM EDT) No Ange Salamanca, PharmD [...] complication, without long-term current use of insulin ([facility]) POCT GLUCOSE Routine 07/27/2024 2:38 PM EDT Type 2 diabetes mellitus with other specified complication, without long-term current use of insulin ([facility]) HEPATITIS PANEL, GENERAL Routine 01/06/2024 2:45 PM EDT ALBUMIN, RANDOM URINE W/CREATININE Routine 09/23/2023 1:37 PM EDT Type 2 diabetes mellitus with other specified complication, without long-term current use of insulin (CMS/HCC) Edema leg Stage 3 chronic kidney disease, unspecified whether stage 3a or 3b CKD ([facility]) Primary hypertension LIPID PANEL, STANDARD Routine 02/24/2023 2:03 PM EST Type 2 diabetes mellitus with other specified complication, without long-term current use of insulin ([facility]) PROPHYLAXIS - ADULT Routine 07/16/2021 1 2:00 [...] PM EDT) Hepatitis A IgM Nonreactive Nonreactive [facility] Comment:IgM antibodies to ANTUNEZ V not detected; does not exclude earlyacute or recovered HAV infection. ~Hepatitis B Surface Antibody NONREACTIVE Nonreactive [facility] Comment:Nonreactive: < 8.00 mIU/mL Hepatitis B Core Antibody Nonreactive Nonreactive [facility] Hepatitis C Antibody Nonreactive Nonreactive [facility] Comment:Antibodies to HCV no t detected; does not exclude early acuteHCV infection. Hepatitis B Surface Ag Negative Negative [facility] 01/06/2024 2:45 PM EDT 01/06/2024 2:57 PM EDT us Generic External Data Provider LAB BLOOD ORDERAB LES Final Result Performing Organization Address [facility] Co de Phone Number [facility] [address] [place] [phone] * (ABNORMAL) Albumin, Random Urine W/Creatinine (09/23/2023 1:37 PM EDT) Creatinine, Urine 90.74 mg/dL [facility] Microalbumin Urine 38.0 mg/L [facility] Microalbum Creatinine Ratio Ur 41.8(H) <30 ug/mg cr [facility] Comment:Albumin/Creatinine R atio Reference Ranges: Normal: < 30 ug/mg creatinine Microalbuminuria: 30 - 300 ug/mg creatinineClinical Albuminuria: > 300 ug/mg creatinine Urine (Urine, Random) 09/23/2023 1:37 PM EDT 09/23/2023 4:08 PM EDT Wallace Anderson MD LAB URINE ORDERABLES Final Resul t Performing Organization Address [facility] Co de Phone Number [facility] [address] [place] [phone] * (ABNORMAL) Lipid Panel, Standard (02/24/2023 2:03 PM EST) Triglycerides 250(H) <150 mg/dL [facility] Comment:Desirable Triglyceri de: less than 150 mg/dLBorderline High Triglyceride 150-199 mg/dLHigh Triglyceride: 200-499 mg/dLVery High Triglyceride: greater than or equal to 5OO mg/dL Cholesterol 138 <200 mg/dL [facility] Comment:Desirable Cholestero l: less than 200 mg/dLBorderline High Cholesterol: 200-239 mg/dLHigh Cholesterol: greater than 239 mg/dL LDL Cholesterol Calculated 59 <100 mg/dL [facility] Comment:Desirable LDL: less than 100 mg/dLNear Optimal/Above Optimal LDL: 110- 129 mg/dLBorderline High LDL: 130-159 mg/dLHigh LDL: 160-189 mg/dLVery High LDL: greater than or equal to 190 mg/dL HDL Cholesterol 29(L) >40 mg/dL [facility] Comment:Desirable HDL: great er than 40 mg/dL Note: This HDL assay may give artificially low results in patients with liver disease. Blood Venous blood specimen / Unknown 02/24/2023 2:03 PM EST 02/24/2023 3:57 PM EST us Wallace Anderson MD LAB BLOOD ORDERABLES Final Resul t [facility] [address] [place] [phone] * DIGITAL BILATERAL SCREEN 1 (11/12/2017 [...] Most Recently Relevant to Health Maintenance Insurance [facility] [employer] (HMO D-SNP) [place] [id number] [address] [address] [place] [phone] Care Teams Transit Mechanic Relationship Specialty Start Date End Date Name, MD Wallace [address] [place] [address] PCP - General Family Medicine 01/27/19
--- OUTSIDE RECORDS SUMMARY | 2024-08-30 15:56 | XMS_ITS | Encounter Summary ---
Author Organization [employer] Address [address] [place] [address] Care Team Providers Care Internal Medicine Hospitalist Name Role Phone Name, Wallace HUNTER Primary Care Provider [phone] Ange Salamanca PharmD Unavailable [phone] Encounter Details Date Type Department Care Team ([facility] st Contact Info) Description 04/10/2022 Orders Only [facility] [address] [place], [place] [phone] Carol Rock LPN Social History Tobacco Use [...] HIGH SENSITIVITY 47.0(H) <3.5 - 17.0 ng/L [facility] Comment:The Liz Sl[employer] Ambassador high sensitivity Troponin-I resultsshould be used in conjunction with other diagnosticinformation such as ECG, clinical observations andinformation, and patient symptoms to aid in the diagnosis ofMI. 04/26/2022 9:04 PM EST 04/26/2022 9:06 PM EST us [facility] External Provider LAB BLO OD ORDERABLES Final Result [facility] [address] [place] [address] [phone] * (ABNORMAL) Basic Metabolic Panel (04/26/2022 9:04 PM EST) Sodium 144 135 - 145 mmol/L [facility] Potassium 4.5 3.3 - 5.1 mmol/L [facility] Chloride 113(H) 96 - 108 mmol/L [facility] Carbon Dioxide 19(L) 22 - 29 mmol/L [facility] Anion Gap 17 12 - 20 [facility] Urea Nitrogen (BUN) 38(H) 9 - 16 mg/dL [facility] Creatinine, Serum 2.34(H) 0.5 - 1.4 mg/dL [facility] Creatinine Clr Calc Pharmacy 19.7 [facility] Comment:Provided height and weight: 152.4 cm,71.9 kg.eGFR (calculated from the MDRD study equation) and eCrCl(calculated from the Cockcroft-Gault equation) are based ondifferent parameters and may not yield comparable results.If eCrCl result is absurd, please check patient'sheight/weight. Estimated Glomerular Filt Rate 21 [facility] Comment:NOTE: For -Am erican individuals, multiply the result by 1.210.Chronic Kidney Disease: Estimated GFR < 60 mL/min/1.64q2Ysavpu Kidney Disease: Estimated GFR < 15 mL/min/1.73m2 Glucose 133(H) 60 - 115 mg/dL [facility] Calcium 8.6 8.4 - 10.2 mg/dL [facility] 04/26/2022 9:04 PM EST 04/26/2022 9:06 PM EST [facility] External Provider LAB BLO OD ORDERABLES Final Result Performing Organization Address [facility]/ZIP Co de Phone Number [facility] [address] [place] [address] [phone] * Ammonia, Plasma (04/26/2022 5:46 PM EST) Ammonia (P) 24 13 - 55 umol/L [facility] 04/26/2022 5:46 PM EST 04/26/2022 5:48 PM EST [facility] External Provider LAB BLO OD ORDERABLES Final Result Performing Organization Address [facility] Co de Phone Number [facility] [address] [place] [address] [phone] * Drug Monitoring, Panel 1, Screen, Urine (04/26/2022 5:23 PM EST) Opiate Screen Urine Not Detected Not Detect [facility] Comment:Opiate cut-off is 30 0 ng/mL.Positive results are unconfirmed and should not be used fornon-medical purposes. Barbiturates, Urine Not Detected Not Detect [facility] Comment:Barbiturate cut-off is 200 ng/mL.Positive results are unconfirmed and should not be used fornon-medical purposes. Phencyclidine Screen Urine Not Detected Not Detect [facility] Comment:Phencyclidine cut-of f is 25 ng/mL.Positive results are unconfirmed and should not be used fornon-medical purposes. Amphetamine Screen Urine Not Detected Not Detect [facility] Comment:Amphetamine cut-off is 1000 ng/mL.Positive results are unconfirmed and should not be used fornon-medical purposes. Benzodiazepines Screen Urine Not Detected Not Detect [facility] Comment:Benzodiazepine cut-o ff is 200 ng/mL.Positive results are unconfirmed and should not be used fornon-medical purposes. Cocaine Screen Urine Not Detected Not Detect [facility] Comment:Cocaine cut-off is 3 00 ng/mL.Positive results are unconfirmed and should not be used fornon-medical purposes. Cannabinoid Screen Urine Not Detected Not Detect [facility] Comment:Cannabinoid cut-off is 50 ng/mL.Positive results are unconfirmed and should not be used fornon-medical purposes. FENTANYL URINE Not Detected Not Detect [facility] Comment:Fentanyl cut-off is 1 ng/mL.Positive results are unconfirmed and should not be used fornon-medical purposes. 04/26/2022 5:23 PM EST 04/26/2022 5:33 PM EST [facility] External Provider LAB URI NE ORDERABLES Final Result [facility] [address] [place] [address] [phone] * (ABNORMAL) Urinalysis, Complete, with Reflex to Culture (04/26/2022 5:23 PM EST) Color Urine Yellow [facility] Appearance Urine Clear [facility] PH 5.5 5.0 - 9.0 [facility] Glucose Urine UA Negative Negative mg/dL [facility] Urine Blood Negative Negative [facility] Specific Declo - Urine 1.020 1.005 - 1.025 [facility] Urine Protein 100 (2+)(A) Neg-Trace mg/dL [facility] Urine Ketones 15 Negative mg/dL [facility] Nitrite Urine Negative Negative [facility] Leukocyte Esterase Urine Negative Negative [facility] RBC Urine 0-2 0 - 2 /HPF [facility] Urine WBC 0-5 0 - 5 /HPF [facility] Urine Squamous Epithelial Cell 0-2 0 - 2 /HPF [facility] Urine Bacteria None Seen None Seen [facility] Hyaline Casts, Urine 11-20 0 - 2 /LPF [facility] 04/26/2022 5:23 PM EST 04/26/2022 5:33 PM EST Narrative [facility] - 04/26/2022 6:03 PM EST [id number], [place] [facility] External Provider LAB URI NE ORDERABLES Final Result Performing Organization Address [facility] Co de Phone Number [facility] [address] [place] [address] [phone] * TSH W/Reflex to FT4 (04/26/2022 5:05 PM EST) TSH reflex Free T4 0.42 0.32 - 4.0 uIU/mL [facility] 04/26/2022 5:05 PM EST 04/26/2022 5:25 PM EST [facility] External Provider LAB BLO OD ORDERABLES Final Result Performing Organization Address [facility] Phone Number [facility] [address] [place] [address] [phone] * D Dimer High Sensitivity (04/26/2022 5:05 PM EST) D Dimer High Sensitivity 303 NG/ML [facility] Comment:D-DIMER HS REFERENCE RANGENote: Our assay reports D-Dimer Units (D- DU).The cut-off value for venous thromboembolic (VTE) disease is230 ng/mL. This value has a very high negative predictivevalue when the patient has a low to moderate clinicalprobability of VTE.The upper limit of normal is 243 ng/mL. 04/26/2022 5:05 PM EST 04/26/2022 5:25 PM EST [facility] External Provider LAB BLO OD ORDERABLES Final Result Performing Organization Address [facility] Co de Phone Number [facility] [address] [place] [address] [phone] * Acetaminophen level (04/26/2022 5:05 PM EST) Acetaminophen LAB <17 <30 mcg/mL [facility] 04/26/2022 5:05 PM EST 04/26/2022 5:33 PM EST [facility] External Provider LAB BLO OD ORDERABLES Final Result Performing Organization Address City/[facility] Co de Phone Number [facility] [address] [place] [address] [phone] * (ABNORMAL) Salicylate (04/26/2022 5:05 PM EST) Salicylate <5.0(L) 15 - 30 mg/dL [facility] 04/26/2022 5:05 PM EST 04/26/2022 5:33 PM EST [facility] External Provider LAB BLO OD ORDERABLES Final Result Performing Organization Address [facility] Co de Phone Number [facility] [address] [place] [address] [phone] * Lipase (04/26/2022 5:05 PM EST) Lipase 12 8 - 78 U/L [facility] 04/26/2022 5:05 PM EST 04/26/2022 5:33 PM EST [facility] External Provider LAB BLO OD ORDERABLES Final Result Performing Organization Address [facility] de Phone Number [facility] [address] [place] [address] [phone] * (ABNORMAL) Magnesium (04/26/2022 5:05 PM EST) Magnesium 1.5(L) 1.6 - 2.6 mg/dL [facility] 04/26/2022 5:05 PM EST 04/26/2022 5:33 PM EST [facility] External Provider LAB BLO OD ORDERABLES Final Result [facility] [address] [place] [phone] [phone] * (ABNORMAL) Basic Metabolic Panel (04/26/2022 5:05 PM EST) Sodium 143 135 - 145 mmol/L [facility] Potassium 4.9 3.3 - 5.1 mmol/L [facility] Comment:Slight Hemolysis Chloride 111(H) 96 - 108 mmol/L [facility] Carbon Dioxide 17(L) 22 - 29 mmol/L [facility] Anion Gap 20 12 - 20 [facility] Urea Nitrogen (BUN) 41(H) 9 - 16 mg/dL [facility] Creatinine, Serum 2.56(H) 0.5 - 1.4 mg/dL [facility] Creatinine Clr Calc Pharmacy 18.0 [facility] Comment:Provided height and weight: 152.4 cm,71.9 kg.eGFR (calculated from the MDRD study equation) and eCrCl(calculated from the Cockcroft-Gault equation) are based ondifferent parameters and may not yield comparable results.If eCrCl result is absurd, please check patient'sheight/weight. Estimated Glomerular Filt Rate 19 [facility] Comment:NOTE: For -Am erican individuals, multiply the result by 1.210.Chronic Kidney Disease: Estimated GFR < 60 mL/min/1.41g9Lbxcam Kidney Disease: Estimated GFR < 15 mL/min/1.73m2 Glucose 156(H) 60 - 115 mg/dL [facility] Calcium 8.8 8.4 - 10.2 mg/dL [facility] 04/26/2022 5:05 PM EST 04/26/2022 5:33 PM EST [facility] External Provider LAB BLO OD ORDERABLES Final Result Performing Organization Address [facility] Co de Phone Number [facility] [address] [place] [address] [phone] * Hepatic Function Panel (04/26/2022 5:05 PM EST) Bilirubin, Total 0.2 0.0 - 1.0 mg/dL [facility] Bilirubin, Direct <0.2 0.0 - 0.5 mg/dL [facility] Comment:Slight Hemolysis Aspartate Amino Transferase 20 5 - 31 U/L [facility] Comment:Slight Hemolysis Alanine Aminotransferase 14 0 - 31 U/L [facility] Total Protein 7.3 6.5 - 8.0 g/dL [facility] Albumin Level 3.8 3.5 - 5.0 g/dL [facility] Alkaline Phosphatase 84 39 - 117 U/L [facility] 04/26/2022 5:05 PM EST 04/26/2022 5:33 PM EST [facility] External Provider LAB BLO OD ORDERABLES Final Result Performing Organization Address [facility] de Phone Number [facility] [address] [place] [address] [phone] * B Type Natriuretic Peptide (BNP) (04/26/2022 5:05 PM EST) B Type Natriuretic Peptide 84 <100 pg/mL [facility] Comment:For those patients w ho are being treated with Natrecor(nesiritide, recombinant BNP), BNP testing should beperformed at least two hours post treatment in order toensure that only endogenous levels of BNP are detected. 04/26/2022 5:05 PM EST 04/26/2022 5:25 PM EST [facility] External Provider LAB BLO OD ORDERABLES Final Result Performing Organization Address [facility] Co de Phone Number [facility] [address] [place] [phone] * (ABNORMAL) COVID-19 ID NOW (LIZ) (04/26/2022 5:05 PM EST) Pathologist [facility] IDNOW SERIAL# [id number] [facility] COVID-19 TEST Positive (A) Negative [facility] COVID-19 NOTE See Note [facility] Comment: Results are for the identification of SARS-CoV2 RNA. TheSARS-CoV2 RNA is generally detectable in respiratory samplesduring the acute phase of infection. Positive results areindicative of the presence of SARS-CoV-2 RNA; clinicalcorrelation with patient history and other diagnosticinformation is necessary to determine patient infectionstatus. Positive results do not rule out bacterial infectionor co- infection with other viruses.Testing facilities within the [facility] and [facility] are required to report all positive results [...] PM EST 04/26/2022 5:33 PM EST us [facility] Exter nal Provider LAB MOLECULAR DIAGNOSTICS ORDERABLES Final Result [facility] [address] [place] [address] [phone] * (ABNORMAL) HIGH SENSITIVITY TROPONIN I (04/26/2022 5:05 PM EST) [facility] TROPONIN I HIGH SENSITIVITY 33.3(H) <3.5 - 17.0 ng/L [facility] Comment:The Liz high sens itivity Troponin-I results should beused in conjunction with other diagnostic information suchas ECG, clinical observations and information, and patientsymptoms to aid in the diagnosis of PA. 04/26/2022 5:05 PM EST 04/26/2022 5:25 PM EST [facility] External Provider LAB BLO OD ORDERABLES Final Result Performing Organization Address [facility] Co de Phone Number [facility] [address] [place] [address] [phone] * Influenza A B2 ID NOW (Liz) (04/26/2022 5:05 PM EST) IDNOW SERIAL# [id number] [facility] Influenza A Negative Negative [facility] Influenza B2 Negative Negative [facility] Influenza A B2 Note See Note [facility] Comment:The Liz ID NOW In [...] 5:05 PM EST 04/26/2022 5:33 PM EST [facility] Exter nal Provider LAB MICROBIOLOGY - GENERAL ORDERABLES Final Result Performing Organization Address [facility] Co de Phone Number [facility] [address] [place] [address] [phone] * Ethanol (04/26/2022 5:05 PM EST) ETHANOL (MG/DL) IN SER/PLAS <10 mg/dL [facility] 04/26/2022 5:05 PM EST 04/26/2022 5:25 PM EST [facility] External Provider LAB BLO OD ORDERABLES Final Result Performing Organization Address [facility] Co de Phone Number [facility] [address] [place] [address] [phone] * Prothrombin Time-INR (04/26/2022 5:05 PM EST) Prothrombin Time 12.2 10.0 - 13.1 SEC [facility] INTERNATIONAL NORM RATIO 1.1 0.9 - 1.1 [facility] Comment:INTERNATIONAL NORMAL IZED RATIO (INR) [...] 5:05 PM EST 04/26/2022 5:25 PM EST [facility] External Provider LAB BLO OD ORDERABLES Final Result Performing Organization Address [facility] Co de Phone Number [facility] [address] [place] [address] [phone] * Lactic Acid (04/26/2022 5:05 PM EST) Lactic Acid 1.3 0.5 - 2.0 mmol/L [facility] 04/26/2022 5:05 PM EST 04/26/2022 5:25 PM EST [facility] External Provider LAB BLO OD ORDERABLES Final Result Performing Organization Address City/[facility]/ZIP Co de Phone Number [facility] [address] [place] [address] [phone] * (ABNORMAL) CBC auto differential (04/26/2022 5:05 PM EST) White Blood Count 10.2 4.8 - 10.8 X10*3/uL [facility] Red Blood Count 3.78(L) 4.20 - 5.50 X10*6/uL [facility] Hemoglobin 12.0 12.0 - 16.0 g/dl [facility] Hematocrit 36.2(L) 37.0 - 47.0 % [facility] Mean Corpuscular Volume 95.8 80.0 - 98.0 fL [facility] Mean Corpuscular Hemoglobin 31.7 27.0 - 33.0 pg [facility] Mean Corpuscular HGB Conc 33.1 31.0 - 35.0 g/dl [facility] Red Cell Distribution Width 15.5 11.0 - 16.0 % [facility] Platelet Count 242 160 - 400 X10*3/uL [facility] Mean Platelet Volume 11.5 9.4 - 12.3 fL [facility] Neutrophils Percent Auto 71.2 45 - 73 % [facility] Imm Gran Pct Auto 0.9(H) 0.0 - 0.4 % [facility] Lymphocytes Percent Auto 15.2(L) 20 - 40 % [facility] Monocytes Percent Auto 12.5(H) 2 - 11 % [facility] Eosinophils Percent Auto 0.0 0 - 4 % [facility] Basophils Percent Auto 0.2 0 - 2 % [facility] NRBC Pct Auto 0.0 0.0 - 0.2 /100WBC [facility] Neutrophils Absolute Auto 7.2 2.0 - 8.3 x10*3/uL [facility] Imm Gran Abs Auto 0.09(H) 0.00 - 0.03 X10*3/uL [facility] Lymphocytes Absolute Auto 1.6 1.2 - 4.9 X10*3/uL [facility] Monocytes Absolute Auto 1.3(H) 0.1 - 1.2 X10*3/uL [facility] Eosinophils Absolute Auto 0.0 0.0 - 0.4 X10*3/uL [facility] Basophils Absolute Auto 0.0 0.0 - 0.2 X10*3/uL [facility] NRBC Abs Auto 0.000 0.0 - 0.012 X10*3/uL [facility] 04/26/2022 5:05 PM EST 04/26/2022 5:34 PM EST us [facility] External Provider LAB BLO OD ORDERABLES Final Result [facility] [address] [place] [phone] documented in this encounter Visit Diagnoses Not on filedocumented in this encounter Care Teams Internal Medicine Hospitalist Relationship Specialty Start Date End Date Name, MD Wallace [address] [place] [address] PCP - General Family Medicine 01/27/19 Ange Salamanca PharmD [address] [place] [address] Pharmacist Internal Medicine 11/26/23 05/12/24 documented as of this encounter
--- OUTSIDE RECORDS SUMMARY | 2024-08-30 15:56 | XMS_ITS | Encounter Summary ---
Author Organization [employer] Address [address] [place] [address] Care Team Providers Care Time Cycle Operator Name Role Phone Name, Wallace HUNTER Primary Care Provider [phone] Ange Salamanca PharmD Unavailable [phone] Reason for Visit * Reason Onset Date Comments Durable Medical Equipment 05/15/2023 Encounter Details Date Type Department Care Team ([facility] st Contact Info) Description 05/15/2023 Telephone [facility] [address] [place], [place] [phone] Name, MD Wallace [address] [place] [address] Durable Medical Equipment Social History Tobacco Use [...] Packs a month Please fax over @ [phone] documented in this encounter Plan of Treatment Not on file documented as of this encounter Visit Diagnoses Not on filedocumented in this encounter Additional Health Concerns Assessment Noted Time PHQ-9 Depression Total Score: 8 08/20/19 23 1:10 PM EDT documented as of this encounter Care Teams Time Cycle Operator Relationship Specialty Start Date End Date Name, MD Wallace [address] [place] [address] PCP - General Family Medicine 01/27/19 Ange Salamanca PharmD [address] [place] [address] Pharmacist Internal Medicine 11/26/23 05/12/24 documented as of this encounter
--- OUTSIDE RECORDS SUMMARY | 2024-08-30 15:56 | XMS_ITS | Encounter Summary ---
Author Organization [employer] Address [address] [facility] [place] [address] Care Team Providers Care Thickener Operator Name Role Phone Name, Wallace HUNTER Primary Care Provider Ange Salamanca PharmD Unavailable [phone] Reason for Visit * Reason Comments Med Refill Encounter Details Date Type Department Care Team (Late st Contact Info) Description 03/17/2023 Refill [facility] [address] [place] [address] Mirna Quintanilla MD [address] [place], [place] [phone] Chronic low back pain, unspecified back pain [...] documented as of this encounter Care Teams Thickener Operator Relationship Specialty Start Date End Date Name, MD Wallace [address] [place] [address] PCP - General Family Medicine 01/27/19 Ange Salamanca PharmD [address] [place] [address] Pharmacist Internal Medicine 11/26/23 05/12/24 documented as of this encounter
--- OUTSIDE RECORDS SUMMARY | 2024-08-30 15:56 | XMS_ITS | Encounter Summary ---
Author Organization [employer] Address [address] [place] [address] Care Team Providers Care Section Maintainer Name Role Phone Name, Wallace HUNTER Primary Care Provider [phone] Ange Salamanca PharmD Unavailable [phone] Reason for Visit * Reason Comments Med Refill Encounter Details Date Type Department Care Team (Late st Contact Info) Description 05/22/2023 Refill [facility] [address] [place] [address] Mee Boone MD [address] [place] [address] Chronic low back pain, unspecified back pain [...] documented as of this encounter Care Teams Section Maintainer Relationship Specialty Start Date End Date Name, MD Wallace [address] [place] [address] PCP - General Family Medicine 01/27/19 Ange Salamanca PharmD [address] [place] [address] Pharmacist Internal Medicine 11/26/23 05/12/24 documented as of this encounter
--- OUTSIDE RECORDS SUMMARY | 2024-08-30 15:56 | XMS_ITS | Encounter Summary ---
Author Organization [employer] Address [address] [place] [address] Care Team Providers Care Gore Cutter Name Role Phone Name, Wallace HUNTER Primary Care Provider [phone] Ange Salamanac PharmD Unavailable [phone] Reason for Visit * Reason Comments Med Refill Encounter Details Date Type Department Care Team (Late st Contact Info) Description 10/07/2023 Refill [facility] [address] [place] [phone] Stephanie South, MAURICIO [address] [place], [place] [phone] Rheumatoid arthritis involving multiple sites with positive rheumatoid factor ([facility]) Social History Tobacco Use Types Packs/Day Years [...] involving multiple sites with positive rheumatoid factor ([facility]) documented in this encounter Additional Health Concerns Assessment Noted Time PHQ-9 Depression Total Score: 8 08/20/19 23 1:10 PM EDT documented as of this encounter Care Teams Gore Cutter Relationship Specialty Start Date End Date Name, MD Wallace [address] [place] [address] PCP - General Family Medicine 01/27/19 Ange Salamanca PharmD [address] [place] [address] Pharmacist Internal Medicine 11/26/23 05/12/24 documented as of this encounter
--- OUTSIDE RECORDS SUMMARY | 2024-08-30 15:56 | XMS_ITS | Encounter Summary ---
Author Organization [email or web address] Address [address] [place] [address] Care Team Providers Care Director Of Business Services Name Role Phone Name, Wallace HUNTER Primary Care Provider [phone] Ange Salamanca PharmD Unavailable [phone] Reason for Visit * Reason Comments Med Refill Encounter Details Date Type Department Care Team (Late st Contact Info) Description 03/25/2024 Refill [facility] [address] [place], [place] [phone] Name, MD Wallace [address] [place] [address] Edema leg Social History Tobacco Use Types [...] documented as of this encounter Care Teams Director Of Business Services Relationship Specialty Start Date End Date Name, MD Wallace [address] [place] [address] PCP - General Family Medicine 01/27/19 Ange Salamanca PharmD [address] [place] [address] Pharmacist Internal Medicine 11/26/23 05/12/24 documented as of this encounter
--- OUTSIDE RECORDS SUMMARY | 2024-08-30 15:56 | XMS_ITS | Encounter Summary ---
Author Organization [employer] Address [address] [facility] 7t [place] [address] Care Team Providers Care Surface Logging Systems Logger Name Role Phone Name, Wallace HUNTER Primary Care Provider Ange Salamanca PharmD Unavailable [phone] Reason for Visit * Reason Onset Date Comments stating 05/02/2022 Encounter Details Date Type Department Care Team ([facility] st Contact Info) Description 05/02/2022 Telephone [facility] MEDICINE [address] [place] [address] Name, MD Wallace [address] [place] [address] stating Social History Tobacco Use Types Packs/Day [...] on filedocumented in this encounter Care Teams Surface Logging Systems Logger Relationship Specialty Start Date End Date Name, MD Wallace [address] [place] [address] PCP - General Family Medicine 01/27/19 Ange Salamanca PharmD [address] [place] [address] Pharmacist Internal Medicine 11/26/23 05/12/24 documented as of this encounter
--- OUTSIDE RECORDS SUMMARY | 2024-08-30 15:56 | XMS_ITS | Encounter Summary ---
Author Organization [facility] Address [address] [place] [address] 7t [place] [address] Care Team Providers Care Cemetery Worker Name Role Phone Name, Wallace HUNTER Primary Care Provider [phone] Ange Salamanca PharmD Unavailable [phone] Encounter Details Date Type Department Care [...] on filedocumented in this encounter Care Teams Cemetery Worker Relationship Specialty Start Date End Date Name, MD Wallace [address] [place] [address] PCP - General Family Medicine 01/27/19 Ange Salamanca, PharmD [address] [place], [place] [phone] Pharmacist Internal Medicine 11/26/23 05/12/24 documented as of this encounter
--- OUTSIDE RECORDS SUMMARY | 2024-08-30 15:56 | XMS_ITS | Encounter Summary ---
Author Organization [employer] Address [address] [facility] 7t [place] [address] Care Team Providers Care Associate Merchant Name Role Phone Name, Wallace HUNTER Primary Care Provider [phone] Ange Salamanca PharmD Unavailable [phone] Encounter Details Date Type Department Care Team ([facility] st Contact Info) Description 07/01/2022 Orders Only [facility] MEDICINE [address] [place], [place] [phone] Carol Rock LPN Social History Tobacco Use [...] on filedocumented in this encounter Care Teams Associate Merchant Relationship Specialty Start Date End Date Name, MD Wallace [address] [place] [address] PCP - General Family Medicine 01/27/19 Ange Salamanca, PharmD [address] [place] [address] Pharmacist Internal Medicine 11/26/23 05/12/24 documented as of this encounter
--- OUTSIDE RECORDS SUMMARY | 2024-08-30 15:56 | XMS_ITS | Encounter Summary ---
Author Organization [employer] Address [address] [facility] [address] 7[address] [place] [address] Care Team Providers Care Business Account Specialist Name Role Phone Name, Wallace HUNTER Primary Care Provider [phone] Ange Salamanca PharmD Unavailable [phone] Reason for Visit * Reason Onset Date Comments Med Refill 02/04/2024 Encounter Details Date Type Department Care Team ([facility] st Contact Info) Description 02/04/[address] [facility] MEDICINE [address] [place], [place] [phone] Name, MD Wallace [address] [place] [address] Med Refill Social History Tobacco Use Types [...] Pen-injector Kit pen-injector To be sent to: [facility] documented in this encounter Plan of Treatment [...] documented as of this encounter Care Teams Business Account Specialist Relationship Specialty Start Date End Date Name, MD Wallace [address] [place] [address] PCP - General Family Medicine 01/27/19 Ange Salamanca, Pamela [address] [place] [address] Pharmacist Internal Medicine 11/26/23 05/12/24 documented as of this encounter
--- OUTSIDE RECORDS SUMMARY | 2024-08-30 15:56 | XMS_ITS | Encounter Summary ---
Author Organization [employer] Address [address] [facility] [address] 7[address] [place] [address] Care Team Providers Care Superior Court Judge Name Role Phone Name, Wallace HUNTER Primary Care Provider [phone] Reason for Visit * Reason Comments Med Refill Encounter Details Date Type Department Care Team (Late st Contact Info) Description 08/10/2024 Refill [facility] [address] [place], [place] [phone] Name, MD Wallace [address] [facility] [place], [place] [phone] Rheumatoid arthritis involving multiple sites with positive rheumatoid factor ([facility]) Social History Tobacco Use Types [...] involving multiple sites with positive rheumatoid factor ([facility]) documented in this encounter Additional Health Concerns Assessment Noted Time PHQ-9 Depression Total Score: 8 08/20/19 23 1:10 PM EDT documented as of this encounter Care Teams Superior Court Judge Relationship Specialty Start Date End Date Name, MD Wallace [address] [place] [address] PCP - General Family Medicine 01/27/19 documented as of this encounter
== END 2024-08-30 16:23 | disposition home or self-care (01) ==
LOC: HO.RHE 15:52
PROVIDERS: PCP Internal Medicine Geriatric Medicine; Visit Provider Student in an Organized Health Care Education/Training Program
DX: M05.79 Rheumatoid arthritis with rheumatoid factor of multiple sites without organ or systems involvement (principal); M10.09 Idiopathic gout, multiple sites; Z79.60 Long term (current) use of unspecified immunomodulators and immunosuppressants; Z79.899 Other long term (current) drug therapy
CPT/HCPCS: 99214; G2211

== ENCOUNTER 2024-11-02 11:19 | Outpatient (REF) | payer OTHER, SELFPAY ==
--- OUTSIDE RECORDS SUMMARY | 2024-11-02 12:41 | XMS_ITS | Encounter Summary ---
Author Organization [employer] Address [address] [place] [address] 7t [place] [address] Care Team Providers Care Shingle Shearing Machine Operator Name Role Phone Name, Wallace HUNTER Primary Care Provider [phone] Ange Salamanca PharmD Unavailable Encounter Details Date Type Department Care Team (Late st Contact Info) Description 05/29/2022 Orders Only [facility] MED & PEDS [address] [place] [address] Liliam Ortiz LPN Social History Tobacco Use Types Packs/Day Years Used Date Smoking Tobacco: Never Assessed Comments Unknown Sex and Gender Information Value Date Recorded Sex Assigned at Female 02/18/2022 10:18 AM EDT Legal Sex Female 10:18 AM EDT Gender Identity Female 02/18/2022 10:18 AM EDT Sexual Orientation Straight 02/18/2022 10 :18 AM EDT documented as of this encounter Plan of Treatment Upcoming Encounters Date Type Department Care Team (Late st Contact Info) Description 12/22/2024 3:30 PM EDT Office Visit [facility] MEDICINE [address] [place] [address] NameWallace MD [address] [place] [address] documented as of this encounter Visit Diagnoses Not on filedocumented in this encounter Care Teams Shingle Shearing Machine Operator Relationship Specialty Start Date End Date NameWallace MD [address] [place] [address] PCP - General Family Medicine 01/27/19 Ange Salamanca, SosaD [address] [place] [address] Pharmacist Internal Medicine 11/26/23 05/12/24 documented as of this encounter
--- OUTSIDE RECORDS SUMMARY | 2024-11-02 12:41 | XMS_ITS ---
Author Name Gretel Charles NP Address [address] [place] [address] Phone [phone] [facility] Care Team Providers Care Explosive Ordnance Disposal Technician Name Role Phone Gretel Charles Unavailable [phone] Unavailable Unavailable [phone] Unavailable Unavailable Unavailable Name, Wallace Unavailable [phone] Reason for Referral Not Available Allergies, adverse [...] 2021-04-12 No Data Available OneTouch Delica Plus [id number] Miscellaneous TEST BLOOD SUGAR 1-4 TIMES DAILY [...] EVERYDAY AT NOON 2021 No Data Available Catapult Ultra 2 w/Device Kit USE DIRECTED No [...] 10 mg Tab TAKE 1 TABLET BY [facility] EVERY MORNING 2022-11-18 No Data Available Allergy [place] 24hr 55 MCG/AC T Aerosol Nasal 2 sprays intranasally daily in each nostril 2023-01-03 No Data Available Allergy [place] 24hr 55 MCG/AC T Aerosol Nasal 2 sprays intranasally daily in each nostril 2023-01-03 No Data Available Problem List Problem Status Onset Date Resolved Date Synopsis Hypothyroidism Active 2022-02-05 N/A On levothy roxine. 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 Rheumatoid arthritisImmunodeficiency due to conditions classified elsewhere Active 2022-02-05 N/A On humira.Monitor for s/s of infections.Immunodef iciency due to: medication (humira)weakened immune system, encourage hand washing, avoid large crowds, stay up to date on vaccines (annual flu), monitor for and report early any s/s of infection Type 2 diabetes mellitus wit h diabetic polyneuropathy Active 2022-02-05 N/A DM: Davidraciel tianavalerie, Polyneuropathy: pregabalinoff the metformin due to worsening renal function and increased her Trulicity. No side effects to the higher dose of Trulicity and her blood sugar has been acceptable at home. She follows with renal and according to most recent note from them her creatinine is stable around 2. She does not have proteinuria.HGBA1C 7.1 (H) 3Advised to eat a healthy diet include emphasizing [...] Limit ETOH intake. If you smoke, quit smoking Osteoarthritis, multiple sites Active 2023-01-03 N/A unsteady gait, ambulates with walker and needs wheelchair for long distancesat risk for falls Fall prevention TIPS: Wear sensible shoes. Remove home hazards (Get rid of all rugs/mats in your home). Light up your living space (keep a flash light next to your bed for night time). Use assistive devices. Unsteady gait Active 2023-01-03 N/A unsteady ga it R26.81 d/t RA M06.9 and OA M15.9ambulates with walker and uses wheelchair for long distances at risk for falls Fall prevention TIPS: Wear sensible shoes. Remove home hazards (Get rid of all rugs/mats in your home). Light up your living space (keep a flash light next to your bed for night time). Use assistive devices. Type 2 DM with diabetic peripheral angiopathy without gangrene/PVD (peripheral vascular disease) Active 2023-01-03 N/A atorvastatin Adv ised to eat a healthy diet include emphasizing [...] ETOH intake. If you smoke, quit smoking. Encounters Encounters Type Facility Date of Service Diagnosis/Co mplaint Medication List Documented (1159F) [facility] Medication List Documented (1159F[place] [facility] Medication List Documented (1159F[place] [facility] [place] Medication List Documented (1159F[place] [facility] [place] Medication List Documented (1159F[place] [facility] [place] Medication List Documented (1159F[place] [facility] [place] Type 2 diabetes mellitus wit h diabetic polyneuropathyRheumatoid arthritis, unspecifiedImmunodeficiency due to conditions classified elsewhereType 2 diabetes mellitus with diabetic nephropathyEssential (primary) hypertensionHypothyroidism, unspecified Medication List Documented (1159F) [facility] Medication List Documented (1159F[place] [facility] [place] Medication List Documented (1159F[place] [facility] [place] Estab. patient 30-39min; chronic exacerbation, 2 stable chronic or 1 acute illness add add modifier 95 for video, (do not use for phone, instead use 43787-80) [facility]20[place] Type 2 diabetes mellitus wit h diabetic polyneuropathyRheumatoid arthritis, unspecifiedImmunodeficiency due to conditions classified elsewhereType 2 diabetes mellitus with diabetic nephropathyEssential (primary) hypertensionHypothyroidism, unspecified Estab. patient 30-39min; chronic exacerbation, 2 stable chronic or 1 acute illness add add modifier 95 for video, (do not use for phone, instead use 85917-11) [facility] Type 2 diabetes mellitus wit h [...] (do not use for phone, instead use 79841-76) [facility] Estab. patient 30-39min; chronic exacerbation, 2 stable chronic or 1 acute illness add add modifier 95 for video, (do not use for phone, instead use 28724-11) [facility] Estab. patient 30-39min; chronic exacerbation, 2 stable chronic or 1 acute illness add add modifier 95 for video, (do not use for phone, instead use 21120-33) [facility] Estab. patient 30-39min; chronic exacerbation, 2 stable chronic or 1 acute illness add add modifier 95 for video, (do not use for phone, instead use 43374-34) [facility] Estab. patient 30-39min; chronic exacerbation, 2 stable chronic or 1 acute illness add add modifier 95 for video, (do not use for phone, instead use 58268-20) [facility] Estab. patient 30-39min; chronic exacerbation, 2 stable chronic or 1 acute illness add add modifier 95 for video, (do not use for phone, instead use 78747-83) [facility] Estab. patient 30-39min; chronic exacerbation, 2 stable chronic or 1 acute illness add add modifier 95 for video, (do not use for phone, instead use 87343-75) [facility] Estab. patient 30-39min; chronic exacerbation, 2 stable chronic or 1 acute illness add add modifier 95 for video, (do not use for phone, instead use 02814-17) [facility] Estab. patient 30-39min; chronic exacerbation, 2 stable chronic or 1 acute illness add add modifier 95 for video, (do not use for phone, instead use 96321-09) [facility]/2023 Vital Signs Date of Collection Vitals [...] tive Time Current Smoking Status Never smoker 2024-10-19 5 Sex Female History of Procedures Procedures Service [...] le No Data Available No Data Available [id number] 2022-02-05 No Data Available No Data Available [...] (do not use for phone, instead use 85617-26) [id number] 2022-02-12 No Data Available No Data Availa ble Estab. patient 30-39min; chronic exacerbation, 2 stable chronic or 1 acute illness add add modifier 95 for video, (do not use for phone, instead use 35945-90) 15095 2023-01-03 No Data Available No Data Availa [...] Available Advance care planning discussed and documented advance care plan or surrogate decision-maker was [...] Falls in last 6 Months: Yes 2022-02-05 DRUG WORKER: pending new animal husbandry professor 2023-01-03 Mental Status Status Date Cognition Status: [...] modifier 95Advance care planning discussed and documented advance care plan or surrogate decision-maker was [...] She does not have proteinuria.HGBA1C 7.1 (H) 3Advised to eat a healthy diet include emphasizing [...]
--- OUTSIDE RECORDS SUMMARY | 2024-11-02 12:41 | XMS_ITS | Encounter Summary ---
Author Organization [facility] Address [address] [place] [address] Phone Care Team Providers Care Filter Worker Name Role Phone Name, Wallace HUNTER Primary Care Provider Encounter Details Date Type Department Care Team (Late st Contact Info) Description 05/18/2024 Documentation Only [facility], [address] [place] [address] Citlaly Burnham [address] [place] [address] Social History Tobacco Use Types [...] on filedocumented in this encounter Care Teams Filter Worker Relationship Specialty Start Date End Date Name, MD Wallace [address] [place] [address] PCP - General Internal Medicine 06/25/23 documented as of this encounter
[2024-11-02 14:19] LABS: Alanine Aminotransferase 21 U/L (0-31); Albumin Level 3.8 g/dL (3.5-5.0); Alkaline Phosphatase 104 U/L (39-117); Anion Gap 14 (12-20); Aspartate Amino Transferase 28 U/L (5-31); Blood Urea Nitrogen 33 mg/dL (9-16); Calcium 9.5 mg/dL (8.4-10.2); Carbon Dioxide 25 mmol/L (22-29); Chloride 107 mmol/L (96-108); Estimated Glomerular Filt Rate 30; Potassium 3.9 mmol/L (3.3-5.1); Sodium 142 mmol/L (135-145); Total Protein 8.4 g/dL (6.5-8.0)
== END 2024-11-02 11:20 | disposition home or self-care (01) ==
LOC: HO.HHCL 11:19
PROVIDERS: PCP Internal Medicine Geriatric Medicine; Visit Provider Internal Medicine Geriatric Medicine
DX: E11.69 Type 2 diabetes mellitus with other specified complication (principal); M05.79 Rheumatoid arthritis with rheumatoid factor of multiple sites without organ or systems involvement; M54.50 Low back pain, unspecified; G89.29 Other chronic pain; E11.65 Type 2 diabetes mellitus with hyperglycemia
CPT/HCPCS: 36415; 80053

== ENCOUNTER 2024-11-10 13:37 | Outpatient (REF) | payer OTHER, SELFPAY ==
--- OUTSIDE RECORDS SUMMARY | 2024-11-10 14:12 | XMS_ITS ---
Author Name Gretel Charles NP Address [address] [place] [address] Phone [phone] [facility] Care Team Providers Care Weave Room Supervisor Name Role Phone Gretel Charles Unavailable [phone] Unavailable Unavailable [phone] Unavailable Unavailable Unavailable Name, Wallace Unavailable [phone] Reason for Referral Not Available Allergies, adverse [...] 2021-04-12 No Data Available OneTouch Delica Plus [id number] Miscellaneous TEST BLOOD SUGAR 1-4 TIMES DAILY [...] EVERYDAY AT NOON 2021 No Data Available [employer] Medical Ultra 2 w/Device Kit USE DIRECTED No [...] 10 mg Tab TAKE 1 TABLET BY [facility] EVERY MORNING 2022-11-18 No Data Available Allergy [place] 24hr 55 MCG/AC T Aerosol Nasal 2 sprays intranasally daily in each nostril 2023-01-03 No Data Available Allergy [place] 24hr 55 MCG/AC T Aerosol Nasal 2 [...] Service Diagnosis/Co mplaint Medication List Documented (1159F) [facility] Medication List Documented (1159F) [facility] Medication List Documented (1159F) [facility] [place] Medication List Documented (1159F) [facility] [place] Medication List Documented (1159F) [facility] [place] Medication List Documented (1159F) [facility] [place] Type 2 diabetes mellitus wit h diabetic polyneuropathyRheumatoid arthritis, unspecifiedImmunodeficiency due to conditions classified elsewhereType 2 diabetes mellitus with diabetic nephropathyEssential (primary) hypertensionHypothyroidism, unspecified Medication List Documented (1159F) [facility] Medication List Documented (1159F) [facility] [place] Medication List Documented (1159F) [facility] [place] Estab. patient 30-39min; chronic exacerbation, 2 stable chronic or 1 acute illness add add modifier 95 for video, (do not use for phone, instead use 01729-16) [facility]2022 Type 2 diabetes mellitus wit h diabetic polyneuropathyRheumatoid arthritis, unspecifiedImmunodeficiency due to conditions classified elsewhereType 2 diabetes mellitus with diabetic nephropathyEssential (primary) hypertensionHypothyroidism, unspecified Estab. patient 30-39min; chronic exacerbation, 2 stable chronic or 1 acute illness add add modifier 95 for video, (do not use for phone, instead use 55640-40) [facility] ([place] 01/03/2023 Type 2 diabetes mellitus wit h [...] (do not use for phone, instead use 85245-85) [facility] Estab. patient 30-39min; chronic exacerbation, 2 stable chronic or 1 acute illness add add modifier 95 for video, (do not use for phone, instead use 64076-64) [facility] Estab. patient 30-39min; chronic exacerbation, 2 stable chronic or 1 acute illness add add modifier 95 for video, (do not use for phone, instead use 90474-28) [facility] Estab. patient 30-39min; chronic exacerbation, 2 stable chronic or 1 acute illness add add modifier 95 for video, (do not use for phone, instead use 56502-85) [facility] Estab. patient 30-39min; chronic exacerbation, 2 stable chronic or 1 acute illness add add modifier 95 for video, (do not use for phone, instead use 99011-54) [facility] Estab. patient 30-39min; chronic exacerbation, 2 stable chronic or 1 acute illness add add modifier 95 for video, (do not use for phone, instead use 95203-09) [facility]23 Estab. patient 30-39min; chronic exacerbation, 2 stable chronic or 1 acute illness add add modifier 95 for video, (do not use for phone, instead use 28106-73) [facility]2023 Estab. patient 30-39min; chronic exacerbation, 2 stable chronic or 1 acute illness add add modifier 95 for video, (do not use for phone, instead use 26728-69) [facility]2023 Estab. patient 30-39min; chronic exacerbation, 2 stable chronic or 1 acute illness add add modifier 95 for video, (do not use for phone, instead use 05611-54) [facility]2023 Vital Signs Date of Collection Vitals [...] tive Time Current Smoking Status Never smoker 2024-10-20 3 Sex Female History of Procedures Procedures Service [...] le No Data Available No Data Available [id number] 2022-02-05 No Data Available No Data Available [...] (do not use for phone, instead use 53654-25) 48548 2022-02-12 No Data Available No Data Availa ble Estab. patient 30-39min; chronic exacerbation, 2 stable chronic or 1 acute illness add add modifier 95 for video, (do not use for phone, instead use 98265-00) 40361 2023-01-03 No Data Available No Data Availa [...] Falls in last 6 Months: Yes 2022-02-05 INDUSTRIAL HYGIENIST: pending new microstrategy architect 2023-01-03 Mental Status Status Date Cognition Status: [...]
--- OUTSIDE RECORDS SUMMARY | 2024-11-10 14:13 | XMS_ITS | Clinical Summary ---
Author Organization [facility] Address [address] [place] [address] Phone Care Team Providers Care Web Press Operator Apprentice Name Role Phone Unknown, Unknown Primary Care Provider Andrea douglas Social History Tobacco Use Types Packs/Day Years Used Date Smoking Tobacco: Never Assessed Education Answer Date Recorded Are you interested in more education? Not on sophy e 08/16/2022 Are you concerned about learning? Not on file 08/16/2022 No 08/16/2022 No 08/16/2022 Digital Access Answer Date Recorded No 09/17/2022 No 09/17/2022 No 09/17/2022 Reliable internet access at home? Not on file 09/17/2022 Device with a working camera? Not on file Comments Unknown Sex and Gender Information Value Date Recorded Sex Assigned at Not on file Legal Sex Female 10:29 AM EDT Gender Identity Not on file Sexual Orientation Not on file Plan of Treatment Not on file Medical Devices Not on file Insurance [facility] MEDICARE REPLACEMENT MEDICARE REPLACEMENT MEDICARE REPLACEMENT Member Subscriber Plan / Payer (Ef fective 2017-Present) Name:Nereyda Bhatt Relation to Subscriber:Self Name:Nereyda Bhatt Payer ID:[id number] (NAIC) Group ID:Not on file Type:Medicare Address: [place] [id number] MEDICARE REPLACEMENT MEDICARE REPLACEMENT MEDICARE REPLACEMENT Member Subscriber Plan / Payer (Ef fective 2017-Present) Name:Nereyda Bhatt Relation to Subscriber:Self Name:Nereyda Bhatt Payer ID:[id number] (NAIC) Group ID:Not on file Type:Medicare Address: [place] [id number] MEDICARE REPLACEMENT MEDICARE REPLACEMENT MEDICARE REPLACEMENT Care Teams Web Press Operator Apprentice Relationship Specialty Start Date End Date Unknown, Unknown, PCP - General 01/04/19 Additional Source Comments The information contained in this document represents components of the legal health record. It is not the complete legal health record.[facility]
--- OUTSIDE RECORDS SUMMARY | 2024-11-10 14:13 | XMS_ITS | Encounter Summary ---
Author Organization [facility] Address [address] [place] [address] Phone Care Team Providers Care Network Solutions Architect Name Role Phone Name, Wallace HUNTER Primary Care Provider [phone] Encounter Details Date Type Department Care Team (Late st Contact Info) Description 05/18/2024 Documentation Only [facility], [address] [place] [address] Citlaly Burnham [address] [place] [address] Social History Tobacco Use Types [...] on filedocumented in this encounter Care Teams Network Solutions Architect Relationship Specialty Start Date End Date Name, MD Wallace [address] [place] [address] PCP - General Internal Medicine 06/25/23 documented as of this encounter
[2024-11-10 17:07] LABS: Microalbum/Creatinine Ratio Ur 149.7 ug/mg cr (<30)
== END 2024-11-10 13:38 | disposition home or self-care (01) ==
LOC: HO.HHCL 13:37
PROVIDERS: PCP Internal Medicine Geriatric Medicine; Visit Provider Internal Medicine Geriatric Medicine
DX: E11.69 Type 2 diabetes mellitus with other specified complication (principal); M05.79 Rheumatoid arthritis with rheumatoid factor of multiple sites without organ or systems involvement; M54.50 Low back pain, unspecified; G89.29 Other chronic pain
CPT/HCPCS: 82043; 82570

== ENCOUNTER 2024-12-23 14:13 | Outpatient (REF) | payer OTHER, SELFPAY ==
--- OUTSIDE RECORDS SUMMARY | 2024-12-22 15:30 | XMS_ITS | Encounter Summary ---
Author Organization [email or web address] Address [address] [place] [address] 7t [place] [address] Care Team Providers Care Exterior Interior Specialist Name Role Phone Wallace [place] MD Primary Care Provider [phone] Reason for Referral * Consultation (Routine) - Authorized Specialty Diagnoses / Procedures Referred By Contac t Referred To Contact Pulmonary Disease Diagnoses Subacute cough Wheezing PORTILLO (dyspnea on exertion) Wallace [place] MD [address] [place] [address] Phone: tel: fax: [facility] [place] [facility] [address] 1st Floor [place], [place] Phone: tel: fax: Referral ID Status Reason Start Date Expiration Date Visits Requested Visits Authorized [id number] Authorized Specialty Services Required 12/22/2024 12/22/2025 1 1 Reason for Visit * Reason Comments Follow-up Encounter Details Date Type Department Care Team (Late st Contact Info) Description 12/22/2024 3:30 PM EDT Office Visit [facility] MED[facility]INE [address] [place], [place] [phone] Wallace [place] MD [address] [place], [place] [id number] Type 2 diabetes mellitus with other specified complication, without long-term current use of insulin (CMS/HCC) (Primary Dx); Proteinuria due to type 2 diabetes mellitus (CMS/HCC) (CMS/HCC); Subacute cough; Wheezing; PORTILLO (dyspnea on exertion) Social History Tobacco Use Types Packs/Day Years [...] AM EDT documented as of this encounter Last Filed Vital Signs Vital Sign Reading Time Taken Comments Blood Pressure 146/92 12/22/2024 3:54 PM EDT Pulse 97 12/22/2024 3:54 PM EDT Temperature 36.2 C (97.1 F) 12/22/2024 3:54 PM EDT Respiratory Rate 14 12/22/2024 3:54 PM EDT Oxygen Saturation 94% 12/22/2024 3:54 PM EDT Inhaled Oxygen Concentration - - Weight 60.5 kg (133 lb 6.4 oz) 12/22/2024 3:54 P M EDT Height 149.9 cm (4' 11 ) 12/22/2024 3:54 PM EDT Body Mass Index 26.94 12/22/2024 3:54 PM EDT documented in this encounter Progress Notes * Wallace [place] MD - 12/22/2024 3:30 PM EDT Images from the original note were not included. Subjective Patient ID: Nereyda Barnett is a 74 y.o. female who presents for Follow-up. Patient comes for a follow up visit. She is accompanied by her . She did no bring her glucose meter but her blood sugar is well controlled based on her HbA1c today. She is not having GI side effects on her current dose of Trulicity. She is also on 10 units of Lantus. Patient has CKD with proteinuria. Most recent blood work showed worsening of proteinuria despite the use of losartan. Today I have recommended adding Jardiance to her medication regimen for renal andcardiovascular protection. Today the patient also complains of about 3 months of recurrent nonproductive cough, wheezing, milddyspnea on exertion. As her baseline she only walks around her house. Exercise tolerance is severely limited by her chronic joint pain related to severe rheumatoid arthritis. She does not have any fevers, no chills. She is not a smoker. Her is a former smoker. She does not have any history of asthma. Review of Systems Constitutional: Negative for chills and fever. HENT: Negative for sore throat. Respiratory: Positive for cough, shortness of breath and wheezing. Cardiovascular: Negative for chest pain, palpitations and leg swelling. Gastrointestinal: Negative for abdominal pain. Musculoskeletal: Positive for arthralgias. Objective Vitals: 12/22/24 1554 BP: (!) 146/92 BP Location: Right arm Patient Position: Sitting BP Cuff Size: Adult Pulse: 97 Resp: 14 Temp: 97.1 ??F (36.2 ??C) TempSrc: Temporal SpO2: 94% Weight: 133 lb 6.4 oz (60.5 kg) Height: 4' 11 (1.499 m) Physical Exam Vitals reviewed: Patient is examined on her wheelchair. Constitutional: Appearance: Normal appearance. Cardiovascular: Rate and Rhythm: Normal rate and regular rhythm. Heart sounds: No murmur heard. No gallop. Pulmonary: Effort: Pulmonary effort is normal. No respiratory distress. Breath sounds: Rhonchi present. No wheezing. Comments: Patient had dry crackles on both posterior lung connor Musculoskeletal: Right lower leg: No edema. Left lower leg: No edema. Neurological: Mental Status: She is alert. Lab Results Component Value Date HGBA1C 5.5 12/22/2024 HGBA1C 6.2 (A) 07/27/2024 HGBA1C 7.8 (A) 01/26/2024 HGBA1C 9.7 (A) 10/24/2023 HGBA1C 8.4 (A) 07/23/2023 HGBA1C 7.0 (H) 02/25/2023 HGBA1C 7.7 (A) 02/24/2023 HGBA1C 7.1 (H) 08/29/2022 HGBA1C 7.4 (A) 08/19/2022 HGBA1C 8.1 (H) 01/24/2021 CREATININE 1.70 (H) 11/02/2024 CREATININE 1.48 (H) 08/30/2024 CREATININE 1.85 (H) 01/06/2024 CREATININE 1.62 (H) 11/13/2023 CREATININE 2.25 (H) 09/23/2023 CREATININE 2.29 (H) 02/25/2023 CREATININE 2.13 (H) 02/24/2023 CREATININE 1.77 (H) 09/03/2022 CREATININE 1.86 (H) 08/29/2022 CREATININE 1.91 (H) 08/19/2022 CREATININE 2.08 (H) 12/21/2021 CREATININE 1.61 (H) 06/19/2021 CREATININE 1.82 (H) 03/12/2021 CREATININE 1.88 (H) 12/18/2020 CREATININE 1.76 (H) 09/15/2020 CREATININE 1.79 (H) 09/15/2020 CREATININE 1.79 (H) 09/15/2020 CREATININE 1.79 (H) 09/15/2020 CREATININE 1.81 (H) 02/09/2020 ntains abnormal data Albumin, Random Urine W/Creatinine Order: [id number] Status: Final result Dx: Type 2 diabetes mellitus with other s... Test Result Released: No (inaccessible in [place]) 0 Result Notes Component Ref Range & Units (hover) 1 mo ago (11/10/24) 1 yr ago (09/23/23) 1 yr ago (02/24/23) 3 yr ago (10/29/21) 5 yr ago (11/22/19) Creatinine, Urine 80.78 90.74 169.14 Microalbumin Urine 121.0 38.0 107.0 5.1 R, CM 4.4 R, CM Microalbum Creatinine Ratio Ur 149.7 High 41.8 High CM 63.2 High CM Lab Results Component Value Date WBC 10.5 08/30/2024 HGB 12.3 08/30/2024 HCT 38.1 08/30/2024 MCV 96.7 08/30/2024 PLT 328 08/30/2024 Lab Results Component Value Date GLUCOSE 129 (H) 11/02/2024 NA 142 11/02/2024 K 3.9 11/02/2024 CO2 25 11/02/2024 CL 107 11/02/2024 BUN 33 (H) 11/02/2024 CREATININE 1.70 (H) 11/02/2024 Assessment/Plan Diagnoses and all orders for this visit: Type 2 diabetes mellitus with other specified complication, without long-term current use of insulin ([facility]) Comments: Blood sugar is well-controlled on current dose of Trulicity and Lantus. Today I added 10 mg of Jardiance to her medication regimen for renal and cardiovascular protection since she has CKD with proteinuria. I discussed the side effects of the medication. I encouraged her to call if she has any urinary problems. Continue avoiding sweets and soda. Orders: - POCT Glucose - POCT HGB A1C Proteinuria due to type 2 diabetes mellitus ([facility]) ([facility]) Subacute cough Comments: Patient has about 3 months of cough, she describes mild dyspnea on exertion, occasional wheezing, she has generalized dry crackles on exam today. I started treatment with albuterol and Arnuity for symptoms of bronchial hyperreactivity and I recommended evaluation with chest x-ray and referral to pulmonary. I suspect possible rheumatoid arthritis related lung condition. Orders: - XR Chest 2 Views; Future - Referral to Pulmonology; Future - fluticasone furoate (Arnuity Ellipta) 100 MCG/ACT inhaler; Inhale 1 puff Once per day. Rinse mouth with water after use to reduce aftertaste and incidence of candidiasis. Do not swallow. - albuterol 108 (90 Base) MCG/ACT inhaler; Inhale 2 puffs every 4 (four) hours if needed for wheezing. Wheezing - XR Chest 2 Views; Future - Referral to Pulmonology; Future - fluticasone furoate (Arnuity Ellipta) 100 MCG/ACT inhaler; Inhale 1 puff Once per day. Rinse mouth with water after use to reduce aftertaste and incidence of candidiasis. Do not swallow. - albuterol 108 (90 Base) MCG/ACT inhaler; Inhale 2 puffs every 4 (four) hours if needed for wheezing. PORTILLO (dyspnea on exertion) - XR Chest 2 Views; Future - Referral to Pulmonology; Future - fluticasone furoate (Arnuity Ellipta) 100 MCG/ACT inhaler; Inhale 1 puff Once per day. Rinse mouth with water after use to reduce aftertaste and incidence of candidiasis. Do not swallow. - albuterol 108 (90 Base) MCG/ACT inhaler; Inhale 2 puffs every 4 (four) hours if needed for wheezing. Other orders - empagliflozin (Jardiance) 10 MG; Take 1 tablet (10 mg) by mouth Once per day. documented in this encounter Plan of Treatment Upcoming Encounters Date Type Department Care Team (Late st Contact Info) Description 01/05/2025 11:30 AM EDT Telemedicine [facility] MEDICINE [address] [place] [id number] Name, MD Wallace [address] [place] [id number] Scheduled Referrals Name Type Priority Associated Diagnoses Order Schedule Referral to Pulmonology Outpatient Referral Routine Subacute cough Wheezing PORTILLO (dyspnea on exertion) Expected: 12/22/2024 (Approximate), Expires: 12/22/2025 documented as of this encounter Goals Goal Patient Goal Type Associated Problems Recent Progress Patient-Stated? Author Hemoglobin A1c < 7.5 Result Component 5.5( 3:56 PM EDT) No Ange Salamanca, PharmD Note: Due to age, underlying co-morbidities, limitations of therapy d/t kidney function, etc Record your blood sugar as directed Result Component No Ange Salamanca PharmD Note: Use CGM, ensuring sensor is scanned at least once every 8 hours to capture 24H data. Check BG manually, as directed. documented as of this encounter Procedures Procedure Name Priority Date/Time Associated Diagnosis Comments XR CHEST 2 VIEWS Routine 12/23/2024 1:55 PM EDT Subacute cough Wheezing PORTILLO (dyspnea on exertion) POCT GLYCATED HEMOGLOBIN, TOTAL Routine 12/22/2024 3:56 PM EDT Type 2 diabetes mellitus with other specified complication, without long-term current use of insulin ([facility]) POCT GLUCOSE Routine 12/22/2024 3:55 PM EDT Type 2 diabetes mellitus with other specified complication, without long-term current use of insulin ([facility]) documented in this encounter Results * XR Chest 2 Views (12/23/2024 1:55 PM EDT) Anatomical Region Laterality Modality Chest Radiographic Fernanda ging 12/23/2024 1:55 PM EDT Narrative 12/23/2024 3:10 PM EDT [address] [address] XRay Report Signed Patient: Nereyda Jones MR#: [id number] : 1950 Acct:[id number] Age/Sex: 74 / F ADM Date: 12/23/24 Loc: HO.HHCX Attending Dr: Wallace Anderson MD Ordering Physician: Wallace Anderson MD Date of Service: 12/23/24 Procedure(s): XR chest 2V Accession Number(s): [id number] cc: Wallace [place] MD Reason for Exam: Cough, wheezing, PORTILLO, chronic severe rheumatoid arthritis EXAMINATION: XR CHEST CLINICAL INFORMATION: Cough, wheezing, PORTILLO, chronic severe rheumatoid arthritis COMPARISON: 04/26/2022, 06/19/2021. TECHNIQUE: 2 views of the chest were obtained. FINDINGS: The cardiac, hilar, and mediastinal contours are normal. Mild prominence of the background interstitial markings present. No consolidations. There is no pneumothorax or pleural effusion. There is no focal osseous or soft tissue abnormality. XR/XR chest 2V IMPRESSION: Mild chronic interstitial changes. No active lung disease. Electronically signed by: Joey Nye MD 12/23/2024 03:07 PM EDT Dictated By: Joey Nye MD Signed By: <Electronically signed by Joey Nye MD in OV> 12/23/24 1507 DD/ 1355 TD/TT: 12/23/24 1400 Ethylene Plant Operator: Procedure Note Donotuseinterpreter, Image - 12/23/2024 [place] [address] XRay Report Signed Patient: Broderick Jones#: [id number] : 1950cct:[id number] Age/Sex: 74 / FADM Date: 12/23/24 Loc: HO.HHCX Attending Dr: Wallace Anderson MD Ordering Physician: Wallace [place] MD Date of Service: 12/23/24 Procedure(s): XR chest 2V Accession Number(s): [id number] cc: Wallace [place] MD Reason for Exam: Cough, wheezing, PORTILLO, chronic severe rheumatoidarthritis EXAMINATION: XR CHEST CLINICAL INFORMATION: Cough, wheezing, PORTILLO, chronic severe rheumatoid arthritis COMPARISON: 04/26/2022, 06/19/2021. TECHNIQUE: 2 views of the chest were obtained. FINDINGS: The cardiac, hilar, and mediastinal contours are normal. Mild prominence of the background interstitial markings present. No consolidations. There is no pneumothorax or pleural effusion. There is no focal osseous or soft tissue abnormality. XR/XR chest 2V IMPRESSION: Mild chronic interstitial changes. No active lung disease. Electronically signed by: Joey Nye MD 12/23/2024 03:07 PM EDT RP Dictated By: Joey Nye MD Signed By: <Electronically signed by Joey Nye MD in [place]> 12/23/24 1507 DD/ 1355 TD/TT: 12/23/24 1400 Ethylene Plant Operator: Wallace Name IMG XR PROCEDURES Final Result * POCT HGB A1C (12/22/2024 3:56 PM EDT) Hemoglobin A1C 5.5 4.0 - 5.7 % QC Media Lot # [id number] Lot# Expiration Date 41,627 Blood 12/22/2024 3:56 PM EDT Result Shari Anderson MD POINT OF CARE TEST ENTER/EDIT OR DERABLES Final Result * POCT Glucose (12/22/2024 3:55 PM EDT) Glucose Blood, POC 132 60 - 200 mg/dL QC Media Lot # [id number] Lot# Expiration Date 22,726 Blood Capillary blood specimen / Unknown 12/22/2024 3:55 PM EDT Result Shari [place] MD POINT OF CARE TEST ENTER/EDIT OR DERABLES Final Result documented in this encounter Visit Diagnoses Diagnosis Type 2 diabetes mellitus with other specified complication, without long-term current use of insulin ([facility])- Primary Proteinuria due to type 2 diabetes mellitus (CMS/HCC) ([facility]) Subacute cough Wheezing PORTILLO (dyspnea on exertion) Other dyspnea and respiratory abnormality documented in this encounter Additional Health Concerns Assessment Noted Time PHQ-9 Depression Total Score: 8 08/20/19 23 1:10 PM EDT documented as of this encounter Care Teams Exterior Interior Specialist Relationship Specialty Start Date End Date Name, MD Wallace [address] [place] [address] PCP - General Family Medicine 01/27/19 documented as of this encounter
--- NOTE | ~2024-12-23 | XR_ITS ---
EXAMINATION: XR CHEST CLINICAL INFORMATION: Cough, wheezing, PORTILLO, chronic severe rheumatoid arthritis COMPARISON: 04/26/2022, 06/19/2021. TECHNIQUE: 2 views of the chest were obtained. FINDINGS: The cardiac, hilar, and mediastinal contours are normal. Mild prominence of the background interstitial markings present. No consolidations. There is no pneumothorax or pleural effusion. There is no focal osseous or soft tissue abnormality. XR/XR chest 2V IMPRESSION: Mild chronic interstitial changes. No active lung disease. Electronically signed by: Joey Nye MD 12/23/2024 03:07 PM EDT
--- OUTSIDE RECORDS SUMMARY | 2024-12-23 15:32 | XMS_ITS | Encounter Summary ---
Author Organization [employer] Address [address] [place] [address] 7t [place] [address] Care Team Providers Care Investigator Internal Affairs Name Role Phone Name, Wallace HUNTER Primary Care Provider [phone] Ange Salamanca PharmD Unavailable [phone] Encounter Details Date Type Department Care Team (Late st Contact Info) Description 05/29/2022 Orders Only [facility] [address] [place] [address] Liliam Ortiz LPN Social History Tobacco Use [...] Info) Description 01/05/2025 11:30 AM EDT Telemedicine [facility] [address] [place] [address] NameWallace MD [address] [place] [address] documented as of this encounter Visit Diagnoses Not on filedocumented in this encounter Care Teams Investigator Internal Affairs Relationship Specialty Start Date End Date NameWallace MD [address] [place] [address] PCP - General Family Medicine 01/27/19 Ange Salamanca, PharmD [address] [place] [address] Pharmacist Internal Medicine 11/26/23 05/12/24 documented as of this encounter
--- OUTSIDE RECORDS SUMMARY | 2024-12-23 15:32 | XMS_ITS | Encounter Summary ---
Author Organization [facility] Address [address] [place] [address] Phone Care Team Providers Care Ergonomics Engineer Name Role Phone Name, Wallace HUNTER Primary Care Provider [phone] Reason for Visit * Reason Comments Med Refill Encounter Details Date Type Department Care Team (Late st Contact Info) Description 10/30/2022 Refill [facility] [place], [address] [place] [address] Joaquín Vaughan MD [address] [facility] [place] [address] Social History Tobacco Use Types [...] on filedocumented in this encounter Care Teams Ergonomics Engineer Relationship Specialty Start Date End Date Name, MD Wallace [address] [place] [address] PCP - General Internal Medicine 06/25/23 documented as of this encounter
--- OUTSIDE RECORDS SUMMARY | 2024-12-23 15:32 | XMS_ITS | Encounter Summary ---
Author Organization [facility] Address [address] [place] [address] Phone Care Team Providers Care Science Faculty Member Name Role Phone Name, Wallace HUNTER Primary Care Provider [phone] Reason for Visit * Reason Comments Med Refill Encounter Details Date Type Department Care Team (Late st Contact Info) Description 10/26/2022 Refill [facility] [place], [address] [place] [address] Joaquín Vaughan MD [address] [facility] [place] [address] Social History Tobacco Use Types [...] on filedocumented in this encounter Care Teams Science Faculty Member Relationship Specialty Start Date End Date Name, MD Wallace [address] [place] [address] PCP - General Internal Medicine 06/25/23 documented as of this encounter
--- OUTSIDE RECORDS SUMMARY | 2024-12-23 15:32 | XMS_ITS | Encounter Summary ---
Author Organization [facility] Address [address] [place] [address] 7t [place] [address] Care Team Providers Care Bearing Grinder Name Role Phone Name, Wallace HUNTER Primary Care Provider [phone] Ange Salamanca PharmD Unavailable [phone] Encounter Details Date Type Department Care Team (Latest Contact Info) Description 07/16/2021 Abstract [facility] CONVERSIONS Dental, Provider, DDS Social History Tobacco [...] 01/05/2025 11:30 AM EDT Telemedicine [facility] MED[facility]INE [address] [place] [address] Wallace [place] MD [address] [place] [address] documented as of this encounter Visit Diagnoses Not on filedocumented in this encounter Care Teams Bearing Grinder Relationship Specialty Start Date End Date Wallace [place] MD [address] [place] [address] PCP - General Family Medicine 01/27/19 Ange Salamanca, PharmD [address] [place] [address] Pharmacist Internal Medicine 11/26/23 05/12/24 documented as of this encounter
--- OUTSIDE RECORDS SUMMARY | 2024-12-23 15:32 | XMS_ITS | Encounter Summary ---
Author Organization [facility] Address [address] [place] [address] Phone Care Team Providers Care Lift Electrician Name Role Phone Name, Wallace HUNTER Primary Care Provider [phone] Encounter Details Date Type Department Care Team (Late st Contact Info) Description 05/18/2024 Documentation Only [facility] [place], [address] [place] [address] Citlaly Burnham [address] [place] [address] Social History Tobacco Use Types [...] on filedocumented in this encounter Care Teams Lift Electrician Relationship Specialty Start Date End Date Name, MD Wallace [address] [place] [address] PCP - General Internal Medicine 06/25/23 documented as of this encounter
--- OUTSIDE RECORDS SUMMARY | 2024-12-23 15:32 | XMS_ITS | Encounter Summary ---
Author Organization [employer] [facility] Address [address] [place] [address] 7t [place] [address] Care Team Providers Care Chicken Vaccinator Name Role Phone Name, Wallace HUNTER Primary Care Provider [phone] Ange Salamanca PharmD Unavailable [phone] Encounter Details Date Type Department Care Team (Latest Contact Info) Description 05/24/2019 Abstract [facility] CONVERSIONS Dental, Provider, DDS Social History Tobacco [...] Info) Description 01/05/2025 11:30 AM EDT Telemedicine [facility] MEDICINE [address] [place] [address] Wallace [place] MD [address] [place] [address] documented as of this encounter Visit Diagnoses Not on filedocumented in this encounter Care Teams Chicken Vaccinator Relationship Specialty Start Date End Date Wallace [place] MD [address] [place] [address] PCP - General Family Medicine 01/27/19 Ange Salamanca, PharmD [address] [place] [address] Pharmacist Internal Medicine 11/26/23 05/12/24 documented as of this encounter
--- OUTSIDE RECORDS SUMMARY | 2024-12-23 15:32 | XMS_ITS | Encounter Summary ---
Author Organization [facility] Address [address] [place] [address] Phone Care Team Providers Care Crusher And Blender Operator Name Role Phone Name, Wallace HUNTER Primary Care Provider [phone] Reason for Visit * Reason Comments Med Refill Encounter Details Date Type Department Care Team (Late st Contact Info) Description 12/13/2023 Refill [facility] [place], [address] [place] [address] Joaquín Vaughan MD [address] [facility] [place] [address] Social History Tobacco Use Types [...] on filedocumented in this encounter Care Teams Crusher And Blender Operator Relationship Specialty Start Date End Date Name, MD Wallace [address] [place] [address] PCP - General Internal Medicine 06/25/23 documented as of this encounter
--- OUTSIDE RECORDS SUMMARY | 2024-12-23 15:32 | XMS_ITS | Encounter Summary ---
Author Organization [facility] Address [address] [place] [address] Phone Care Team Providers Care Compounding Pharmacy Technician Name Role Phone Name, Wallace HUNTER Primary Care Provider [phone] Encounter Details Date Type Department Care Team (Late st Contact Info) Description 10/30/2021 Documentation Only [facility] [place], [address] [facility] [facility] [place] [address] Joaquín Vaughan MD [address] [facility] [place] [address] Social History Tobacco Use Types [...] on filedocumented in this encounter Care Teams Compounding Pharmacy Technician Relationship Specialty Start Date End Date Name, MD Wallace [address] [place] [address] PCP - General Internal Medicine 06/25/23 documented as of this encounter
--- OUTSIDE RECORDS SUMMARY | 2024-12-23 15:32 | XMS_ITS | Encounter Summary ---
Author Organization [facility] Address [address] [place] [address] Phone Care Team Providers Care Coater Operator Name Role Phone Name, Wallace HUNTER Primary Care Provider [phone] Encounter Details Date Type Department Care Team (Late st Contact Info) Description 05/04/2024 Documentation Only [facility] [place], [address] [place] [address] Citlaly Burnham [address] [place] [address] Social History Tobacco Use Types [...] on filedocumented in this encounter Care Teams Coater Operator Relationship Specialty Start Date End Date Name, MD Wallace [address] [place] [address] PCP - General Internal Medicine 06/25/23 documented as of this encounter
--- OUTSIDE RECORDS SUMMARY | 2024-12-23 15:32 | XMS_ITS | Encounter Summary ---
Author Organization [facility] Address [address] [place] [address] Phone Care Team Providers Care Holter Technician Name Role Phone Name, Wallace HUNTER Primary Care Provider [phone] Encounter Details Date Type Department Care Team (Late st Contact Info) Description 12/14/2021 Documentation Only [facility] [place], [address] [facility] [place] [address] Joaquín Vaughan MD [address] [facility] [place] [address] Social History Tobacco Use Types [...] on filedocumented in this encounter Care Teams Holter Technician Relationship Specialty Start Date End Date Name, MD Wallace [address] [place] [address] PCP - General Internal Medicine 06/25/23 documented as of this encounter
--- OUTSIDE RECORDS SUMMARY | 2024-12-23 15:32 | XMS_ITS | Encounter Summary ---
Author Organization [employer] Address [address] [place] [address] [address] [place] [address] Care Team Providers Care Pipe Assembly Worker Name Role Phone NameWallace MD Primary Care Provider [phone] Ange Salamanca PharmD Unavailable [phone] Encounter Details Date Type Department Care Team (Late st Contact Info) Description 04/10/2022 Orders Only [facility] [address] [place], [place] [phone] Carol Rock LPN Social History Tobacco Use [...] Info) Description 01/05/2025 11:30 AM EDT Telemedicine [facility] MEDICINE [address] [place], [place] [phone] Name, MD Wallace [address] [place] [address] documented as of this encounter Procedures Procedure [...] HIGH SENSITIVITY 47.0(H) <3.5 - 17.0 ng/L [facility] Comment:The [employer] Engraver high sensitivity Troponin-I resultsshould be used in conjunction with other diagnosticinformation such as ECG, clinical observations andinformation, and patient symptoms to aid in the diagnosis of[place]. 04/26/2022 9:04 PM EST 04/26/2022 9:06 PM EST [employer] External Provider LAB BLO OD ORDERABLES Final Result [facility] [address] [place] [phone] * (ABNORMAL) Basic Metabolic Panel (04/26/2022 9:04 PM EST) Sodium 144 135 - 145 mmol/L [facility] Potassium 4.5 3.3 - 5.1 mmol/L [facility] Chloride 113(H) 96 - 108 mmol/L [facility] Carbon Dioxide 19(L) 22 - 29 mmol/L [facility] Anion Gap 17 12 - 20 [facility] Urea Nitrogen (BUN) 38(H) 9 - 16 mg/dL [facility] Creatinine, Serum 2.34(H) 0.5 - 1.4 mg/dL [facility] Creatinine Clr Calc Pharmacy 19.7 [facility] Comment:Provided height and weight: 152.4 cm,71.9 kg.eGFR (calculated from the MDRD study equation) and eCrCl(calculated from the Cockcroft-Gault equation) are based ondifferent parameters and may not yield comparable results.If eCrCl result is absurd, please check patient'sheight/weight. Estimated Glomerular Filt Rate 21 [facility] Comment:NOTE: For -Am erican individuals, multiply the result by 1.210.Chronic Kidney Disease: Estimated GFR < 60 mL/min/[id number] Kidney Disease: Estimated GFR < 15 mL/min/1.73m2 Glucose 133(H) 60 - 115 mg/dL [facility] Calcium 8.6 8.4 - 10.2 mg/dL [facility] 04/26/2022 9:04 PM EST 04/26/2022 9:06 PM EST [employer] External Provider LAB BLO OD ORDERABLES Final Result Performing Organization Address [facility]/ZIP Co de Phone Number [facility] [address] [place] [phone] * Ammonia, Plasma (04/26/2022 5:46 PM EST) Ammonia (P) 24 13 - 55 umol/L [facility] 04/26/2022 5:46 PM EST 04/26/2022 5:48 PM EST [employer] [facility] [employer] External Provider LAB BLO OD ORDERABLES Final Result Performing Organization Address [facility] Co de Phone Number [facility] [address] [place] [phone] * Drug Monitoring, Panel 1, Screen, Urine (04/26/2022 5:23 PM EST) Opiate Screen Urine Not Detected Not Detect [facility] Comment:Opiate cut-off is 30 0 ng/mL.Positive results are unconfirmed and should not be used fornon-medical purposes. Barbiturates, Urine Not Detected Not Detect [facility] Comment:Barbiturate cut-off is 200 ng/mL.Positive results are unconfirmed and should not be used fornon-medical purposes. Phencyclidine Screen Urine Not Detected Not Detect [facility] Comment:Phencyclidine cut-of f is 25 ng/mL.Positive results are unconfirmed and should not be used fornon-medical purposes. Amphetamine Screen Urine Not Detected Not Detect [facility] Comment:Amphetamine cut-off is 1000 ng/mL.Positive results are unconfirmed and should not be used fornon-medical purposes. Benzodiazepines Screen Urine Not Detected Not Detect [facility] Comment:Benzodiazepine cut-o ff is 200 ng/mL.Positive results are unconfirmed and should not be used fornon-medical purposes. Cocaine Screen Urine Not Detected Not Detect [facility] Comment:Cocaine cut-off is 3 00 ng/mL.Positive results are unconfirmed and should not be used fornon-medical purposes. Cannabinoid Screen Urine Not Detected Not Detect [facility] Comment:Cannabinoid cut-off is 50 ng/mL.Positive results are unconfirmed and should not be used fornon-medical purposes. FENTANYL URINE Not Detected Not Detect [facility] Comment:Fentanyl cut-off is 1 ng/mL.Positive results are unconfirmed and should not be used fornon-medical purposes. 04/26/2022 5:23 PM EST 04/26/2022 5:33 PM EST [employer] External Provider LAB URI NE ORDERABLES Final Result [facility] [address] [place] [phone] * (ABNORMAL) Urinalysis, Complete, with Reflex to Culture (04/26/2022 5:23 PM EST) Color Urine Yellow [facility] Appearance Urine Clear [facility] PH 5.5 5.0 - 9.0 [facility] Glucose Urine UA Negative Negative mg/dL [facility] Urine Blood Negative Negative [facility] Specific [place] - Urine 1.020 1.005 - 1.025 [facility] Urine Protein 100 (2+)(A) Neg-Trace mg/dL [facility] Urine Ketones 15 Negative mg/dL [facility] Nitrite Urine Negative Negative [facility] Leukocyte Esterase Urine Negative Negative [facility] RBC Urine 0-2 0 - 2 /HPF [facility] Urine WBC 0-5 0 - 5 /HPF [facility] Urine Squamous Epithelial Cell 0-2 0 - 2 /HPF [facility] Urine Bacteria None Seen None Seen [facility] Hyaline Casts, Urine 11-20 0 - 2 /LPF [facility] 04/26/2022 5:23 PM EST 04/26/2022 5:33 PM EST Narrative [facility] - 04/26/2022 6:03 PM EST [id number], [place] [employer] External Provider LAB URI NE ORDERABLES Final Result Performing Organization Address [facility]/ZIP Co de Phone Number [facility] [address] [place] [phone] * TSH W/Reflex to FT4 (04/26/2022 5:05 PM EST) TSH reflex Free T4 0.42 0.32 - 4.0 uIU/mL [facility] 04/26/2022 5:05 PM EST 04/26/2022 5:25 PM EST [employer] External Provider LAB BLO OD ORDERABLES Final Result Performing Organization Address [facility] Co de Phone Number [facility] [address] [place] [phone] * D Dimer High Sensitivity (04/26/2022 5:05 PM EST) D Dimer High Sensitivity 303 NG/ML [facility] Comment:D-DIMER HS REFERENCE RANGENote: Our assay reports D-Dimer Units (D- DU).The cut-off value for venous thromboembolic (VTE) disease is230 ng/mL. This value has a very high negative predictivevalue when the patient has a low to moderate clinicalprobability of VTE.The upper limit of normal is 243 ng/mL. 04/26/2022 5:05 PM EST 04/26/2022 5:25 PM EST [employer] External Provider LAB BLO OD ORDERABLES Final Result Performing Organization Address [facility] Phone Number [facility] [address] [place] [phone] * Acetaminophen level (04/26/2022 5:05 PM EST) Acetaminophen LAB <17 <30 mcg/mL [facility] 04/26/2022 5:05 PM EST 04/26/2022 5:33 PM EST [employer] External Provider LAB BLO OD ORDERABLES Final Result Performing Organization Address [facility] Phone Number [facility] [address] [place] [phone] * (ABNORMAL) Salicylate (04/26/2022 5:05 PM EST) Salicylate <5.0(L) 15 - 30 mg/dL [facility] 04/26/2022 5:05 PM EST 04/26/2022 5:33 PM EST Result [facility] External Provider LAB BLO OD ORDERABLES Final Result Performing Organization Address [facility] Phone Number [facility] [address] [place] [phone] * Lipase (04/26/2022 5:05 PM EST) Lipase 12 8 - 78 U/L [facility] 04/26/2022 5:05 PM EST 04/26/2022 5:33 PM EST [employer] External Provider LAB BLO OD ORDERABLES Final Result Performing Organization Address [facility]/ZIP Co de Phone Number [facility] [address] [place] [phone] * (ABNORMAL) Magnesium (04/26/2022 5:05 PM EST) Magnesium 1.5(L) 1.6 - 2.6 mg/dL [facility] 04/26/2022 5:05 PM EST 04/26/2022 5:33 PM EST [facility] [employer] External Provider LAB BLO OD ORDERABLES Final Result [facility] [address] [place] [phone] * (ABNORMAL) Basic Metabolic Panel (04/26/2022 5:05 PM EST) Sodium 143 135 - 145 mmol/L [facility] Potassium 4.9 3.3 - 5.1 mmol/L [facility] Comment:Slight Hemolysis Chloride 111(H) 96 - 108 mmol/L [facility] Carbon Dioxide 17(L) 22 - 29 mmol/L [facility] Anion Gap 20 12 - 20 [facility] Urea Nitrogen (BUN) 41(H) 9 - 16 mg/dL [facility] Creatinine, Serum 2.56(H) 0.5 - 1.4 mg/dL [facility] Creatinine Clr Calc Pharmacy 18.0 [facility] Comment:Provided height and weight: 152.4 cm,71.9 kg.eGFR (calculated from the MDRD study equation) and eCrCl(calculated from the Cockcroft-Gault equation) are based ondifferent parameters and may not yield comparable results.If eCrCl result is absurd, please check patient'sheight/weight. Estimated Glomerular Filt Rate 19 [facility] Comment:NOTE: For -Am erican individuals, multiply the result by 1.210.Chronic Kidney Disease: Estimated GFR < 60 mL/min/[id number] Kidney Disease: Estimated GFR < 15 mL/min/1.73m2 Glucose 156(H) 60 - 115 mg/dL [facility] Calcium 8.8 8.4 - 10.2 mg/dL [facility] 04/26/2022 5:05 PM EST 04/26/2022 5:33 PM EST [employer] External Provider LAB BLO OD ORDERABLES Final Result Performing Organization Address [facility] de Phone Number [facility] [address] [place] [phone] * Hepatic Function Panel (04/26/2022 5:05 PM EST) Bilirubin, Total 0.2 0.0 - 1.0 mg/dL [facility] Bilirubin, Direct <0.2 0.0 - 0.5 mg/dL [facility] Comment:Slight Hemolysis Aspartate Amino Transferase 20 5 - 31 U/L [facility] Comment:Slight Hemolysis Alanine Aminotransferase 14 0 - 31 U/L [facility] Total Protein 7.3 6.5 - 8.0 g/dL [facility] Albumin Level 3.8 3.5 - 5.0 g/dL [facility] Alkaline Phosphatase 84 39 - 117 U/L [facility] 04/26/2022 5:05 PM EST 04/26/2022 5:33 PM EST [employer] External Provider LAB BLO OD ORDERABLES Final Result Performing Organization Address [facility] de Phone Number [facility] [address] [place] [phone] * B Type Natriuretic Peptide (BNP) (04/26/2022 5:05 PM EST) B Type Natriuretic Peptide 84 <100 pg/mL [facility] Comment:For those patients w ho are being treated with Natrecor(nesiritide, recombinant BNP), BNP testing should beperformed at least two hours post treatment in order toensure that only endogenous levels of BNP are detected. 04/26/2022 5:05 PM EST 04/26/2022 5:25 PM EST [employer] External Provider LAB BLO OD ORDERABLES Final Result Performing Organization Address City/[facility] Co de Phone Number [facility] [address] [place] [phone] * (ABNORMAL) COVID-19 ID NOW (LIZ) (04/26/2022 5:05 PM EST) IDNOW SERIAL# [id number] [facility] COVID-19 TEST Positive (A) Negative [facility] COVID-19 NOTE See Note [facility] Comment: Results are for the identification of SARS-CoV2 RNA. TheSARS-CoV2 RNA is generally detectable in respiratory samplesduring the acute phase of infection. Positive results areindicative of the presence of SARS-CoV-2 RNA; clinicalcorrelation with patient history and other diagnosticinformation is necessary to determine patient infectionstatus. Positive results do not rule out bacterial infectionor co- infection with other viruses.Testing facilities within the [facility] and [facility] are required to report all positive results [...] 5:05 PM EST 04/26/2022 5:33 PM EST [employer] Exter nal Provider LAB MOLECULAR DIAGNOSTICS ORDERABLES Final Result [facility] [address] [place] [phone] * (ABNORMAL) HIGH SENSITIVITY TROPONIN I (04/26/2022 5:05 PM EST) TROPONIN I HIGH SENSITIVITY 33.3(H) <3.5 - 17.0 ng/L [facility] Comment:The Liz high sens itivity Troponin-I results should beused in conjunction with other diagnostic information suchas ECG, clinical observations and information, and patientsymptoms to aid in the diagnosis of [place]. 04/26/2022 5:05 PM EST 04/26/2022 5:25 PM EST [employer] External Provider LAB BLO OD ORDERABLES Final Result Performing Organization Address [facility] de Phone Number [facility] [address] [place] [phone] * Influenza A B2 ID NOW (Liz) (04/26/2022 5:05 PM EST) IDNOW SERIAL# [id number] [facility] Influenza A Negative Negative [facility] Influenza B2 Negative Negative [facility] Influenza A B2 Note See Note [facility] Comment:The Liz ID NOW In fluenza [...] 5:05 PM EST 04/26/2022 5:33 PM EST [employer] Exter nal Provider LAB MICROBIOLOGY - GENERAL ORDERABLES Final Result Performing Organization Address [facility]/State/ZIP Co de Phone Number [facility] [address] [place] [phone] * Ethanol (04/26/2022 5:05 PM EST) ETHANOL (MG/DL) IN SER/PLAS <10 mg/dL [facility] 04/26/2022 5:05 PM EST 04/26/2022 5:25 PM EST [facility] [employer] External Provider LAB BLO OD ORDERABLES Final Result Performing Organization Address [facility] Co de Phone Number [facility] [address] [place] [phone] * Prothrombin Time-INR (04/26/2022 5:05 PM EST) Prothrombin Time 12.2 10.0 - 13.1 SEC [facility] INTERNATIONAL NORM RATIO 1.1 0.9 - 1.1 [facility] Comment:INTERNATIONAL NORMAL IZED RATIO (INR) REFERENCE [...] 5:05 PM EST 04/26/2022 5:25 PM EST [facility] [employer] [facility] [employer] External Provider LAB BLO OD ORDERABLES Final Result Performing Organization Address [facility] Co de Phone Number [facility] [address] [place] [phone] * Lactic Acid (04/26/2022 5:05 PM EST) Lactic Acid 1.3 0.5 - 2.0 mmol/L [facility] 04/26/2022 5:05 PM EST 04/26/2022 5:25 PM EST [facility] [employer] External Provider LAB BLO OD ORDERABLES Final Result [facility] [address] [place] [phone] * (ABNORMAL) CBC auto differential (04/26/2022 5:05 PM EST) White Blood Count 10.2 4.8 - 10.8 X10*3/uL [facility] Red Blood Count 3.78(L) 4.20 - 5.50 X10*6/uL [facility] Hemoglobin 12.0 12.0 - 16.0 g/dl [facility] Hematocrit 36.2(L) 37.0 - 47.0 % [facility] Mean Corpuscular Volume 95.8 80.0 - 98.0 fL [facility] Mean Corpuscular Hemoglobin 31.7 27.0 - 33.0 pg [facility] Mean Corpuscular HGB Conc 33.1 31.0 - 35.0 g/dl [facility] Red Cell Distribution Width 15.5 11.0 - 16.0 % [facility] Platelet Count 242 160 - 400 X10*3/uL [facility] Mean Platelet Volume 11.5 9.4 - 12.3 fL [facility] Neutrophils Percent Auto 71.2 45 - 73 % [facility] Imm Gran Pct Auto 0.9(H) 0.0 - 0.4 % [facility] Lymphocytes Percent Auto 15.2(L) 20 - 40 % [facility] Monocytes Percent Auto 12.5(H) 2 - 11 % [facility] Eosinophils Percent Auto 0.0 0 - 4 % [facility] Basophils Percent Auto 0.2 0 - 2 % [facility] NRBC Pct Auto 0.0 0.0 - 0.2 /100WBC [facility] Neutrophils Absolute Auto 7.2 2.0 - 8.3 x10*3/uL [facility] Imm Gran Abs Auto 0.09(H) 0.00 - 0.03 X10*3/uL [facility] Lymphocytes Absolute Auto 1.6 1.2 - 4.9 X10*3/uL [facility] Monocytes Absolute Auto 1.3(H) 0.1 - 1.2 X10*3/uL [facility] Eosinophils Absolute Auto 0.0 0.0 - 0.4 X10*3/uL [facility] Basophils Absolute Auto 0.0 0.0 - 0.2 X10*3/uL [facility] NRBC Abs Auto 0.000 0.0 - 0.012 X10*3/uL [facility] 04/26/2022 5:05 PM EST 04/26/2022 5:34 PM EST us [facility] External Provider LAB BLO OD ORDERABLES Final Result Performing Organization Address City/State/[facility] Co de Phone Number [facility] [address] [place] [phone] documented in this encounter Visit Diagnoses Not on filedocumented in this encounter Care Teams Pipe Assembly Worker Relationship Specialty Start Date End Date Name, MD Wallace [address] [place] [phone] PCP - General Family Medicine 01/27/19 Ange Salamanca PharmD [address] [place] [address] Pharmacist Internal Medicine 11/26/23 05/12/24 documented as of this encounter
--- OUTSIDE RECORDS SUMMARY | 2024-12-23 15:32 | XMS_ITS | Encounter Summary ---
Author Organization [employer] Address [address] [place] [address] [address] [place] [address] Care Team Providers Care Pharmacy Clerk Name Role Phone Name, Wallace HUNTER Primary Care Provider [phone] Ange Salamanca PharmD Unavailable [phone] Reason for Visit * Reason Onset Date Comments stating 05/02/2022 Encounter Details Date Type Department Care Team (Late st Contact Info) Description 05/02/2022 Telephone [facility] MED[facility] [address] [place] [phone] Name, MD Wallace [address] [place] [phone] stating Social History Tobacco Use Types Packs/Day [...] Info) Description 01/05/2025 11:30 AM EDT Telemedicine [address] [address] Name, MD Wallace [address] [place] [address] documented as of this encounter Visit Diagnoses Not on filedocumented in this encounter Care Teams Pharmacy Clerk Relationship Specialty Start Date End Date Name, MD Wallace [address] [place] [phone] PCP - General Family Medicine 01/27/19 Ange Salamanca PharmD [address] [place] [phone] Pharmacist Internal Medicine 11/26/23 05/12/24 documented as of this encounter
--- OUTSIDE RECORDS SUMMARY | 2024-12-23 15:32 | XMS_ITS | Encounter Summary ---
Author Organization [facility] Address [address] [place] [address] 7[address] [place] [address] Care Team Providers Care Butadiene Convertor Operator Name Role Phone Name, Wallace HUNTER Primary Care Provider [phone] Ange Salamanca PharmD Unavailable [phone] Encounter Details Date Type Department Care Team (Late st Contact Info) Description 07/01/2022 Orders Only [facility] [address] [place] [phone] Carol Rock LPN Social History Tobacco Use [...] Info) Description 01/05/2025 11:30 AM EDT Telemedicine [facility] [address] [place] [address] NameWallace MD [address] [place] [address] documented as of this encounter Visit Diagnoses Not on filedocumented in this encounter Care Teams Butadiene Convertor Operator Relationship Specialty Start Date End Date Wallace Anderson MD [address] [place] [address] PCP - General Family Medicine 01/27/19 Ange Salamanca, SosaD [address] [place] [address] Pharmacist Internal Medicine 11/26/23 05/12/24 documented as of this encounter
--- OUTSIDE RECORDS SUMMARY | 2024-12-23 15:32 | XMS_ITS | Encounter Summary ---
Author Organization [facility] Address [address] [place] [address] Phone Care Team Providers Care Scrummaster Name Role Phone Name, Wallace HUNTER Primary Care Provider [phone] Encounter Details Date Type Department Care Team (Late st Contact Info) Description 05/04/2024 Documentation Only [facility], [address] [place] [address] Citlaly Burnham [address] [place] [address] Social History Tobacco Use Types [...] on filedocumented in this encounter Care Teams Scrummaster Relationship Specialty Start Date End Date Name, MD Wallace [address] [place] [address] PCP - General Internal Medicine 06/25/23 documented as of this encounter
--- OUTSIDE RECORDS SUMMARY | 2024-12-23 15:32 | XMS_ITS ---
Author Name Gretel Charles NP Address [address] [place] [address] Phone [phone] [facility] Care Team Providers Care Rivet Hammer Machine Operator Name Role Phone Gretel Charles Unavailable [phone] Unavailable Unavailable [phone] Unavailable Unavailable Unavailable Name, Wallace Unavailable [phone] Reason for Referral Not Available Allergies, adverse [...] 2021-04-12 No Data Available OneTouch Delica Plus [id number] Miscellaneous TEST BLOOD SUGAR 1-4 TIMES DAILY [...] EVERYDAY AT NOON 2021 No Data Available Regalister Ultra 2 w/Device Kit USE DIRECTED No [...] 10 mg Tab TAKE 1 TABLET BY [facility] EVERY MORNING 2022-11-18 No Data Available Allergy [place] 24hr 55 MCG/AC T Aerosol Nasal 2 sprays intranasally daily in each nostril 2023-01-03 No Data Available Allergy [place] 24hr 55 MCG/AC T Aerosol Nasal 2 [...] Service Diagnosis/Co mplaint Medication List Documented (1159F) [facility] Medication List Documented (1159F[place] [facility] Medication List Documented (1159F) [facility] [place] Medication List Documented (1159F) [facility] [place] Medication List Documented (1159F) [facility] [place] Medication List Documented (1159F) [facility] [place]2022 Type 2 diabetes mellitus wit h diabetic polyneuropathyRheumatoid arthritis, unspecifiedImmunodeficiency due to conditions classified elsewhereType 2 diabetes mellitus with diabetic nephropathyEssential (primary) hypertensionHypothyroidism, unspecified Medication List Documented (1159F) [facility] [place]2022 Medication List Documented (1159F) [facility] [place] Medication List Documented (1159F) [facility] [place] Estab. patient 30-39min; chronic exacerbation, 2 stable chronic or 1 acute illness add add modifier 95 for video, (do not use for phone, instead use 98498-77) [facility]2022 Type 2 diabetes mellitus wit h diabetic polyneuropathyRheumatoid arthritis, unspecifiedImmunodeficiency due to conditions classified elsewhereType 2 diabetes mellitus with diabetic nephropathyEssential (primary) hypertensionHypothyroidism, unspecified Estab. patient 30-39min; chronic exacerbation, 2 stable chronic or 1 acute illness add add modifier 95 for video, (do not use for phone, instead use 15100-93) [facility] 01/03[place]2023 Type 2 diabetes mellitus wit h [...] (do not use for phone, instead use 85668-55) [facility] [place] Estab. patient 30-39min; chronic exacerbation, 2 stable chronic or 1 acute illness add add modifier 95 for video, (do not use for phone, instead use 49798-56) [facility] [place] 01/03/2023 Estab. patient 30-39min; chronic exacerbation, 2 stable chronic or 1 acute illness add add modifier 95 for video, (do not use for phone, instead use 48751-12) [facility] [place] 01/03/2023 Estab. patient 30-39min; chronic exacerbation, 2 stable chronic or 1 acute illness add add modifier 95 for video, (do not use for phone, instead use 91859-65) [facility] [place] 01/03/2023 Estab. patient 30-39min; chronic exacerbation, 2 stable chronic or 1 acute illness add add modifier 95 for video, (do not use for phone, instead use 99299-74) [facility] [place] 01/03/2023 Estab. patient 30-39min; chronic exacerbation, 2 stable chronic or 1 acute illness add add modifier 95 for video, (do not use for phone, instead use 42194-74) [facility] [place] 01/03/2023 Estab. patient 30-39min; chronic exacerbation, 2 stable chronic or 1 acute illness add add modifier 95 for video, (do not use for phone, instead use 89816-93) [facility] [place] 01/03/2023 Estab. patient 30-39min; chronic exacerbation, 2 stable chronic or 1 acute illness add add modifier 95 for video, (do not use for phone, instead use 79719-98) [facility] [place] 01/03/2023 Estab. patient 30-39min; chronic exacerbation, 2 stable chronic or 1 acute illness add add modifier 95 for video, (do not use for phone, instead use 74472-31) [facility] [place] 01/[place]/2023 Vital Signs Date of Collection Vitals [...] tive Time Current Smoking Status Never smoker 4 Sex Female History of Procedures Procedures Service [...] le No Data Available No Data Available [id number] 2022-02-05 No Data Available No Data Available [...] (do not use for phone, instead use 19098-05) 97756 2022-02-12 No Data Available No Data Availa ble Estab. patient 30-39min; chronic exacerbation, 2 stable chronic or 1 acute illness add add modifier 95 for video, (do not use for phone, instead use 02255-39) 72756 2023-01-03 No Data Available No Data Availa ble Medication List Documented (1159F) 1159F 2023-01-03 No Data Available No Data Payton ilable Medication Review by prescribing provider or pharmacist documented (1160F) 1160F 2023-01-03 No Data Available No Data Apy[place] ilable Functional Status Assessed (1170F) 1170F 2023-01-03 [...] Falls in last 6 Months: Yes 2022-02-05 STEM CUTTER: pending new middleware architect 2023-01-03 Mental Status Status Date Cognition [...]
--- OUTSIDE RECORDS SUMMARY | 2024-12-23 15:32 | XMS_ITS | Encounter Summary ---
Author Organization [facility] Address [address] [place] [address] Phone Care Team Providers Care Director Of Sales And Marketing Name Role Phone Name, Wallace HUNTER Primary Care Provider [phone] Reason for Visit * Reason Comments Med Refill Encounter Details Date Type Department Care Team (Late st Contact Info) Description 10/31/2022 Refill [facility], [address] [place] [address] Joaquín Vaughan MD [address] [facility] [place] [address] Social History Tobacco Use Types [...] on filedocumented in this encounter Care Teams Director Of Sales And Marketing Relationship Specialty Start Date End Date Name, MD Wallace [address] [place] [address] PCP - General Internal Medicine 06/25/23 documented as of this encounter
--- OUTSIDE RECORDS SUMMARY | 2024-12-23 15:32 | XMS_ITS | Encounter Summary ---
Author Organization [employer] Address [address] [facility] [address] [place] [address] Care Team Providers Care Cloth Grader Name Role Phone Name, Wallace HUNTER Primary Care Provider [phone] Ange Salamanca PharmD Unavailable [phone] Reason for Visit * Reason Onset Date Comments Appointment Request 07/12/2022 Encounter Details Date Type Department Care Team ([facility] st Contact Info) Description 07/12/2022 Telephone [facility] [address] [place], [place] [phone] Name, MD Wallace [address] [place] [address] Appointment Request Social History Tobacco Use Types [...] 11:30 and 1:30 as that is when CTC OPERATOR is with her and can bring her. Informed nothing until August with those specifications. They are willing to wait until August. Sent myself a reminder to ad d her to PCP's schedule once open. * Telephone Encounter - Luke Liam - 07/12/2022 12:18 PM EDT Tc from [facility] requesting to r/s appt on 05/08/2022 HD[facility] ( [facility] 04/26/22-04/30/22 COVID-19 ENCEPHALOPATHY ) Please contact [facility] at [phone] documented in this encounter Plan of Treatment Upcoming Encounters Date Type Department Care Team (Late st Contact Info) Description 01/05/2025 11:30 AM EDT Telemedicine [facility] [address] [place] [address] Name, MD Wallace [address] [place] [address] documented as of this encounter Visit Diagnoses Not on filedocumented in this encounter Care Teams Cloth Grader Relationship Specialty Start Date End Date Name, MD Wallace [address] [place] [address] PCP - General Family Medicine 01/27/19 Ange Salamanca PharmD [address] [place] [phone] Pharmacist Internal Medicine 11/26/23 05/12/24 documented as of this encounter
--- OUTSIDE RECORDS SUMMARY | 2024-12-23 15:32 | XMS_ITS | Encounter Summary ---
Author Organization [facility] Address [address] [place] [address] Phone Care Team Providers Care Elementary [employer] Art Teacher Name Role Phone Name, Wallace HUNTER Primary Care Provider [phone] Reason for Visit * Reason Comments Med Refill Encounter Details Date Type Department Care Team (Late st Contact Info) Description 12/19/2023 Refill [facility], [address] [place] [address] Joaquín Vaughan MD [address] [facility] [place] [address] Social History Tobacco Use Types [...] on filedocumented in this encounter Care Teams Elementary [employer] Art Teacher Relationship Specialty Start Date End Date Name, MD Wallace [address] [place] [address] PCP - General Internal Medicine 06/25/23 documented as of this encounter
--- OUTSIDE RECORDS SUMMARY | 2024-12-23 15:32 | XMS_ITS | Encounter Summary ---
Author Organization [facility] Address [address] [place] [address] 7[address] [place] [address] Care Team Providers Care Tractor Technician Name Role Phone Name, Wallace HUNTER Primary Care Provider [phone] Ange Saalmanca PharmD Unavailable [phone] Encounter Details Date Type Department Care Team (Late st Contact Info) Description 06/14/2022 Abstract [facility] [address] [place] [address] NameWallace MD [address] [place] [address] Social History Tobacco Use Types Packs/Day Years [...] Info) Description 01/05/2025 11:30 AM EDT Telemedicine [facility] [address] [place] [address] [phone] Wallace Anderson MD [address] [place] [address] [phone] documented as of this encounter Visit Diagnoses Not on filedocumented in this encounter Care Teams Tractor Technician Relationship Specialty Start Date End Date NameWallace MD [address] [place] [address] PCP - General Family Medicine 01/27/19 Ange Salamanca, Pamela [address] [place] [phone] Pharmacist Internal Medicine 11/26/23 05/12/24 documented as of this encounter
--- OUTSIDE RECORDS SUMMARY | 2024-12-23 15:33 | XMS_ITS | Clinical Summary ---
Author Organization [employer] Address [address] [place] [address] 7[address] [place] [address] Care Team Providers Care Insulation Hoseman Name Role Phone Name, Wallace HUNTER Primary Care Provider [phone] Allergies Active Allergy Reactions Criticality Noted Date Comments Acetaminophen 12/09/2011 Oxycodone 12/09/2011 Oxycodone-Acetaminophen 06/22/2019 Other reaction(s): Other (see comments) Penicillin G 02/24/2023 Penicillins 11/13/2011 Other reaction(s): Other (see comments) Medications ammonium lactate (Amlactin) 12 % cream Apply once a day to the affected skin Active chlorthalidone (Hygroton) 25 MG tablet Take 1 tablet by mouth 1 (one) time each day. 023 Active Ferrous Sulfate (iron) 325 (65 Fe) MG tablet Take 1 tablet by mouth in the morning, at noon, and at bedtime. 023 Active pregabalin (Lyrica) 75 MG capsule Take 1 capsule by mouth 2 times daily. At noon and bedtime 023 Active senna (Senokot) 8.6 MG tablet TAKE 2 TABLETS BY MOUTH EVERY DAY NEEDED FOR CONSTIPATION 180 tablet 3 024 Active Blood Pressure kit Use twice a day 1 kit 024 Active lidocaine (Lidoderm) 5 % patchIndications :Chronic pain syndrome APPLY 1 PATCH TOPICALLY TO SKIN, LEAVE ON FOR 12 HOURS AND OFF FOR 12 HOURS DIRECTED 20 patch 1 024 Active insulin glargine (Lantus SoloStar) 100 UNIT/ML penIndications:T ype 2 diabetes mellitus with other specified complication, without long-term current use of insulin ([facility]) 10 units once a day 3 mL 12 024 Active lactulose (Chronulac) 10 GM/15ML solution TAKE 15 ML BY MOUTH EVERY MORNING FOR 10 DAYS 473 mL 3 024 Active allopurinol (Zyloprim) 100 MG tabletIndication s:Chronic gout without tophus, unspecified cause, unspecified site TAKE 1 TABLET BY MOUTH EVERYDAY AT NOON 90 tablet 3 024 Active atorvastatin (Lipitor) 20 MG tablet TAKE 1 TABLET BY MOUTH EVERYDAY AT NOON 90 tablet 3 025 Active Alcohol Swabs (Alcohol Prep) 70 % pads USE DIRECTED 1-4 TIMES PER DAY 100 each 11 025 Active losartan (Cozaar) 25 MG tablet TAKE 1 TABLET BY MOUTH EVERYDAY AT NOON 30 tablet 11 025 Active Enbrel SureClick 50 MG/ML injection 025 Active Blood Glucose Monitoring Suppl (ONE TOUCH ULTRA 2) w/Device kitIndications:T ype 2 diabetes mellitus with other specified complication, without long-term current use of insulin ([facility]) USE TO CHECK BLOOD SUGAR 1-4 TIMES PER DAY DIRECTED 1 kit 025 Active Lancets (OneTouch Delica Plus [id number]) mis TEST BLOOD SUGAR 1 TO 4 TIMES PER DAY DIRECTED 100 each 5 025 Active levothyroxine (Synthroid, Levoxyl) 50 MCG tablet TAKE 1 TABLET BY MOUTH EVERY MORNING 90 tablet 1 025 Active metoprolol tartrate (Lopressor) 100 MG tabletIndication s:Hypertension, unspecified type TAKE 1 TABLET BY MOUTH TWICE DAILY AT NOON AND IN THE EVENING WITH FOOD 180 tablet 025 Active pantoprazole (ProtoNix) 20 MG EC tabletIndication s:Chronic low back pain, unspecified back pain laterality, unspecified whether sciatica present TAKE 1 TABLET BY MOUTH EVERY DAY 90 tablet 1 025 Active Acetaminophen (Mapap Acetaminophen Extra Str) 167 MG/5ML liquid Take 15 mL (500 mg) by mouth if needed in the morning, at noon, and at bedtime (pain). 400 mL 11 025 2025 Active Trulicity 3 MG/0.5ML solution auto-injectorInd ications:Type 2 diabetes mellitus with other specified complication ([facility]) INJECT ONE PEN (= 3MG) SUBCUTANEOUSLY ONCE A WEEK DIRECTED 2 mL 11 Active fluticasone (Flonase) 50 MCG/ACT nasal sprayIndications :Subacute cough USE 2 SPRAYS IN EACH NOSTRIL ONCE DAILY 16 g 2 025 Active cyanocobalamin (Vitamin B-12) 1000 MCG tabletIndication s:Cobalamin deficiency TAKE 1 TABLET BY MOUTH EVERYDAY AT NOON 90 tablet 025 Active amLODIPine (Norvasc) 10 MG tabletIndication s:Chronic low back pain, unspecified back pain laterality, unspecified whether sciatica present TAKE 1 TABLET BY MOUTH EVERYDAY AT NOON 90 tablet 025 Active furosemide (Lasix) 20 MG tabletIndication s:Edema leg TAKE 1/2 TABLET BY MOUTH EVERY MORNING 10 tablet 025 Active traMADol (Ultram) 50 MG tabletIndication s:Rheumatoid arthritis involving multiple sites with positive rheumatoid factor ([facility]) TAKE 1 TABLET BY MOUTH EVERY TWELVE HOURS NEEDED FOR SEVERE PAIN 56 tablet 025 2024 Active BD Pen Needle Bernie Ultrafine 32G X 4 MM misc USE DIRECTED 100 each 12 025 Active OneTouch Ultra Test test stripIndications :Type 2 diabetes mellitus with other specified complication, without long-term current use of insulin ([facility]) USE DIRECTED TO TEST BLOOD SUGAR ONCE DAILY TO FOUR TIMES DAILY 100 strip 025 Active fluticasone furoate (Arnuity Ellipta) 100 MCG/ACT inhalerIndicatio ns:Subacute cough,Wheezing,D OE (dyspnea on exertion) Inhale 1 puff Once per day. Rinse mouth with water after use to reduce aftertaste and incidence of candidiasis. Do not swallow. 1 each 025 2025 Active albuterol 108 (90 Base) MCG/ACT inhalerIndicatio ns:Subacute cough,Wheezing,D OE (dyspnea on exertion) Inhale 2 puffs every 4 (four) hours if needed for wheezing. 18 g 025 2025 Active empagliflozin (Jardiance) 10 MG Take 1 tablet (10 mg) by mouth Once per day. 30 tablet 11 025 2025 Active insulin pen needle (BD Pen Needle Bernie U/F) 32G x 4 mm misc Use as instructed 100 each 12 024 2024 Discontinued glucose blood (OneTouch Ultra) test stripIndications :Type 2 diabetes mellitus with other specified complication, without long-term current use of insulin ([facility]) TEST BLOOD SUGAR 1 - 4 TIMES DAILY DIRECTED 100 strip 11 024 2024 Discontinued traMADol (Ultram) 50 MG tabletIndication s:Rheumatoid arthritis involving multiple sites with positive rheumatoid factor ([facility]) Take 1 tablet (50 mg) by mouth every 12 (twelve) hours if needed for severe pain for up to 28 days. 56 tablet 025 2024 Discontinued furosemide (Lasix) 20 MG tabletIndication s:Edema leg TAKE 1/2 TABLET BY MOUTH EVERY MORNING 10 tablet 025 2024 Discontinued Active Problems Problem Noted Date Diagnosed Date Proteinuria due to type 2 diabetes mellitus ([facility]) 12/22/2024 Generalized anxiety disorder 02/24/202309/2022 Herniated lumbar intervertebral [...] Encounters Date Type Department Care Team Description 12/22/2024 3:30 PM EDT Office Visit [facility] [address] [place] [address] Name, MD Wallace Type 2 diabetes mellitus with other specified complication, without long-term current use of insulin ([facility]) (Primary Dx); Proteinuria due to type 2 diabetes mellitus ([facility]) ([facility]); Subacute cough; Wheezing; PORTILLO (dyspnea on exertion) 12/22/2024 Travel 12/17/2024 Refill [facility] [address] [place] [address] Name, MD Wallace Type 2 diabetes mellitus with other specified complication, without long-term current use of insulin ([facility]) 12/08/2024 Refill [facility] [address] [place] [address] NameWallace MD 12/01/2024 Refill [facility] [address] [place], [place] [phone] Abril Guajardo MD Rheumatoid arthritis involving multiple sites with positive rheumatoid factor ([facility]) 12/01/2024 Refill [facility] [address] [place], [place] [phone] Mee Boone MD Edema leg 11/18/2024 Refill [facility] [address] [place], [place] [phone] Name, MD Wallace Edema leg 11/10/2024 Refill [facility] [address] [place] [address] Name, MD Wallace Cobalamin deficiency; Chronic low back pain, unspecified back pain laterality, unspecified whether sciatica present 11/02/2024 Telephone [facility] [address] [place] [address] Name, MD Wallace 10/28/2024 Refill [facility] [address] [place] [address] Name, MD Wallace Subacute cough 10/26/2024 Refill [facility] [address] [place] [address] Ange Salamanca PharmD Type 2 diabetes mellitus with other specified complication ([facility]) 10/25/2024 Refill [facility] [address] [place] [address] Stephanie South NP Rheumatoid arthritis involving multiple sites with positive rheumatoid factor ([facility]) 10/04/2024 Refill [facility] [address] [place] [address] Name, MD Wallace Rheumatoid arthritis involving multiple sites with positive rheumatoid factor ([facility]) 09/29/2024 Telephone [facility] [address] [place] [phone] NameWallace MD Referral question 09/23/2024 Telephone [facility] [address] [place] [phone] Harjit Azul [place] november recalls 09/22/2024 Refill [facility] [address] [place] [address] Name, MD Wallace Edema leg from Last 3 Months Immunizations Immunization Administration Dates Next Due Influenza High-dose Quadriva [...] Mass Index 26.94 12/22/2024 3:54 PM EDT Plan of Treatment Upcoming Encounters Date Type Department Care Team (Late st Contact Info) Description 01/05/2025 11:30 AM EDT Telemedicine [facility] [address] [place] [address] Name, MD Wallace [address] [place] [address] Health Maintenance Due Date Last Done Comments [...] 08/19/2022, 08/20/19 23 SDOH Screening 08/20/2023 08/19/2022 Diabetes: Foot Exam 02/25/2024 02/24/2023, 02/24/2023, 02/24/2023, Additional history exists COVID-19 Vaccine ( season) 2024 03/26/2021, 09/19/2020, 08/23/2020 Influenza Vaccine (#1) 2024 , 02/24/2023, 03/05/2022, Additional history exists Diabetes: Hemoglobin A1C 06/21/2025 025, 07/27/2024, 01/26/2024, Additional history exists Eye Exam 06/24/2025 06/25/2023 Lipid Panel 08/30/2025 08/30/2024, 09/2022, 10/29/2021 Tobacco Screening 12/22/2025 12/22/2024 DTaP/Tdap/Td Vaccines (4 - Td or Tdap) 02/24/2033 02/24/2023, 02/06/2012, 02/06/2012, Additional history exists Pneumococcal Vaccine: 50+ Years Completed 01/26/2024, 05/04/2018, 01/01/2018, Additional history exists Hepatitis C Screening Completed 08/30/2024 , 01/06/2024, 09/03/2022 HIB Vaccines Aged Out No longer eligi [...] patient's age to complete this topic Meningococcal B Vaccine Aged Out No l onger eligible based on patient's age to complete [...] Component 5.5( 3:56 PM EDT) No Ange Salamanca PharmD Note: [...] complication, without long-term current use of insulin ([facility]) POCT GLUCOSE Routine 12/22/2024 3:55 PM EDT Type 2 diabetes mellitus with other specified complication, without long-term current use of insulin ([facility]) ALBUMIN, RANDOM URINE W/CREATININE Routine 11/10/2024 1:40 PM EDT Type 2 diabetes mellitus with other specified complication, without long-term current use of insulin ([facility]) Rheumatoid arthritis involving multiple sites with positive rheumatoid factor ([facility]) Chronic low back pain, unspecified back pain laterality, unspecified whether sciatica present COMPREHENSIVE METABOLIC PANEL Routine 11/02/2024 11:21 AM EDT Type 2 diabetes mellitus with other specified complication, without long-term current use of insulin ([facility]) Rheumatoid arthritis involving multiple sites with positive rheumatoid factor ([facility]) Chronic low back pain, unspecified back pain laterality, unspecified whether sciatica present HEPATITIS PANEL, GENERAL Routine 08/30/2024 3:46 PM EDT LIPID PANEL, STANDARD Routine 08/30/2024 3:46 PM EDT Type 2 diabetes mellitus with other specified complication, without long-term current use of insulin ([facility]) Rheumatoid arthritis involving multiple sites with positive rheumatoid factor ([facility]) Chronic low back pain, unspecified back pain laterality, unspecified whether sciatica present PROPHYLAXIS - ADULT Routine 07/16/2021 1 2:00 [...] Recently Relevant to Health Maintenance Results * XR Chest 2 Views (12/23/2024 1:55 PM EDT) Anatomical Region Laterality Modality Chest Radiographic Fernanda ging 12/23/2024 1:55 PM EDT Narrative 12/23/2024 3:10 [place] [address] XRay Report Signed Patient: Nereyda Jones MR#: [id number] : 1950 Acct:[id number] Age/Sex: 74 / F ADM Date: 12/23/24 Loc: HO.HHCX Attending Dr: Wallace Anderson MD Ordering Physician: Wallace Anderson MD Date of Service: 12/23/24 Procedure(s): XR chest 2V Accession Number(s): [id number] cc: Wallace Anderson MD Reason for Exam: [...] 12/23/24 1507 DD/ 1355 TD/TT: 12/23/24 1400 Audit Director: Procedure Note Donotuseinterpreter, Image - 12/23/2024 [place] [address] XRay Report Signed Patient: Broderick Jones#: [id number] : 1950cct:[id number] Age/Sex: 74 / FADM Date: 12/23/24 Loc: HO.HHCX Attending Dr: Wallace Anderson MD Ordering Physician: Wallace Anderson MD Date of Service: 12/23/24 Procedure(s): XR chest 2V Accession Number(s): [id number] cc: Wallace Anderson MD Reason for Exam: [...] 12/23/24 1507 DD/ 1355 TD/TT: 12/23/24 1400 Audit Director: Result Shari Anderson MD IMG XR PROCEDURES Final Result * POCT [...] TEST ENTER/EDIT OR DERABLES Final Result * (ABNORMAL) Albumin, Random Urine W/Creatinine (11/10/2024 1:40 PM EDT) Creatinine, Urine 80.78 mg/dL [facility] Microalbumin Urine 121.0 mg/L [facility] Microalbum Creatinine Ratio Ur 149.7(H) <30 ug/mg cr [facility] Comment:Albumin/Creatinine R atio Reference Ranges: Normal: < 30 ug/mg creatinine Microalbuminuria: 30 - 300 ug/mg creatinineClinical Albuminuria: > 300 ug/mg creatinine Urine (Urine, Random) 11/10/2024 1:40 PM EDT 11/10/2024 4:09 PM EDT Result Shari Anderson MD LAB URINE ORDERABLES Final Resul t Performing Organization Address [facility]/ZIP Co de Phone Number [facility] [address] [place] [address] [phone] * (ABNORMAL) Comprehensive Metabolic Panel (11/02/2024 11:21 AM EDT) Sodium 142 135 - 145 mmol/L [facility] Potassium 3.9 3.3 - 5.1 mmol/L [facility] Chloride 107 96 - 108 mmol/L [facility] Carbon Dioxide 25 22 - 29 mmol/L [facility] Anion Gap 14 12 - 20 [facility] Urea Nitrogen (BUN) 33(H) 9 - 16 mg/dL [facility] Creatinine, Serum 1.70(H) 0.5 - 1.4 mg/dL [facility] Estimated Glomerular Filt Rate 30 [facility] Comment:Chronic Kidney Disea se: Estimated GFR < 60 mL/min/1.56j2Gxndpq Kidney Disease: Estimated GFR < 15 mL/min/1.73m2 Glucose 129(H) 60 - 115 mg/dL [facility] Calcium 9.5 8.4 - 10.2 mg/dL [facility] Bilirubin, Total 0.2 0.0 - 1.0 mg/dL [facility] Aspartate Amino Transferase 28 5 - 31 U/L [facility] Alanine Aminotransferase 21 0 - 31 U/L [facility] Total Protein 8.4(H) 6.5 - 8.0 g/dL [facility] Albumin Level 3.8 3.5 - 5.0 g/dL [facility] Alkaline Phosphatase 104 39 - 117 U/L [facility] Blood Venous blood specimen / Unknown 11/02/2024 11:21 AM EDT 11/02/2024 1:41 PM EDT us Wallace Anderson MD LAB BLOOD ORDERABLES Final Resul t Performing Organization Address [facility]/ZIP Co de Phone Number [facility] [address] [place] [address] [phone] * Hepatitis Panel, General (08/30/2024 3:46 PM EDT) Hepatitis A IgM Nonreactive Nonreactive [facility] Comment:IgM antibodies to ANTUNEZ V not detected; does not exclude earlyacute or recovered HAV infection. ~Hepatitis B Surface Antibody REACTIVE Nonreactive [facility] Comment:REACTIVE: > 11.99 mI U/mL Hepatitis B Core Antibody Nonreactive Nonreactive [facility] Hepatitis C Antibody Nonreactive Nonreactive [facility] Comment:Antibodies to HCV no t detected; does not exclude early acuteHCV infection. Hepatitis B Surface Ag Negative Negative [facility] 08/30/2024 3:46 PM EDT 08/30/2024 3:48 PM EDT us Generic External Data Provider LAB BLOOD ORDERAB LES Final Result [facility] [address] [place] [phone] * (ABNORMAL) Lipid Panel, Standard (08/30/2024 3:46 PM EDT) Triglycerides 251(H) <150 mg/dL [facility] Comment:Desirable Triglyceri de: less than 150 mg/dLBorderline High Triglyceride 150-199 mg/dLHigh Triglyceride: 200-499 mg/dLVery High Triglyceride: greater than or equal to 5OO mg/dL Cholesterol 120 <200 mg/dL [facility] Comment:Desirable Cholestero l: less than 200 mg/dLBorderline High Cholesterol: 200-239 mg/dLHigh Cholesterol: greater than 239 mg/dL LDL Cholesterol Calculated 42 <100 mg/dL [facility] Comment:Desirable LDL: less than 100 mg/dLNear Optimal/Above Optimal LDL: 110- 129 mg/dLBorderline High LDL: 130-159 mg/dLHigh LDL: 160-189 mg/dLVery High LDL: greater than or equal to 190 mg/dL HDL Cholesterol 28(L) >40 mg/dL [facility] Comment:Desirable HDL: great er than 40 mg/dL Note: This HDL assay may give artificially low results in patients with liver disease. Blood Venous blood specimen / Unknown 08/30/2024 3:46 PM EDT 08/30/2024 3:48 PM EDT us Wallace Anderson MD LAB BLOOD ORDERABLES Final Resul t [facility] [address] [place] [address] [phone] * DIGITAL BILATERAL SCREEN 1 (11/12/2017 3:56 PM EDT) Anatomical Region Laterality Modality Breast Bilateral Mammography 11/12/2017 3:56 PM EDT Narrative 11/12/2017 3:57 PM EDT Refer to the Notes tab for result details [facility] Procedure: DIGITAL BILATERAL SCREEN 1 Procedure Note Provider, MD Rito - 07/13/2022 Refer to the Notes tab for result details [facility] Procedure: DIGITAL BILATERAL SCREEN 1 us Lorna Brennan MD IMG BI PROCEDURES Final Resul t from Last 3 Months or Most Recently Relevant to Health Maintenance Insurance [facility] [employer]M [employer] (O D-SNP) Care Teams Insulation Hoseman Relationship Specialty Start Date End Date Name, MD Wallace [address] [place] [address] PCP - General Family Medicine 01/27/19
--- OUTSIDE RECORDS SUMMARY | 2024-12-23 15:33 | XMS_ITS | Encounter Summary ---
Author Organization [employer] Address [address] [facility] 7t [place] [address] Care Team Providers Care Database Designer Name Role Phone Name, Wallace HUNTER Primary Care Provider [phone] Ange Salamanca PharmD Unavailable [phone] Reason for Visit * Reason Comments Med Refill Encounter Details Date Type Department Care Team (Late st Contact Info) Description 05/22/2023 Refill [facility] [address] [place], [place] [phone] Mee Boone MD [address] [place] [address] Chronic low back pain, unspecified back pain [...] Info) Description 01/05/2025 11:30 AM EDT Telemedicine [facility] [address] [place] [phone] Name, MD Wallace [address] [place] [address] documented as of this encounter Visit Diagnoses Diagnosis Chronic low back pain, unspecified back pain laterality, unspecified whether sciatica present documented in this encounter Additional Health Concerns Assessment Noted Time PHQ-9 Depression Total Score: 8 08/20/19 23 1:10 PM EDT documented as of this encounter Care Teams Database Designer Relationship Specialty Start Date End Date Name, MD Wallace [address] [place] [phone] PCP - General Family Medicine 01/27/19 Ange Salamanca PharmD [address] [place] [phone] Pharmacist Internal Medicine 11/26/23 05/12/24 documented as of this encounter
--- OUTSIDE RECORDS SUMMARY | 2024-12-23 15:33 | XMS_ITS | Encounter Summary ---
Author Organization [employer] Address [address] [facility] 7t [place] [address] Care Team Providers Care Candy Maker Helper Name Role Phone Name, Wallace HUNTER Primary Care Provider [phone] Ange Salamanca PharmD Unavailable [phone] Reason for Visit * Reason Onset Date Comments Durable Medical Equipment 05/15/2023 Encounter Details Date Type Department Care Team ([facility] st Contact Info) Description 05/15/2023 Telephone [facility] [address] [place], [place] [phone] Name, MD Wallace [address] [place] [address] Durable Medical Equipment Social History Tobacco Use [...] Miscellaneous Notes * Telephone Encounter - Latoya iRng - 05/15/2023 3:42 PM EST Tc andrzej Porter with [facility] requesting Scripts: Pull ups size Medium 2 a day Wipes 12 Packs a month Please fax over @ [phone] documented in this encounter Plan of Treatment Upcoming Encounters Date Type Department Care Team (Late st Contact Info) Description 01/05/2025 11:30 AM EDT Telemedicine [facility] [address] [place] [phone] Name, MD Wallace [address] [place] [address] documented as of this encounter Visit Diagnoses Not on filedocumented in this encounter Additional Health Concerns Assessment Noted Time PHQ-9 Depression Total Score: 8 08/20/19 23 1:10 PM EDT documented as of this encounter Care Teams Candy Maker Helper Relationship Specialty Start Date End Date Name, MD Wallace [address] [place] [phone] PCP - General Family Medicine 01/27/19 Ange Salamanca PharmD [address] [place] [phone] Pharmacist Internal Medicine 11/26/23 05/12/24 documented as of this encounter
--- OUTSIDE RECORDS SUMMARY | 2024-12-23 15:33 | XMS_ITS | Encounter Summary ---
Author Organization [employer] Address [address] [facility] 7t [place] [address] Care Team Providers Care Cell Changer Name Role Phone Name, Wallace HUNTER Primary Care Provider [phone] Reason for Visit * Reason Onset Date Comments Referral question 09/29/2024 Encounter Details Date Type Department Care Team ([facility] Contact Info) Description 09/29/2024 Telephone [facility] MEDICINE [address] [place], [place] [phone] Name, MD Wallace [address] [place], [place] [phone] Referral question Social History Tobacco Use Types Packs/Day Years [...] encounter Miscellaneous Notes * Telephone Encounter - Kassandra Harman RN - 09/30/2024 1:52 PM EDT Damien not on HIPAA. TC placed to pt at [phone] via [employer] potato seed cutter (Mk ID#[id number]) regarding referral request. Pt reports the reason her son called requesting matzo forming machine operator referral is due to pt not being able to move around well. Pt reports their rheumatoid arthritis does not let her walk or domany things. Pt seen on 07/27/24 where PCP notes poor mobility. Message forwarded to covering provider for review. [employer] noted attempt to reach pt on 08/31/24 to inform of below results and PCP message. [employer] advised pt on their blood work PCP notes the triglycerides are little high. Advised PCP recommend starting Vascepa in addition to current medication regimen to lower triglycerides and decrease risk of heart attacks and strokes. Pt agreeable to begin this medication. Message forwarded to covering provider to review and advise. ----- Message from Wallace Anderson MD sent at 08/31/2024 5:49 AM EDT ----- Please call the patient. On h recent blood work the triglycerides are little high. I recommend starting Vascepa in addition to his current medication regimen to lower triglycerides and decrease risk of heart attacks and strokes. If she agrees let me know and I will send the medication to his pharmacy. * Telephone Encounter - Lili Vuong - 09/29/2024 3:15 PM EDT Tc from pt Son, Damien, requesting a referral for a matzo forming machine operator, but he does not know if insurance will covered. He would like clarification on this Contact Damien at [phone] Syriac speaker documented in this encounter Plan of Treatment Upcoming Encounters Date Type Department Care Team (Late st Contact Info) Description 01/05/2025 11:30 AM EDT Telemedicine [facility] MEDICINE [address] [place] [address] Name, MD Wallace [address] [place] [address] documented as of this encounter Goals Goal Patient Goal Type Associated Problems Recent Progress Patient-Stated? Author Hemoglobin A1c < 7.5 Result Component 5.5( 3:56 PM EDT) No Cheikh, Ange, PharmD Note: Due to age, underlying co-morbidities, limitations of therapy d/t kidney function, etc Record your blood sugar as directed Result Component No Puia, Ange, PharmD Note: Use CGM, ensuring sensor is scanned at least once every 8 hours to capture 24H data. Check BG manually, as directed. documented as of this encounter Visit Diagnoses Not on filedocumented in this encounter Additional Health Concerns Assessment Noted Time PHQ-9 Depression Total Score: 8 08/20/19 23 1:10 PM EDT documented as of this encounter Care Teams Cell Changer Relationship Specialty Start Date End Date Name, MD Wallace [address] [place] [address] PCP - General Family Medicine 01/27/19 documented as of this encounter
--- OUTSIDE RECORDS SUMMARY | 2024-12-23 15:33 | XMS_ITS | Encounter Summary ---
Author Organization [employer] Address [address] [facility] 7t [place] [address] Care Team Providers Care Activity Assistant Name Role Phone Name, Wallace HUNTER Primary Care Provider Ange Salamanca PharmD Unavailable [phone] Reason for Visit * Reason Comments Med Refill Encounter Details Date Type Department Care Team (Late st Contact Info) Description 03/17/2023 Refill [facility] MEDICINE [address] [place], [place] [phone] Mirna Quintanilla MD [address] [place], [place] [phone] Chronic low back pain, unspecified back pain [...] Info) Description 01/05/2025 11:30 AM EDT Telemedicine [facility] MED[facility]INE [address] [place] [address] Name, MD Wallace [address] [place] [address] documented as of this encounter Visit Diagnoses Diagnosis Chronic low back pain, unspecified back pain laterality, unspecified whether sciatica present documented in this encounter Additional Health Concerns Assessment Noted Time PHQ-9 Depression Total Score: 8 08/20/19 23 1:10 PM EDT documented as of this encounter Care Teams Activity Assistant Relationship Specialty Start Date End Date Name, MD Wallace [address] [place] [address] PCP - General Family Medicine 01/27/19 Ange Salamanca PharmD [address] [place] [address] Pharmacist Internal Medicine 11/26/23 05/12/24 documented as of this encounter
--- OUTSIDE RECORDS SUMMARY | 2024-12-23 15:33 | XMS_ITS | Encounter Summary ---
Author Organization [employer] Address [address] [facility] 7t [place] [address] Care Team Providers Care Welder/Fabricator Name Role Phone Name, Wallace HUNTER Primary Care Provider [phone] Ange Salamanca PharmD Unavailable [phone] Reason for Visit * Reason Onset Date Comments Call Back Request 09/25/2023 Encounter Details Date Type Department Care Team ([facility] st Contact Info) Description 09/25/2023 Telephone [facility] MEDICINE [address] [place], [place] [phone] Name, MD Wallace [address] [place] [address] Call Back Request Social History Tobacco Use [...] 11:39 AM EDT T/C to pt. On [phone] for below message, No answer. LVM to call back on [phone]. * Telephone Encounter - Quintin Bill - 09/25/2023 1:15 PM EDT Tc from [facility] calling to request on behalf of the patient the following screenings . Mammogram Blood pressure Kidney Colonoscopy documented in this encounter Plan of Treatment Upcoming Encounters Date Type Department Care Team (Late st Contact Info) Description 01/05/2025 11:30 AM EDT Telemedicine [facility] MEDICINE [address] [place] [address] Name, MD Wallace [address] [place] [address] documented as of this encounter Visit Diagnoses Not on filedocumented in this encounter Additional Health Concerns Assessment Noted Time PHQ-9 Depression Total Score: 8 08/20/19 23 1:10 PM EDT documented as of this encounter Care Teams Welder/Fabricator Relationship Specialty Start Date End Date Name, MD Wallace [address] [place] [address] PCP - General Family Medicine 01/27/19 Ange Salamanca PharmD [address] [place] [address] Pharmacist Internal Medicine 11/26/23 05/12/24 documented as of this encounter
--- OUTSIDE RECORDS SUMMARY | 2024-12-23 15:33 | XMS_ITS | Encounter Summary ---
Author Organization [employer] Address [address] [facility] 7t [place] [address] Care Team Providers Care Train Control Electronic Technician Name Role Phone Name, Wallace HUNTER Primary Care Provider [phone] Ange Salamanca PharmD Unavailable [phone] Reason for Visit * Reason Comments Med Refill Encounter Details Date Type Department Care Team (Late st Contact Info) Description 10/07/2023 Refill [facility] MEDICINE [address] [place] [address] Stephanie South, MAURICIO [address] [place] [address] Rheumatoid arthritis involving multiple sites with positive rheumatoid factor ([facility]/HCC) Social History Tobacco Use Types Packs/Day Years [...] AM EDT Telemedicine [facility] MEDICINE [address] [place] [address] Name, MD Wallace [address] [place] [address] documented as of this encounter Visit Diagnoses Diagnosis Rheumatoid arthritis involving multiple sites with positive rheumatoid factor (CMS/HCC) documented in this encounter Additional Health Concerns Assessment Noted Time PHQ-9 Depression Total Score: 8 08/20/19 23 1:10 PM EDT documented as of this encounter Care Teams Train Control Electronic Technician Relationship Specialty Start Date End Date NameWallace MD [address] [place] [address] PCP - General Family Medicine 01/27/19 Ange Salamanca PharmD [address] [place] [address] Pharmacist Internal Medicine 11/26/23 05/12/24 documented as of this encounter
--- OUTSIDE RECORDS SUMMARY | 2024-12-23 15:33 | XMS_ITS | Encounter Summary ---
Author Organization [employer] Address [address] [facility] [address] 7t [place] [address] Care Team Providers Care Quarter Supervisor Name Role Phone Name, Wallace HUNTER Primary Care Provider [phone] Reason for Visit * Reason Comments Med Refill Encounter Details Date Type Department Care Team ([facility] st Contact Info) Description 08/10/2024 Refill [facility] MED & PEDS [address] [place], [place] [phone] Name, MD Wallace [address] [place] [address] Rheumatoid arthritis involving multiple sites with positive rheumatoid factor ([facility]) Social History Tobacco Use Types [...] Info) Description 01/05/2025 11:30 AM EDT Telemedicine [facility] MEDICINE [address] [place], [place] [phone] Name, MD Wallace [address] [place], [place] [phone] documented as of this encounter Goals Goal Patient Goal Type Associated Problems Recent Progress Patient-Stated? Author Hemoglobin A1c < 7.5 Result Component 5.5( 5 3:56 PM EDT) No Ange Salamanca, PharmD [...] documented as of this encounter Care Teams Quarter Supervisor Relationship Specialty Start Date End Date NameWallace MD [address] [place], [place] [phone] PCP - General Family Medicine 01/27/19 documented as of this encounter
--- OUTSIDE RECORDS SUMMARY | 2024-12-23 15:34 | XMS_ITS | Encounter Summary ---
Author Organization [employer] Address [address] [facility] 7t [place] [address] Care Team Providers Care Collection Coordinator Name Role Phone Name, Wallace HUNTER Primary Care Provider [phone] Ange Salamanca PharmD Unavailable [phone] Reason for Visit * Reason Comments Med Refill Encounter Details Date Type Department Care Team (Late st Contact Info) Description 03/25/2024 Refill [facility] MEDICINE [address] [place], [place] [phone] Name, MD Wallace [address] [place] [address] Edema leg Social History Tobacco Use Types [...] Info) Description 01/05/2025 11:30 AM EDT Telemedicine [facility] MEDICINE [address] [place] [phone] Name, MD Wallace [address] [place], [place] [phone] documented as of this encounter Goals Goal [...] documented as of this encounter Care Teams Collection Coordinator Relationship Specialty Start Date End Date Name, MD Wallace [address] [place] [phone] PCP - General Family Medicine 01/27/19 Ange Salamanca, PharmD [address] [place] [address] Pharmacist Internal Medicine 11/26/23 05/12/24 documented as of this encounter
--- OUTSIDE RECORDS SUMMARY | 2024-12-23 15:34 | XMS_ITS | Encounter Summary ---
Author Organization [employer] Address [address] [facility] 7t [place] [address] Care Team Providers Care Paperback Machine Operator Name Role Phone Name, Wallace HUNTER Primary Care Provider [phone] Ange Salamanca PharmD Unavailable [phone] Reason for Visit * Reason Comments Med Refill Encounter Details Date Type Department Care Team (Late st Contact Info) Description 05/05/2024 Refill [facility] MEDICINE [address] [place], [place] [phone] Name, MD Wallace [address] [place] [address] Rheumatoid arthritis involving multiple sites with positive rheumatoid factor ([facility]) Social History Tobacco Use Types [...] 01/05/2025 11:30 AM EDT Telemedicine [facility] MEDICINE [address] [place] [address] Name, MD Wallace [address] [place] [address] documented as of this encounter Goals Goal Patient Goal Type Associated Problems Recent Progress Patient-Stated? Author Hemoglobin A1c < 7.5 Result Component 5.5( 3:56 PM EDT) No Ange Salamanca, Pamela Note: Due to age, underlying co-morbidities, limitations [...] documented as of this encounter Care Teams Paperback Machine Operator Relationship Specialty Start Date End Date Name, MD Wallace [address] [place] [phone] PCP - General Family Medicine 01/27/19 Ange Salamanca, SosaD [address] [place] [address] Pharmacist Internal Medicine 11/26/23 05/12/24 documented as of this encounter
--- OUTSIDE RECORDS SUMMARY | 2024-12-23 15:34 | XMS_ITS | Encounter Summary ---
Author Organization [employer] Address [address] [place] [address] 7t [place] [address] Care Team Providers Care Rewriter Name Role Phone Name, Wallace HUNTER Primary Care Provider [phone] Ange Salamanca PharmD Unavailable Encounter Details Date Type Department Care Team (Late st Contact Info) Description 08/07/2022 Orders Only [facility] CHC MED & PEDS [address] [place] [address] Liliam Ortiz LPN Social History Tobacco Use [...] Description 01/05/2025 11:30 AM EDT Telemedicine [facility] MEDICINE [address] [place] [address] NameWallace MD [address] [place] [address] documented as of this encounter Visit Diagnoses Not on filedocumented in this encounter Care Teams Rewriter Relationship Specialty Start Date End Date NameWallace MD [address] [place] [address] PCP - General Family Medicine 01/27/19 Ange Salamanca, PharmD [address] [place] [address] Pharmacist Internal Medicine 11/26/23 05/12/24 documented as of this encounter
--- OUTSIDE RECORDS SUMMARY | 2024-12-23 15:35 | XMS_ITS | Clinical Summary ---
Author Organization [facility], Address [address] [place] [address] [place] [address] Phone Care Team Providers Care Occupational Therapy Supervisor Name Role Phone Name, Wallace HUNTER Primary Care Provider [phone] Allergies Active Allergy Reactions Criticality Noted Date [...] Diabetes: Hemoglobin A1C 04/27/2024 01/26/2024 Influenza Vaccine (#1) 2024 , 03/21/2021, 03/21/2020, Additional history exists Pneumococcal Vaccine: 50+ Years Completed 01/26/2024, 05/04/2018, 01/01/2018, Additional history exists Pneumococcal Vaccine: Peds (0 to 5 Years) and At-Risk Patients (6 to 49 Years) Discontinued 01/26/2024, 05/04/2018, 01/01/2018, Additional history exists Hepatitis B Vaccine Aged Out No longe r eligible based on patient's age to complete this topic Insurance [facility] [address] [place], [place] [facility] Care Dual SNP ([id number]) [place] [id number] [address] [place] [address] [address] [place], [place] Care Teams Occupational Therapy Supervisor Relationship Specialty Start Date End Date Name, MD Wallace [address] [place] [address] PCP - General Internal Medicine 06/25/23
--- OUTSIDE RECORDS SUMMARY | 2024-12-23 15:35 | XMS_ITS | Encounter Summary ---
Author Organization [facility] Address [address] [facility] [address] [place] [address] Phone Care Team Providers Care Brick Kiln Worker Name Role Phone Unknown, Unknown Primary Care Provider Andrea douglas Encounter Details Date Type Department Care Team (Latest Contact Info) Description 01/04/2019 Ancillary Orders [facility] [address] [place] [address] [place] [address] Kong Gonzalez, DO [address] [place] [address] Abnormal EKG; Hypertension, unspecified type Social History Tobacco Use Types Packs/Day Years Used Date Smoking Tobacco: Never Assessed Comments Unknown Sex and Gender Information Value Date Recorded Sex Assigned at Not on file Legal Sex Female 10:29 AM EDT Gender Identity Not on file Sexual Orientation Not on file documented as of this encounter Plan of Treatment Not on file documented as of this encounter Results * Holter Monitor 48 Hours (01/04/2019 1:04 PM EDT) Anatomical Region Laterality Modality Heart Other Narrative 01/04/2019 2:39 PM EDT 48-hour monitor: Baseline rhythm is sinus with a minimum heart rate of 69, maximum 124, average 87 bpm. There are no long pauses present. There are 10 PACs and 1 PVC during monitoring. There is no patient diary returned. There are no patient event markers. Impression: Normal 48-hour monitor: No symptoms reported. Procedure Note Justin Prater MD - 01/04/2019 48-hour monitor: Baseline rhythm is sinus with a minimum heart rate of 69,maximum 124, average 87 bpm. There are no long pauses present. There are10 PACs and 1 PVC during monitoring. There is no patient diary returned.There are no patient event markers. Impression: Normal 48-hour monitor: No symptoms reported. Kong Gonzalez DO [facility] ORDER[facility] S Final Result documented in this encounter Visit Diagnoses Diagnosis Abnormal EKG Nonspecific abnormal electrocardiogram (ECG) (EKG) Hypertension, unspecified type Abnormal EKG Nonspecific abnormal electrocardiogram (ECG) (EKG) Hypertension, unspecified type documented in this encounter Care Teams Brick Kiln Worker Relationship Specialty Start Date End Date Unknown, Unknown, PCP - General 01/04/19 documented as of this encounter Additional Source Comments The information contained in this document represents components of the legal health record. It is not the complete legal health record.[facility]
--- OUTSIDE RECORDS SUMMARY | 2024-12-23 15:35 | XMS_ITS | Clinical Summary ---
Author Organization [facility] Address [address] [place] [address] Phone Care Team Providers Care Scalloper Name Role Phone Unknown, Unknown Primary Care [...] file Medical Devices Not on file Insurance [facility] MEDICARE REPLACEMENT MEDICARE REPLACEMENT MEDICARE REPLACEMENT Member Subscriber Plan / Payer (Ef fective 2017-Present) Name:Nereyda Bhatt Relation to Subscriber:Self Name:Nereyda Bhatt Payer ID:[id number] (NAIC) Group ID:Not on file Type:Medicare Address: [place] [id number] MEDICARE REPLACEMENT MEDICARE REPLACEMENT MEDICARE REPLACEMENT Member Subscriber Plan / Payer (Ef fective 2017-Present) Name:Nereyda Bhatt Relation to Subscriber:Self Name:Nereyda Bhatt Payer ID:[id number] (NAIC) Group ID:Not on file Type:Medicare Address: [place] [id number] MEDICARE REPLACEMENT MEDICARE REPLACEMENT MEDICARE REPLACEMENT Care Teams Scalloper Relationship Specialty Start Date End Date Unknown, Unknown, PCP - General 01/04/19 Additional Source Comments The information contained in this document represents components of the legal health record. It is not the complete legal health record.[facility]
--- OUTSIDE RECORDS SUMMARY | 2024-12-23 15:35 | XMS_ITS | Encounter Summary ---
Author Organization [employer] Address [address] [facility] 7t [place] [address] Care Team Providers Care Choker Hooker Name Role Phone Name, Wallace HUNTER Primary Care Provider [phone] Encounter Details Date Type Department Care Team (Latest Contact Info) Description 12/22/2024 Travel Social History Tobacco Use Types Packs/Day Years Used Date Smoking Tobacco: Never Passive Smoke Exposure: Never Smokeless Tobacco: Never Alcohol Use Standard Drinks/Week Comments Never 0 (1 standard drink = 0.6 oz pur e alcohol) Depression Answer Date Recorded Patient Health Questionnaire-9 Score 8 08/19/2022 Housing Stability Answer Date Recorded What is your housing situation today? I have virykiara najera 02/03/[address] you [...] Info) Description 01/05/2025 11:30 AM EDT Telemedicine [facility] MEDICINE [address] [place] [address] Name, MD Wallace [address] [place] [address] documented as of this encounter Goals Goal Patient Goal Type Associated Problems Recent Progress Patient-Stated? Author Hemoglobin A1c < 7.5 Result Component 5.5( 5 3:56 PM EDT) No Ange Salamanca, Pamela [...] documented as of this encounter Care Teams Choker Hooker Relationship Specialty Start Date End Date Name, MD Wallace [address] [place] [address] PCP - General Family Medicine 01/27/19 documented as of this encounter
--- OUTSIDE RECORDS SUMMARY | 2024-12-23 15:35 | XMS_ITS | Encounter Summary ---
Author Organization [employer] Address [address] [facility] 7t [place] [address] Care Team Providers Care Branch Or Department Chief Librarian Name Role Phone Name, Wallace HUNTER Primary Care Provider [phone] Ange Salamanca PharmD Unavailable [phone] Reason for Visit * Reason Onset Date Comments Med Refill 02/04/2024 Encounter Details Date Type Department Care Team ([facility] st Contact Info) Description 02/04/2024 Telephone [facility] MEDICINE [address] [place] [address] Name, MD Wallace [address] [place] [address] Med Refill Social History Tobacco Use Types [...] Pen-injector Kit pen-injector To be sent to: [facility] documented in this encounter Plan of Treatment Upcoming Encounters Date Type Department Care Team (Late st Contact Info) Description 01/05/2025 11:30 AM EDT Telemedicine [facility] MEDICINE [address] [place] [address] Name, MD Wallace [address] [place] [address] documented as of this encounter Goals Goal [...] documented as of this encounter Care Teams Branch Or Department Chief Librarian Relationship Specialty Start Date End Date Name, MD Wallace [address] [place] [address] PCP - General Family Medicine 01/27/19 Ange Salamanca PharmD [address] [place] [address] Pharmacist Internal Medicine 11/26/23 05/12/24 documented as of this encounter
== END 2024-12-23 14:14 | disposition home or self-care (01) ==
LOC: HO.HHCX 14:13
PROVIDERS: PCP Internal Medicine Geriatric Medicine; Visit Provider Internal Medicine Geriatric Medicine
DX: R05.2 Subacute cough (principal); R06.2 Wheezing; R06.09 Other forms of dyspnea
CPT/HCPCS: 71046

== ENCOUNTER → 2024-12-23 14:18 | Outpatient (BNV) | payer OTHER, SELFPAY | PROVIDERS: PCP Internal Medicine Geriatric Medicine; Visit Provider Radiology Diagnostic Radiology | DX: R05.9 Cough, unspecified (principal) | CPT/HCPCS: 71046 ==

== ENCOUNTER 2025-01-04 14:26 | Outpatient (AMB) | payer OTHER, SELFPAY ==
--- NOTE | 2025-01-04 15:26 | A.OFFVIS_ITS ---
Vital Signs 01/04/25 15:34 Height 4 ft 11 in Weight 132 lb 7.965 oz BMI 26.8 BP 130/78 Blood Pressure Location Rt brachial Position Sitting Pulse 75 Pulse Source Pulse Oximeter Pulse Oximetry (%) 95 Oxygen Delivery Method Room Air Intake Visit Reasons: f/u RA Intake Note: Patient presents for RA follow up. Tire Duster Required: Yes Tire Duster Language: Transportation Planning Technician Services: Tire Duster Present Tire Duster Name: Luke [id number] Information Interpreted: non-clinical & clinical Open Pit Quarry Supervisor: Open Pit Quarry Supervisor Present (Malgorzata Butler) Accompanied by: PAPERBOARD MACHINE OPERATOR Allergies Penicillins (PENICILLINS) Allergy (Severe, Verified 01/04/25 15:34) RASH From PERCOCET Allergy (Severe, Uncoded 10/10/23 13:51) RASH Medication List - Last Reconciled 01/04/25 by Kathe Ledezma MD acetaminophen ER 1 tab PO Q12H PRN albuterol sulfate 90 mcg/actuation 2 puffs inhalation Q4-6H PRN alcohol swabs (Alcohol Prep Pads) 1 pad topical QID allopurinol 100 mg PO DAILY amlodipine 1 tab PO DAILY atorvastatin 1 tab PO DAILY blood sugar diagnostic (AcceloWebuch Ultra Test strips) As directed cetirizine 10 mg PO QAM chlorthalidone 1 tab PO DAILY cholecalciferol (vitamin D3) 1 tab PO DAILY cyanocobalamin (vitamin B-12) 1 tab PO DAILY dulaglutide (Trulicity) mg subcut etanercept (Enbrel SureClick) 50 mg subcut QWEEK ferrous sulfate (FeroSul) 1 tab PO TID fluticasone propionate 50 mcg/actuation sprays intranasal lactulose mL PO lancets (Customer BOOM (formerly Renter's BOOM)Touch Delica Plus Lancet) As directed levothyroxine 1 tab PO DAILY@0630 lidocaine 5% 1 patch topical DAILY PRN losartan 25 mg PO DAILY metoprolol tartrate 1 tab PO BID pantoprazole 1 tab PO DAILY@0630 pregabalin 75 mg PO BID 30 days sennosides (senna) 2 tabs PO DAILY PRN sulfasalazine 1 g (2 x 500 mg) PO DAILY 90 days tramadol mg PO triamcinolone acetonide (24 Hour Nasal Allergy) intranasal HPI Comments Details: Patient is a 74-year-old female with the hypertension, 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 - Added SSZ to the regimen Today, - Allopurinol 100mg daily, SSZ 1000mg bid and Enbrel 50mg SC weekly - Feels that the Enbrel and SSZ are helpful - Complaining of left shoulder pain - Also complaining of leg pain which she attributes to her neuropathy Rheumatologic History: Gout - non crystal proven - history seen in chart - on allopurinol therapy RA - unsure of the diagnosis time - +++RF +++CCP - MTx contraindicated due to kidney function - Arava - Humira: 01/2018 - 12/2023 - Orencia 12/2023. PA denied - Enbrel 12/2023 Current Rheumatology Medication(s): Allopurinol 100 mg daily Enbrel 50 mg weekly SSZ 1000mg bid [facility] Medical History (Updated 08/31/24 @ 08:07 by Kathe Ledezma MD) On allopurinol therapy Chronic right shoulder pain Trochanteric bursitis, right hip Bilateral hip pain Gout Hypothyroidism Hypertension Fibromyalgia Seropositive rheumatoid arthritis Surgical History Hx of hysterectomy Family History Mother Asthma Father CVD (cardiovascular disease) Brother HTN (hypertension) Diabetes Social History Household Members: Spouse Housing: Apartment Alcohol intake: never Patient Tobacco Use Status: Never used Tobacco e-Cigarette/Vaping Use: Never Used Review of Systems Const Details: Review of Systems Constitutional: Denies fever, chills, weight loss ENT: Denies vision changes, eye pain or eye redness, dental caries, dry mouth GI: Denies nausea, vomiting, diarrhea, abdominal pain, change in BM Pulm: Denies SOB, PORTILLO, hemoptysis, wheezing Cards: Denies chest pain, palpitations Skin: Denies Raynaud's, rash, nail changes, photosensitivity, KILN WORKER: Denies headaches, weakness, paresthesias, recurrent falls MSK: as per HPI All other systems reviewed and are unremarkable except noted above Physical Exam Exam Exam: Vital signs reviewed Physical Examination CONSTITUITIONAL Patient alert and cooperative. Well appearing and in no apparent painful distress Examined in wheel chair MSK Hands * Right Hand: Able to make a fist. No swelling or tenderness to palpation of the MCPs, PIPs or DIPs. * Left Hand: Able to make a fist. No swelling or tenderness to palpation of the MCPs, PIPs or DIPs. * Herbedens nodes noted bilaterally Wrists * Right Wrist: Full ROM to flexion and extension. No swelling or TTP * Left Wrist: Full ROM to flexion and extension. No swelling or TTP Elbows * Right Elbow: Full ROM. No swelling or TTP. No TTP of the medial epicondyle. No TTP of the lateral epicondyle * Left Elbow: Full ROM. No swelling or TTP. No TTP of the medial epicondyle. No TTP of the lateral epicondyle Shoulders * Right shoulder: Decreased ROM. No swelling noted. No TTP of the AC joint. No TTP of the subacromial bursa. No TTP of the posterior shoulder * Left shoulder: Significantly decreased ROM. No swelling noted. No TTP of the AC joint. TTP of the subacromial bursa. No TTP of the posterior shoulder Knees * Right knee: Not able to assess ROM in wheel chair. No swelling noted. No TTP of the knee joint line. No TTP of pes anserine bursa * Left knee: Not able to assess ROM in wheel chair. No swelling noted. No TTP of the knee joint line. No TTP of pes anserine bursa. Ankles * Right ankle: Good ankle dorsiflexion and plantar flexion. No swelling. No TTP of the ankle joint * Left ankle: Good ankle dorsiflexion and plantar flexion. No swelling. No TTP of the ankle joint Feet * Right foot: Negative squeeze test. TTP of the entire foot * Left foot: Negative squeeze test. TTP of the entire lock expert points? * No tenderness to palpation of the bilateral trapezius, supraspinatus, anterior costochondral junctions, bilateral suboccipital muscle insertions SKIN No rashes Vital Signs: Last Vital Signs Pulse 75 01/04/25 15:34 BP 130/78 01/04/25 15:34 Pulse Ox 95 01/04/25 15:34 Oxygen Delivery Method Room Air 01/04/25 15:34 BMI result Body Mass Index 26.8 Results Reviewed Results Reviewed: Laboratory Tests 01/06/24 08/30/24 11/02/24 14:45 15:46 11:21 WBC 10.5 RBC 3.94 L Hgb 12.3 Hct 38.1 Plt Count 328 ESR 83 H 95 H Sodium 142 Potassium 3.9 Chloride 107 Carbon Dioxide 25 BUN 33 H Creatinine 1.70 H Uric Acid 7.9 H 7.1 H AST 28 ALT 21 C-Reactive Protein 2.18 H Laboratory Tests 08/30/24 15:46 Hepatitis A IgM Ab Nonreactive Hep Bs Antigen Negative Hep Bs Antibody REACTIVE Hep B Core Total Ab Nonreactive Hepatitis C Ab (EIA) Nonreactive Assessment & Plan Assessment & Plan (1) Seropositive rheumatoid arthritis: Comment: ++RF +++CCP Not a candidate for methotrexate due to kidney function Arava: Prior to 04/2018 to December 2021. ineffective - Humira: 01/2018 - 12/2023 - Orencia 12/2023. PA denied - Enbrel 12/2023 - Code(s): M05.9 - Rheumatoid arthritis with rheumatoid factor, unspecified Category: Medical Plan: #Seropositive RA Patient is a 73-year-old female who is here today for follow up of her seropositive rheumatoid arthritis. Currently in low disease activity Plan - Enbrel 50mg SC weekly - Sulfasalazine 1000mg bid - RTC 6 months - Labs before visit: CBC, CMP, ESR, CRP, Hepatitis panel and T spot (2) Gout: Code(s): M10.9 - Gout, unspecified Category: Medical Qualifiers: Gout site: multiple sites Gout etiology: idiopathic Chronicity: unspecified Qualified Code(s): M10.09 - Idiopathic gout, multiple sites Plan: #Non crystal proven non tophaceous got Patient with history of gout based on chart. On allopurinol 100mg UA not at goal Plan - Increase allopurinol 200mg daily - Prednisone 5mg daily - Uric acid at next draw (3) Long-term use of immunosuppressant medication: Code(s): Z79.60 - callisthenics instructor (current) use of unspecified immunomodulators and immunosuppressants Category: Medical Plan: #Long-term Use of TNF Inhibitors: Enbrel Discussed with the patient the benefits and risks of TNF inhibitors for the management of the rheumatic condition Benefits include reduce pain, maintenance of remission and reduction of flares as well as ?progression of the disease Risks include injection sites/infusion reactions, serious infections (such as bacterial infections, opportunistic infections), malignancy, delaminating syndromes, autoimmune phenomena, CHF exacerbations, palmar plantar psoriasis and cytopenias Recommended rotating injection sites, and holding medication during and for up to 1 week after resolution of a febrile illness or open skin wound (4) On allopurinol therapy: Code(s): Z79.899 - Other usp (current) drug therapy Category: Medical Plan: #Long-term Current Use of Allopurinol Risks and benefits of allopurinol discussed with patient Benefits include decreased gout flares, remission of gout and reduction of tophi Risks include allopurinol hypersensitivity syndrome which is a severe cutaneous adverse reaction associated with allopurinol use particularly in patients who are HLA B*5801 positive, increased transaminases, GI upset including diarrhea, nausea and vomiting, and other dermatologic manifestations. Plan I spent 35 minutes reviewing the record and labs, taking a history, examining the patient, discussing the treatment plan and documenting in the medical record Orders: Orders Complete Blood Count Auto Diff 6 Months Z. - Other senior administrative services officer (current) drug therapy Erythrocyte Sedimentation Rate 6 Months Z. - Other senior administrative services officer (current) drug therapy Hepatitis B,C Profile 6 Months Z. - Other usp (current) drug therapy Comprehensive Met. Panel 6 Months . - Other senior administrative services officer (current) drug therapy C Reactive Protein 6 Months Z. - Other senior administrative services officer (current) drug therapy T Spot TB 6 Months Z. - Other usp (current) drug therapy Uric Acid 6 Months M10.09 - Idiopathic gout, multiple sites Medications: New prednisone 5 mg PO DAILY 90 tabs 1RF M10.09 - Idiopathic gout, multiple sites Changed From allopurinol 100 mg PO DAILY 90 tabs 0RF M10.09 - Idiopathic gout, multiple sites, Z79.899 - Other senior administrative services officer (current) drug therapy To allopurinol 200 mg (2 x 100 mg) PO DAILY 90 tabs 1RF M10.09 - Idiopathic gout, multiple sites, Z79.899 - Other senior administrative services officer (current) drug therapy From pregabalin 75 mg PO BID 30 days 60 caps 5RF M79.7 - Fibromyalgia To pregabalin 100 mg PO BID 60 caps 5RF 30 days M79.7 - Fibromyalgia Refilled etanercept (Enbrel SureClick) 50 mg subcut QWEEK 4 mL 4RF M05.9 - Rheumatoid arthritis with rheumatoid factor, unspecified sulfasalazine give with food (meal/snack) 1 g (2 x 500 mg) PO DAILY 180 tabs 1RF 90 days M05.9 - Rheumatoid arthritis with rheumatoid factor, unspecified Coding Level of Care Code Est Pt Level 4 (93317) Complex EM visit Add On G2211 Diagnoses Seropositive rheumatoid arthritis M05.9 Idiopathic gout of multiple sites, unspecified chronicity M10.09 Gout site: multiple sites Gout etiology: idiopathic Chronicity: unspecified Long-term use of immunosuppressant medication Z79.60 On allopurinol therapy Z79.899
[2025-01-04 15:34] VITALS: BP 130/78; PULSE 75; O2SAT 95; BMI 26.8
--- OUTSIDE RECORDS SUMMARY | 2025-01-04 18:10 | XMS_ITS | Encounter Summary ---
Author Organization [facility] Address [address] [place] [address] Phone Care Team Providers Care Tennis Coach Name Role Phone Name, Wallace HUNTER Primary Care Provider [phone] Reason for Visit * Reason Comments Med Refill Encounter Details Date Type Department Care Team (Late st Contact Info) Description 12/19/2023 Refill [facility] [place], [address] [place] [address] Joaquín Vaughan MD [address] [address] Social History Tobacco Use Types [...] on filedocumented in this encounter Care Teams Tennis Coach Relationship Specialty Start Date End Date Name, MD Wallace [address] [place] [address] PCP - General Internal Medicine 06/25/23 documented as of this encounter
--- OUTSIDE RECORDS SUMMARY | 2025-01-04 18:10 | XMS_ITS | Encounter Summary ---
Author Organization [facility] Address [address] [place] [address] Phone Care Team Providers Care Speech Teacher Name Role Phone Name, Wallace HUNTER Primary Care Provider Encounter Details Date Type Department Care Team (Late st Contact Info) Description 10/30/2021 Documentation Only [facility] [place], [address] [place] [address] Joaquín Vaughan MD [address] [place] [address] Social History Tobacco Use Types [...] on filedocumented in this encounter Care Teams Speech Teacher Relationship Specialty Start Date End Date Name, MD Wallace [address] [place] [address] PCP - General Internal Medicine 06/25/23 documented as of this encounter
--- OUTSIDE RECORDS SUMMARY | 2025-01-04 18:10 | XMS_ITS | Encounter Summary ---
Author Organization [facility] Address [address] [place] [address] Phone Care Team Providers Care Crane Oiler Name Role Phone Name, Wallace HUNTER Primary Care Provider [phone] Reason for Visit * Reason Comments Med Refill Encounter Details Date Type Department Care Team (Late st Contact Info) Description 10/30/2022 Refill [facility] [place], [address] [place] [address] Joaquín Vaughan MD [address] [place] [address] Social History Tobacco Use Types [...] on filedocumented in this encounter Care Teams Crane Oiler Relationship Specialty Start Date End Date Name, MD Wallace [address] [place] [address] PCP - General Internal Medicine 06/25/23 documented as of this encounter
--- OUTSIDE RECORDS SUMMARY | 2025-01-04 18:10 | XMS_ITS | Encounter Summary ---
Author Organization [facility] Address [address] [place] [address] Phone Care Team Providers Care Well Tender Name Role Phone Unknown, Unknown Primary Care Provider Andrea douglas Encounter Details Date Type Department Care Team (Latest Contact Info) Description 01/04/2019 Ancillary Orders [facility] [address] [place] [address] Kong Gonzalez, DO [address] [place] [address] Abnormal EKG; Hypertension, unspecified type Social History [...] Normal 48-hour monitor: No symptoms reported. Kong Goznalez DO [facility] ORDERABLE S Final Result documented in this encounter Visit Diagnoses Diagnosis Abnormal EKG Nonspecific abnormal electrocardiogram (ECG) (EKG) Hypertension, unspecified type Abnormal EKG Nonspecific abnormal electrocardiogram (ECG) (EKG) Hypertension, unspecified type documented in this encounter Care Teams Well Tender Relationship Specialty Start Date End Date Unknown, Unknown, PCP - General 01/04/19 documented as of this encounter Additional Source Comments The information contained in this document represents components of the legal health record. It is not the complete legal health record.[facility]
--- OUTSIDE RECORDS SUMMARY | 2025-01-04 18:10 | XMS_ITS | Encounter Summary ---
Author Organization [facility] Address [address] [place] [address] Phone Care Team Providers Care Pumping Supervisor Name Role Phone Name, Wallace HUNTER Primary Care Provider [phone] Reason for Visit * Reason Comments Med Refill Encounter Details Date Type Department Care Team (Late st Contact Info) Description 10/31/2022 Refill [facility] [place], [address] [place] [address] Joaquín Vaughan MD [address] [place] [address] Social History Tobacco Use Types [...] on filedocumented in this encounter Care Teams Pumping Supervisor Relationship Specialty Start Date End Date Name, MD Wallace [address] [place] [address] PCP - General Internal Medicine 06/25/23 documented as of this encounter
--- OUTSIDE RECORDS SUMMARY | 2025-01-04 18:10 | XMS_ITS | Encounter Summary ---
Author Organization [facility] Address [address] [place] [address] Phone Care Team Providers Care Mender Hand Name Role Phone Name, Wallace HUNTER Primary Care Provider [phone] Encounter Details Date Type Department Care Team (Late st Contact Info) Description 12/14/2021 Documentation Only [facility] [place], [address] [place] [address] Joaquín Vaughan MD [address] [place] [address] Social History Tobacco Use Types [...] on filedocumented in this encounter Care Teams Mender Hand Relationship Specialty Start Date End Date Name, MD Wallace [address] [place] [address] PCP - General Internal Medicine 06/25/23 documented as of this encounter
--- OUTSIDE RECORDS SUMMARY | 2025-01-04 18:10 | XMS_ITS | Clinical Summary ---
Author Organization [facility] Address [address] [place], [place] [id number] Phone Care Team Providers Care Art History Instructor Name Role Phone Unknown, Unknown Primary Care [...] file Medical Devices Not on file [place] [address] DUAL MEDICARE REPLACEMENT [facility] DUAL MEDICARE REPLACEMENT Member Subscriber Plan / Payer (Ef fective 2017-Present) Name:Nereyda Bhatt Relation to Subscriber:Self Name:Nereyda Bhatt Payer ID:[id number] (NAIC) Group ID:Not on file Type:Medicare Address: [place] [id number] [place] [address] DUAL MEDICARE REPLACEMENT Member Subscriber Plan / Payer (Ef fective 2017-Present) Name:Nereyda Bhatt Relation to Subscriber:Self Name:Nereyda Bhatt Payer ID:[id number] (NAIC) Group ID:Not on file Type:Medicare Address: [place] [id number] [facility] DUAL MEDICARE REPLACEMENT [facility] DUAL MEDICARE REPLACEMENT [place] [address] DUAL MEDICARE REPLACEMENT Member Subscriber Plan / Payer (Ef fective 2017-Present) Name:Nereyda Bhatt Relation to Subscriber:Self Name:Nereyda Bhatt Payer ID:[id number] (NAIC) Group ID:Not on file Type:Medicare Address: [place] [id number] [place] [id number] [facility] DUAL MEDICARE REPLACEMENT [facility] DUAL MEDICARE REPLACEMENT [facility] DUAL MEDICARE REPLACEMENT Care Teams Art History Instructor Relationship Specialty Start Date End Date Unknown, Unknown, PCP - General 01/04/19 Additional Source Comments The information contained in this document represents components of the legal health record. It is not the complete legal health record.[facility]
--- OUTSIDE RECORDS SUMMARY | 2025-01-04 18:10 | XMS_ITS | Encounter Summary ---
Author Organization [facility] Address [address] [place] [address] Phone Care Team Providers Care Provider Enrollment Specialist Name Role Phone Name, Wallace UHNTER Primary Care Provider [phone] Reason for Visit * Reason Comments Med Refill Encounter Details Date Type Department Care Team (Late st Contact Info) Description 12/13/2023 Refill [facility] [place], [address] [place] [address] Joaquín Vaughan MD [address] [place] [address] Social History Tobacco Use Types [...] on filedocumented in this encounter Care Teams Provider Enrollment Specialist Relationship Specialty Start Date End Date Name, MD Wallace [address] [place] [address] PCP - General Internal Medicine 06/25/23 documented as of this encounter
--- OUTSIDE RECORDS SUMMARY | 2025-01-04 18:10 | XMS_ITS | Encounter Summary ---
Author Organization [facility] Address [address] [place] [address] Phone Care Team Providers Care Art Conservator Name Role Phone Name, Wallace HUNTER Primary Care Provider Encounter Details Date Type Department Care Team (Late st Contact Info) Description 05/18/2024 Documentation Only [facility] [place], [address] [place] [address] [address] [place] [address] Social History Tobacco Use Types [...] on filedocumented in this encounter Care Teams Art Conservator Relationship Specialty Start Date End Date Name, MD Wallace [address] [place] [address] PCP - General Internal Medicine 06/25/23 documented as of this encounter
--- OUTSIDE RECORDS SUMMARY | 2025-01-04 18:10 | XMS_ITS | Encounter Summary ---
Author Organization [facility] Address [address] [place] [address] Phone Care Team Providers Care Application Infrastructure Engineer Name Role Phone Name, Wallace HUNTER Primary Care Provider [phone] Encounter Details Date Type Department Care Team (Late st Contact Info) Description 05/04/2024 Documentation Only [facility] [place], [address] [place] [address] [address] Burnham [address] [place] [address] Social History Tobacco Use Types [...] on filedocumented in this encounter Care Teams Application Infrastructure Engineer Relationship Specialty Start Date End Date Name, MD Wallace [address] [place] [address] PCP - General Internal Medicine 06/25/23 documented as of this encounter
--- OUTSIDE RECORDS SUMMARY | 2025-01-04 18:10 | XMS_ITS | Encounter Summary ---
Author Organization [facility] Address [address] [place] [address] Phone Care Team Providers Care Personal Carer Name Role Phone Name, Wallace HUNTER Primary Care Provider [phone] Reason for Visit * Reason Comments Med Refill Encounter Details Date Type Department Care Team (Late st Contact Info) Description 10/26/2022 Refill [facility] [place], [address] [place] [address] Joaquín Vaughan MD [address] [place] [address] Social History Tobacco Use Types [...] on filedocumented in this encounter Care Teams Personal Carer Relationship Specialty Start Date End Date Name, MD Wallace [address] [place] [address] PCP - General Internal Medicine 06/25/23 documented as of this encounter
--- OUTSIDE RECORDS SUMMARY | 2025-01-04 18:10 | XMS_ITS | Clinical Summary ---
Author Organization [facility], Address [address] [place] [address] [place] [address] Phone Care Team Providers Care Senior Procurement Manager Name Role Phone Name, Wallace HUNTER Primary Care Provider [phone] Allergies Active Allergy Reactions Criticality Noted Date [...] Encounters Date Type Department Care Team Description 12/30/2024 Refill [facility], [address] [place] [address] Joaquín Vaughan MD from Last 3 Months Immunizations Immunization Administration Dates Next Due Influenza, [...] Exam 06/22/2019 Diabetes: Visual Foot Exam 06/22/2019 Influenza Vaccine (#1) 2024 4, 03/21/2021, 03/21/2020, Additional history exists Diabetes: Hemoglobin A1C 03/23/2025 12/22/2024, 10/2023 Pneumococcal Vaccine: 50+ Years Completed 01/26/2024, 05/04/2018, 01/01/2018, Additional history exists Pneumococcal Vaccine: Peds (0 to 5 Years) and At-Risk Patients (6 to 49 Years) Discontinued 01/26/2024, 05/04/2018, 01/01/2018, Additional history exists Hepatitis B Vaccine Aged Out No longe r eligible based on patient's age to complete this topic Insurance [address] [place], [place] [facility] Dual SNP ([id number]) [employer] [employer] [id number] [address] [place] [address] [facility] [address] [place], [place] Care Teams Senior Procurement Manager Relationship Specialty Start Date End Date Name, MD Wallace [address] [place] [id number] PCP - General Internal Medicine 06/25/23
--- OUTSIDE RECORDS SUMMARY | 2025-01-04 18:10 | XMS_ITS | Encounter Summary ---
Author Organization [facility] Address [address] [place] [address] Phone Care Team Providers Care Import Coordination And Production Head Name Role Phone Name, Wallace HUNTER Primary Care Provider [phone] Reason for Visit * Reason Comments Med Refill Encounter Details Date Type Department Care Team (Late st Contact Info) Description 12/30/2024 Refill [facility], [address] [place] [address] Joaquín Vaughan MD [address] [facility] [place] [place] [address] Social History Tobacco Use Types [...] on filedocumented in this encounter Care Teams Import Coordination And Production Head Relationship Specialty Start Date End Date Name, MD Wallace [address] [place] [address] PCP - General Internal Medicine 06/25/23 documented as of this encounter
--- OUTSIDE RECORDS SUMMARY | 2025-01-04 18:10 | XMS_ITS | Encounter Summary ---
Author Organization [facility] Address [address] [place] [address] Phone Care Team Providers Care Olericulture Professor Name Role Phone Name, Wallace HUNTER Primary Care Provider [phone] Encounter Details Date Type Department Care Team (Late st Contact Info) Description 05/04/2024 Documentation Only [facility], [address] [place] [address] [address] [place] [address] Social History Tobacco Use Types [...] on filedocumented in this encounter Care Teams Olericulture Professor Relationship Specialty Start Date End Date Name, MD Wallace [address] [place] [address] PCP - General Internal Medicine 06/25/23 documented as of this encounter
--- OUTSIDE RECORDS SUMMARY | 2025-01-04 18:10 | XMS_ITS ---
Author Name Gretel Charles NP Address [address] [place] [address] Phone [phone] [facility] Care Team Providers Care Yeast Tender Name Role Phone Gretel Charles Unavailable [phone] Unavailable Unavailable [phone] Unavailable Unavailable Unavailable Name, Wallace Unavailable [phone] Reason for Referral Not Available Allergies, adverse [...] 2021-04-12 No Data Available OneTouch Delica Plus [id number] Miscellaneous TEST BLOOD SUGAR 1-4 TIMES DAILY [...] EVERYDAY AT NOON 2021 No Data Available REEL Qualified Ultra 2 w/Device Kit USE DIRECTED No [...] 10 mg Tab [facility] 1 TABLET [facility] M[facility] 2022-11-18 No Data Available Allergy [place] 24hr 55 MCG/AC T Aerosol Nasal 2 sprays intranasally daily in each nostril 2023-01-03 No Data Available Allergy [place] 24hr 55 MCG/AC T Aerosol Nasal 2 [...] Service Diagnosis/Co mplaint Medication List Documented (1159F) [facility] Medication List Documented (1159F[place] [facility] Medication List Documented (1159F) [facility] [place] Medication List Documented (1159F) [facility] [place] Medication List Documented (1159F) [facility] [place] Medication List Documented (1159F) [facility] [place]2022 Type 2 diabetes mellitus wit h diabetic polyneuropathyRheumatoid arthritis, unspecifiedImmunodeficiency due to conditions classified elsewhereType 2 diabetes mellitus with diabetic nephropathyEssential (primary) hypertensionHypothyroidism, unspecified Medication List Documented (1159F) [facility]22 Medication List Documented (1159F) [facility] [place] Medication List Documented (1159F) [facility] [place] Estab. patient 30-39min; chronic exacerbation, 2 stable chronic or 1 acute illness add add modifier 95 for video, (do not use for phone, instead use 32243-38) [facility]2022 Type 2 diabetes mellitus wit h diabetic polyneuropathyRheumatoid arthritis, unspecifiedImmunodeficiency due to conditions classified elsewhereType 2 diabetes mellitus with diabetic nephropathyEssential (primary) hypertensionHypothyroidism, unspecified Estab. patient 30-39min; chronic exacerbation, 2 stable chronic or 1 acute illness add add modifier 95 for video, (do not use for phone, instead use 61322-83) [facility]03[place]2023 Type 2 diabetes mellitus wit h [...] (do not use for phone, instead use 00096-95) [facility] Estab. patient 30-39min; chronic exacerbation, 2 stable chronic or 1 acute illness add add modifier 95 for video, (do not use for phone, instead use 43945-66) [facility] Estab. patient 30-39min; chronic exacerbation, 2 stable chronic or 1 acute illness add add modifier 95 for video, (do not use for phone, instead use 82727-64) [facility] Estab. patient 30-39min; chronic exacerbation, 2 stable chronic or 1 acute illness add add modifier 95 for video, (do not use for phone, instead use 92078-87) [facility] Estab. patient 30-39min; chronic exacerbation, 2 stable chronic or 1 acute illness add add modifier 95 for video, (do not use for phone, instead use 13354-36) [facility] [place] Estab. patient 30-39min; chronic exacerbation, 2 stable chronic or 1 acute illness add add modifier 95 for video, (do not use for phone, instead use 23798-03) [facility] [place] Estab. patient 30-39min; chronic exacerbation, 2 stable chronic or 1 acute illness add add modifier 95 for video, (do not use for phone, instead use 67758-30) [facility] [place]23 Estab. patient 30-39min; chronic exacerbation, 2 stable chronic or 1 acute illness add add modifier 95 for video, (do not use for phone, instead use 80432-60) [facility] [place]23 Estab. patient 30-39min; chronic exacerbation, 2 stable chronic or 1 acute illness add add modifier 95 for video, (do not use for phone, instead use 01478-89) [facility] [place]2023 Vital Signs Date of Collection Vitals [...] tive Time Current Smoking Status Never smoker 2024-12-20 7 Sex Female History of Procedures Procedures Service [...] le No Data Available No Data Available 21631 2022-02-05 No Data Available No Data Available [...] (do not use for phone, instead use 40089-25) 24752 2022-02-12 No Data Available No Data Availa ble Estab. 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
== END 2025-01-04 16:16 | disposition home or self-care (01) ==
LOC: HO.RHES 14:27
PROVIDERS: PCP Internal Medicine Geriatric Medicine; Visit Provider Student in an Organized Health Care Education/Training Program
DX: M05.79 Rheumatoid arthritis with rheumatoid factor of multiple sites without organ or systems involvement (principal); M10.09 Idiopathic gout, multiple sites; M75.52 Bursitis of left shoulder; Z79.60 Long term (current) use of unspecified immunomodulators and immunosuppressants; Z79.899 Other long term (current) drug therapy
CPT/HCPCS: 20610; 99214

== ENCOUNTER → 2025-01-04 14:26 | Outpatient (BNVA) | payer OTHER, SELFPAY | PROVIDERS: PCP Internal Medicine Geriatric Medicine; Visit Provider Student in an Organized Health Care Education/Training Program | DX: M25.512 Pain in left shoulder (principal); M05.79 Rheumatoid arthritis with rheumatoid factor of multiple sites without organ or systems involvement; M10.09 Idiopathic gout, multiple sites; Z79.60 Long term (current) use of unspecified immunomodulators and immunosuppressants; M79.7 Fibromyalgia | CPT/HCPCS: 20610; 99212; J2003; J3301 ==